=== PATIENT | female | born 1950 | race Caucasian/White ===

== ENCOUNTER 2019-02-18 09:39 | Outpatient (RCR) | payer MEDICARE, SELFPAY ==
--- NOTE | 2019-02-18 15:00 | PTOPEVAL ---
Thank you for referring this patient to [facility]. Please review, sign, date and return this plan of care CHIQUITA. I agree with and certify that the following plan of care is medically necessary. Referring Physician Date Admitting Provider: Attending Provider: Hamlet Cotto MD Referring Provider: *PT Outpatient Evaluation Start: 02/18/19 09:54 Freq: Status: Active Protocol: Document 02/18/19 09:55 MARC (Rec: 02/18/19 10:33 [id number]) Therapy Assessment Status Assessment Status Assessment Status Evaluation Evaluation Information Problem Diagnosis hip pain, trochanteric bursitis left Onset 12/02/18 Subjective Information Pt. reports that she began to Query Text:As Reported By Patient/ develop left hip pain in Family December. She report no particular injury, just woke with pain. She describes pain over the greater trochanter and into the left buttock. She reports that pain did radiate to the knee but had a shot which eased the leg pain. She reports her goal is to decrease her pain. Diagnostic Tests X-Rays For This Problem Yes Prior Level of Function Activity Level (Last 3 Months) Hand Dominance Right Activity of Daily Living Ability Independent Indoor/Home Mobility Independent Community Mobility Independent Stairs Ability Independent Functional Cognition (Planning, Shopping Independent , Taking Medications) Cooking Yes Cleaning Yes Laundry Yes Shopping Yes Driving Yes Pain Assessment Pain Scale Pain Scale Used Numeric (1 - 10) Self Report Pain Assessment Left Buttock(s) Reported Pain Level 3 Pain Aggravating Factors Prolonged Position,Sitting, Stair Climbing Pain Behaviors None Pain Relief Interventions Used By Position Change,Walking Patient Pain Score Pain Score 3: Self Report Cervical and Lumbar ROM Lumbar ROM Lumbar Flexion Active [place] Query Text:Hands to: Lumbar Extension (0-40) 20 Query Text:Active in Degrees Lumbar Lateral Flexion Right (0-40) 40 Query Text:Active in Degrees Lumbar Lateral Flexion Left (0-40) 40 Query Text:Active in Degrees
--- NOTE | 2019-04-16 17:29 | PTOPEVAL ---
Thank you for referring this patient to [facility]. Please review, sign, date and return this plan of care CHIQUITA. I agree with and certify that the following plan of care is medically necessary. Referring Physician Date Admitting Provider: Attending Provider: Hamlet Cotto MD Referring Provider: *PT Outpatient Evaluation Start: 02/18/19 09:54 Freq: Status: Active Protocol: Document 04/16/19 15:00 MARC (Rec: 04/16/19 17:29 [email or web address]) Therapy Assessment Status Assessment Status Assessment Status Re-evaluation Evaluation Information Problem Subjective Information Pt. reports that her left hip Query Text:As Reported By Patient/ is doing great. She denies Family any left hip pain. She reports recent development of right hip pain similar to the left. She reports that right hip pain is making sleep and walking difficult. she reports that she would like to continue treatment to reduce her right hip pain. Pain Assessment Pain Scale Pain Scale Used Numeric (1 - 10) Self Report Pain Assessment Right Hip(s) Reported Pain Level 5 Left Buttock(s) Reported Pain Level 0 Pain Score Pain Score 5,0: Self Report Cervical and Lumbar ROM Lumbar ROM Lumbar Flexion Active Ankle Query Text:Hands to: Lumbar Extension (0-40) 30 Query Text:Active in Degrees Lumbar Lateral Flexion Right (0-40) 40 Query Text:Active in Degrees Lumbar Lateral Flexion Left (0-40) 40 Query Text:Active in Degrees Lateral Rotation Right (0-45) 40 Query Text:Active in Degrees Lateral Rotation Left (0-45) 40 Query Text:Active in Degrees Lower Extremity Muscle Strength Testing General Lower Extremity Strength Gross Lower Extremity Strength bilateral hip flexion 5/5, right hip extension 4/5, left hip extension 4+/5, right hip abduction 4-/5, left hip abduction 4+/5, bilateral knee flexion 5/5, bilateral ankle dorsiflexion 5/5 Palpation Assessment Palpation Palpation Pt. notes tenderness to palpation of the right gluteal mm. to the greater trochanter . Gait Assessment Gait Assessment Additional Ambulation Comments Pt. ambulates with noted antalgia with slight right
--- NOTE | 2019-04-24 16:05 | PCPTNOTE ---
04/24/19-pt cancelled apt this date.-HM
== END 2019-05-01 14:45 | disposition home or self-care (01) ==
LOC: CHSPT 09:39
PROVIDERS: Visit Provider Orthopaedic Surgery
DX: M70.62 Trochanteric bursitis, left hip (principal)
CPT/HCPCS: 97014; 97110; 97112; 97140; 97161; 97530; G0283

== ENCOUNTER 2019-11-11 11:44 | Outpatient (CLI) | payer MEDICARE, SELFPAY ==
--- NOTE | ~2019-11-11 | US_ITS ---
EXAMINATION: US pelvic complete DATE: 11/11/2019 12:12 INDICATION: Right lower quadrant pain Comparison:No prior studies for comparison. TECHNIQUE: Multiple transabdominal and endovaginal sonographic images of the pelvis performed. FINDINGS: The uterus and ovaries are surgically absent. No adnexal masses or fluid collections. No ab normality in the right lower abdomen identified. IMPRESSION: 1. Unremarkable pelvic ultrasound post hysterectomy. Reviewed, dictated and finalized at location A.
[2019-11-11 12:00] LABS: Basophils Absolute Auto 0.04 K/mm3 (0.00-0.10); Basophils Percent Auto 0.8 % (0.0-1.0); Eosinophils Absolute Auto 0.04 K/mm3 (0.02-0.50); Eosinophils Percent Auto 0.8 % (1.0-6.0); Hematocrit 39.9 % (35.0-42.0); Hemoglobin 13.2 g/dL (11.7-13.8); Immature Granulocyte Absolute 0.01 K/mm3 (0.00-0.00); Immature Granulocyte Percent A 0.2 % (0.0-0.0); Lymphocytes Absolute Auto 1.94 K/mm3 (1.10-4.50); Mean Corpuscular HGB Conc 33.1 g/dL (32.0-36.0); Mean Corpuscular Hemoglobin 32.4 pg (27.0-31.0); Mean Corpuscular Volume 97.8 fL (78.0-102.0); Mean Platelet Volume 11.1 fl (9.2-11.8); Monocytes Absolute Auto 0.29 K/mm3 (0.10-0.90); Monocytes Percent Auto 5.5 % (2.0-11.0); Neutrophils Absolute Auto 2.9 K/mm3 (1.7-7.2); Neutrophils Percent Auto 55.7 % (50.0-70.0); Platelet Count Result 190 K/mm3 (150-420); Red Blood Count 4.08 M/mm3 (4.20-5.40); Red Cell Distribution Width 12.2 % (11.6-14.4); White Blood Count 5.2 K/mm3 (4.8-10.8)
[2019-11-11 12:22] LABS: Add Urine Microscopic? NO; Appearance Urine Clear (Clear); Bilirubin Urine Negative (Negative); Blood Urine Negative (Negative); Color Urine Yellow (Yellow); Glucose Urine UA Negative (Negative); Ketones Urine Negative (Negative); Leukocyte Esterase Ur Negative (Negative); Nitrate Urine Negative (Negative); Protein Urine Negative (Negative); Urobilinogen Urine 0.2 mg/dL (0.2-1.0); pH Urine 6.5 (5.0-8.0)
[2019-11-11 12:39] LABS: Alanine Aminotransferase 18 U/L (14-59); Albumin Level 3.8 g/dL (3.4-5.0); Alkaline Phosphatase 52 U/L (46-116); Amylase 75 U/L (25-115); Anion Gap 5 mmol/L (8-16); Aspartate Amino Transferase 13 U/L (15-37); Bilirubin,Total 0.4 mg/dL (0.00-1.00); Blood Urea Nitrogen 17 mg/dL (7-18); Calcium 9.2 mg/dL (8.5-10.1); Carbon Dioxide 30 mmol/L (21-32); Chloride 107 mmol/L (98-108); Estimated Glomerular Filt Rate > 60; Glucose 83 mg/dL (70-99); Lipase 206 U/L (73-393); Osmolality Calculated 294 mOsm/kg (285-295); Potassium 4.5 mmol/L (3.5-5.1); Sodium 142 mmol/L (136-145); Total Protein 6.6 g/dL (6.4-8.2)
== END 2019-11-11 11:45 | disposition home or self-care (01) ==
PROVIDERS: PCP Family Medicine; Visit Provider Family Medicine
DX: R10.31 Right lower quadrant pain (principal)
CPT/HCPCS: 36415; 76856; 80053; 81003; 82150; 83690; 85025

== ENCOUNTER 2019-11-18 09:28 | Outpatient (CLI) | payer MEDICARE, SELFPAY ==
--- NOTE | ~2019-11-18 | CT_ITS ---
EXAMINATION: CT abdomen pelvis w con EXAM DATE: 11/18/2019 09:56 INDICATION: Intermittent right lower quadrant pain. TECHNIQUE: Spiral CT of the abdomen and pelvis was performed following intravenous injection of 100 m L Omnipaque 350. Axial, coronal and sagittal images were reviewed. The dose-length product (DLP) fo r this examination was 407.81 mGy-cm. The exposure was tailored according to patient size (auto mA e xposure control), and iterative reconstruction (ASIR) was used as additional dose reduction technique . Correlation is made to CT pelvis 01/08/2005. FINDINGS: The liver, spleen, adrenal glands and pancreas are unremarkable. Gallbladder is unremarkab le. No biliary obstruction. Portal and splenic veins are patent. Kidneys enhance symmetrically. T here is no hydronephrosis. The uterus is not identified and has likely been surgically resected. T he bladder is unremarkable. There is no retroperitoneal or pelvic lymphadenopathy. Small umbilical fat-containing hernia. The appendix is not positively visualized. There is no pericecal inflammatory change to suggest appe ndicitis. The stomach and small bowel are unremarkable. There is expected amount of colonic stool. No free intraperitoneal gas. The heart is normal in size. There are no pericardial or pleural e ffusions. The lung bases are unremarkable. There is 5 mm sclerotic focus in L2 most likely solitary bone island. IMPRESSION: 1. No acute intra-abdominal findings. 2. Small umbilical fat-containing hernia. Reviewed, dictated and finalized at location A.
== END 2019-11-18 09:29 | disposition home or self-care (01) ==
PROVIDERS: PCP Family Medicine; Visit Provider Family Medicine
DX: R10.9 Unspecified abdominal pain (principal)
CPT/HCPCS: 74177; Q9965

== ENCOUNTER 2019-12-25 12:30 | Outpatient (CLI) | payer MEDICARE, SELFPAY ==
--- NOTE | ~2019-12-25 | MM_ITS ---
EXAMINATION: MM scrn mayo implant BI w earlene HISTORY: Screening mammogram TECHNIQUE: Craniocaudal and mediolateral oblique 3-D tomosynthesis images with implant displacement a nd synthetic 2-D images were generated. Craniocaudal and mediolateral oblique views of the breasts wi thout implant displacement were obtained using full field digital mammography. CAD analysis was submi tted and interpreted. COMPARISON: 12/22/2018, 11/19/2017, 10/31/2016 bilateral digital screening mammogram examinations BREAST PARENCHYMAL COMPOSITION: The breasts are heterogeneously dense, which may obscure small masses . FINDINGS: Status post bilateral augmentation mammoplasty There is no evidence of suspicious mass, jamila cification, or architectural distortion to suggest malignancy in either breast. There has been no fernanda picious interval change. IMPRESSION: 1. No mammographic evidence of malignancy. 2. Recommend routine screening mammography in one year. BI-RADS Category 1: Negative Reviewed, dictated and finalized at location A.
== END 2019-12-25 12:31 | disposition home or self-care (01) ==
LOC: CHSIMG 12:32
PROVIDERS: PCP Family Medicine; Visit Provider Family Medicine
DX: Z12.31 Encounter for screening mammogram for malignant neoplasm of breast (principal)
CPT/HCPCS: 77063; 77067

== ENCOUNTER 2020-03-10 15:21 | Outpatient (CLI) | payer MEDICARE, SELFPAY ==
[2020-03-10 16:26] LABS: Alanine Aminotransferase 16 U/L (4-35); Aspartate Amino Transferase 30 U/L (14-36)
== END 2020-03-10 15:22 | disposition home or self-care (01) ==
LOC: ANHLAB 15:26
PROVIDERS: PCP Family Medicine; Visit Provider Podiatrist Foot & Ankle Surgery
DX: B35.1 Tinea unguium (principal)
CPT/HCPCS: 36415; 84450; 84460

== ENCOUNTER 2020-04-01 11:46 | Outpatient (CLI) | payer MEDICARE, SELFPAY ==
[2020-04-02 13:28] LABS: SARS-CoV-2 RNA PCR Negative
== END 2020-04-01 11:47 | disposition home or self-care (01) ==
PROVIDERS: PCP Family Medicine; Visit Provider Family Medicine
DX: J01.90 Acute sinusitis, unspecified (principal)
CPT/HCPCS: C9803; U0003; U0005

== ENCOUNTER 2020-09-07 11:27 | Outpatient (CLI) | payer MEDICARE, SELFPAY ==
--- NOTE | ~2020-09-07 | XR_ITS ---
XR shoulder RT min 2V DATE: 09/07/2020 11:54 INDICATION: Right shoulder pain for 3 days TECHNIQUE: 4 views COMPARISON: None FINDINGS: No fracture or dislocation, periosteal reaction or bone destruction or abnormal soft tissue calcification. IMPRESSION: No significant abnormality Reviewed, dictated and finalized at location A. IMPRESSION: No significant abnormality
== END 2020-09-07 11:28 | disposition home or self-care (01) ==
LOC: CHSIMG 11:33
PROVIDERS: PCP Family Medicine; Visit Provider Family Medicine
DX: M25.511 Pain in right shoulder (principal)
CPT/HCPCS: 73030

== ENCOUNTER 2020-12-26 11:42 | Outpatient (CLI) | payer MEDICARE, SELFPAY ==
--- NOTE | ~2020-12-26 | MM_ITS ---
EXAMINATION: MM scrn mayo implant BI w earlene HISTORY: Screening mammogram TECHNIQUE: Craniocaudal and mediolateral oblique 3-D tomosynthesis images with implant displacement a nd synthetic 2-D images were generated. Craniocaudal and mediolateral oblique views of the breasts wi thout implant displacement were obtained using full field digital mammography. CAD analysis was submi tted and interpreted. COMPARISON: 12/25/2019, 12/22/2018, 11/19/2017 bilateral digital screening mammogram examinations BREAST PARENCHYMAL COMPOSITION: The breasts are heterogeneously dense, which may obscure small masses . FINDINGS: Status post bilateral augmentation mammoplasty. There is no evidence of suspicious mass, ca lcification, or architectural distortion to suggest malignancy in either breast. There has been no uriarte spicious interval change. IMPRESSION: 1. No mammographic evidence of malignancy. 2. Recommend routine screening mammography in one year. BI-RADS Category 1: Negative Reviewed, dictated and finalized at location A.
== END 2020-12-26 11:43 | disposition home or self-care (01) ==
LOC: CHSIMG 11:43
PROVIDERS: PCP Family Medicine; Visit Provider Family Medicine
DX: Z12.31 Encounter for screening mammogram for malignant neoplasm of breast (principal)
CPT/HCPCS: 77063; 77067

== ENCOUNTER 2020-12-30 13:03 | Outpatient (RCR) | payer MEDICARE, SELFPAY ==
--- NOTE | 2020-12-30 14:04 | PTOPEVAL ---
Thank you for referring Sharon Grady to [facility].? The patient is scheduled to be seen for therapy? ____x/week for ___ weeks. Please review, sign, date and return this plan of care CHIQUITA. I agree with and certify that the following plan of care is medically necessary. Referring Physician Date Admitting Provider: Attending Provider: Cory Cooper MD Referring Provider: *PT Outpatient Evaluation Start: 12/30/20 13:00 Freq: Status: Active Protocol: Document 12/30/20 13:01 ACR (Rec: 12/30/20 13:59 [email or web address]) Therapy Assessment Status Assessment Status Assessment Status Evaluation Evaluation Information Problem Diagnosis R shoulder pain Onset 12/31/19 Subjective Information Patient states that she was Query Text:As Reported By Patient/ pulling back a sun roof in the Family car and she felt a pop and the pain has been off and on ever since. She states that she has difficulty reaching above her head, holding her arms out at a [address], carrying her purse, lifting, and carrying groceries. Patient states that she got an x-ray of her shoulder which was negative. Patient states that her goal for therapy is for it to not hurt. Prior Level of Function Activity Level (Last 3 Months) Occupation retired Hand Dominance Right Activity of Daily Living Ability Independent Indoor/Home Mobility Independent Community Mobility Independent Stairs Ability Independent Functional Cognition (Planning, Shopping Independent , Taking Medications) Cooking Yes Cleaning Yes Laundry Yes Shopping Yes Driving Yes Pain Assessment Timing of Pain Assessment Timing of Pain Assessment Assessment Pain Scale Pain Scale Used Numeric (1 - 10) Self Report Pain Assessment Right Shoulder(s) Reported Pain Level 3 Pain Description Aching,Dull Greatest Pain Intensity 5 Pain Score Pain Score 3: Self Report Additional Pain Score Comments When pain first started it was a stabbing pain but now it is a dull ache. Interventions Used Interventions Used By Clinicians
--- NOTE | 2021-01-24 13:06 | PCPTNOTE ---
01/24/21 - mrs. valentino has not been back to therapy since her initial evaluation. as of this date, she will be dc'd from skilled PT services and all progress towards goals will be taken from her most recent evaluation/note. CARLIE
== END 2020-12-30 13:39 | disposition home or self-care (01) ==
LOC: CHSPT 13:03
PROVIDERS: PCP Family Medicine; Visit Provider Family Medicine
DX: M25.571 Pain in right ankle and joints of right foot (principal)
CPT/HCPCS: 97110; 97161

== ENCOUNTER 2021-05-25 12:54 | Outpatient (CLI) | payer MEDICARE, SELFPAY ==
--- NOTE | ~2021-05-25 | DEXA_ITS ---
Bone Density Report Name: LACY NOLAN Age: 70 Sex: Female Ethnicity: White Date of : 1950 Indication: postmenopausal; screening for osteoporosis; parental hip fracture; height loss; hysterectomy; Referring Provider: Cory Cooper Study: Bone densitometry was performed. Exam Date: May 25, 2021 Accession number: [id number] Bone Density: Region BMD T-score Z-score Classification AP Spine(L1-L4) 1.210 1.5 3.6 Normal Femoral Neck (Left) 0.838 -0.1 1.7 Normal Total Hip (Left) 1.069 1.0 2.6 Normal Femoral Neck (Right) 0.883 0.3 2.1 Normal Total Hip (Right) 1.083 1.2 2.7 Normal Femoral Neck Mean 0.861 0.1 1.9 Normal Total Hip Mean 1.076 1.1 2.6 Normal World Health Organization criteria for BMD impression classify patients as: Normal (T-score at or above -1.0), Osteopenia (T-score between -1.0 and -2.5), or Osteoporosis (T-score at or below -2.5). 10-year Fracture Risk: FRAX not reported because: All T-scores for Spine Total, Hip Total, Femoral Neck at or above -1.0 Clinical Information Provided by Patient: Parent has had a hip fracture Has used the following medications: Vitamin D Has the following medical conditions: Hysterectomy Patient maximum height was 62 Does not regularly consume dairy products Drinks caffeinated beverages Onset of menses at age 12 Number of children 2 Impression: The patient has normal bone mass. The patient has risk factors, including: parental hip fracture. Discussion: BONE DENSITY IS ABOVE THE MINIMUM DESIRABLE LEVEL AT ALL SKELETAL SITES TESTED. This patient?s bone mineral density is above the minimum desirable level (T-score -1.0 or better) at all sites measured. The patient should follow a healthful lifestyle (good nutrition with adequate calcium and vitamin D, and appropriate weight-bearing exercise). Follow-Up: Consider repeating this study in 5 years or sooner if there is some new clinical indication. Reported by: Dr. James Alexander on 05/25/2021 1:18:00 PM. Reviewed, dictated and finalized at location A.
== END 2021-05-25 12:55 | disposition home or self-care (01) ==
LOC: CHSIMG 12:56
PROVIDERS: PCP Family Medicine; Visit Provider Family Medicine
DX: Z78.0 Asymptomatic menopausal state (principal)
CPT/HCPCS: 77080

== ENCOUNTER 2021-06-20 09:26 | Outpatient (CLI) | payer MEDICARE, SELFPAY ==
--- NOTE | ~2021-06-20 | MM_ITS ---
EXAMINATION: MM diag mayo implant RT w earlene HISTORY: Substantial increase in size of right breast during recent physical therapy TECHNIQUE: Implant displaced ML, MLO and CC 3-D tomosynthesis images of the right breast were perform ed and synthetic 2-D images were generated. Implant ML, MLO and CC views. CAD analysis was submitted and interpreted. COMPARISON: 12/26/2020 bilateral implant screening mammogram BREAST PARENCHYMAL COMPOSITION: The breasts are heterogeneously dense, which may obscure small masses . FINDINGS: Interval enlargement of the breast implants silhouette with diminished density along the an terior and inferior aspects of the implant, suggesting implant rupture. No suspicious breast mass, architectural distortion, malignant calcification, skin thickening or retr action is noted. IMPRESSION: 1. Suspected implant rupture 2. MR breast examination should be considered for confirmation BI-RADS Category 0: Incomplete: Needs additional imaging evaluation. Reviewed, dictated and finalized at location A.
== END 2021-06-20 09:27 | disposition home or self-care (01) ==
LOC: CHSIMG 09:27
PROVIDERS: PCP Family Medicine; Visit Provider Nurse Practitioner Family
DX: N64.4 Mastodynia (principal); N63.0 Unspecified lump in unspecified breast
CPT/HCPCS: 77061; 77065; G0279

== ENCOUNTER 2021-06-25 17:24 | Emergency (ER) | payer MEDICARE, SELFPAY ==
[2021-06-25 17:30] VITALS: BP 125/65; PULSE 73; RESP 18; O2SAT 98
[2021-06-25 19:47] VITALS: BP 141/74; PULSE 66; RESP 16; O2SAT 100
--- NOTE | 2021-06-25 20:02 | ED.GENADULT ---
HPI - General Adult General Chief complaint: Unspecified Stated complaint: ruptured breast implant Time Seen by Provider: 06/25/21 19:00 History of Present Illness HPI narrative: Patient is a 70-year-old female who presents ER due to concerns for ruptured breast implant. Patient reports that on June 09 while doing some physical therapy she started having pain in her upper breast and chest wall. She has had a mammogram which showed implant rupture. She is scheduled to see Dr. Gutiérrez July 10 for further evaluation. She reports that swelling has increased in the superior aspect. It has her concerned due to the size which has grown. No fevers or chills or sweats. No discharge from the nipple. No other masses noted. No discoloration of the skin. Related Data Home Medications Medication Instructions Recorded Confirmed Unable to Obtain Home Medications 03/30/19 03/30/19 Allergies Allergy/AdvReac Type Severity Reaction Status Date / Time Penicillins Allergy Unknown Unknown Verified 05/05/19 09:39 Review of Systems Constitutional: Constitutional: Denies chills and Denies fever(s) Cardiovascular: Cardiovascular: Denies chest pain and Reports rapid heart rate Respiratory: Respiratory: Denies cough and Denies dyspnea Integumentary/Breasts: Skin/Breast: Reports breast swelling, Denies breast skin changes, Reports breast pain and Denies breast mass PMFSH Past Medical History Medical History (Updated 06/25/21 @ 20:11 by Ramón Mckeon MD) Chronic GERD COPD (chronic obstructive pulmonary disease) Depressed GERD (gastroesophageal reflux disease) History of anesthesia reaction Left hip pain Seasonal allergies Trochanteric bursitis Vertigo Vision abnormalities Weight gain Surgical History Surgical History Hx of breast implants, bilateral Family History Family History Mother Hypertension Unknown Arthritis Social History Social History Smoking status: Former smoker Smoking end date: 03/04/83 Alcohol intake: current Exam Narrative: GENERAL: Well-appearing, well-nourished, and in no acute distress. HEAD: Normocephalic, atraumatic. CHEST: Clear to auscultation. No respiratory distress. HEART: Regular rate and rhythm. Normal peripheral pulses. Breasts: Right breast with significant large mass superior aspect when compared to the left side. No discoloration of skin. Normal-appearing nipples. EXTREMITIES: Normal range of motion. No edema. SKIN: Warm, dry, no rash. NEURO: Alert and oriented x3. PSYCH: Normal mood and affect. Course Course Emergency Course: Work-up consistent with ruptured implant. Discussed case with Dr. Gutiérrez. He would like the patient to contact his office tomorrow morning. She will need an in office ultrasound for further evaluation. Discussed that gel is likely come out of the implant which is silicone and it will need to settle down before he can perform surgery. Patient has been educated in regards to this. Discussed avoiding any direct compression of the breast. She may take anti-inflammatories. Vital Signs Vital signs: Vital Signs Pulse Rate 73 06/25/21 17:30 Respiratory Rate 18 06/25/21 17:30 Blood Pressure 125/65 06/25/21 17:30 Pulse Oximetry 98 06/25/21 17:30 Pulse Rate 66 06/25/21 19:47 Respiratory Rate 16 06/25/21 19:47 Blood Pressure 141/74 H 06/25/21 19:47 Pulse Oximetry 100 06/25/21 19:47 Medical Decision Making Vital Signs Vital Signs: Vital Signs Pulse Rate 73 06/25/21 17:30 Respiratory Rate 18 06/25/21 17:30 Blood Pressure 125/65 06/25/21 17:30 Pulse Oximetry 98 06/25/21 17:30 Pulse Rate 66 06/25/21 19:47 Respiratory Rate 16 06/25/21 19:47 Blood Pressure 141/74 H 06/25/21 19:47 Pulse Oximetry 100 06/25/21 19:47 Discharge Plan
== END 2021-06-25 20:25 | disposition home or self-care (01) ==
PROVIDERS: Emergency Provider Emergency Medicine; PCP Family Medicine
DX: T85.41XA Breakdown (mechanical) of breast prosthesis and implant, initial encounter (principal); K21.9 Gastro-esophageal reflux disease without esophagitis; J44.9 Chronic obstructive pulmonary disease, unspecified; Z87.891 Personal history of nicotine dependence
CPT/HCPCS: 99281

== ENCOUNTER 2021-07-25 12:58 | Outpatient (CLI) | payer OTHER, SELFPAY ==
--- NOTE | 2021-07-25 13:07 | ECG_ITS ---
Measurements Intervals [place] Rate: 72 P: 56 [place]: 125 QRS: -28 QRSD: 84 T: -31 QT: 355 QTc: 388 Interpretive Statements SINUS RHYTHM RSR' IN V1 OR V2, CONSIDER RIGHT VENTRICULAR HYPERTROPHY OR RIGHT VCD DELAYED PRECORDIAL R/S TRANSITION BORDERLINE T WAVE ABNORMALITY- ANTEROLAT/INF LEADS BASELINE ARTIFACT- I, III, AVR, AVL, AVF BORDERLINE ECG Electronically Signed On 07-25-2021 13:25:46 CDT by Eduin Schwartz D.O.
== END 2021-07-25 12:59 | disposition home or self-care (01) ==
LOC: ANHSURGERY 13:01
PROVIDERS: PCP Family Medicine; Visit Provider Surgery Plastic and Reconstructive Surgery
DX: Z01.818 Encounter for other preprocedural examination (principal); F17.210 Nicotine dependence, cigarettes, uncomplicated
CPT/HCPCS: 93005

== ENCOUNTER 2021-07-27 00:46 | Day surgery (SDC) | payer OTHER, SELFPAY ==
[2021-07-24 12:59] VITALS: BMI 24.8
--- NOTE | 2021-07-24 13:04 | PC.NURSE ---
Report to the Outpatient Waiting Room, entrance under the green pavilion located off [facility], at time _0600_ on date _07/27/21_. OR Time: _0730_. - You and your visitor will be asked a series of questions to screen for COVID 19 for your protection. - Only one visitor is allowed at this time. - The patient visitor is requested to leave or wait in car when not with patient. - A mask is required within the hospital. Patients may have clear liquids (water, carbonated beverages, clear teas, apple juice) until 3 hours prior to surgery (0430 AM) with a maximum of 20 ounces. - No food from midnight until time of surgery Take the following medications with a SIP of water the morning of surgery: _ALPRAZOLAM, BUPROPION_ Medications to discontinue per ANESTHESIA - VITAMIN D3, Date to take last dose OF TODAY 07/24/21_ Please no make-up, nail colombian, hairspray, perfume, deodorant, or body powder the day of surgery. No jewelry (including any body piercings) or valuables the day of surgery, leave them at home. Please take a shower or bath the night before, or the morning of, surgery with an antibacterial soap. Wear comfortable, loose fitting clothing. - Jewelry must be removed prior to entering the operating room. Rings and piercings that are not removed may be cut off. - The hospital will not accept responsibility for valuables. - Please leave all valuables, including medications, at home the day of surgery. If you are going home after surgery, a licensed class c driver must drive you home. - NO public transportation without another adult. - We recommend that an adult stay with you for 24 hours following discharge. - We also recommend that you do not drive, make important decision, drink alcoholic beverages, or take any drugs that were not prescribed by your health care provider for at least 24 hours after your discharge time. Follow any additional instructions given to you from your surgeon. If you or anyone in your household have experienced Covid symptoms in the past week, please notify your surgeon or the nurse liaison at the phone number below for possible testing. Telephone instructions given to ____PT and asked if any additional questions and then verbalized understanding. Patient advised to call surgeon office or pre surgery nurse liaison [phone] if any additional questions.
[2021-07-27] VITALS (8 sets, daily range): BP systolic 96–118; BP diastolic 54–84; PULSE 64–79; RESP 10–16; TEMP 36–36.2; O2SAT 93–100
--- NOTE | 2021-07-27 06:40 | WPDANESEPPF ---
Anes - Initial Pre Proc Eval Procedure: Operation Date: 07/27/21 07:30 Proposed Procedures p Removal Bilateral Breast Implants with Capsulectomy - Casper Valerio MD Date/Time: 07/27/21 06:40 Surgeon: Casper Valerio MD Pre Op Diagnosis: bilat breast implant rupture Patient Data Age: 70 Gender: F Height: 1.52 m Weight: 58.3 kg Last Vital Signs Temp 36.2 C L 07/27/21 06:15 Pulse 79 07/27/21 06:15 Resp 16 07/27/21 06:15 BP 103/58 L 07/27/21 06:15 Pulse Ox 97 07/27/21 06:15 O2 Del Method Room Air 07/27/21 06:15 Allergies Allergy/AdvReac Type Severity Reaction Status Date / Time Penicillins Allergy Unknown Unknown- Verified 07/27/21 06:22 A CHILD Home Medications Medication Instructions Recorded Confirmed Type alprazolam 0.5 mg tablet (Xanax) 0.25 mg PO BID 07/10/21 07/27/21 History bupropion HCl 150 mg tablet,12 hr 150 mg PO QAM 07/10/21 07/27/21 History sustained-release (Wellbutrin SR) cholecalciferol (vitamin D3) 125 mcg PO QAM 07/10/21 07/27/21 History lamotrigine 50 mg tablet,extended 50 mg PO HS 07/10/21 07/27/21 History release 24 hr (Lamictal XR) trazodone 100 mg tablet 100 mg PO QHS PRN Sleep 07/10/21 07/27/21 History docusate sodium 100 mg capsule 100 mg PO DAILY #14 caps 07/19/21 07/27/21 Rx (Colace) hydrocodone 5 mg-acetaminophen 325 1 tablet PO Q6H PRN pain #30 tabs 07/24/21 07/27/21 Rx mg tablet Patient hx anesthesia problems: none Family hx anesthesia problems: none Results Review: All pre-operative results and documents have been reviewed as part of the pre-operative evaluation. [facility] Past Medical History Medical History Chronic GERD COPD (chronic obstructive pulmonary disease) Depressed GERD (gastroesophageal reflux disease) History of anesthesia reaction Left hip pain Seasonal allergies Trochanteric bursitis Vertigo Vision abnormalities Weight gain Surgical History Surgical History (Updated 07/27/21 @ 06:41 by Александр Hernandez MD) H/O colonoscopy History of esophagogastroduodenoscopy (EGD) Hx of breast implants, bilateral Family History Family History Mother Hypertension Unknown Arthritis Social History Social History Smoking packs per day: 1 Smoking cigarettes per day: 20.0 Years smoked: 25 Smoking pack-years: 25.00 Smoking status: Former smoker Tobacco type: cigarettes Second hand tobacco smoke exposure: No Smoking end date: 03/04/83 Alcohol intake: current Alcohol use details: 1 BOTTLE OF WINE/WEEK Substance use: never Substance use type: does not use Living arrangements: with family Spiritual care concerns: No Anes - Eval Final PreProcedure Day of Procedure 07/27/21 06:40 Patient weight: normal Heart: regular rate and rhythm Airway: Mallampati scale class II Neurological: alert and oriented ASA classification: III Emergent: no Anesthesia type and monitoring: general LMA Results Review: All pre-operative results and documents have been reviewed as part of the pre-operative evaluation. Informed Consent: The patient's anesthetic plan and its attendant risks and benefits were discussed with the patient/family/POA. Questions were solicited and answers provided to the satisfaction of the patient/family/POA.
[2021-07-27] MEDS: LACTATED RINGERS 1,000 ML 30 ML IV CONT ×2 (06:42→09:22)
--- NOTE | 2021-07-27 06:44 | W.PM.PROC2 ---
Procedure Note - Detailed Date of Procedure 07/27/21 Pre-op Diagnosis bilat breast implant rupture Post-op Diagnosis Same Procedure Performed Bilateral breast implant removal Surgeon Casper Valerio MD Anesthesia General Findings Right ruptured breast implant. 420cc Hernando textured. Right seroma 200cc, straw colored, sent to pathology. Left implant inatct. 420cc Hernando textured. Left seroma 10cc. No fluid sent. Description of Procedure Previously and again today the risks, benefits, alternatives were discussed in extensive detail. I want her to be very realistic about the risks involved as well as expectations. She understands she will have a degree of ptosis after the procedure. She states she would proceed with a second-stage mastopexy (at her expense) if desired. Further we discussed her options in regards to drain management. She would like proceed without drains understanding the literature on this as well as the risk that she will need additional procedure should she develop a seroma or other fluid collection. I was making sure she was well informed about her options on this prior to proceeding. All questions were answered to her satisfaction today. Consent obtained. Patient was marked in the preoperative holding area with her verification. She was taken to the operating room placed supine on the operating room table. Anesthesia provided by anesthesiology and prepped and draped in a standard sterile fashion. Surgical time-out was taken. 1% lidocaine and 0.25% Marcaine with epinephrine used used to anesthetize as a field block. Fifteen blade used to make an IMF incision and dissection was continued down until the capsules were identified. I completed a total capsulectomy bilatera. Findings as above. I then copiously irrigated with more than 3 L of saline containing solution on TUR tubing. Also soaked the pockets with betadine solution. I verified strick hemostasis. Placed hemaderm powder bilateral. I closed with 2-0 Vicryl followed by 3-0 strata fix and running subcuticular 4-0 Monocryl. Steri-Strips were placed. Patient was awoke and taken to the PACU without difficulty. All instrument sponge counts were correct at the end of the case. Estimated Blood Loss 50 Drains No Packing No Pathology Yes (Bilateral implant capsules. Right perimplant, intracapsular seroma.) Complications No immediate complications Condition Stable Disposition PACU
--- NOTE | 2021-07-27 07:00 | WPDHPUPDATE1 ---
History and Physical Update Update Date/Time: 07/27/21 07:00 History and Physical has been reviewed, including an updated exam of the patient. There are NO changes in the patient's condition. Risks, benefits, and alternatives have been discussed and questions answered. Patient agrees to proceed with procedure.
[2021-07-27] MEDS: ceFAZolin 2 GM/D5W 50 ML 2 GM/50 ML BAG IVPB (07:24)
[2021-07-27] MEDS: LIDO 1%/EPINEPHRINE/PF 1:200,000 30 ML VIAL XX (08:25)
[2021-07-27] MEDS: NACL 0.9% IRRIG POUR BOTTLE 900 ML, GENTAMICIN SULFATE INJ 160 MG, CLINDAMYCIN PHOS INJ... IRRIGATION (08:54)
[2021-07-27] MEDS: fentaNYL CITRATE INJ (*CRX) 100 MCG/2 ML VIAL 25 MCG IV PUSH ×4 (09:38→09:59)
--- NOTE | 2021-07-27 09:47 | SUR.PHASEI ---
0945: Simple mask removed.
[2021-07-27] MEDS: oxyCODONE HCL (*CRX) 5 MG TAB IR PO (10:30)
== END 2021-07-27 11:15 | disposition home or self-care (01) ==
PROVIDERS: PCP Family Medicine; Visit Provider Surgery Plastic and Reconstructive Surgery
PROC: 0HPT0JZ Removal of Synthetic Substitute from Right Breast, Open Approach (ICD-10-PCS; CPT 19371; principal; 2021-07-27 07:30)
DX: T85.41XA Breakdown (mechanical) of breast prosthesis and implant, initial encounter (principal); N64.89 Other specified disorders of breast; Y83.8 Other surgical procedures as the cause of abnormal reaction of the patient, or of later complication, without mention of misadventure at the time of the procedure; J44.9 Chronic obstructive pulmonary disease, unspecified; K21.9 Gastro-esophageal reflux disease without esophagitis; F32.9 Major depressive disorder, single episode, unspecified; Z87.891 Personal history of nicotine dependence
CPT/HCPCS: 19371; 19325; 88104; 88108; 88184; 88185; 88304; 88305; A9270; J0330; J0690; J1100; J1580; J2250; J2405; J2704; J3010; J7120

== ENCOUNTER 2021-09-15 14:31 | Outpatient (CLI) | payer MEDICARE, SELFPAY ==
--- NOTE | ~2021-09-15 | XR_ITS ---
EXAMINATION: XR chest 2V 09/15/2021 14:50 INDICATION: Shortness of breath and chest soreness PROCEDURE: 2 view chest COMPARISON: 12/19/2016 FINDINGS: The lungs are clear. The cardiomediastinal silhouette is within normal limits. There are no pleural effusions. There is no pneumothorax suspected. There are bilateral calcified granulomas of the lung parenchyma. There is atherosclerosis of the aorta. The lungs are hyperinflated which is c onsistent with, but not diagnostic of chronic obstructive pulmonary disease. IMPRESSION: 1: NO ACUTE CARDIOPULMONARY DISEASE. Reviewed, dictated and finalized at location A.
== END 2021-09-15 14:32 | disposition home or self-care (01) ==
PROVIDERS: PCP Family Medicine; Visit Provider Family Medicine
DX: R06.02 Shortness of breath (principal)
CPT/HCPCS: 71046

== ENCOUNTER 2022-03-28 07:59 | Outpatient (CLI) | payer MEDICARE, SELFPAY ==
--- NOTE | ~2022-03-28 | US_ITS ---
Ultrasound of the right lower quadrant CLINICAL HISTORY: Abdominal mass, right lower quadrant pain TECHNIQUE: Transabdominal scanning of the right lower quadrant was performed. FINDINGS: No abnormal mass lesion seen. No fluid collection or free fluid identified. IMPRESSION: No significant abnormality seen in the region scanned. Consider cross-sectional imaging to further ev aluate for mass lesion, if clinically indicated. Reviewed, dictated and finalized at location . EN PRINTER IMPRESSION: No significant abnormality seen in the region scanned. Consider cross-sectional imaging to further evaluate for mass lesion, if clinically indicated.
[2022-03-28 09:36] LABS: Alanine Aminotransferase 16 U/L (14-59); Aspartate Amino Transferase 16 U/L (15-37)
== END 2022-03-28 08:00 | disposition home or self-care (01) ==
PROVIDERS: PCP Family Medicine; Visit Provider Nurse Practitioner Family
DX: B35.1 Tinea unguium (principal); R19.00 Intra-abdominal and pelvic swelling, mass and lump, unspecified site
CPT/HCPCS: 36415; 76705; 84450; 84460

== ENCOUNTER 2022-06-19 10:03 | Outpatient (CLI) | payer MEDICARE, SELFPAY ==
[2022-06-19 11:07] LABS: Alanine Aminotransferase 7 U/L (14-59); Aspartate Amino Transferase 15 U/L (15-37)
== END 2022-06-19 10:04 | disposition home or self-care (01) ==
LOC: CHSLAB 10:07
PROVIDERS: PCP Family Medicine; Visit Provider Podiatrist Foot & Ankle Surgery
DX: B35.1 Tinea unguium (principal)
CPT/HCPCS: 36415; 84450; 84460

== ENCOUNTER 2022-06-22 11:48 | Outpatient (CLI) | payer MEDICARE, SELFPAY ==
--- NOTE | ~2022-06-22 | MM_ITS ---
EXAMINATION: MM screening [facility] BI w earlene HISTORY: Screening mammogram TECHNIQUE: Craniocaudal and mediolateral oblique 3-D tomosynthesis images were obtained and synthetic 2-D images were generated. CAD analysis was submitted and interpreted. COMPARISON: 06/20/2021, 12/26/2020, 12/25/2019 BREAST PARENCHYMAL COMPOSITION: The breasts are heterogeneously dense, which may obscure small masses . FINDINGS: There are been interval explantation bilateral breast implants. No suspicious mass, calcifi cation, or architectural distortion are identified in either breast to suggest malignancy. There has been no suspicious interval change. IMPRESSION: 1. No mammographic evidence of malignancy. 2. Recommend routine screening mammography in one year. BI-RADS Category 1: Negative Reviewed, dictated and finalized at location A.
== END 2022-06-22 11:49 | disposition home or self-care (01) ==
LOC: CHSIMG 11:50
PROVIDERS: PCP Family Medicine; Visit Provider Family Medicine
DX: Z12.31 Encounter for screening mammogram for malignant neoplasm of breast (principal)
CPT/HCPCS: 77063; 77067

== ENCOUNTER 2022-07-13 07:59 | Emergency (ER) | payer MEDICARE, SELFPAY ==
[2022-07-13 08:05] VITALS: BP 107/85; PULSE 99; RESP 20; TEMP 37.1; O2SAT 98
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
--- NOTE | 2022-07-13 08:34 | ED.PSYCH ---
HPI - Psych General Chief Complaint: Psychiatric Symptoms Stated Complaint: SOB Time Seen by Provider: 07/13/22 08:33 Source: patient, family and RN notes reviewed Mode of arrival: ambulatory Limitations: no limitations History of Present Illness HPI Narrative: states that he noticed patient becoming manic 2 days ago. He had urged her to try to call her doctor but she did not. He said that she has been up all night searching for mold and complained about being short of breath. She is not short of breath on arrival. He says he has been dealing with this since 1984. She has not had admission to the hospital in over year. He is not sure if she is taking any of her medications. She denies being suicidal homicidal. She says that she just wished that she could get some rest. She otherwise does not have any other complaints. MD complaint: altered mental status Onset (ago): day(s) (2) Duration: constant and getting worse History of same: Yes Relieving factors: none Exacerbating factors: none Associated symptoms: denies other symptoms Treatments prior to arrival: none Related Data Home Medications Medication Instructions Recorded Confirmed alprazolam 0.5 mg tablet (Xanax) 0.25 mg PO BID 07/10/21 07/13/22 bupropion HCl 150 mg tablet,12 hr 150 mg PO QAM 07/10/21 07/13/22 sustained-release (Wellbutrin SR) lamotrigine 50 mg tablet,extended 50 mg PO HS 07/10/21 07/13/22 release 24 hr (Lamictal XR) trazodone 100 mg tablet 100 mg PO QHS PRN Sleep 07/10/21 07/13/22 ipratropium bromide 21 mcg (0.03 2 spray intranasal BID 07/13/22 07/13/22 %) nasal spray terbinafine HCl 250 mg tablet 250 mg PO DAILY 07/13/22 07/13/22 Allergies Allergy/AdvReac Type Severity Reaction Status Date / Time Penicillins Allergy Unknown Unknown- Verified 07/13/22 08:33 A CHILD Review of Systems Review of Systems: All systems reviewed & are unremarkable except as noted in HPI and below PMFSH Past Medical History Medical History (Updated 07/13/22 @ 10:23 by Huy Lynne MD) Bipolar 1 disorder Chronic GERD COPD (chronic obstructive pulmonary disease) Depressed GERD (gastroesophageal reflux disease) History of anesthesia reaction Left hip pain Seasonal allergies Trochanteric bursitis Vertigo Vision abnormalities Weight gain Surgical History Surgical History (Updated 07/13/22 @ 10:03 by Huy Lynne MD) H/O colonoscopy History of esophagogastroduodenoscopy (EGD) Hx of breast implants, bilateral Family History Family History Mother Hypertension Unknown Arthritis Social History Social History Smoking packs per day: 1 Smoking cigarettes per day: 20.0 Years smoked: 25 Smoking pack-years: 25.00 Smoking status: Former smoker Tobacco type: cigarettes Second hand tobacco smoke exposure: No Smoking end date: 03/04/83 Alcohol intake: current Alcohol use details: 1 BOTTLE OF WINE/WEEK Substance use: never Substance use type: does not use Living arrangements: with family Spiritual care concerns: No Exam Const: General: healthy appearing, no acute distress and alert Nutritional Appearance: well nourished Orientation/consciousness: patient oriented x3 Limitations: no limitations HENMT: Head: normal to inspection Ears: external ears normal Face/Nose/Sinus: Normal external nose present Face and sinus: normal facial exam Mouth: Yes Normal oral and palatal mucosa present Eyes: Conjunctivae: conjunctivae normal Pupils: Equal, round and reactive pupils present EOM: EOMs intact bilaterally Neck: Neck: normal visual inspection Resp: Effort & Inspection: normal respiratory effort Auscultation: clear to auscultation bilaterally Cardio: Rate: regular rate Rhythm: regular rhythm GI: GI Palp: Yes Soft to palpation and No Tenderness to palpation present (GI) Auscultation: svetlana
[2022-07-13 09:02] LABS: Basophils Absolute Auto 0.02 K/mm3 (0.00-0.10); Basophils Percent Auto 0.3 % (0.0-1.0); Eosinophils Absolute Auto 0.02 K/mm3 (0.02-0.50); Eosinophils Percent Auto 0.3 % (1.0-6.0); Hematocrit 36.7 % (35.0-42.0); Hemoglobin 12.5 g/dL (11.7-13.8); Immature Granulocyte Absolute 0.02 K/mm3 (0.00-0.00); Immature Granulocyte Percent A 0.3 % (0.0-0.0); Lymphocytes Absolute Auto 1.09 K/mm3 (1.10-4.50); Lymphocytes Percent Auto 14.1 % (18.0-42.0); Mean Corpuscular HGB Conc 34.1 g/dL (32.0-36.0); Mean Corpuscular Hemoglobin 32.3 pg (27.0-31.0); Mean Corpuscular Volume 94.8 fL (78.0-102.0); Mean Platelet Volume 10.3 fl (9.2-11.8); Monocytes Absolute Auto 0.61 K/mm3 (0.10-0.90); Monocytes Percent Auto 7.9 % (2.0-11.0); Neutrophils Percent Auto 77.1 % (50.0-70.0); Platelet Count Result 222 K/mm3 (150-420); Red Blood Count 3.87 M/mm3 (4.20-5.40); White Blood Count 7.7 K/mm3 (4.8-10.8)
[2022-07-13 09:11] LABS: Appearance Urine Clear (Clear); Bilirubin Urine Negative (Negative); Blood Urine Negative (Negative); Color Urine Light Yellow (Yellow); Glucose Urine UA Negative (Negative); Ketones Urine 1+ (Negative); Leukocyte Esterase Ur Trace LEU/UL (Negative); Nitrate Urine Negative (Negative); Protein Urine Negative (Negative); Urobilinogen Urine 0.2 mg/dL (0.2-1.0)
[2022-07-13 09:16] LABS: Add Urine Microscopic? NO
[2022-07-13 09:17] LABS: Bacteria Urine Rare /hpf; RBC Urine None seen /hpf (0-2); Squamous Epithelial Cell Urine Rare /hpf (Few); WBC Urine None seen /hpf (0-3)
[2022-07-13 09:18] LABS: Amphetamine Screen Urine Negative (Negative); Barbiturate Screen Urine Negative (Negative); Benzodiazepines Screen Urine Negative (Negative); Cannabinoid Screen Urine Positive (Negative); Cocaine Screen Urine Negative (Negative); Methadone Screen Urine Negative (Negative); Opiate Screen Urine Negative (Negative); Phencyclidine Screen Urine Negative (Negative)
--- NOTE | 2022-07-13 09:26 | PC.NURSE ---
Pt was provided with breakfast tray consisting of juice, scrambled eggs, sausage patties, and toast. PT states not hungry for eggs and sausage. PT given banana and decaf coffee. HOB elevated. Call light in reach. PT voices no other needs at this time.
[2022-07-13 09:27] LABS: Alanine Aminotransferase 26 U/L (14-59); Albumin Level 4.1 g/dL (3.4-5.0); Alkaline Phosphatase 58 U/L (46-116); Anion Gap 9 mmol/L (8-16); Aspartate Amino Transferase 20 U/L (15-37); Bilirubin,Total 0.6 mg/dL (0.00-1.00); Blood Urea Nitrogen 11 mg/dL (7-18); Calcium 8.6 mg/dL (8.5-10.1); Carbon Dioxide 29 mmol/L (21-32); Chloride 103 mmol/L (98-108); Estimated Glomerular Filt Rate > 60; Glucose 102 mg/dL (70-99); Osmolality Calculated 291 mOsm/kg (285-295); Potassium 3.6 mmol/L (3.5-5.1); Salicylate 0.5 mg/dL (2.8-20.0); Sodium 141 mmol/L (136-145); Thyroid Stimulating Hormone 1.16 uIU/mL (0.36-3.74)
[2022-07-13 09:28] LABS: Acetaminophen < 2 ug/mL (10-30); Ethanol < 3 mg/dL (0-6)
[2022-07-13] MEDS: OLANZapine 10 MG, WATER, STERILE FOR INJECTION 2.1 ML IM (09:43)
[2022-07-13 10:08] VITALS: BP 113/68; PULSE 67; RESP 16; TEMP 37.1; O2SAT 96
--- NOTE | 2022-07-13 10:25 | PC.NURSE ---
Pt wanting either her sister or niece to drive her home. Per pt sister does not actually drive so requesting RN to call Ann, chong, for ride. Attempted to reach Ann unsuccessfully. PT requesting RN to contact [facility] for someone to drive her home, explained this is not an option. Pt states will go home with and plans on going to bed for rest.
== END 2022-07-13 10:40 | disposition home or self-care (01) ==
PROVIDERS: Emergency Provider Emergency Medicine; PCP Family Medicine
DX: F31.89 Other bipolar disorder (principal); J44.9 Chronic obstructive pulmonary disease, unspecified; Z87.891 Personal history of nicotine dependence; Z79.899 Other long term (current) drug therapy
CPT/HCPCS: 36415; 80053; 80307; 81003; 84443; 85025; 96372; 99283

== ENCOUNTER 2022-07-14 10:04 | Emergency (ER) | payer MEDICARE, SELFPAY ==
--- NOTE | ~2022-07-14 | XR_ITS ---
EXAMINATION: XR chest 1V 07/14/2022 13:02 INDICATION: Altered mental status PROCEDURE: PA view of the chest COMPARISON: 09/15/2021 FINDINGS: The lungs are clear. The cardiomediastinal silhouette is within normal limits. There are no pleural effusions. There is no pneumothorax suspected. There are calcified granulomas in the rig ht lower lung. IMPRESSION: 1: NO ACUTE CARDIOPULMONARY DISEASE. Reviewed, dictated and finalized at location A.
--- NOTE | ~2022-07-14 | CT_ITS ---
EXAMINATION: CT BRAIN W/O DATE: 07/14/2022 13:00 INDICATION: Altered mental status TECHNIQUE: Computed tomography (CT) of the head was performed without intravenous contrast. The dose- length product was 605.33 mGy-cm. Automated exposure control and iterative reconstruction technique w ere employed. COMPARISON: No prior studies for comparison. FINDINGS: Normal brain parenchymal volume for age. Normal hernandez-white differentiation. No acute intrac ranial hemorrhage, infarction, mass or mass effect. No ventriculomegaly or midline shift. Midline sagittal images demonstrate a normal corpus callosum, c raniovertebral junction and sella turcica. Basilar cisterns are patent. Paranasal sinuses and mastoids are pneumatized. No depressed skull fractures. IMPRESSION: 1. No acute intracranial abnormality. Reviewed, dictated and finalized at location A.
[2022-07-14 09:59] VITALS: BP 157/79; PULSE 77; RESP 16; TEMP 37.6; O2SAT 100
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
[2022-07-14] MEDS: THIAMINE HCL 200 MG/2 ML VIAL 100 MG IV PUSH (11:49)
[2022-07-14] MEDS: HALOPERIDOL LACTATE 5 MG/ML VIAL IM ×2 (11:49→18:39)
[2022-07-14] MEDS: LORazepam INJ (*CRX) 2 MG/ML VIAL 1 MG IV PUSH ×2 (11:49→18:36)
[2022-07-14 12:07] LABS: Basophils Percent Auto 0.4 % (0.2-1.2); Eosinophils Percent Auto 0.3 % (0-4.4); Hematocrit 40.7 % (37.0-47.0); Hemoglobin 13.6 g/dL (12.0-15.0); Immature Granulocyte Absolute 0.02 K/mm3 (0.00-0.031); Immature Granulocyte Percent A 0.3 % (0-0.5); Lymphocytes Absolute Auto 1.78 K/mm3 (0.9-3.2); Lymphocytes Percent Auto 24.7 % (18.3-44.2); Mean Corpuscular HGB Conc 33.4 g/dl (32-36); Mean Corpuscular Hemoglobin 32.2 pg (26-34); Mean Corpuscular Volume 96.2 fl (80-100); Mean Platelet Volume 10.3 fl (7.4-10.4); Monocytes Absolute Auto 0.6 K/mm3 (0.1-0.6); Monocytes Percent Auto 8.9 % (2.6-8.5); Neutrophils Absolute Auto 4.7 K/mm3 (1.3-6.7); Neutrophils Percent Auto 65.4 % (45.5-73.1); Platelet Count Result 255 k/mm3 (150-375); Red Blood Count 4.23 M/mm3 (4.2-5.4); Red Cell Distribution Width 12.4 % (11.5-14.5); White Blood Count 7.2 K/mm3 (4.5-10.0)
[2022-07-14 12:16] LABS: Lactic Acid Reflex 1.4 mmol/L (0.7-2.0)
[2022-07-14 12:17] LABS: Alanine Aminotransferase 26 U/L (6-35); Albumin Level 5.2 g/dL (3.5-5.1); Alkaline Phosphatase 73 U/L (38-126); Anion Gap 11 mmol/L (8-16); Aspartate Amino Transferase 38 U/L (14-36); Bilirubin,Total 0.5 mg/dL (0.2-1.3); Blood Urea Nitrogen 14 mg/dL (7-17); Calcium 9.3 mg/dL (8.4-10.2); Carbon Dioxide 28 mmol/L (22-30); Chloride 103 mmol/L (98-107); Estimated CRCL calculation 40 ml/min; Estimated Glomerular Filt Rate > 60; Glucose 103 mg/dL (65-110); Potassium 3.2 mmol/L (3.4-5.0); Sodium 142 mmol/L (137-145)
[2022-07-14 13:02] LABS: Acetaminophen < 10 ug/mL (10-30); Ethanol < 10 mg/dL (<10); Salicylate < 1.0 mg/dL (2-20)
[2022-07-14] MEDS: POTASSIUM CHLORIDE 20 MEQ PACKET (FOR LIQUID) 40 MEQ PO (13:24)
[2022-07-14 13:27] LABS: Magnesium 1.8 mg/dL (1.6-2.3)
[2022-07-14 13:40] LABS: Appearance Urine Clear (Clear); Bacteria Urine None Seen /hpf; Bilirubin Urine Negative (Negative); Blood Urine Negative (Negative); Color Urine Yellow (Yellow); Glucose Urine UA Negative (Negative); Ketones Urine Negative (Negative); Leukocyte Esterase Ur Trace LEU/UL (Negative); Nitrate Urine Negative (Negative); Non Pathogenic Casts 0-2; Protein Urine Negative (Negative); RBC Urine 0-2 /hpf (0-2); Specific Grav Ur 1.007 (1.001-1.035); Squamous Epithelial Cell Urine None seen /hpf (Few); Urobilinogen Urine 0.2 mg/dL (<2.0); WBC Urine 0-5 /hpf; pH Urine 6.5 (5.0-9.0)
--- NOTE | 2022-07-14 13:47 | ECG_ITS ---
Measurements Intervals [place] Rate: 72 P: 39 MT: 143 QRS: -33 QRSD: 104 T: -30 QT: 369 QTc: 405 Interpretive Statements SINUS RHYTHM ATRIAL PREMATURE COMPLEX LEFT AXIS DEVIATION RSR' IN V1 OR V2, CONSIDER RIGHT VENTRICULAR HYPERTROPHY OR RIGHT VCD BORDERLINE ST-T WAVE ABNORMALITY- ANTEROLAT/INF LEADS BASELINE WANDER- V3 BORDERLINE ECG COMPARED TO ECG 07/25/2021 13:21:37 LEFT-AXIS DEVIATION NOW PRESENT Electronically Signed On 07-14-2022 20:48:08 CDT by Eduin Schwartz D.O.
[2022-07-14 13:49] LABS: Amphetamine Screen Urine Negative (Negative); Barbiturate Screen Urine Negative (Negative); Benzodiazepines Screen Urine Negative (Negative); Cannabinoid Screen Urine Positive (Negative); Cocaine Screen Urine Negative (Negative); Methadone Screen Urine Negative (Negative); Opiate Screen Urine Negative (Negative); Phencyclidine Screen Urine Negative (Negative)
[2022-07-14 13:59] LABS: Thyroid Stimulating Hormone Reflex 0.045 uIU/mL (0.465-4.68)
[2022-07-14 14:04] LABS: Add Urine Microscopic? YES
[2022-07-14 14:45] LABS: Free T4 Free Thyroxine Reflex 1.58 ng/dL (0.78-2.19)
[2022-07-14 15:00] LABS: Influenza A QL RT-PCR Negative (Negative); Influenza B QL RT-PCR Negative (Negative); RSV RNA, RT-PCR Negative (Negative); SARS-CoV-2 RNA PCR Negative (Negative)
[2022-07-14 15:38] LABS: Total Triiodothyronine (T3) 1.24 NG/ML (0.97-1.69)
[2022-07-14 15:40] VITALS: BP 133/80; PULSE 66; RESP 16; O2SAT 100
--- NOTE | 2022-07-14 19:28 | PC.NURSE ---
Report received from DIPTI Jarrett. Assumed care of patient at this time.
--- NOTE | 2022-07-14 20:08 | PC.NURSE ---
Patient moved from room 13 to room 14, sitter assigned per KAREN Julian.
[2022-07-14 20:09] VITALS: BP 126/90; PULSE 81; RESP 17; O2SAT 99
--- NOTE | 2022-07-14 21:56 | PC.NURSE ---
Patients Gabriel leaves bedside and gives phone number to call for updates. Phone number is [phone]. Sitter remains at bedside.
--- NOTE | 2022-07-15 06:51 | PC.NURSE ---
Patient ambulated to the bathroom with an even steady unassisted gait.
[2022-07-15 07:28] VITALS: BP 131/91; PULSE 72; RESP 18; O2SAT 95
[2022-07-15] MEDS: buPROPion HCL SR (12 HR) 150 MG TAB PO (08:20)
[2022-07-15] MEDS: ALPRAZolam (*CRX) 0.5 MG TABLET PO ×2 (08:20→21:14)
--- NOTE | 2022-07-15 11:26 | PC.NURSE ---
Report received from DIPTI Sy. Assumed care of patient. Pt in room making her bed, sitter remains at bedside.
--- NOTE | 2022-07-15 15:20 | PC.NURSE ---
crisis asked for the chart to be faxed to [facility] [phone]
[2022-07-15 15:55] VITALS: BP 143/75; PULSE 68; RESP 16; TEMP 36.5; O2SAT 100
--- NOTE | 2022-07-15 19:57 | PC.NURSE ---
Crisis here to speak with patient, still trying to find placement.
[2022-07-15 23:33] VITALS: BP 137/67; PULSE 87; RESP 15; TEMP 36.6; O2SAT 97
--- NOTE | 2022-07-16 01:04 | PC.NURSE ---
Addendum entered by José Miguel Davis RN 07/16/22 01:28: Aparna Martinez Original Note: Jordan calling from [facility] for nurse to nurse report.
--- NOTE | 2022-07-16 01:09 | PC.NURSE ---
Addendum entered by José Miguel Davis RN 07/16/22 01:28: Aparna Martinez Original Note: Jordan from [facility] called to advise they would accept patient at [address] Tate.
--- NOTE | 2022-07-16 01:29 | PC.NURSE ---
Number for report or straight to a nurse at [facility] is [phone]. Spoke with Jerome Martinez
[2022-07-16 01:55] LABS: Anion Gap 4 mmol/L (8-16); Blood Urea Nitrogen 15 mg/dL (7-17); Carbon Dioxide 32 mmol/L (22-30); Chloride 103 mmol/L (98-107); Estimated CRCL calculation 46 ml/min; Estimated Glomerular Filt Rate > 60; Glucose 120 mg/dL (65-110); Potassium 3.8 mmol/L (3.4-5.0); Sodium 139 mmol/L (137-145)
--- NOTE | 2022-07-16 05:55 | PC.NURSE ---
TRANSPORT: 0125: Called [facility] for BLS transport to [facility]; [address], [place], [place] on Saturday (07/16), at approximately 12N. Needs welding production supervisor approval. (Trip #[id number]). 0545: Called [facility] for status on transport. They cannot take patient today (07/16) but can schedule for tomorrow (07/17) around noon. I requested earlier transport since it cannot take until Saturday. They will call if something earlier becomes available. 0551: Called [facility] for transport...needs approval from day product inspection supervisor. Suzie will call back around 8 or 9 a.m.
[2022-07-16 08:31] VITALS: BP 130/71; PULSE 97; RESP 18; O2SAT 100
--- NOTE | 2022-07-16 08:43 | PC.NURSE ---
Transportation is scheduled for 07-17-2022 at noon by [facility].
[2022-07-16] MEDS: ALPRAZolam (*CRX) 0.5 MG TABLET PO (09:57)
[2022-07-16] MEDS: buPROPion HCL SR (12 HR) 150 MG TAB PO (09:57)
--- NOTE | 2022-07-16 10:40 | PC.NURSE ---
Pt is taken to the shower room to take shower, accompanied by 2 hired help and security.
--- NOTE | 2022-07-16 11:30 | PC.NURSE ---
PT safety tray ordered at 11:30 for lunch
[2022-07-16] MEDS: lamoTRIgine 50 MG TABLET PO (15:03)
[2022-07-16 17:35] VITALS: BP 149/83; PULSE 86; RESP 18; TEMP 36.7; O2SAT 99
== END 2022-07-16 20:05 ==
PROVIDERS: Emergency Medicine; Emergency Provider Preventive Medicine Aerospace Medicine; PCP Family Medicine
DX: F30.2 Manic episode, severe with psychotic symptoms (principal); J44.9 Chronic obstructive pulmonary disease, unspecified; Z87.891 Personal history of nicotine dependence; Z20.822 Contact with and (suspected) exposure to COVID-19; Z79.899 Other long term (current) drug therapy
CPT/HCPCS: 36415; 70450; 71045; 80048; 80053; 80307; 81001; 83605; 83735; 84439; 84443; 84480; 85025; 87637; 93005; 96372; 96374; 96375; 96376; 99285; A9270; J1630; J2060; J3411

== ENCOUNTER 2022-09-06 14:45 | Outpatient (CLI) | payer MEDICARE, SELFPAY ==
--- NOTE | ~2022-09-06 | XR_ITS ---
AP and lateral views of the left hip Clinical history: Pain Findings: No acute fracture or dislocation is seen. Osseous alignment is anatomic. The left hip joint is preserved. Soft tissues are unremarkable. Impression: No significant abnormality is seen. Reviewed, dictated and finalized at location . Impression: No significant abnormality is seen.
--- NOTE | ~2022-09-06 | XR_ITS ---
Lumbosacral Spine: AP and lateral views Clinical History: Pain COMPARISON: 11/08/2016 Findings: Stable mild levoscoliosis noted.. There is minimal grade 1 retrolisthesis of L2 over L3. Th ere is mild degenerative disc narrowing throughout the lumbar spine. There is mild facet arthropathy from L3 through S1. The intervertebral disc spaces are preserved. The sacroiliac joints are normally outlined. Multiple calcified splenic granulomas are again noted. Impression: Mild degenerative spondylosis, with stable mild levoscoliosis of the lumbar spine. Reviewed, dictated and finalized at location M. Impression: Mild degenerative spondylosis, with stable mild levoscoliosis of the lumbar spi ne.
[2022-09-06 15:03] LABS: Basophils Absolute Auto 0.03 K/mm3 (0.00-0.10); Basophils Percent Auto 0.3 % (0.0-1.0); Eosinophils Absolute Auto 0.04 K/mm3 (0.02-0.50); Eosinophils Percent Auto 0.4 % (1.0-6.0); Hematocrit 34.4 % (35.0-42.0); Hemoglobin 11.4 g/dL (11.7-13.8); Immature Granulocyte Absolute 0.04 K/mm3 (0.00-0.00); Immature Granulocyte Percent A 0.4 % (0.0-0.0); Lymphocytes Absolute Auto 1.54 K/mm3 (1.10-4.50); Lymphocytes Percent Auto 13.5 % (18.0-42.0); Mean Corpuscular HGB Conc 33.1 g/dL (32.0-36.0); Mean Corpuscular Hemoglobin 32.5 pg (27.0-31.0); Monocytes Absolute Auto 1.29 K/mm3 (0.10-0.90); Monocytes Percent Auto 11.3 % (2.0-11.0); Neutrophils Absolute Auto 8.5 K/mm3 (1.7-7.2); Neutrophils Percent Auto 74.1 % (50.0-70.0); Platelet Count Result 144 K/mm3 (150-420); Red Blood Count 3.51 M/mm3 (4.20-5.40); Red Cell Distribution Width 12.4 % (11.6-14.4); White Blood Count 11.4 K/mm3 (4.8-10.8)
[2022-09-06 15:44] LABS: Anion Gap 9 mmol/L (8-16); Blood Urea Nitrogen 16 mg/dL (7-18); Calcium 8.6 mg/dL (8.5-10.1); Carbon Dioxide 28 mmol/L (21-32); Chloride 102 mmol/L (98-108); Estimated Glomerular Filt Rate 59; Glucose 89 mg/dL (70-99); Osmolality Calculated 288 mOsm/kg (285-295); Potassium 4.2 mmol/L (3.5-5.1); Sodium 139 mmol/L (136-145)
== END 2022-09-06 14:46 | disposition home or self-care (01) ==
LOC: CHSIMG 14:48
PROVIDERS: PCP Family Medicine; Visit Provider Family Medicine
DX: M25.552 Pain in left hip (principal); E78.5 Hyperlipidemia, unspecified; R82.81 Pyuria; M43.06 Spondylolysis, lumbar region; M41.86 Other forms of scoliosis, lumbar region
CPT/HCPCS: 36415; 72100; 73502; 80048; 85025

== ENCOUNTER 2022-09-12 10:41 | Outpatient (RCR) | payer MEDICARE, SELFPAY ==
--- NOTE | 2022-09-12 11:48 | PTOPEVAL1 ---
Assessment and note entered by Joanie Carlos, PT Evaluation Information Assessment Status Evaluation Diagnosis low back pain Onset 09/06/22 Subjective Information Sharon Grady reports she had an onset of the left lower back/hip pain on 09/06/22 for unknown reasons. She notes the pain was severe so she went to the doctor the next day and was ordered a x-ray and PT . She reports the x-ray showed her disc were getting smaller. She states the pain has since subsided except when she crosses her left leg over the right she gets a twinge. She is not having limitations with daily activities but would like to learn exercises to prevent pain from coming back. Reported Pain Level Pain Score 3: Self Report Assessment PT Clinical Summary Sharon Grady presents with left low back pain that started on 09/06/22 for unknown reasons. Pain has lessened over the last week and she now only notes pain when she crosses her legs. She objectively demonstrates decreased lumbar ROM, decreased left SIJ mobility, decreased core and left hip strength , positive special tests for L SIJD, and decreased flexibility. 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 Plan of Care Interventions Electrical Stimulation,Hot Pack/Cold Pack,Manual Therapy,Neuro Re-education,Patient/Caregiver Educati,Therapeutic Activities,Therapeutic Exercise PT Services Indicated Yes Treatment Frequency and 2 times a week for 4 visits then 1 time a week for Duration 2 visits to total 6 visits These treatments will address the objective and functional deficits as defined above. The patient will be advanced safely and appropriately in order for the patient to progress towards his/her prior level of function. Additional exercises will be introduced and as well as a comprehensive home exercise program upon discharge, if needed, ?to ensure carryover of functional gains achieved in the clinic. This treatment plan has been reviewed and agreement upon by the patient.
--- NOTE | 2022-09-12 11:48 | OPREHPOC ---
Outpatient Therapy Plan of Care This is a Multidisciplinary Plan of Care that may contain components documented by all disciplines (PT, OT, and ST.) PT Problem 1 PT Problem #1 Knowledge Deficit PT Goal 1 Goal The patient will demonstrate independence in a home exercise program for core strength and lumbar ROM. Target Visit 6 PT Problem 2 PT Problem #2 Pain PT Goal 1 Goal The patient will report no greater than 1/10 left low back pain with all activity. Target Visit 6 PT Problem 3 PT Problem #3 Impaired Range of Motion PT Goal 1 Goal The patient will demonstrate bilateral lumbar lateral flexion of 15 degrees to improve spinal mobility. Target Visit 6 PT Problem 4 PT Problem #4 Impaired Strength PT Goal 1 Goal The patient will improve left hip abduction and extension to 4/5 or greater without pain elicited. Target Visit 6
--- NOTE | 2022-12-13 13:05 | PCPTNOTE ---
12/13/22: Sharon Grady is being discharged after not coming back to PT after 4 visits. Joanie Carlos, PT
== END 2022-09-19 23:59 | disposition home or self-care (01) ==
LOC: CHSPT 10:41
PROVIDERS: PCP Family Medicine; Visit Provider Family Medicine
DX: M54.50 Low back pain, unspecified (principal)
CPT/HCPCS: 97110; 97140; 97161

== ENCOUNTER 2023-05-15 15:14 | Outpatient (CLI) | payer MEDICARE, SELFPAY ==
[2023-05-15 16:11] LABS: Alanine Aminotransferase 13 U/L (6-35); Aspartate Amino Transferase 26 U/L (14-36)
== END 2023-05-15 15:15 | disposition home or self-care (01) ==
LOC: ANHLAB 15:17
PROVIDERS: PCP Family Medicine; Visit Provider Podiatrist Foot & Ankle Surgery
DX: B35.1 Tinea unguium (principal)
CPT/HCPCS: 36415; 84450; 84460

== ENCOUNTER 2023-06-25 11:43 | Outpatient (CLI) | payer MEDICARE, SELFPAY ==
--- NOTE | ~2023-06-25 | MM_ITS ---
EXAMINATION: MM screening mayo BI w earlene HISTORY: Screening mammogram TECHNIQUE: Craniocaudal and mediolateral oblique 3-D tomosynthesis images were obtained and synthetic 2-D images were generated. CAD analysis was submitted and interpreted. COMPARISON: June 22, 2022 bilateral screening mammogram June 20, 2021 diagnostic right implant mammogram 12/26/2020 bilateral implant screening mammogram BREAST PARENCHYMAL COMPOSITION: The breasts are extremely dense, which lowers the sensitivity of mamm ography. FINDINGS: There is no evidence of suspicious mass, calcification, or architectural distortion to sugg est malignancy in either breast. There has been no suspicious interval change. IMPRESSION: 1. No mammographic evidence of malignancy. 2. Recommend routine screening mammography in one year. BI-RADS Category 1: Negative Reviewed, dictated and finalized at location A.
== END 2023-06-25 11:44 | disposition home or self-care (01) ==
LOC: CHSIMG 11:45
PROVIDERS: PCP Family Medicine; Visit Provider Nurse Practitioner Psychiatric/Mental Health
DX: Z12.31 Encounter for screening mammogram for malignant neoplasm of breast (principal)
CPT/HCPCS: 77063; 77067

== ENCOUNTER 2023-08-15 12:29 | Outpatient (CLI) | payer MEDICARE, SELFPAY ==
--- NOTE | ~2023-08-15 | XR_ITS ---
EXAMINATION: XR chest 2V 08/15/2023 13:02 INDICATION: COPD. PROCEDURE: 2 view chest COMPARISON: Comparison to multiple prior studies sequentially, with oldest reviewed study dated 06/11. FINDINGS: The lungs are clear. The cardiomediastinal silhouette is within normal limits. There are no pleural effusions. There is no pneumothorax suspected. There are calcified granulomas of the rig ht lung. IMPRESSION: 1: NO ACUTE CARDIOPULMONARY DISEASE. Reviewed, dictated and finalized at location B.
[2023-08-15 12:50] LABS: Basophils Absolute Auto 0.03 K/mm3 (0.00-0.10); Basophils Percent Auto 0.5 % (0.0-1.0); Eosinophils Absolute Auto 0.06 K/mm3 (0.02-0.50); Hemoglobin 13.6 g/dL (11.7-13.8); Immature Granulocyte Absolute 0.02 K/mm3 (0.00-0.00); Immature Granulocyte Percent A 0.3 % (0.0-0.0); Lymphocytes Absolute Auto 1.22 K/mm3 (1.10-4.50); Lymphocytes Percent Auto 20.6 % (18.0-42.0); Mean Corpuscular HGB Conc 33.2 g/dL (32-36); Mean Corpuscular Hemoglobin 32.2 pg (27.0-31.0); Mean Corpuscular Volume 96.9 fL (78.0-102.0); Mean Platelet Volume 10.5 fl (9.2-11.8); Monocytes Absolute Auto 0.21 K/mm3 (0.10-0.90); Monocytes Percent Auto 3.6 % (2.0-11.0); Neutrophils Absolute Auto 4.37 K/mm3 (1.70-7.20); Platelet Count Result 216 K/mm3 (150-420); Red Blood Count 4.23 M/mm3 (4.20-5.40); Red Cell Distribution Width 12.1 % (11.6-14.4); White Blood Count 5.9 K/mm3 (4.8-10.8)
--- NOTE | 2023-08-15 12:50 | ECHO_ITS ---
Patient Info Name: Sharon Grady Age: 73 years : 1950 Gender: Female Ht: 60 in Wt: 138 lbs BSA: 1.65 m2 HR: 77 bpm BP: 120 / 76 mmHg Technical Quality: Good Exam Date: 08/15/2023 2:59 PM Exam Location: Echo Lab Patient Status: Outpatient Admit Date: 08/15/2023 Staff Ordering Physician: Cory Cooper MD Repair Weaver: Ja De La Paz RDCS Attending Provider: Cory Cooper MD Referring Physician: Kenneth BANKS; Exam Type: CA echo doppler color flow Study Info Indications R94.31 - Abnormal electrocardiogram ECG EKG Complete two-dimensional, color flow and Doppler transthoracic echocardiogram is performed. Summary 1. Complete two-dimensional, color flow and Doppler transthoracic echocardiogram is performed. 2. Left ventricular chamber dimension is normal. 3. Left ventricular systolic function is normal, estimated at 60-65%. 4. There is mild concentric increased left ventricular wall thickness. 5. The left ventricular diastolic function is grade I diastolic dysfunction. 6. E/e' 9 is minimally elevated. 7. There is mild mitral valve regurgitation. 8. There is mild tricuspid valve regurgitation. 9. No pulmonary hypertension, estimated pulmonary arterial systolic pressure is 29 mmHg. 10. The prox ascending aorta size is borderline dilated at 3.8 cm. Left Ventricle E/e' 9 is minimally elevated. Left ventricular chamber dimension is normal. Left ventricular systolic function is normal, estimated at 60-65%. There is mild concentric increased left ventricular wall thickness. The left ventricular diastolic function is grade I diastolic dysfunction. Right Ventricle Right ventricular systolic function is normal and with normal TAPSE 2.1 cm. Right ventricular chamber dimension is normal. Left Atria Left atrial chamber dimension is normal. Right Atria Right atrial chamber dimension is normal. Aortic Valve The aortic valve is trileaflet. There is no aortic valve stenosis. There is no aortic valve regurgitation. Pulmonic Valve There is no pulmonic regurgitation. Mitral Valve There is no mitral valve stenosis. There is mild mitral valve regurgitation. Tricuspid Valve There is mild tricuspid valve regurgitation. No pulmonary hypertension, estimated pulmonary arterial systolic pressure is 29 mmHg. Pericardium/Pleural There is no pericardial effusion. Inferior Vena Cava Normal inferior vena cava with >50% collapse upon inspiration consistent with normal right atrial pressure, 5 mmHg. Aorta The prox ascending aorta size is borderline dilated at 3.8 cm. The aortic root size at the sinus of Valsalva is normal. Left Ventricular Outflow Tract Name Value Normal LVOT 2D LVOT Diameter 1.9 cm LVOT Doppler LVOT Peak Velocity 115 cm/s LVOT Peak Gradient 5 mmHg LVOT Mean Gradient 3 mmHg LVOT VTI 24 cm LVOT VTI/AV VTI Ratio 1.0 LVOT Stroke Volume 67 ml Pulmonic Valve Name Value Normal
[2023-08-15 12:52] LABS: Appearance Urine Clear (Clear); Bilirubin Urine Negative (Negative); Blood Urine Negative (Negative); Color Urine Light Yellow (Yellow); Glucose Urine UA Negative (Negative); Ketones Urine Negative (Negative); Leukocyte Esterase Ur Negative (Negative); Nitrate Urine Negative (Negative); Protein Urine Negative (Negative); Specific Grav Ur <= 1.005 (1.010-1.020); Urobilinogen Urine 0.2 mg/dL (0.2-1.0)
[2023-08-15 12:53] LABS: Add Urine Microscopic? NO
[2023-08-15 12:57] LABS: Creatinine Urine 37.26 mg/dL (40-278); MALB Creatinine Ratio 34.8 mg/g (0-30); Microalbumin Urine Random < 13.0 mg/L
[2023-08-15 13:32] LABS: Alanine Aminotransferase 30 U/L (14-59); Albumin Level 4.1 g/dL (3.4-5.0); Alkaline Phosphatase 58 U/L (46-116); Anion Gap 8 mmol/L (4-12); Aspartate Amino Transferase 21 U/L (15-37); Bilirubin,Total 0.4 mg/dL (0.00-1.00); Blood Urea Nitrogen 16 mg/dL (7-18); Calcium 9.5 mg/dL (8.5-10.1); Carbon Dioxide 32 mmol/L (21-32); Chloride 104 mmol/L (98-108); Estimated Glomerular Filt Rate 51; Glucose 94 mg/dL (70-99); Osmolality Calculated 299 mOsm/kg (285-295); Potassium 4.3 mmol/L (3.5-5.1); Sodium 144 mmol/L (136-145); Thyroid Stimulating Hormone 1.12 uIU/mL (0.36-3.74); Total Protein 6.9 g/dL (6.4-8.2)
== END 2023-08-15 12:30 | disposition home or self-care (01) ==
PROVIDERS: PCP Family Medicine; Visit Provider Family Medicine
DX: J44.9 Chronic obstructive pulmonary disease, unspecified (principal); I08.1 Rheumatic disorders of both mitral and tricuspid valves; R94.31 Abnormal electrocardiogram [ECG] [EKG]; R53.83 Other fatigue
CPT/HCPCS: 36415; 71046; 80053; 81003; 82043; 84443; 85025; 93306

== ENCOUNTER 2023-08-20 11:50 | Outpatient (CLI) | payer MEDICARE, SELFPAY | END 2023-08-20 11:51 | disposition home or self-care (01) | LOC: CHSCARD 11:53 | PROVIDERS: PCP Family Medicine; Visit Provider Family Medicine | DX: J44.9 Chronic obstructive pulmonary disease, unspecified (principal) | CPT/HCPCS: 94060; 94726; 94729 ==

== ENCOUNTER 2024-03-31 11:26 | Outpatient (CLI) | payer MEDICARE, SELFPAY ==
[2024-03-31 11:49] LABS: Basophils Absolute Auto 0.03 K/mm3 (0.00-0.10); Basophils Percent Auto 0.5 % (0.0-1.0); Eosinophils Absolute Auto 0.03 K/mm3 (0.02-0.50); Eosinophils Percent Auto 0.5 % (1.0-6.0); Hematocrit 41.4 % (35.0-42.0); Hemoglobin 13.5 g/dL (11.7-13.8); Immature Granulocyte Absolute 0.02 K/mm3 (0.00-0.00); Immature Granulocyte Percent A 0.3 % (0.0-0.0); Lymphocytes Absolute Auto 1.35 K/mm3 (1.10-4.50); Lymphocytes Percent Auto 23.6 % (18.0-42.0); Mean Corpuscular HGB Conc 32.6 g/dL (32-36); Mean Corpuscular Hemoglobin 30.5 pg (27.0-31.0); Mean Corpuscular Volume 93.7 fL (78.0-102.0); Mean Platelet Volume 10.5 fl (9.2-11.8); Monocytes Absolute Auto 0.26 K/mm3 (0.10-0.90); Monocytes Percent Auto 4.5 % (2.0-11.0); Neutrophils Absolute Auto 4.04 K/mm3 (1.70-7.20); Neutrophils Percent Auto 70.6 % (50.0-70.0); Platelet Count Result 234 K/mm3 (150-420); Red Blood Count 4.42 M/mm3 (4.20-5.40); Red Cell Distribution Width 12.4 % (11.6-14.4); White Blood Count 5.7 K/mm3 (4.8-10.8)
--- OUTSIDE RECORDS SUMMARY | 2024-03-31 12:38 | XMS_ITS | Encounter Summary ---
Author Organization [facility] Address [address] [place] [address] Care Team Providers Care Pediatric Critical Care Nurse Name Role Phone Cory Cooper MD Primary Care Provider [phone] Encounter Details Date Type Department Care Team (Late st Contact Info) Description 03/15/2022 Lab Requisition [facility] Derm[facility] Lab [address] [facility] [place] [id number] [place] [address] [place] [address] [id number] Social History Tobacco Use Types Packs/Day Years Used Date Smoking Tobacco: Never Assessed Sex and Gender Information Value Date Recorded Sex Assigned at Not on file Gender Identity Not on file Sexual Orientation Not on file documented as of this encounter Plan of Treatment Not on file documented as of this encounter Procedures Procedure Name Priority Date/Time Associated Diagnosis Comments DERMATOPATHOLOGY Routine 03/13/2022 12:0 0 AM DIRECT MAIL MANAGER documented in this encounter Results * DERMATOPATHOLOGY (03/13/2022 12:00 AM DIRECT MAIL MANAGER) Case Report Dermatopathology Report ? Case: [id number] ? Authorizing Provider: ??Kristofer Saenz MD ?Collected: ? 03/13/2022 12:00 AM ? Ordering Location: ? [facility] ?Received: ?03/15/2022 07:16 AM ? Pathologist: ? Karolina Desir MD ? Specimen: ?Skin, post neck ? 3 6:20 PM [facility] DERMATOPATHOLOGY LABORATORY Final Diagnosis Specimen A. SKIN, post neck: SEBORRHEIC KERATOSIS (L82.1) PRESENT AT MARGIN 3 6:20 PM [facility] DERMATOPATHOLOGY LABORATORY Clinical History R/O BCC. Please Check Margins. 3 6:20 PM [facility] DERMATOPATHOLOGY [facility]ORAT[facility] Gross Description Specimen A: Received is one formalin filled container labeled with the patient's name and designated post neck. The specimen consists of a shave biopsy measuring 3w1c6zm and it is inked. Jar 0. 3 6:20 PM [facility] DERMATOPATHOLOGY LABORATORY Microscopic Description Specimen A. SKIN, post neck: Sections show an acanthotic lesion composed of relatively uniform keratinocytes. There is hyperkeratosis and pseudo horn cysts formation. This lesion is present at the margin of the specimen. 3 6:20 PM [facility] DERMATOPATHOLOGY LABORATORY Disclaimer An external and internal positive and negative controls are appropriate for the histochemical, immunohistochemical and immunofluorescence stain(s) in this case (if any), except where stated explicitly. The performance characteristics of the stain(s) cited in this report were developed and its performance characteristic determined by the Dermatopathology Laboratory at [facility], directed by Dr. Elysia Reeys. These tests need not be, and therefore are not, approved by the [place] Food and Drug Administration. The tests are used for clinical purposes. Billing Codes Specimen Charges Stain Charges 98833 1 3 6:20 PM DIRECT MAIL MANAGER DERMATOPATHOLOGY LABORATORY Embedded Images 3 6:20 PM DIRECT MAIL MANAGER DERMATOPATHOLOGY LABORATORY Pathology/Cytolog y TISSUE SPECIMEN FROM SKIN / Unknown 03/13/2022 03/15/2022 7:16 AM DIRECT MAIL MANAGER Kristofer Saenz MD LAB - PATHOLOGY/CYTO LOGY ORDERABLES DERMATOPATHOLOGY LABORATORY [facility] - Department of Dermatology [facility] Medicine [address] [place] [address], [address] [phone] documented in this encounter Visit Diagnoses Not on filedocumented in this encounter Care Teams Pediatric Critical Care Nurse Relationship Specialty Start Date End Date Cory Cooper MD [address] [place] [address] PCP - General 08/01/21 documented as of this encounter
--- OUTSIDE RECORDS SUMMARY | 2024-03-31 12:38 | XMS_ITS ---
Author Organization [facility] Address [facility] [address] [address] Care Team Providers Care Rug Designer Name Role Phone Kenneth VERDUGO, Cory Primary Care Provider Anabelle Cortez Unavailable [phone] REASON FOR VISIT RE:RE:Xanax Social History Sex Assigned At : Social History Observation Description Sex Assigned At Female Encounters Encounter Location Date Provider Diagnosis [facility] [place] [address] [address] [address] 03/31/2024 Anabelle Palm Plan Of Treatment Next Appt Details Provider Name:Maribel Adler, 04/09/2024 01:00:00 PM, [facility] [address], [address], [address], Provider Name:Anabelle Palm, 04/22/2024 11:15:00 AM, [facility] [address], [address], [address], Provider Name:Maribel Adler, 05/07/2024 10:00:00 AM, [facility] [address], [address], [address], Provider Name:Maribel Adler, 06/11/2024 10:00:00 AM, [facility] [address], [address], [address], Progress Notes * LACY NOLAN EDOB: [birth year] (73 yo F)Acc No.[id number]:03/31/2024 Patient:LACY MIKE :1950???Age:73 Y???Sex:Female Address:[address] [place] [id number] * true * Date:? Generated for Pedro Pablo zazueta/Nayla/eTransmitting on:?03/31/2024 12:38 PM DECAL APPLIER
--- OUTSIDE RECORDS SUMMARY | 2024-03-31 12:38 | XMS_ITS ---
Author Organization [facility] [employer] [facility] Address [facility] [address] [facility] [address] [place] [address] Care Team Providers Care Claim Clinician Name Role Phone Kenneth VERDUGO, Cory Primary Care Provider Anabelle Cortez Unavailable [phone] REASON FOR VISIT RE:Xanax Social History Sex Assigned At : Social History Observation Description Sex Assigned At Female Encounters Encounter Location Date Provider Diagnosis [facility] [employer] [place] [address] [address] [facility] [address] [place] [address] 03/31/2024 Anabelle Palm Plan Of Treatment Next Appt Details Provider Name:Maribel Adler, 04/09/2024 01:00:00 PM, [facility] [address], [address], [address], Provider Name:Anabelle Palm, 04/22/2024 11:15:00 AM, [address] [address] [address] [facility], [address], [address], Provider Name:Maribel Adler, 05/07/2024 10:00:00 AM, [facility] [address], [address], [address], Provider Name:Maribel Adler, 06/11/2024 10:00:00 AM, [facility] [address], [facility] [address], [address], Progress Notes * LACY NOLAN EDOB: 1 (73 yo F)Acc No.[id number]:03/31/2024 Patient:LACY MIKE :1950???Age:73 Y???Sex:Female Address:[address] [place] [id number] * true * Date:? Generated for Pedro Pablo zazueta/Nayla/eTransmitting on:?03/31/2024 12:37 PM BUNG DRIVER
[2024-03-31 12:39] LABS: Alanine Aminotransferase 18 U/L (14-59); Albumin Level 4.1 g/dL (3.4-5.0); Alkaline Phosphatase 73 U/L (46-116); Anion Gap 10 mmol/L (4-12); Aspartate Amino Transferase 10 U/L (15-37); Bilirubin,Total 0.4 mg/dL (0.00-1.00); Blood Urea Nitrogen 15 mg/dL (7-18); Calcium 9.5 mg/dL (8.5-10.1); Carbon Dioxide 30 mmol/L (21-32); Chloride 107 mmol/L (98-108); Estimated Glomerular Filt Rate 56; Glucose 94 mg/dL (70-99); Osmolality Calculated 304 mOsm/kg (285-295); Potassium 4.5 mmol/L (3.5-5.1); Sodium 147 mmol/L (136-145); Thyroid Stimulating Hormone 0.69 uIU/mL (0.36-3.74); Total Protein 6.8 g/dL (6.4-8.2)
--- OUTSIDE RECORDS SUMMARY | 2024-03-31 12:40 | XMS_ITS | Encounter Summary ---
Author Organization [facility] Address [address] [place] [address] Care Team Providers Care Manager Sql Name Role Phone Cory Cooper MD Primary Care Provider [phone] Encounter Details Date Type Department Care Team (Late st Contact Info) Description 03/11/2024 Lab Requisition [facility] - DermPath Lab [address] [facility] [place] [phone] Kristofer Saenz MD [address] [place], [place] [phone] Social History Tobacco Use Types Packs/Day Years Used Date Smoking Tobacco: Never Assessed Sex and Gender Information Value Date Recorded Sex Assigned at Not on file Gender Identity Not on file Sexual Orientation Not on file documented as of this encounter Plan of Treatment Not on file documented as of this encounter Procedures Procedure Name Priority Date/Time Associated Diagnosis Comments DERMATOPATHOLOGY Routine 03/10/2024 12:0 0 AM MEDICAL TRANSCRIPTION SUPERVISOR documented in this encounter Results * DERMATOPATHOLOGY (03/10/2024 12:00 AM MEDICAL TRANSCRIPTION SUPERVISOR) Case Report Dermatopathology Report ? Case: [id number] ? Authorizing Provider: ??Kristofer Saenz MD ?Collected: ? 03/10/2024 12:00 AM ? Ordering Location: ? [facility] - ??Received: ?03/11/2024 03:25 PM ? DermPath Lab ? Pathologist: ? Dorene Desir MD ? Specimen: ?Skin, right chin ? 5 1:03 PM MEDICAL TRANSCRIPTION SUPERVISOR DERMATOPATHOLOGY LABORATORY Final Diagnosis Specimen A. SKIN, right chin: BASAL CELL CARCINOMA, NODULAR TYPE (C44.319) 5 1:03 PM [facility] DERMATOPATHOLOGY LABORATORY Clinical History R/O BCC 5 1:03 PM MEDICAL TRANSCRIPTION SUPERVISOR DERMATOPATHOLOGY LABORATORY Gross Description Specimen A: Received is one formalin filled container labeled with the patient's name and designated right chin. The specimen consists of a shave biopsy measuring 3x2x1 mm. Jar 0. 5 1:03 PM MEDICAL TRANSCRIPTION SUPERVISOR DERMATOPATHOLOGY LABORATORY Microscopic Description Specimen A. SKIN, right chin: Within the dermis there are aggregates of basaloid cells with a high nuclear to cytoplasmic ratio and peripheral palisading. 5 1:03 PM MEDICAL TRANSCRIPTION SUPERVISOR DERMATOPATHOLOGY LABORATORY Disclaimer An external and internal positive and negative controls are appropriate for the histochemical, immunohistochemical and immunofluorescence stain(s) in this case (if any), except where stated explicitly. The performance characteristics of the stain(s) cited in this report were developed and its performance characteristic determined by the Dermatopathology Laboratory at [facility], directed by Dr. Elysia Reyes. These tests need not be, and therefore are not, approved by the [place] Food and Drug Administration. The tests are used for clinical purposes. Billing Codes Specimen Charges Stain Charges 86481 1 1:03 PM MEDICAL TRANSCRIPTION SUPERVISOR DERMATOPATHOLOGY LABORATORY Embedded Images 1:03 PM MEDICAL TRANSCRIPTION SUPERVISOR DERMATOPATHOLOGY LABORATORY Pathology/Cytolog y TISSUE SPECIMEN FROM SKIN / Unknown 03/10/2024 03/11/2024 3:25 PM MEDICAL TRANSCRIPTION SUPERVISOR Kristofer Saenz MD LAB - PATHOLOGY/CYTO LOGY ORDERABLES DERMATOPATHOLOGY LABORATORY [facility] Department of Dermatology [facility] [address] [place] [address], [address] [phone] documented in this encounter Visit Diagnoses Not on filedocumented in this encounter Care Teams Manager Sql Relationship Specialty Start Date End Date Cory Cooper MD [address] [place] [phone] PCP - General 08/01/21 documented as of this encounter
--- OUTSIDE RECORDS SUMMARY | 2024-03-31 12:40 | XMS_ITS | Clinical Summary ---
Author Organization [facility] [employer] Address [address] [place] [address] Care Team Providers Care Bench Precision Assembler Name Role Phone Cory Cooper MD Primary Care Provider [phone] Source Comments [facility],non-owned Affiliates and Associated Physician Practices is amultiple site organization consisting of ambulatory clinics and hospital sitesin [place], [place], [place] and [place]. This disclosure is being madepursuant to the Care Everywhere program and may not contain all information available regarding this patient. Last updated 17.[facility] Allergies Active Allergy Reactions Criticality Noted Date Comments Penicillins 12/12/2016 Encounters Date Type Department Care Team Description 03/11/2024 Lab Requisition [facility] - DermPath Lab [address], [place] [address] Kristofer Saenz MD from Last 3 Months Immunizations Name Administration Dates Next Due INFLUENZA VACCINE, HIGH-DOSE , QUADR. (FLUZONE HIGH-DOSE QUADRIVALENT; 65Y+), 0.7 ML (HD-IIV4) 12/12/2016 Social History Tobacco Use Types Packs/Day Years Used Date Smoking Tobacco: Never Assessed Sex and Gender Information Value Date Recorded Sex Assigned at Not on file Gender Identity Not on file Sexual Orientation Not on file Plan of Treatment Health Maintenance Due Date Last Done Comments BONE DENSITY TESTING 1950 COLOGUARD (AGES 45-75) - COL ON CA SCREENING 1950 COLON MONITORING 1950 COLONOSCOPY - COLON CA SCREENING 1950 CT COLONOGRAPHY - COLON CA SCREENING 1950 Colorectal Cancer Screening 1950 FIT - COLON CA SCREENING 1950 FLEX SIG - COLON CA SCREENING 1950 LIPID TESTING 1950 MAMMOGRAM 1950 HEPATITIS C SCREENING 08/03/1968 DTAP/TDAP/TD VACCINES (1 - Tdap) 1969 PNEUMOCOCCAL VACCINE 50+ (1 of 1 - PCV) 2000 ZOSTER VACCINE (1 of 2) 2000 COVID-19 VACCINE (1 - 2023-2 5 season) 2023 INFLUENZA VACCINE (#1) 2023 12/12/2016 DEPRESSION SCREENING 03/04/2024 MEDICARE AWV ? CALENDAR YEAR 2024 Respiratory Syncytial Virus (RSV) Vaccine Pt: or over 60 yrs (1 - 1-dose 75+ series) 2025 HEPATITIS B VACCINE Aged Out No longe r eligible based on patient's age to complete this topic HIB VACCINE Aged Out No longer eligi ble based on patient's age to complete this topic HPV VACCINE Aged Out No longer eligi ble based on patient's age to complete this topic MENINGOCOCCAL (Group B) VACCINE Aged Out No longer eligible based on patient's age to complete this topic MENINGOCOCCAL VACCINE Aged Out No karen lamar eligible based on patient's age to complete this topic Procedures Procedure Name Priority Date/Time Associated Diagnosis Comments DERMATOPATHOLOGY Routine 03/10/2024 12:0 0 AM MATERIAL SPREADER from Last 3 Months Results * DERMATOPATHOLOGY (03/10/2024 12:00 AM MATERIAL SPREADER) Case Report Dermatopathology Report ? Case: [id number] ? Authorizing Provider: ??Kristofer Saenz MD ?Collected: ? 03/10/2024 12:00 AM ? Ordering Location: ? [facility] - ??Received: ?03/11/2024 03:25 PM ? DermPath Lab ? Pathologist: ? Dorene Desir MD ? Specimen: ?Skin, right chin ? 5 1:03 PM [facility] DERMATOPATHOLOGY LABORATORY Final Diagnosis Specimen A. SKIN, right chin: BASAL CELL CARCINOMA, NODULAR TYPE (C44.319) 5 1:03 PM [facility] DERMATOPATHOLOGY LABORATORY Clinical History R/O BCC 5 1:03 PM [facility] DERMATOPATHOLOGY LABORATORY Gross Description Specimen A: Received is one formalin filled container labeled with the patient's name and designated right chin. The specimen consists of a shave biopsy measuring 3x2x1 mm. Jar 0. 1:03 PM [facility] DERMATOPATHOLOGY LABORATORY Microscopic Description Specimen A. SKIN, right chin: Within the dermis there are aggregates of basaloid cells with a high nuclear to cytoplasmic ratio and peripheral palisading. 1:03 PM [facility] DERMATOPATHOLOGY LABORATORY Disclaimer An external and internal positive and negative controls are appropriate for the histochemical, immunohistochemical and immunofluorescence stain(s) in this case (if any), except where stated explicitly. The performance characteristics of the stain(s) cited in this report were developed and its performance characteristic determined by the Dermatopathology Laboratory at [facility], directed by Dr. Elysia Reyes. These tests need not be, and therefore are not, approved by the [place] Food and Drug Administration. The tests are used for clinical purposes. Billing Codes Specimen Charges Stain Charges 34156 1 1:03 PM MATERIAL SPREADER DERMATOPATHOLOGY LABORATORY Embedded Images 1:03 PM MATERIAL SPREADER DERMATOPATHOLOGY LABORATORY Pathology/Cytolog y TISSUE SPECIMEN FROM SKIN / Unknown 03/10/2024 03/11/2024 3:25 PM MATERIAL SPREADER Kristofer Saenz MD LAB - PATHOLOGY/CYTO LOGY ORDERABLES DERMATOPATHOLOGY LABORATORY [facility] - Department of Dermatology [address], [address] [phone] from Last 3 Months Care Teams Bench Precision Assembler Relationship Specialty Start Date End Date Cory Cooper MD [address] [place] [address] [facility] - General 08/01/21
--- OUTSIDE RECORDS SUMMARY | 2024-03-31 12:40 | XMS_ITS | Clinical Summary ---
Author Organization [facility] Address [address] [place] [address] Phone Care Team Providers Care Straddle Truck Operator Name Role Phone Samira Singh Gael BORDEN Primary Care Provider [phone] Huy Jones DO Unavailable [phone] Allergies Active Allergy Reactions Criticality Noted Date Comments Penicillins Unknown 2017 Medications polyethylene glycol (MIRALAX) Powder Mix the entire bottle with 64 oz of a clear liquid. Use as directed by the office for colonoscopy prep. 255 g 7 Active hydrocortisone (ANUSOL-HC) 2.5 % Cream Apply daily. Apply to rectum as directed. 1 Tube 8 Active Additional Information Patient not taking.Reported on 07/03/2018 divalproex (DEPAKOTE) 500 MG Tablet Delayed Response TK 1 T PO ATN 0 8 Active buPROPion (WELLBUTRIN) 150 MG XL tablet TK 1 T PO QD 0 8 Active traZODone (DESYREL) 100 MG Tablet Takes 1 tablet nightly 0 8 Active buPROPion (WELLBUTRIN) 75 MG Tablet 1/2 tab every other day. 0 8 Active raNITIdine (ZANTAC) 150 MG Tablet TK 1 T PO BID 3 8 Active ALPRAZolam (XANAX) 0.5 MG Tablet Take 0.25 mg by mouth daily. 2 8 Active Probiotic Product (PROBIOTIC PO) Take 1 Tab by mouth daily. Active montelukast (SINGULAIR) 10 MG Tablet Take 10 mg by mouth every evening. Active estrogens, conjugated, (PREMARIN) 0.45 MG Tablet Take by mouth daily. 1/2 tab every other day Active guar gum (BENEFIBER) Powder Take 2 Tbsp by mouth 2 times daily. Active miconazole (MICONAZOLE ANTIFUNGAL) 2 % CreamIndications :Internal hemorrhoids Application Site: rectal area. 30 g 9 Active Active Problems No known active problems Immunizations Immunization Administration Dates Next Due Covid-19, Mrna, Lnp-s, Pf, 30 Mcg/0.3 Ml Dose (P fizer) 05/22/2020,04/30/2020 Family History Medical History Relation Name Comments Alcohol Abuse Father Hypertension Father Hypertension Mother Relation Name Status Comments Father Mother Social History Tobacco Use Types Packs/Day Years Used Date Smoking Tobacco: Former Cigarettes 1.5 25 0 1962 - 08/09/1987 Smokeless Tobacco: Never Alcohol Use Standard Drinks/Week Comments Yes 0 (1 standard drink = 0.6 oz pur e alcohol) Social PHQ-2 Answer Date Recorded PHQ-2 Score 0 11/15/2018 Comments No Sex and Gender Information Value Date Recorded Sex Assigned at Not on file Legal Sex Female 9:15 PM CDT Gender Identity Not on file Sexual Orientation Not on file Last Filed Vital Signs Vital Sign Reading Time Taken Comments Blood Pressure 100/59 07/08/2018 12:04 PM CDT Pulse 77 07/08/2018 12:04 PM CDT Temperature 36 ??C (96.8 ??F) 07/08/2018 12:04 PM CDT Respiratory Rate 24 07/08/2018 12:04 PM CDT Oxygen Saturation 100% 07/08/2018 12:04 PM CDT Inhaled Oxygen Concentration - - Weight 61.2 kg (135 lb) 07/03/2018 11:00 AM CDT Height 157.5 cm (5' 2 ) 07/03/2018 11:00 AM CDT Body Mass Index 24.69 07/03/2018 11:00 AM CDT Plan of Treatment Health Maintenance Due Date Last Done Comments DEXA Bone Density 1950 Hepatitis C Virus (HCV) Screening 1950 Cologuard 2000 Immunochemical Fecal Occult Blood 2000 Mammogram 2000 Influenza Immunization (#1) 2023 09/0 11/2019, 12/08/2018, 12/06/2018, Additional history exists SARS-COV-2 Immunization ( - season) 2023 05/22/2020, 04/30/2020 Respiratory Syncytial Virus (RSV) Immunization (Adult) (1 - 1-dose 75+ series) 2025 Colonoscopy 06/27/2027 06/26/2017 Colorectal Cancer Screening 06/27/2027 06/26/2017 DTaP/Tdap/Td Immunization Discontinued 03/04/2012 TdaP Immunization Completed 03/04/2012 Pneumococcal Immunization (50+ years) Completed 12/19/2018, 12/24/2017, 12/02/2017, Additional history exists Pneumococcal Immunization Combined Discontinued 12/19/2018, 12/24/2017, 12/02/2017, Additional history exists Zoster Immunization Completed 02/01/2020, 02/18/2019, 03/04/2015 Hepatitis B Immunization Aged Out No longer eligible based on patient's age to complete this topic Meningococcal Immunization (ACWY) Aged Out No longer eligible based on patient's age to complete this topic Rotavirus Immunization Aged Out No lo nger eligible based on patient's age to complete this topic Procedures Procedure Name Priority Date/Time Associated Diagnosis Comments COLONOSCOPY Routine 06/26/2017 from Last 3 Months or Most Recently Relevant to Health Maintenance Results * COLONOSCOPY (06/26/2017) Huy Jones DO PROCEDURE/MINOR SURGICAL ORDERA BLES Final Result from Last 3 Months or Most Recently Relevant to Health Maintenance Insurance MEDICARE [employer]LE[employer]AL Care Teams Straddle Truck Operator Relationship Specialty Start Date End Date Samira Singh APRN PCP - General Advanced Practice Nurse 01/16/17 Huy Jones DO Consulting Physician Gastroenterology 06/26/17
--- OUTSIDE RECORDS SUMMARY | 2024-03-31 12:40 | XMS_ITS | Referral Summary ---
Author Organization [facility] Address [address] [place] [address] Care Team Providers Care Neurosurgery Research Director Name Role Phone Cory Cooper MD Primary Care Provider [phone] Source Comments [facility],non-owned Affiliates and Associated Physician Practices is amultiple site organization consisting of ambulatory clinics and hospital sitesin [place], [place], [place] and [place]. This disclosure is being madepursuant to the Care Everywhere program and may not contain all information available regarding this patient. Last updated 17.[facility] Encounters Date Type Department Care Team Description 03/11/2024 Lab Requisition [facility] - DermPath Lab [address] [place] [address] Kristofer Saenz MD from Last 3 Months Allergies Active Allergy Reactions Criticality Noted Date Comments Penicillins 12/12/2016 Immunizations Name Administration Dates Next Due INFLUENZA VACCINE, HIGH-DOSE , QUADR. (FLUZONE HIGH-DOSE QUADRIVALENT; 65Y+), 0.7 ML (HD-IIV4) 12/12/2016 Social History Tobacco Use Types Packs/Day Years Used Date Smoking Tobacco: Never Assessed Sex and Gender Information Value Date Recorded Sex Assigned at Not on file Gender Identity Not on file Sexual Orientation Not on file Plan of Treatment Not on file Procedures Procedure Name Priority Date/Time Associated Diagnosis Comments DERMATOPATHOLOGY Routine 03/10/2024 12:0 0 AM MARGARINE MAKER from Last 3 Months Results * DERMATOPATHOLOGY (03/10/2024 12:00 AM MARGARINE MAKER) Case Report Dermatopathology Report ? Case: [id number] ? Authorizing Provider: ??Kristofer Saenz MD ?Collected: ? 03/10/2024 12:00 AM ? Ordering Location: ? [facility] - ??Received: ?03/11/2024 03:25 PM ? DermPath Lab ? Pathologist: ? Dorene Desir MD ? Specimen: ?Skin, right chin ? 5 1:03 PM [facility] DERMATOPATHOLOGY LABORATORY Final Diagnosis Specimen A. SKIN, right chin: BASAL CELL CARCINOMA, NODULAR TYPE (C44.319) 5 1:03 PM [facility] DERMATOPATHOLOGY LABORATORY Clinical History R/O BCC 5 1:03 PM [facility] DERMAT[facility]Y LABORATORY Gross Description Specimen A: Received is one formalin filled container labeled with the patient's name and designated right chin. The specimen consists of a shave biopsy measuring 3x2x1 mm. Jar 0. 1:03 PM [facility] DERMATOPATHOLOGY LABORATORY Microscopic Description Specimen A. SKIN, right chin: Within the dermis there are aggregates of basaloid cells with a high nuclear to cytoplasmic ratio and peripheral palisading. 1:03 PM [facility] DERMATOPATHOLOGY LABORATORY Disclaimer An external and internal positive and negative controls are appropriate for the histochemical, immunohistochemical and immunofluorescence stain(s) in this case (if any), except where stated explicitly. The performance characteristics of the stain(s) cited in this report were developed and its performance characteristic determined by the Dermatopathology Laboratory at [facility], directed by Dr. Elysia Reyes. These tests need not be, and therefore are not, approved by the [place] Food and Drug Administration. The tests are used for clinical purposes. Billing Codes Specimen Charges Stain Charges 25354 1 1:03 PM [facility] DERMATOPATHOLOGY LABORATORY Embedded Images 1:03 PM [facility] DERMATOPATHOLOGY LABORATORY Pathology/Cytolog y TISSUE SPECIMEN FROM SKIN / Unknown 03/10/2024 03/11/2024 3:25 PM [facility] Kristofer Saenz MD LAB - PATHOLOGY/CYTO LOGY ORDERABLES DERMATOPATHOLOGY LABORATORY [facility] - Department of Dermatology [facility] Medicine [address] [place] [address], [address] [phone] from Last 3 Months Care Teams Neurosurgery Research Director Relationship Specialty Start Date End Date Cory Cooper MD [address] [place] [address] PCP - General 08/01/21
--- OUTSIDE RECORDS SUMMARY | 2024-03-31 12:40 | XMS_ITS | Patient Health Summary ---
Author Organization [facility] Address [address] [address] Care Team Providers Care Throat Cutter Name Role Phone Cory Cooper MD Primary Care Provider [phone] Note from [facility],non-owned Affiliates and Associated Physician Practices is amultiple site organization consisting of ambulatory clinics and hospital sitesin [place], [place], [place] and [place]. This disclosure is being madepursuant to the Care Everywhere program and may not contain all information available regarding this patient. Last updated 17.[facility] Allergies * Penicillins Immunizations * INFLUENZA VACCINE, HIGH-DOSE, QUADR. (FLUZONE HIGH-DOSE QUADRIVALENT; 65Y+), 0.7 ML (HD-IIV4)(Given 12/12/2016) Social History Tobacco Use Types Packs/Day Years Used Date Smoking Tobacco: Never Assessed Sex and Gender Information Value Date Recorded Sex Assigned at Not on file Gender Identity Not on file Sexual Orientation Not on file Procedures * DERMATOPATHOLOGY(Performed 03/10/2024) * DERMATOPATHOLOGY(Performed 03/13/2022) Results * DERMATOPATHOLOGY (03/10/2024 12:00 AM WIRE FRAME MAKER) Only the most recent of2 resultswithin the time period is included. Case Report Dermatopathology Report ? Case: [id number] ? Authorizing Provider: ??Kristofer Saenz MD ?Collected: ? 03/10/2024 12:00 AM ? Ordering Location: ? [facility] - ??Received: ?03/11/2024 03:25 PM ? DermPath Lab ? Pathologist: ? Dorene eDsir MD ? Specimen: ?Skin, right chin ? 5 1:03 PM [facility] DERMATOPATHOLOGY LABORATORY Final Diagnosis Specimen A. SKIN, right chin: BASAL CELL CARCINOMA, NODULAR TYPE (C44.319) 5 1:03 PM [facility] DERMATOPATHOLOGY LABORATORY Clinical History R/O BCC 5 1:03 PM [facility] DERMATOPATHOLOGY LABORATORY Gross Description Specimen A: Received is one formalin filled container labeled with the patient's name and designated right chin. The specimen consists of a shave biopsy measuring 3x2x1 mm. Jar 0. 5 1:03 PM [facility] DERMATOPATHOLOGY LABORATORY Microscopic Description Specimen A. SKIN, right chin: Within the dermis there are aggregates of basaloid cells with a high nuclear to cytoplasmic ratio and peripheral palisading. 5 1:03 PM [facility] DERMATOPATHOLOGY LABORATORY Disclaimer An external and internal positive and negative controls are appropriate for the histochemical, immunohistochemical and immunofluorescence stain(s) in this case (if any), except where stated explicitly. The performance characteristics of the stain(s) cited in this report were developed and its performance characteristic determined by the Dermatopathology Laboratory at [facility], directed by Dr. Elysia Reyes. These tests need not be, and therefore are not, approved by the [place] Food and Drug Administration. The tests are used for clinical purposes. Billing Codes Specimen Charges Stain Charges 70852 1 5 1:03 PM [facility] DERMATOPATHOLOGY LABORATORY Embedded Images 1:03 PM [facility] DERMATOPATHOLOGY LABORATORY Pathology/Cytolog y TISSUE SPECIMEN FROM SKIN / Unknown 03/10/2024 03/11/2024 3:25 PM WIRE FRAME MAKER Kristofer Saenz MD LAB - PATHOLOGY/CYTO LOGY ORDERABLES DERMATOPATHOLOGY LABORATORY [facility] - Department of Dermatology [facility] [address] [place] [address], [address] [phone] Care Teams Throat Cutter Relationship Specialty Start Date End Date Cory Cooper MD [address] [place] [address] PCP - General 08/01/21
--- OUTSIDE RECORDS SUMMARY | 2024-03-31 12:40 | XMS_ITS ---
Author Organization [facility] Address [employer] [address] [facility] [address] [place] [address] Care Team Providers Care Hearing Therapy Director Name Role Phone Kenneth VERDUGO, Cory Primary Care Provider Anabelle Cortez Unavailable [phone] REASON FOR VISIT RE:Xanax Social History Sex Assigned At : Social History Observation Description Sex Assigned At Female Encounters Encounter Location Date Provider Diagnosis [facility] [employer] [place] [address] [address] [facility] [address] [place] [address] 03/31/2024 Anabelle Palm Plan Of Treatment Next Appt Details Provider Name:Maribel Adler, 04/09/2024 01:00:00 PM, [employer] [address], [address], [address], Provider Name:Anabelle Palm, 04/22/2024 11:15:00 AM, [address] [place] [address] R[address] [facility], [address], [address], Provider Name:Maribel Adler, 05/07/2024 10:00:00 AM, [employer] [address], [address], [address], Provider Name:Maribel Adler, 06/11/2024 10:00:00 AM, [employer] [address], [facility] [address], [place], [address], Progress Notes * LACY NOLAN EDOB: 1 (73 yo F)Acc No.[id number]:03/31/2024 Patient:LACY MIKE :1950???Age:73 Y???Sex:Female Address:[address] [place] [id number] * true * Date:? Generated for Pedro Pablo zazueta/Nayla/eTransmitting on:?03/31/2024 12:40 PM FORENSIC NURSE
[2024-04-03 04:24] LABS: Immunoglobulin A 148 mg/dL (70-320); TTG IGA AB <1.0 U/mL
[2024-04-03 19:29] LABS: Myeloperoxidase Ab <1.0 AI (<1.0); Proteinase-3 Ab <1.0 AI (<1.0)
[2024-04-04 12:23] LABS: ANCA Screen Negative (Negative)
== END 2024-03-31 11:27 | disposition home or self-care (01) ==
PROVIDERS: PCP Family Medicine; Visit Provider Family Medicine
DX: R19.7 Diarrhea, unspecified (principal)
CPT/HCPCS: 36415; 80053; 82784; 83516; 84443; 85025; 86036; 86671

== ENCOUNTER 2024-04-02 13:36 | Outpatient (CLI) | payer MEDICARE, SELFPAY ==
[2024-04-02 15:21] LABS: Toxigenic C. Diff NEGATIVE (NEGATIVE)
[2024-04-02 15:22] LABS: Toxigenic C. Diff NEGATIVE (NEGATIVE)
== END 2024-04-02 13:37 | disposition home or self-care (01) ==
LOC: CHSLAB 13:40
PROVIDERS: PCP Family Medicine; Visit Provider Family Medicine
DX: R19.7 Diarrhea, unspecified (principal)
CPT/HCPCS: 82705; 84376; 87045; 87269; 87427; 87449; 87493

== ENCOUNTER 2024-06-26 11:48 | Outpatient (CLI) | payer MEDICARE, SELFPAY ==
--- NOTE | ~2024-06-26 | MM_ITS ---
EXAMINATION: MM screening mayo BI w earlene HISTORY: Screening TECHNIQUE: Craniocaudal and mediolateral oblique 3-D tomosynthesis images were obtained and synthetic 2-D images were generated. CAD analysis was submitted and interpreted. COMPARISON: Comparison to multiple prior studies sequentially, with oldest reviewed study dated 12/03. BREAST PARENCHYMAL COMPOSITION: Dense: The breasts are heterogeneously dense, which may obscure small masses FINDINGS: There is no evidence of suspicious mass, calcification, or architectural distortion to sugg est malignancy in either breast. There has been no suspicious interval change. IMPRESSION: 1. No mammographic evidence of malignancy. 2. Recommend routine screening mammography in one year. BI-RADS Category 1: Negative Reviewed, dictated and finalized at location A.
--- OUTSIDE RECORDS SUMMARY | 2024-06-26 12:02 | XMS_ITS | Encounter Summary ---
Author Organization [facility] Address [address] [facility] [place] [address] Care Team Providers Care Jewelry Salesperson Name Role Phone Cory Cooper MD Primary Care Provider [phone] Encounter Details Date Type Department Care Team (Late st Contact Info) Description 03/15/2022 Lab Requisition [facility] [address] [place] [address] [place] [address] [place] [address] Social History Tobacco Use Types Packs/Day Years Used Date Smoking Tobacco: Never Assessed Comments Unknown Sex and Gender Information Value Date Recorded Sex Assigned at Not on file Legal Sex Female 11:44 AM CDT Gender Identity Not on file Sexual Orientation Not on file documented as of this encounter Plan of Treatment Not on file documented as of this encounter Procedures Procedure Name Priority Date/Time Associated Diagnosis Comments DERMATOPATHOLOGY Routine 03/13/2022 12:0 0 AM ORGANIC PREPARATION ANALYST documented in this encounter Results * DERMATOPATHOLOGY (03/13/2022 12:00 AM ORGANIC PREPARATION ANALYST) Case Report Dermatopathology Report Case: [id number] Authorizing Provider: Kristofer Saenz MD Collected: 03/13/2022 12:00 AM Ordering Location: [facility] Received: 03/15/2022 07:16 AM Pathologist: Karolina Desir MD Specimen: Skin, post neck 6:20 PM ORGANIC PREPARATION ANALYST DERMATOPATHOLOGY LABORATORY Final Diagnosis Specimen A. SKIN, post neck: SEBORRHEIC KERATOSIS (L82.1) PRESENT AT MARGIN 3 6:20 PM [facility] DERMATOPATHOLOGY LABORATORY Clinical History R/O BCC. Please Check Margins. 3 6:20 PM [facility] DERMATOPATHOLOGY LABORATORY Gross Description Specimen A: Received is one formalin filled container labeled with the patient's name and designated post neck. The specimen consists of a shave biopsy measuring 6x3j8ir and it is inked. Jar 0. 3 6:20 PM [facility] DERMATOPATHOLOGY LABORATORY Microscopic Description Specimen A. SKIN, post neck: Sections show an acanthotic lesion composed of relatively uniform keratinocytes. There is hyperkeratosis and pseudo horn cysts formation. This lesion is present at the margin of the specimen. 3 6:20 PM [facility] DERMATOPATHOLOGY LABORATORY Disclaimer An external and internal positive and negative controls are appropriate for the histochemical, immunohistochemical and immunofluorescence stain(s) in this case (if any), except where stated explicitly. The performance characteristics of the stain(s) cited in this report were developed and its performance characteristic determined by the Dermatopathology Laboratory at [facility], directed by Dr. Elysia Reyes. These tests need not be, and therefore are not, approved by the [place] Food and Drug Administration. The tests are used for clinical purposes. Billing Codes Specimen Charges Stain Charges 05818 1 3 6:20 PM [facility] DERMATOPATHOLOGY LABORATORY Embedded Images 3 6:20 PM [facility] DERMATOPATHOLOGY LABORATORY Pathology/Cytolog y TISSUE SPECIMEN FROM SKIN / Unknown 03/13/2022 03/15/2022 7:16 AM ORGANIC PREPARATION ANALYST us Kristofer Saenz MD LAB - PATHOLOGY/CYTOLOGY ORDERAB LES Final Result DERMATOPATHOLOGY LABORATORY [facility] - Department of Dermatology [address], [address] [phone] documented in this encounter Visit Diagnoses Not on filedocumented in this encounter Care Teams Jewelry Salesperson Relationship Specialty Start Date End Date Cory Cooper MD [address] [place] [address] PCP - General 08/01/21 documented as of this encounter
--- OUTSIDE RECORDS SUMMARY | 2024-06-26 12:02 | XMS_ITS | Clinical Summary ---
Author Organization [facility] Address [address] [place] [address] Phone Care Team Providers Care Physical Therapy Professor Name Role Phone Samira Singh Gael BORDEN Primary Care Provider [phone] Huy Jones DO Unavailable [phone] Allergies Active Allergy Reactions Criticality Noted [...] 77 07/08/2018 12:04 PM CDT Temperature 36 C (96.8 F) 07/08/2018 12:04 PM CDT Respiratory Rate 24 07/08/2018 12:04 PM CDT Oxygen Saturation 100% 07/08/2018 12:04 PM CDT Inhaled Oxygen Concentration - - Weight 61.2 kg (135 lb) 07/03/2018 11:00 AM CDT Height 157.5 cm (5' 2 ) 07/03/2018 11:00 AM CDT Body Mass Index 24.69 07/03/2018 11:00 AM CDT Plan of Treatment Health Maintenance Due Date Last Done Comments Hepatitis C Virus (HCV) Screening 1950 Cologuard 2000 Immunochemical Fecal Occult Blood 2000 Influenza Immunization (#1) 2023 09/0 11/2019, 12/08/2018, 12/06/2018, Additional history exists SARS-COV-2 Immunization ( season) 2023 05/22/2020, 04/30/2020 Respiratory Syncytial Virus [...] MEDICARE RAILROAD [employer] Care Teams Physical Therapy Professor Relationship Specialty Start Date End Date Samira Singh APRN PCP - General Advanced Practice Nurse 01/16/17 Huy Jones DO Consulting Physician Gastroenterology 06/26/17
--- OUTSIDE RECORDS SUMMARY | 2024-06-26 12:02 | XMS_ITS | Patient Health Record ---
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 Role Phone Cory Cooper MD Primary Care Provider Anabelle Cortez Unavailable [phone] Maribel Bustillo Unavailable [phone] Greg York Unavailable [phone] Annie Suresh Unavailable [phone] Migration, Provider Unavailable Unavailable Valeriano Torres Unavailable [phone] Allergies Allergen (clinical drug ingredient) Drug/Non Drug Allergy documented on EMR Reaction Allergy Type Onset Date Status vilazodone Viibryd diarrhea Drug Allergy Active Substance with penicillin structure and antibacterial mechanism of action (substance) Penicillins Unknown Drug Allergy 07/23/2023 Active sertraline Sertraline diarrhea Drug Allergy Activ e Results Component Value Reference Range Notes UDT Reviewed date:04/22/2024 10:34:58 AM Interpretation: Performing Lab: Notes/Report: THC n 0 - 50 ng/ml Cocaine n 0 - 300 ng/ml Amphetamine n 0 - 1000 ng/ml Buprenorphine (BUP) n 0 - 10 ng/ml Secobarbital (Bar) n 0 - 300 ng/ml Oxazepam (BZO) p 0 - 300 ng/ml 9-mbgedwtywq-9,8-uacgujqj-1, 3-diphenylpyrr olidine (EDDP) n 0 - 300 ng/ml Methamphetamine (MET) n 0 - 1000 ng/ml Methylenedioxymethamphetamine (MDMA) n 0 - 500 ng/ml Morphine (MOP 300/[id number]) n 0 - 300 ng/ml Methadone (MTD) n 0 - 300 ng/ml Phencyclidine (PCP) n 0 - 25 ng/ml Nortriptyline (TCA) n 0 - 1000 ng/ml Oxycodone n 0 - 300 ng/ml x n 0 - 300 ng/ml Benzodiazepines Reviewed date:05/01/2024 02:35:35 PM Interpretation: Performing Lab:[place], [facility], [address] [facility], [facility], Director - [id number] Notes/Report: An exception occurred while processing this report and so it has incomplete data. Please contact [employer] for assistance. Medicated Consistent Medicated Consistent Not Medicated Consistent Not Medicated Consistent Not Medicated Consistent Not Medicated Consistent Not Medicated Consistent Not Medicated Consistent Not Medicated Consistent Not Medicated Consistent 7-Aminoclonazepam NEGATIVE 20.0 ng/mL Temazepam NEGATIVE 40.0 ng/mL Oxazepam NEGATIVE 40.0 ng/mL Midazolam NEGATIVE 40.0 ng/mL Lorazepam NEGATIVE 40.0 ng/mL Nordiazepam NEGATIVE 40.0 ng/mL Diazepam NEGATIVE 40.0 ng/mL Clonazepam NEGATIVE 20.0 ng/mL Hydroxyalprazolam 119.5 20.0 ng/mL Alprazolam 45.2 20.0 ng/mL PDF Report [email or web address] C _ORU UDT Reviewed date:10/25/2023 05:06:54 PM Interpretation: Performing Lab: Notes/Report: THC n 0 - 50 ng/ml Cocaine n 0 - 300 ng/ml Amphetamine n 0 - 1000 ng/ml Buprenorphine (BUP) n 0 - 10 ng/ml Secobarbital (Bar) n 0 - 300 ng/ml Oxazepam (BZO) p 0 - 300 ng/ml 9-detwintwzp-3,7-rrjshsrj-9, 3-diphenylpyrr olidine (EDDP) n 0 - 300 ng/ml Methamphetamine (MET) n 0 - 1000 ng/ml Methylenedioxymethamphetamine (MDMA) n 0 - 500 ng/ml Morphine (MOP 300/[id number]) n 0 - 300 ng/ml Methadone (MTD) n 0 - 300 ng/ml Phencyclidine (PCP) n 0 - 25 ng/ml Nortriptyline (TCA) n 0 - 1000 ng/ml Oxycodone n 0 - 300 ng/ml x n 0 - 300 ng/ml UDT Reviewed date:09/23/2023 10:50:03 AM Interpretation: Performing Lab: Notes/Report: THC N 0 - 50 ng/ml Cocaine N 0 - 300 ng/ml Amphetamine N 0 - 1000 ng/ml Buprenorphine (BUP) N 0 - 10 ng/ml Secobarbital (Bar) N 0 - 300 ng/ml Oxazepam (BZO) P 0 - 300 ng/ml 8-gsjuqvyoub-9,4-ddmbdjfq-3, 3-diphenylpyrr olidine (EDDP) N 0 - 300 ng/ml Methamphetamine (MET) N 0 - 1000 ng/ml Methylenedioxymethamphetamine (MDMA) N 0 - 500 ng/ml Morphine (MOP 300/[id number]) N 0 - 300 ng/ml Methadone (MTD) N 0 - 300 ng/ml Phencyclidine (PCP) N 0 - 25 ng/ml Nortriptyline (TCA) N 0 - 1000 ng/ml Oxycodone N 0 - 300 ng/ml x N 0 - 300 ng/ml Reason For Referral No Information Medications Medication SIG (Take, Route, Frequency, Duration) Notes Start Date End Date Status hydrOXYzine HCl 10 MG 1 tablet as needed Orally three times a day for 30 days Active ALPRAZolam 0.25 MG TAKE 1 TABLET BY [facility] THREE TIMES DAILY FOR 30 DAYS for 30 05/22/2024 Active ProAir HFA 108 (90 Base) MCG/ACT Inhalation 07/23/2023 Not-Taking ARIPiprazole 20 MG 1 tablet Orally Once a day for 90 days Active lamoTRIgine 100 MG 0.5 tablet Oral Once a day for 90 days Active ALPRAZolam 0.25 MG 1 tablet Orally thre e times a day for 30 days Active OLANZapine 10 MG 1 tablet every night Orally Once a day for 90 days Active traZODone HCl 50 MG 1 tablet at bedtime Oral at bedtime for 90 days Active Immunizations Vaccine Route Administration Date Status Comme nts Zoster Unknown 03/04/2015 Administered Zoster Unknown 02/18/2019 Administered Zoster Unknown 02/01/2020 Administered Tdap Unknown 03/04/2012 Administered RSV-MAb (Respiratory syncyti al virus immune globulin) Unknown 12/11/2022 Administered Pneumococcal polysaccharide PPV23 Unknown 02/08/2017 Ad ministered Pneumococcal polysaccharide PPV23 Unknown 12/24/2017 Ad ministered Pneumococcal conjugate PCV 13 Unknown 12/27/2015 Admini stered Pneumococcal conjugate PCV 13 Unknown 12/02/2017 Admini stered Pneumococcal conjugate PCV 13 Unknown 12/19/2018 Admini stered Pfizer Biontech Covid-19 Vac cine 2nd dose Unknown 04/30/2020 Administered Pfizer Biontech Covid-19 Vac cine 2nd dose Unknown 05/22/2020 Administered Pfizer Biontech Covid-19 Vac cine 2nd dose Unknown 06/17/2021 Administered Pfizer Biontech Covid-19 Vac cine 2nd dose Unknown 12/11/2021 Administered Novel Kmsjansto-P3F9-65, preservative free Unknown 03/04/2013 Administered Novel Pflyeztyb-C2I6-29, preservative free Unknown 01/01/2017 Administered Novel Wxfiqptyr-U6O6-91, preservative free Unknown 12/08/2018 Administered Novel Kqepdhujx-B7Y7-36, preservative free Unknown 11/11/2019 Administered Influenza, unspecified formulation Unknown 12/11/2021 A dministered Influenza, unspecified formulation Unknown 12/11/2022 A dministered Influenza, seasonal, injecta ble, preservative free, 3 yrs and above Unknown 12/01/2014 Administered Influenza, high dose seasonal Unknown 12/27/2015 Admini stered Influenza, high dose seasonal Unknown 12/12/2016 Admini stered Influenza, high dose seasonal Unknown 12/18/2017 Admini stered Influenza, high dose seasonal Unknown 12/06/2018 Admini stered Influenza virus vaccine, quadrivalent (IIV4), split virus, 0.25 mL dosage Unknown 12/02/2017 Administered Influenza virus vaccine, quadrivalent (IIV4), split virus, 0.25 mL dosage Unknown 12/02/2018 Administered COVID-19 (SARS-COV-2) vaccin e, unspecified Unknown 12/11/2022 Administered Social History Tobacco Use: Social History Observation Description Date Details (start date - stop date) Former Smoker NA - NA Sex Assigned At : Social History Observation Description Sex Assigned At Female Tobacco Control (Standard) Question Answer Notes Tobacco use: Former smoker Section Notes: Substance UseDo you or have you ever smoked tobacco?: Former smoker (Notes: quit 1986)How many years have you smoked tobacco?: 20How much tobacco do you smoke?: NoneWhen did you quit smoking?: 16+ years since last cigaretteDo you or have you ever used any other forms of tobacco or nicotine?: NoDo you or have you ever used e-cigarettes or vape?: Never used electronic cigarettesDo you or have you ever used smokeless tobacco?: Never used smokeless tobaccoHow much tobacco do you chew?: noneWhat was the date of your most recent tobacco screening?: 07/23/2023Has tobacco cessation counseling been provided?: NoWhat is your level of alcohol consumption?: OccasionalHow many years have you consumed alcohol?: 10Have you ever been counseled for unhealthy alcohol use?: NoDo you use any illicit or recreational drugs?: NoWhich illicit or recreational drugs have you used?: NoHave you used IV drugs?: NoWhat is your level of caffeine consumption?: ModerateEducation and OccupationWhat is the highest grade or level of school you have completed or the highest degree you have received?: GED or equivalentAre you currently in school?: NoAre you currently employed?: NoWho is your employer?: RetiredMarriage and SexualityWhat is your relationship status?: MarriedAre you sexually active?: NoDo you use protection during sex?: NoHow many children do you have?: 2Home and EnvironmentAre you a caregiver?: NoDo you have any pets?: YesDo you have smoke and carbon monoxide detectors in your home?: YesAre you passively exposed to smoke?: NoAre there any smokers in your house?: NoAre there any guns present in your home?: NoDiet and ExerciseWhat type of diet are you following?: RegularLifestyleDo you feel stressed (tense, restless, nervous, or anxious, or unable to sleep at night)?: Not at allDo you use your seat belt or car seat routinely?: YesAdvance DirectiveDo you have an advance directive?: YesWhat is your code status?: Full CodeDo you have a medical power of assistant attorney general?: YesPublic Health and TravelHave you been to an area known to be high risk for COVID-19?: NoIn the 14 days before symptom onset, have you had close contact with a laboratory-confirmed COVID-19 while that case was ill?: NoIn the 14 days before symptom onset, have you had close contact with a person who is under investigation for COVID-19 while that person was ill?: NoDo you reside in or have you traveled to an area where Ebola virus transmission is active?: NoActivities of Daily LivingAre you able to care for yourself?: YesAre you blind or do you have difficulty seeing?: NoAre you deaf or do you have serious difficulty hearing? : NoDo you have difficulty concentrating, remembering or making decisions?: YesDo you have difficulty walking or climbing stairs?: YesDo you have difficulty dressing or bathing?: NoDo you have difficulty doing errands alone?: NoAre you able to walk?: Yes: walks without restrictionsDo you have transportation difficulties?: NoOtherEducation: 10Family history of heart disease?: NoHigh blood pressure: NoHigh Cholesterol: NoHigh number of sexual partners: NoHistory of inconsistent/no condom use: NoMarital status: MarriedPast steroid/HgH use?: NoGender Identity and LGBTQ IdentityGender identity: Identifies as FemaleAssigned sex at : FemaleSexual orientation: Straight or heterosexual Substance UseDo you or have you ever smoked tobacco?: Former smoker (Notes: quit 1985)How many years have you smoked tobacco?: 20How much tobacco do you smoke?: NoneWhen did you quit smoking?: 16+ years since last cigaretteDo you or have you ever used any other forms of tobacco or nicotine?: NoDo you or have you ever used e-cigarettes or vape?: Never used electronic cigarettesDo you or have you ever used smokeless tobacco?: Never used smokeless tobaccoHow much tobacco do you chew?: noneWhat was the date of your most recent tobacco screening?: 07/23/2023Has tobacco cessation counseling been provided?: NoWhat is your level of alcohol consumption?: OccasionalHow many years have you consumed alcohol?: 10Have you ever been counseled for unhealthy alcohol use?: NoDo you use any illicit or recreational drugs?: NoWhich illicit or recreational drugs have you used?: NoHave you used IV drugs?: NoWhat is your level of caffeine consumption?: ModerateEducation and OccupationWhat is the highest grade or level of school you have completed or the highest degree you have received?: GED or equivalentAre you currently in school?: NoAre you currently employed?: NoWho is your employer?: RetiredMarriage and SexualityWhat is your relationship status?: MarriedAre you sexually active?: NoDo you use protection during sex?: NoHow many children do you have?: 2Home and EnvironmentAre you a caregiver?: NoDo you have any pets?: YesDo you have smoke and carbon monoxide detectors in your home?: YesAre you passively exposed to smoke?: NoAre there any smokers in your house?: NoAre there any guns present in your home?: NoDiet and ExerciseWhat type of diet are you following?: RegularLifestyleDo you feel stressed (tense, restless, nervous, or anxious, or unable to sleep at night)?: Not at allDo you use your seat belt or car seat routinely?: YesAdvance DirectiveDo you have an advance directive?: YesWhat is your code status?: Full CodeDo you have a medical power of assistant attorney general?: YesPublic Health and TravelHave you been to an area known to be high risk for COVID-19?: NoIn the 14 days before symptom onset, have you had close contact with a laboratory-confirmed COVID-19 while that case was ill?: NoIn the 14 days before symptom onset, have you had close contact with a person who is under investigation for COVID-19 while that person was ill?: NoDo you reside in or have you traveled to an area where Ebola virus transmission is active?: NoActivities of Daily LivingAre you able to care for yourself?: YesAre you blind or do you have difficulty seeing?: NoAre you deaf or do you have serious difficulty hearing? : NoDo you have difficulty concentrating, remembering or making decisions?: YesDo you have difficulty walking or climbing stairs?: YesDo you have difficulty dressing or bathing?: NoDo you have difficulty doing errands alone?: NoAre you able to walk?: Yes: walks without restrictionsDo you have transportation difficulties?: NoOtherEducation: 10Family history of heart disease?: NoHigh blood pressure: NoHigh Cholesterol: NoHigh number of sexual partners: NoHistory of inconsistent/no condom use: NoMarital status: MarriedPast steroid/HgH use?: NoGender Identity and LGBTQ IdentityGender identity: Identifies as FemaleAssigned sex at : FemaleSexual orientation: Straight or heterosexual Substance UseDo you or have you ever smoked tobacco?: Former smoker (Notes: quit 1985)How many years have you smoked tobacco?: 20How much tobacco do you smoke?: NoneWhen did you quit smoking?: 16+ years since last cigaretteDo you or have you ever used any other forms of tobacco or nicotine?: NoDo you or have you ever used e-cigarettes or vape?: Never used electronic cigarettesDo you or have you ever used smokeless tobacco?: Never used smokeless tobaccoHow much tobacco do you chew?: noneWhat was the date of your most recent tobacco screening?: 07/23/2023Has tobacco cessation counseling been provided?: NoWhat is your level of alcohol consumption?: OccasionalHow many years have you consumed alcohol?: 10Have you ever been counseled for unhealthy alcohol use?: NoDo you use any illicit or recreational drugs?: NoWhich illicit or recreational drugs have you used?: NoHave you used IV drugs?: NoWhat is your level of caffeine consumption?: ModerateEducation and OccupationWhat is the highest grade or level of school you have completed or the highest degree you have received?: GED or equivalentAre you currently in school?: NoAre you currently employed?: NoWho is your employer?: RetiredMarriage and SexualityWhat is your relationship status?: MarriedAre you sexually active?: NoDo you use protection during sex?: NoHow many children do you have?: 2Home and EnvironmentAre you a caregiver?: NoDo you have any pets?: YesDo you have smoke and carbon monoxide detectors in your home?: YesAre you passively exposed to smoke?: NoAre there any smokers in your house?: NoAre there any guns present in your home?: NoDiet and ExerciseWhat type of diet are you following?: RegularLifestyleDo you feel stressed (tense, restless, nervous, or anxious, or unable to sleep at night)?: Not at allDo you use your seat belt or car seat routinely?: YesAdvance DirectiveDo you have an advance directive?: YesWhat is your code status?: Full CodeDo you have a medical power of assistant attorney general?: YesPublic Health and TravelHave you been to an area known to be high risk for COVID-19?: NoIn the 14 days before symptom onset, have you had close contact with a laboratory-confirmed COVID-19 while that case was ill?: NoIn the 14 days before symptom onset, have you had close contact with a person who is under investigation for COVID-19 while that person was ill?: NoDo you reside in or have you traveled to an area where Ebola virus transmission is active?: NoActivities of Daily LivingAre you able to care for yourself?: YesAre you blind or do you have difficulty seeing?: NoAre you deaf or do you have serious difficulty hearing? : NoDo you have difficulty concentrating, remembering or making decisions?: YesDo you have difficulty walking or climbing stairs?: YesDo you have difficulty dressing or bathing?: NoDo you have difficulty doing errands alone?: NoAre you able to walk?: Yes: walks without restrictionsDo you have transportation difficulties?: NoOtherEducation: 10Family history of heart disease?: NoHigh blood pressure: NoHigh Cholesterol: NoHigh number of sexual partners: NoHistory of inconsistent/no condom use: NoMarital status: MarriedPast steroid/HgH use?: NoGender Identity and LGBTQ IdentityGender identity: Identifies as FemaleAssigned sex at : FemaleSexual orientation: Straight or heterosexual Problems Problem Type SNOMED Code ICD Code Onset Dates Problem Status W/U Status Risk Notes Problem Schizoaffective disorder, bipolar type (91096473) Schizoaffective disorder, bipolar type (F25.0) Active confirmed stable on current medications . No paranoia, hallucinati ons, delusional behavior noted or reported Problem Generalized anxiety disorder (39969102) Generalized anxiety disorder (F41.1) Active confirmed Stable on lower dose of alprazolam, continue 0.25mg TID PRN Problem Primary insomnia (0174206) Primary insomnia (F51.01) Active confirmed well controlled, continue current therapy Problem Long-term current use of drug therapy (035256837) Other mcc (current) drug therapy (Z79.899) Active confirmed Problem [id number] Elevated blood pressure reading (R03.0) Active confirmed Problem Memory impairment (748767480) Memory impairment (R41.3) Active confirmed Problem [id number] Memory loss or impairment (R41.3) Active confirmed Vital Signs Heart Rate 77 /min 05/21/2024 Blood pressure diastolic 75 mm Hg 05/21/2024 Height-cm 157.48 cm 05/21/2024 Weight-kg 62.6 kg 05/21/2024 Height 62.00 in 05/21/2024 Blood pressure systolic 106 mm Hg 05/21/2024 Weight 138.0 lbs 05/21/2024 BMI 25.24 kg/m2 05/21/2024 Procedures Procedure Date Ordered Date Performed Result Body Sit e MCI Testing 03/27/2024 N/A Encounters Encounter Location Date Provider Diagnosis [facility] [address] [address] 07/16/2023 Provider Migration Generalized anxiety disorder F41.1 [facility] [address] [facility] [address] [place] [address] 07/23/2023 Annie Thery Schizoaffective disorder, bipolar type F25.0 ; Other [facility] (current) drug therapy Z79.899 ; Primary insomnia F51.01 and Generalized anxiety disorder F41.1 [facility] [address] [address] 08/13/2023 Annie Thery Schizoaffective disorder, bipolar type F25.0 ; Generalized anxiety disorder F41.1 ; Primary insomnia F51.01 and Other [facility] (current) drug therapy Z79.899 [facility] [address] [address] 08/30/2023 Maribel Adler Schizoaffective disorder, bipolar type F25.0 and Generalized anxiety disorder F41.1 [facility] [address] [place] [address] 09/10/2023 Annie Thermadi Schizoaffective disorder, bipolar type F25.0 ; Generalized anxiety disorder F41.1 ; Primary insomnia F51.01 and Other m[facility] (current) drug therapy Z79.899 [facility] [address] [place] [address] 09/23/2023 Greg York Schizoaffective disorder, bipolar type F25.0 ; Generalized anxiety disorder F41.1 and Primary insomnia F51.01 [facility] [address] [place] [address] 09/27/2023 Maribel Yap Vitor Schizoaffective disorder, bipolar type F25.0 and Generalized anxiety disorder F41.1 [facility] [address] [place] [address] 10/03/2023 Annie Thery Schizoaffective disorder, bipolar type F25.0 ; Generalized anxiety disorder F41.1 and Primary insomnia F51.01 [facility], [facility] [address] [place] [address] 10/25/2023 Maribelarabella Yap Vitor Schizoaffective disorder, bipolar type F25.0 and Generalized anxiety disorder F41.1 [facility] [address] [place] [address] 10/25/2023 Annie Thery Schizoaffective disorder, bipolar type F25.0 ; Generalized anxiety disorder F41.1 and Primary insomnia F51.01 [facility] [address] [place] [address] 11/05/2023 Annie Thery Schizoaffective disorder, bipolar type F25.0 ; Generalized anxiety disorder F41.1 and Primary insomnia F51.01 [facility] [address] [place] [address] 11/13/2023 Maribel Yap Vitor Schizoaffective disorder, bipolar type F25.0 and Generalized anxiety disorder F41.1 [facility] [address] [place] [address] 12/05/2023 Annie Thery Schizoaffective disorder, bipolar type F25.0 ; Generalized anxiety disorder F41.1 ; Primary insomnia F51.01 and Memory loss or impairment R41.3 [facility], [facility] [address] [place] [address] 12/11/2023 Maribel Yap Vitor Schizoaffective disorder, bipolar type F25.0 and Generalized anxiety disorder F41.1 [facility], [facility] [address] [place] [address] 01/06/2024 Maribelarabella Yap Vitor Generalized anxiety disorder F41.1 and Schizoaffective disorder, bipolar type F25.0 [facility] [address] [place] [address] 01/06/2024 Annie Suresh Schizoaffective disorder, bipolar type F25.0 ; Generalized anxiety disorder F41.1 ; Primary insomnia F51.01 ; Memory loss or impairment R41.3 and Elevated blood pressure reading R03.0 [facility] [address] [place] [address] 01/08/2024 Anabelle Arpita Schizoaffective disorder, bipolar type F25.0 ; Generalized anxiety disorder F41.1 and Primary insomnia F51.01 [facility] [address] [place] [address] 01/28/2024 Anabelle Arpita Schizoaffective disorder, bipolar type F25.0 ; Generalized anxiety disorder F41.1 and Primary insomnia F51.01 [facility] [address] [place] [address] 02/03/2024 Maribel Adler Schizoaffective disorder, bipolar type F25.0 and Generalized anxiety disorder F41.1 [facility] [address] [place] [address] 02/13/2024 Anabelle Arpita Schizoaffective disorder, bipolar type F25.0 ; Generalized anxiety disorder F41.1 and Primary insomnia F51.01 [facility] [address] [place] [address] 02/27/2024 Valeriano Torres Schizoaffective disorder, bipolar type F25.0 and Generalized anxiety disorder F41.1 [facility] [address] [place] [address] 03/24/2024 Maribel Adler Generalized anxiety disorder F41.1 and Schizoaffective disorder, bipolar type F25.0 [facility] [address] [place] [address] 03/27/2024 Anabelle Arpita Schizoaffective disorder, bipolar type F25.0 ; Generalized anxiety disorder F41.1 ; Primary insomnia F51.01 and Memory impairment R41.3 [facility] [address] [place] [address] 04/09/2024 Maribel Adler Generalized anxiety disorder F41.1 and Schizoaffective disorder, bipolar type F25.0 [facility], [facility] [address] [place] [address] 04/22/2024 Anabelle Arpita Schizoaffective disorder, bipolar type F25.0 ; Generalized anxiety disorder F41.1 and Primary insomnia F51.01 [facility] [facility], [facility] [address] [place] [address] 04/30/2024 Anabelle Arpita Schizoaffective disorder, bipolar type F25.0 ; Generalized anxiety disorder F41.1 and Primary insomnia F51.01 [facility], [facility] [address] [place] [address] 05/07/2024 Maribel Adler Schizoaffective disorder, bipolar type F25.0 and Generalized anxiety disorder F41.1 [facility], [facility] [address] [place] [address] 05/21/2024 Anabelle Arpita Schizoaffective disorder, bipolar type F25.0 ; Generalized anxiety disorder F41.1 ; Primary insomnia F51.01 ; Encounter for screening for depression Z13.31 and Encounter for screening for cardiovascular disorders Z13.6 [facility], [facility] [address] [place] [address] 06/05/2024 Anabelle Palm Encounter for screen ing for depression Z13.31 ; Schizoaffective disorder, bipolar type F25.0 ; Generalized anxiety disorder F41.1 ; Primary insomnia F51.01 and Encounter for screening for cardiovascular disorders Z13.6 [facility], [facility] [address] [place] [address] 06/11/2024 Maribel Adler Schizoaffective disorder, bipolar type F25.0 and Generalized anxiety disorder F41.1 [facility], [facility] [address] [place] [address] 07/11/2023 Provider Migration [facility], [facility] [address] [place] [address] 07/16/2023 Provider Migration [facility], [facility] [address] [place] [address] 07/17/2023 Provider Migration [facility], [facility] [address] [place] [address] 07/20/2023 Provider Migration [facility], [facility] [address] [place] [address] 07/21/2023 Provider [facility], [facility] [address] [place] [address] 08/16/2023 Annie Suresh [facility], [facility] [address]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 increase the risk of CVA, akathisia, and movement disorders including EPS or tardive dyskinesia (more common with first generation antipsychotics) and more. Elderly- discussed risks, cognition, sedation, falls, metabolic, movement and atypical antipsychotics carry a black-box warning for increased risk of and cerebrovascular events in dementia. Psychotic Episodes and Mood Instability - Assessment: The patient has a history of psychotic episodes, satnam, and depression. She is currently stable on aripiprazole and olanzapine. - Plan: Continue aripiprazole and olanzapine as prescribed. Monitor for any signs of relapse or worsening of symptoms. STOP WELLBUTRIN- TINNITUS improved Hair Loss- improved - Assessment: The patient is concerned about hair loss, which she attributes to her medications. - Plan: Recommend taking a daily multivitamin for seniors with additional zinc to help with hair loss. patient reported improved Medication Management - Assessment: The patient questions the need for both aripiprazole and olanzapine and is concerned about potential side effects. - Plan: Continue current medications as prescribed. Encourage the patient to discuss the possibility of adjusting medication dosages or tapering off one of the medications if deemed appropriate. Follow-up- no refills needed today - Assessment: The patient has an upcoming appointments and therapy - Plan: Keep the appointment and therapy educated on all rx, benefits, side effect, risk and disucss complaince and risk falls with benzo 01/06/2024 Generalized anxiety disorder (ICD-10 - F41.1) SLUMS= 20 completed 12/05/23 scanned into chart AIMS= 1 = has 2 missing teeth 12/05/23 Scanned into chart 1. Schizoaffective Bipolar She is currently on aripiprazole 10 mg and olanzapine 10 mg. Lamotrigine 100 mg daily - discuss and educated on all rx D/C Zoloft 50 mg daily- DIARRHEA Depression - Assessment:- stable mood monitor for satnam and hypomania 2. discuss Alzheimer's Dementia with patient and discuss CANS/MCI testing when depression and anxiety is more controlled discuss rx for memory- Namenda and or Exelon will consider 3. Anxiety - Assessment: The patient reports that clonazepam is working for her anxiety. However, it is important to emphasize the role of therapy in managing anxiety. - Plan: Continue Xanax 0.5 mg three times a day take as prescribed. Vistaril 10 mg twice a day as needed - r/o falls- improved - educated to only take as needed for anxiety http_s://www.na mi.org/About-Me ntal-Illness/Me vndt-Uskett-Dzt ditions http_s://psychc entral.com/depr ession/the-cogn itive-symptoms- of-depression#t reatments http__s://www.n [facility].gov/a [facility]/topics/ment ge-pglqxx-qpmrx ations http__s://www.n [facility].org/About-M ental-Illness/T reatments/Menta z-Ayxyvx-Kwmpps tions Encourage the patient to continue therapy sessions for anxiety management. Discussed and educated pt regarding benzodiazepines are generally not intended for prolonged use and that use can cause tolerance, dependence, depression, and associated memory issues including dementias (this list is not exhaustive). Benzodiazepine use is generally not recommended concurrently with pain medications and/or other controlled substances educated on all medications, benefits, side effects and risk, and educated on depression, anxiety, and ADHD, mood d/o and educated on compliance of medications, metabolic and movement d/o education appointment is, continue therapy discussion with patient about course of treatment and patient instructions. education on serotonin syndrome SSRI/SNRI side effects discussed including but not limited to, gastric upset, nausea, vomiting, diarrhea and/or constipation, weight changes, sexual side effects including loss of libido, increased suicidal thoughts/behavi ors in children and young adults, and serotonin syndrome. Second generation antipsychotics (SGAs) have metabolic syndrome issues with weight gain, increase in prolactin, increased waist circumference, increased lipids, and increased glucose. Thus routine monitoring of weight, metabolic labs, etc. is indicated. A general rank ordering of antipsychotics that have the greatest to the least risk of metabolic effects is olanzapine, quetiapine, risperidone, ziprasidone, and aripiprazole. However, weight gain can occur with all of these drugs and considerable variability exists among patients receiving the same drug regarding the risk of metabolic effects. Anti-psychotic agents not only increase the risk of metabolic disorder, they also increase the risk of CVA, akathisia, and movement disorders including EPS or tardive dyskinesia (more common with first generation antipsychotics) and more. Elderly- discussed risks, cognition, sedation, falls, metabolic, movement and atypical antipsychotics carry a black-box warning for increased risk of and cerebrovascular events in dementia. Psychotic Episodes and Mood Instability - Assessment: The patient has a history of psychotic episodes, satnam, and depression. She is currently stable on aripiprazole and olanzapine. - Plan: Continue aripiprazole and olanzapine as prescribed. Monitor for any signs of relapse or worsening of symptoms. STOP WELLBUTRIN- TINNITUS improved Hair Loss- improved - Assessment: The patient is concerned about hair loss, which she attributes to her medications. - Plan: Recommend taking a daily multivitamin for seniors with additional zinc to help with hair loss. patient reported improved Medication Management - Assessment: The patient questions the need for both aripiprazole and olanzapine and is concerned about potential side effects. - Plan: Continue current medications as prescribed. Encourage the patient to discuss the possibility of adjusting medication dosages or tapering off one of the medications if deemed appropriate. Follow-up- no refills needed today - Assessment: The patient has an upcoming appointments and therapy - Plan: Keep the appointment and therapy educated on all rx, benefits, side effect, risk and disucss complaince and risk falls with benzo 08/30/2023 Schizoaffective disorder, bipolar type (ICD-10 - F25.0) Meds ordered by Annie Suresh, magnaflux operator Copied from [place] 05/28/23. History of Present Illness Psychotherapy Intervention HPI For treatment compliance, patient reports problem or focus area for therapy recurrent major depression, verito, and schizoaffective , bipolar type. For psychotherapy intervention, patient reports motivational interviewing. For themes discussed, patient reports interpersonal dynamics, trauma, spirituality, and self concept. For treatment goals, patient reports identify anxiety triggers, reduce depressive symptoms, improve stress self-management , improve intrinsic sense of control, improve healthy means of coping, avoid substance relapse, and improve self-esteem. Psychological Assessment Emotional symptoms: For depression, patient reports depression, frustration, sad mood, crying/urges, and feelings of hopelessness but reports no lethargy, no anhedonia, no loss of libido, no pessimism, no psychomotor retardation, no feelings of worthlessness, and no feelings of helplessness. For anxiety, patient reports anxious and worry but reports no history of panic attacks and no agoraphobia. For psychosis, patient reports auditory hallucinations command but reports suicidal/homici marzena symptoms absent, no somatic preoccupation, no visual hallucinations, no paranoid ideations, no paranoid delusions, and no ideas of reference. For suicidal and/or passive thoughts of , patient reports denied thoughts of life not worth living, denied passive wishes, denied current suicidal ideation, plan or intent to take own life, and denied history of suicidal ideation, plan or intent to take own life. For homicidal ideation, patient reports denied homicidal ideations, plan or intent to harm others, denied history of homicidal ideations, plan or intent to harm others, and no history of assaulting other person. For satnam, patient reports no racing thoughts, no rapid shifts in thoughts, goal-directed behavior, normal sleep, no irritability, no agitation, no mood lability, no history of euphoria, no hypersexuality, no grandiosity, no impulsive spending, and finishes projects. For sleep disturbance, patient reports intact, no insomnia, no hypersomnolence , no rapid shifts in sleep pattern, and no sleep apnea. For obsessive compulsive disorder, patient reports present. For post traumatic stress disorder, patient reports present, no history of sexual assault, not a witness to traumatic event, physical assault/abuse, sexual assult/trauma, no nightmares, no flashbacks, no intrusive thoughts, no startle response, no phobic avoidance, no guilt, no shame, and no withdrawal. For borderline personality disorder, patient reports no self-injury, no cutting, and no foreign object insertion. For eating disorders, patient reports no anorexia, no bulimia/binging , no purging, and no laxative use. Psychosis I do hear a voice all the time, a man. When I was recently manic, I heard 3 voices. Psychosocial Assessment Presenting Problem: Sharon is a 73 year old female who presents for [facility] Initial Assessment. 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 The patient presents with a complex psychiatric history, including anxiety, recurrent major depression, and schizoaffective disorder, with symptom onset at age 33. She recounts enduring manic episodes that span months, with the latest episode transpiring in July of the preceding year. Currently, the patient is navigating a depressive phase and has a record of multiple hospitalization s for mental health concerns. I would like to figure out and manage my triggers. I am in a depressive state now. I do take my medicine as prescribed. HX Substance Abuse In terms of family history, the patient notes a background of substance abuse and mental health issues within the family, yet she herself has no personal history of drug addiction. She acknowledges a past of alcohol use during her 20s and 30s, which has ceased. The patient has experimented with medical marijuana in edible form, which precipitated a severe manic episode with auditory hallucinations. Medically, the patient has undergone several surgeries, including a hysterectomy, sinus surgery, and a procedure for sleep apnea that involved uvula removal. Post-surgery, she sometimes experiences choking episodes while eating due to the uvula's absence. Family Origin (/childr en): Pt and her were when she was 16 years old. They have two sons, 52 and 48. Both successful. One grandchild Childhood Family Dynamic: Family grew up in [place]. Pt had 5 sisters. One sister overdosed on fentanyl 2 years ago. She had 3 brothers, one of cancer (1 yeara go). Order of Children in the family. Mom had 5 kids with 1st , 1 with second , 2 with boyfriend, 1 with another boyfriend. I remember my first first depression at age 5 when my bicycle was taken away. The patient's upbringing was marked by a chaotic family environment. I could not wait to move out. My parents never got along. Mom at 82 years old. Dad in his early 70's. Dad was 20 years older. Education and Occupation: Worked for [employer] in the [employer]. Support System: and children are identified as supportive and helpful Spirituality: Baptikimberlyn Fink 08/30/2023 Generalized anxiety disorder (ICD-10 - F41.1) Copied from [place] 05/28/23. History of Present Illness Psychotherapy Intervention HPI For treatment compliance, patient reports problem or focus area for therapy recurrent major depression, verito, and schizoaffective , bipolar type. For psychotherapy intervention, patient reports motivational interviewing. For themes discussed, patient reports interpersonal dynamics, trauma, spirituality, and self concept. For treatment goals, patient reports identify anxiety triggers, reduce depressive symptoms, improve stress self-management , improve intrinsic sense of control, improve healthy means of coping, avoid substance relapse, and improve self-esteem. Psychological Assessment Emotional symptoms: For depression, patient reports depression, frustration, sad mood, crying/urges, and feelings of hopelessness but reports no lethargy, no anhedonia, no loss of libido, no pessimism, no psychomotor retardation, no feelings of worthlessness, and no feelings of helplessness. For anxiety, patient reports anxious and worry but reports no history of panic attacks and no agoraphobia. For psychosis, patient reports auditory hallucinations command but reports suicidal/homici marzena symptoms absent, no somatic preoccupation, no visual hallucinations, no paranoid ideations, no paranoid delusions, and no ideas of reference. For suicidal and/or passive thoughts of , patient reports denied thoughts of life not worth living, denied passive wishes, denied current suicidal ideation, plan or intent to take own life, and denied history of suicidal ideation, plan or intent to take own life. For homicidal ideation, patient reports denied homicidal ideations, plan or intent to harm others, denied history of homicidal ideations, plan or intent to harm others, and no history of assaulting other person. For satnam, patient reports no racing thoughts, no rapid shifts in thoughts, goal-directed behavior, normal sleep, no irritability, no agitation, no mood lability, no history of euphoria, no hypersexuality, no grandiosity, no impulsive spending, and finishes projects. For sleep disturbance, patient reports intact, no insomnia, no hypersomnolence , no rapid shifts in sleep pattern, and no sleep apnea. For obsessive compulsive disorder, patient reports present. For post traumatic stress disorder, patient reports present, no history of sexual assault, not a witness to traumatic event, physical assault/abuse, sexual assult/trauma, no nightmares, no flashbacks, no intrusive thoughts, no startle response, no phobic avoidance, no guilt, no shame, and no withdrawal. For borderline personality disorder, patient reports no self-injury, no cutting, and no foreign object insertion. For eating disorders, patient reports no anorexia, no bulimia/binging , no purging, and no laxative use. Psychosis I do hear a voice all the time, a man. When I was recently manic, I heard 3 voices. Psychosocial Assessment Presenting Problem: Sharon is a 73 year old female who presents for [facility] Initial Assessment. 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 The patient presents with a complex psychiatric history, including anxiety, recurrent major depression, and schizoaffective disorder, with symptom onset at age 33. She recounts enduring manic episodes that span months, with the latest episode transpiring in July of the preceding year. Currently, the patient is navigating a depressive phase and has a record of multiple hospitalization s for mental health concerns. I would like to figure out and manage my triggers. I am in a depressive state now. I do take my medicine as prescribed. HX Substance Abuse In terms of family history, the patient notes a background of substance abuse and mental health issues within the family, yet she herself has no personal history of drug addiction. She acknowledges a past of alcohol use during her 20s and 30s, which has ceased. The patient has experimented with medical marijuana in edible form, which precipitated a severe manic episode with auditory hallucinations. Medically, the patient has undergone several surgeries, including a hysterectomy, sinus surgery, and a procedure for sleep apnea that involved uvula removal. Post-surgery, she sometimes experiences choking episodes while eating due to the uvula's absence. Family Origin (/childr en): Pt and her were when she was 16 years old. They have two sons, 52 and 48. Both successful. One grandchild Childhood Family Dynamic: Family grew up in [place]. Pt had 5 sisters. One sister overdosed on fentanyl 2 years ago. She had 3 brothers, one of cancer (1 yeara go). Order of Children in the family. Mom had 5 kids with 1st , 1 with second , 2 with boyfriend, 1 with another boyfriend. I remember my first first depression at age 5 when my bicycle was taken away. The patient's upbringing was marked by a chaotic family environment. I could not wait to move out. My parents never got along. Mom at 82 years old. Dad in his early 70's. Dad was 20 years older. Education and Occupation: Worked for [employer] in the [employer]. Support System: and children are identified as supportive and helpful Spirituality: Baptized Christian 09/10/2023 Schizoaffective disorder, bipolar type (ICD-10 - F25.0) Meds ordered by Annie Suresh, magnaflux operator Schizoaffective disorder, bipolar type -Lamotrigine 100 mg at night educated on rx - discuss GDRAbilify 10 mg in am for depression- educated on rx patient requires 2 anti-psychotic at this time related to severe depression - educated on rx Wellbutrin SR 150 MG TWICE a day r/t depression delusion- before leaving visit patient reported one lady I do not like is coming back into picture again from card game I will talk about it in therapy- Abilify is being increased today patient reported been taking Zyprexa 5 mg at dinner -tolerated GDR and no satnam no hypomania no delusions- patient had severe depressive episode - discuss possible decrease in near future r/t adding Abilify and educated on rx and educated on hypomania and satnam s/s and monitor educated on all medications, benefits, side effects and risk, and educated on depression, anxiety, and mood d/o and educated on compliance of medications, metabolic and movement d/o education appointment's, continue therapy discussion with patient about course of treatmentand patient instructions. education on serotonin syndrome Lamotrigine lamotrigine has a serious rashes requiring hospitalization and discontinue treatment including Randall Sunday syndrome rare case of toxic epidermal necrolysis and cache related deaths. Incidence with adjunct of epilepsy treatment 0.8% in 2 to 16 years old and 0.3% in adults, bipolar and other mood disorders incidence 0.8% this initial monotherapy and 0.13% as adjunctive treatment. Other risk factor may include concomitant use of valproate acid derivative or exceeding initial lamotrigine does or does as clinician recommendation; most life-threatening rash of occurring first 2 to 8 week of treatment with isolated cases after prolonged treatment; though benign may occur, discontinue treatment at first sign of rash unless clearly not a drug related; TC treatment may not prevent trash from becoming life-threatening or permanently disabling or disfiguring. Comment reaction include, nausea/vomiting, dizziness/vertigo , visual disturbances, somnolence, ataxia, pruritus/rash, pharyngitis, headache, rhinitis, diarrhea, fever, asthenia, insomnia, tremor, abdominal pain, cough, accidental injury, constipation, dysmenorrhea, incoordination, anxiety, seizures, irritability, anorexia, xerostomia, and photosensitivity. Serious reactions include: Rash, severe; Mcgowan Sunday syndrome; toxic epidermal necrosis; injury edema, hypersensitivity reactions. Including fatal, multiple organ failure to safe fatal, rash with eosinophilia systemic symptoms, DIC, neutropenia, leukopenia, thrombocytopenia, pancytopenia, aplastic anemia, hemolytic anemia, i pancreatitis, hepatic failure, rhabdomyolysis, worsening of suicidal ideation, worsening of depression, cleft lip/palate [first trimester use] DO not Change Cosmetic, perfumes or soap for next 4 weeks. The patient was advice to take lamotrigine as prescribed the patient was instructed not to deviate from the prescription dosages. Stop lamotrigine is the first sign of rash. Patient was insisted to inform office if any of the serious side effect develops. therapy- continue F25.0: Schizoaffective disorder, bipolar typearipiprazole 10 mg tablet - Take 1 tablet(s) every day by oral route at bedtime for 90 days. Qty: (90) tablet Refills: 0 Pharmacy: [facility] [id number] HCl SR 150 mg tablet,12 hr sustained-release - Take 1 tablet(s) twice a day by oral route in the morning for 90 days, for depression. Qty: (180) tablet Refills: 0 Pharmacy: [facility] [address] Note to Pharmacy: d/c daily doselamotrigine 100 mg tablet - Take 1 tablet(s) every day by oral route at dinner for 90 days. Qty: (90) tablet Refills: 0 Pharmacy: [facility] [address] Note to Pharmacy: d/c 150 mg doseolanzapine 5 mg tablet - Take 1 tablet(s) every day by oral route at bedtime for 30 days. Qty: (30) tablet Refills: 2 Pharmacy: [facility] [facility] [address] 2. Generalized anxiety disorder - patient having increase anxiety and panic will switch Xanax to Clonazepam related to longer lasting - educated patient on rx Add Clonazepam 0.5 mg three times a day - educated on rx Add Vistaril 10 mg up to three times a day as needed for panic attacks - educatedon rx stop Xanax 0.5 mg up to three times a day for anxiety Educated patient Clonazepam may be causing excessive tired and to take as needed and if not needed then do not take Clonazepam Discussed and educated pt regarding benzodiazepines are generally not intended for prolonged use and that use can cause tolerance, dependence, depression, and associated memory issues including dementias (this list is not exhaustive). Benzodiazepine use is generally not recommended concurrently with pain medications and/or other controlled substances due to increased risks of profound sedation, respiratory depression, coma, and even . They are not to be used with any alcohol, as this combination can also be lethal. Patient was provided caution educated on rx and educated on Rod Sunday Syndrome and rash and if develop go to ER and notify office educated not to change soaps, foods, laundry detergents, ect, with adding or changing dose Lamotrigine discuss depression and medication options and patient had a good response with Wellbutrin in past - discuss monitoring for satnam, hypomaniaWellbutr in SR 150 mg in am - educated to stay on rx as prescribed F41.1: Generalized anxiety disorderClonazepa m 0.5 mg tablet - Take 1 tablet(s) 3 times a day by oral route as needed for 30 days. Qty: (90) tablet Refills: 2 Pharmacy: [facility] - stop Xanax 3. Primary insomnia -Trazodone 50 mg at night as needed -Melatonin 10 mg at bedtime OTC Educated patient Xanax may be causing excessive tired and to take as needed and if not needed then do not take [id number]: Primary insomniatrazodone 50 mg tablet - Take 1 tablet(s) every day by oral route at bedtime for 90 days. Qty: (90) tablet Refills: 0 Pharmacy: [facility] 4. Long-term drug xsrftepH99.0: Schizoaffective disorder, bipolar type F41.1: Generalized anxiety disorder F51.01: Primary insomnia Z79.899: Other [facility] (current) drug therapy, Learning About Schizoaffective Disorder material was published, Learning About How to Get Help During a Mental Health Crisis material was published Schizoaffective disorder, bipolar type - Lamotrigine 100 mg at night educated on rx - discuss GDR Abilify 10 mg in am for depression- educated on rx patient requires 2 anti-psychotic at this time related to severe depression - educated on rx Wellbutrin SR 150 MG TWICE a day r/t depression delusion- chronic patient had severe depressive episode - discuss possible decrease in near future Zyprexa r/t adding Abilify and educated on rx and educated on hypomania and satnam s/s, psychosis, delusions and monitor educated on all medications, benefits, side effects and risk, and educated on depression, anxiety, and mood d/o and educated on compliance of medications, metabolic and movement d/o education appointment's, continue therapy discussion with patient about course of treatmentand patient instructions. education on serotonin syndrome Lamotrigine lamotrigine has a serious rashes requiring hospitalization and discontinue treatment including Randall Sunday syndrome rare case of toxic epidermal necrolysis and cache related deaths. Incidence with adjunct of epilepsy treatment 0.8% in 2 to 16 years old and 0.3% in adults, bipolar and other mood disorders incidence 0.8% this initial monotherapy and 0.13% as adjunctive treatment. Other risk factor may include concomitant use of valproate acid derivative or exceeding initial lamotrigine does or does as clinician recommendation; most life-threatenin g rash of occurring first 2 to 8 week of treatment with isolated cases after prolonged treatment; though benign may occur, discontinue treatment at first sign of rash unless clearly not a drug related; TC treatment may not prevent trash from becoming life-threatenin g or permanently disabling or disfiguring. Comment reaction include, nausea/vomiting , dizziness/verti go, visual disturbances, somnolence, ataxia, pruritus/rash, pharyngitis, headache, rhinitis, diarrhea, fever, asthenia, insomnia, tremor, abdominal pain, cough, accidental injury, constipation, dysmenorrhea, incoordination, anxiety, seizures, irritability, anorexia, xerostomia, and photosensitivit y. Serious reactions include: Rash, severe; Mcgowan Sunday syndrome; toxic epidermal necrosis; injury edema, hypersensitivit y reactions. Including fatal, multiple organ failure to safe fatal, rash with eosinophilia systemic symptoms, DIC, neutropenia, leukopenia, thrombocytopeni a, pancytopenia, aplastic anemia, hemolytic anemia, i pancreatitis, hepatic failure, rhabdomyolysis, worsening of suicidal ideation, worsening of depression, cleft lip/palate [first trimester use] DO not Change Cosmetic, perfumes or soap for next 4 weeks. The patient was advice to take lamotrigine as prescribed the patient was instructed not to deviate from the prescription dosages. Stop lamotrigine is the first sign of rash. Patient was insisted to inform office if any of the serious side effect develops. therapy- continue F25.0: Schizoaffective disorder, bipolar type aripiprazole 10 mg tablet - Take 1 tablet(s) every day by oral route at bedtime for 90 days. Qty: (90) tablet Refills: 0 Pharmacy: [place] [address] bupropion HCl SR 150 mg tablet,12 hr sustained-relea se - Take 1 tablet(s) twice a day by oral route in the morning for 90 days, for depression. Qty: (180) tablet Refills: 0 Pharmacy: [place] [address] Note to Pharmacy: d/c daily dose lamotrigine 100 mg tablet - Take 1 tablet(s) every day by oral route at dinner for 90 days. Qty: (90) tablet Refills: 0 Pharmacy: [facility] 256 olanzapine 5 mg tablet - Take 1 tablet(s) every day by oral route at bedtime for 30 days. Qty: (30) tablet Refills: 2 Pharmacy: [place] [address] 2. Generalized anxiety disorder - patient having increase anxiety and panic will switch Xanax to Clonazepam related to longer lasting - educated patient on rx Add Clonazepam 0.5 mg three times a day - educated on rx Add Vistaril 10 mg up to three times a day as needed for panic attacks - educatedon rx stop Xanax 0.5 mg up to three times a day for anxiety Educated patient Clonazepam may be causing excessive tired and to take as needed and if not needed then do not take Clonazepam Discussed and educated pt regarding benzodiazepines are generally not intended for prolonged use and that use can cause tolerance, dependence, depression, and associated memory issues including dementias (this list is not exhaustive). Benzodiazepine use is generally not recommended concurrently with pain medications and/or other controlled substances due to increased risks of profound sedation, respiratory depression, coma, and even . They are not to be used with any alcohol, as this combination can also be lethal. Patient was provided caution educated on rx and educated on Rod Sunday Syndrome and rash and if develop go to ER and notify office educated not to change soaps, foods, laundry detergents, ect, with adding or changing dose Lamotrigine discuss depression and medication options and patient had a good response with Wellbutrin in past - discuss monitoring for satnam, hypomaniaWellbu paramjit SR 150 mg in am - educated to stay on rx as prescribed F41.1: Generalized anxiety disorder Clonazepam 0.5 mg tablet - Take 1 tablet(s) 3 times a day by oral route as needed for 30 days. Qty: (90) tablet Refills: 2 Pharmacy: [facility] 256 - stop Xanax 3. Primary insomnia -Trazodone 50 mg at night as needed -Melatonin 10 mg at bedtime OTC Educated patient Xanax may be causing excessive tired and to take as needed and if not needed then do not take Xanax F51.01: Primary insomnia trazodone 50 mg tablet - Take 1 tablet(s) every day by oral route at bedtime for 90 days. Qty: (90) tablet Refills: 0 Pharmacy: [facility] 256 4. Long-term drug therapy 09/13/2023 Generalized anxiety disorder (ICD-10 - F41.1) D/C Clonazepam patient reported s/e- patient may dispose of Clonazepam properly at pharmacy has Xanax at home and may return to use Xanax for anxiety as previous prescribed 09/23/2023 Schizoaffective disorder, bipolar type (ICD-10 - F25.0) Anxiety - Assessment: The patient reports that clonazepam is working for her anxiety. However, it is important to emphasize the role of therapy in managing anxiety. - Plan: Continue clonazepam as prescribed. Encourage the patient to continue therapy sessions for anxiety management. Psychotic Episodes and Mood Instability - Assessment: The patient has a history of psychotic episodes, satnam, and depression. She is currently stable on aripiprazole and olanzapine. - Plan: Continue aripiprazole and olanzapine as prescribed. Monitor for any signs of relapse or worsening of symptoms. Depression - Assessment: The patient reports feeling stagnant in her progress and rarely going out, suggesting ongoing depressive symptoms. - Plan: Consider discussing the possibility of switching Wellbutrin to another medication like vilazodone (Viibryd) for depression and anxiety management. Hair Loss - Assessment: The patient is concerned about hair loss, which she attributes to her medications. - Plan: Recommend taking a daily multivitamin for seniors with additional zinc to help with hair loss. Discuss any potential medication adjustments to address this concern. Medication Management - Assessment: The patient questions the need for both aripiprazole and olanzapine and is concerned about potential side effects. - Plan: Continue current medications as prescribed. Encourage the patient to discuss the possibility of adjusting medication dosages or tapering off one of the medications if deemed appropriate. Follow-up - Assessment: The patient has an upcoming appointment. - Plan: Keep the appointment to evaluate clonazepam dosage, discuss depression, and review medication management. Add a note to review the concerns discussed during this visit. 09/27/2023 Schizoaffective disorder, bipolar type (ICD-10 - F25.0) Psychosocial Assessment Presenting Problem: Sharon is a 73 year old female who presents for [facility] Initial Assessment. 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 The patient presents with a complex psychiatric history, including anxiety, recurrent major depression, and schizoaffective disorder, with symptom onset at age 33. She recounts enduring manic episodes that span months, with the latest episode transpiring in July of the preceding year. Currently, the patient is navigating a depressive phase and has a record of multiple hospitalization s for mental health concerns. No suicide attempts. I would like to figure out and manage my triggers. I am in a depressive state now. I do take my medicine as prescribed. 3 ECT treatments total (not rounds but lieterally 3 tx). HX Substance Abuse In terms of family history, the patient notes a background of substance abuse and mental health issues within the family, yet she herself has no personal history of drug addiction. She acknowledges a past of alcohol use during her 20s and 30s, which has ceased. The patient has experimented with medical marijuana in edible form, which precipitated a severe manic episode with auditory hallucinations. I guess when I did gummies, I becasme manic and went off my meds which caused psychosis . Medically, the patient has undergone several surgeries, including a hysterectomy, sinus surgery, and a procedure for sleep apnea that involved uvula removal. Post-surgery, she sometimes experiences choking episodes while eating due to the uvula's absence. Family Origin (/childr en): Pt and her were when she was 16 years old. They have two sons, 52 and 48. Both successful. One grandchild Childhood Family Dynamic: Family grew up in [place] [facility] [facility]. Pt had 5 sisters. One sister overdosed on fentanyl 2 years ago. She had 3 brothers, one of cancer (1 yeara go). Order of Children in the family. Mom had 5 kids with 1st , 1 with second , 2 with boyfriend, 1 with another boyfriend. I remember my first first depression at age 5 when my bicycle was taken away. The patient's upbringing was marked by a chaotic family environment. I could not wait to move out. My parents never got along. Mom at 82 years old. Dad in his early 70's. Dad was 20 years older. Education and Occupation: Worked for [employer] in the [employer]. Support System: and children are identified as supportive and helpful - Assessment: Patient reported being advised by Dr. York to seek treatment for depression. Patient expressed a general feeling of improvement compared to the previous visit but still exhibits symptoms of depression. Patient mentioned taking Cliopin, which she believes is helping her mind. - Plan: - Continue current treatment as prescribed by Dr. York. - Follow up on patient's adherence to the treatment plan and monitor for any changes in symptoms. Delusional Thoughts Regarding Spouse - Assessment: Patient initially suspected infidelity by her , which she now believes to be a delusion. She has stopped attending car shows, which has reportedly led to an improvement in her mental state. Patient demonstrated insight into her previous delusions. - Plan: - Encourage patient to continue reality checking with trusted individuals like her sister and to differentiate delusional thoughts from reality. - No changes to the current treatment plan were discussed. Psychotic Episodes and Medication Management - Assessment: Patient has a history of psychotic episodes, with recent exacerbation potentially linked to non-adherence to medication regimen and use of cannabis gummies. Patient expressed a lack of consistent medication adherence, admitting to stopping medication during manic episodes. Patient reported improved insight into her condition compared to previous episodes. - Plan: - Reinforce the importance of medication adherence. - Discuss the potential risks of cannabis use with her psychiatric provider. - Continue establishing a relapse prevention plan involving her sister and to monitor signs of relapse. Support Group for Psychotic Episodes - Assessment: Patient expressed interest in joining a support group for individuals with psychotic episodes. Patient was provided information about [facility] support groups. - Plan: - Provide information on local and virtual support groups through [facility] to help patient connect with others experiencing similar mental health challenges. - Follow up on patient's engagement with support groups. 09/27/2023 Generalized anxiety disorder (ICD-10 - F41.1) Psychosocial Assessment Presenting Problem: Sharon is a 73 year old female who presents for [facility] Initial Assessment. 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 The patient presents with a complex psychiatric history, including anxiety, recurrent major depression, and schizoaffective disorder, with symptom onset at age 33. She recounts enduring manic episodes that span months, with the latest episode transpiring in July of the preceding year. Currently, the patient is navigating a depressive phase and has a record of multiple hospitalization s for mental health concerns. No suicide attempts. I would like to figure out and manage my triggers. I am in a depressive state now. I do take my medicine as prescribed. 3 ECT treatments total (not rounds but lieterally 3 tx). HX Substance Abuse In terms of family history, the patient notes a background of substance abuse and mental health issues within the family, yet she herself has no personal history of drug addiction. She acknowledges a past of alcohol use during her 20s and 30s, which has ceased. The patient has experimented with medical marijuana in edible form, which precipitated a severe manic episode with auditory hallucinations. I guess when I did gummies, I becasme manic and went off my meds which caused psychosis . Medically, the patient has undergone several surgeries, including a hysterectomy, sinus surgery, and a procedure for sleep apnea that involved uvula removal. Post-surgery, she sometimes experiences choking episodes while eating due to the uvula's absence. Family Origin (/childr en): Pt and her were when she was 16 years old. They have two sons, 52 and 48. Both successful. One grandchild Childhood Family Dynamic: Family grew up in [place] [facility] [facility] [place]. Pt had 5 sisters. One sister overdosed on fentanyl 2 years ago. She had 3 brothers, one of cancer (1 yeara go). Order of Children in the family. Mom had 5 kids with 1st , 1 with second , 2 with boyfriend, 1 with another boyfriend. I remember my first first depression at age 5 when my bicycle was taken away. The patient's upbringing was marked by a chaotic family environment. I could not wait to move out. My parents never got along. Mom at 82 years old. Dad in his early 70's. Dad was 20 years older. Education and Occupation: Worked for [employer] in the [employer]. Support System: and children are identified as supportive and helpful - Assessment: Patient reported being advised by Dr. York to seek treatment for depression. Patient expressed a general feeling of improvement compared to the previous visit but still exhibits symptoms of depression. Patient mentioned taking Cliopin, which she believes is helping her mind. - Plan: - Continue current treatment as prescribed by Dr. York. - Follow up on patient's adherence to the treatment plan and monitor for any changes in symptoms. Delusional Thoughts Regarding Spouse - Assessment: Patient initially suspected infidelity by her , which she now believes to be a delusion. She has stopped attending car shows, which has reportedly led to an improvement in her mental state. Patient demonstrated insight into her previous delusions. - Plan: - Encourage patient to continue reality checking with trusted individuals like her sister and to differentiate delusional thoughts from reality. - No changes to the current treatment plan were discussed. Psychotic Episodes and Medication Management - Assessment: Patient has a history of psychotic episodes, with recent exacerbation potentially linked to non-adherence to medication regimen and use of cannabis gummies. Patient expressed a lack of consistent medication adherence, admitting to stopping medication during manic episodes. Patient reported improved insight into her condition compared to previous episodes. - Plan: - Reinforce the importance of medication adherence. - Discuss the potential risks of cannabis use with her psychiatric provider. - Continue establishing a relapse prevention plan involving her sister and to monitor signs of relapse. Support Group for Psychotic Episodes - Assessment: Patient expressed interest in joining a support group for individuals with psychotic episodes. Patient was provided information about [facility] support groups. - Plan: - Provide information on local and virtual support groups through [facility] to help patient connect with others experiencing similar mental health challenges. - Follow up on patient's engagement with support groups. 10/03/2023 Schizoaffective disorder, bipolar type (ICD-10 - F25.0) Anxiety - Assessment: The patient reports that clonazepam is working for her anxiety. However, it is important to emphasize the role of therapy in managing anxiety. - Plan: Continue Xanax 0.5 mg three times a day take as prescribed. Patient not taking Clonazepam Encourage the patient to continue therapy sessions for anxiety management. Psychotic Episodes and Mood Instability - Assessment: The patient has a history of psychotic episodes, satnam, and depression. She is currently stable on aripiprazole and olanzapine. - Plan: Continue aripiprazole and olanzapine as prescribed. Monitor for any signs of relapse or worsening of symptoms. Depression - Assessment: The patient reports feeling ongoing depressive symptoms. - Plan: discuss switching Wellbutrin to vilazodone (Viibryd) for depression and anxiety management. will add Viibyrd 20 mg daily and eat 350 calories with rx decrease Wellbutrin SR 150 MG DAILY FOR next month then stop Hair Loss - Assessment: The patient is concerned about hair loss, which she attributes to her medications. - Plan: Recommend taking a daily multivitamin for seniors with additional zinc to help with hair loss. Medication Management - Assessment: The patient questions the need for both aripiprazole and olanzapine and is concerned about potential side effects. - Plan: Continue current medications as prescribed. Encourage the patient to discuss the possibility of adjusting medication dosages or tapering off one of the medications if deemed appropriate. Follow-up - Assessment: The patient has an upcoming appointment. - Plan: Keep the appointment and therapy educated on all rx, benefits, side effect, risk and disucss complaince and risk falls with benzo 10/25/2023 Schizoaffective disorder, bipolar type (ICD-10 - F25.0) 11/05/2023 Schizoaffective disorder, bipolar type (ICD-10 - F25.0) NO REFILLS NEEDED TODAY Schizoaffective Bipolar She is currently stable on aripiprazole 10 mg and olanzapine 10 mg. Lamotrigine 100 mg daily Anxiety - Assessment: The patient reports that clonazepam is working for her anxiety. However, it is important to emphasize the role of therapy in managing anxiety. - Plan: Continue Xanax 0.5 mg three times a day take as prescribed. Patient not taking Clonazepam Vistaril 10 mg to twice a day as needed - r/o falls- improved - educated to only take as needed for anxiety http_s://www.na mi.org/About-Me ntal-Illness/Me btvc-Kwmbrf-Yqp ditions http_s://psychc [employer].com/depr ession/the-cogn itive-symptoms- of-depression#t reatments http__s://www.[facility].nih.gov/hea [facility]/topics/ment uo-rpzszm-pwngn ations http__s://www.n ami.org/About-M ental-Illness/T reatments/Menta n-Inrhbk-Jkjwyd tions Encourage the patient to continue therapy sessions for anxiety management. Discussed and educated pt regarding benzodiazepines are generally not intended for prolonged use and that use can cause tolerance, dependence, depression, and associated memory issues including dementias (this list is not exhaustive). Benzodiazepine use is generally not recommended concurrently with pain medications and/or other controlled substances educated on all medications, benefits, side effects and risk, and educated on depression, anxiety, and ADHD, mood d/o and educated on compliance of medications, metabolic and movement d/o education appointment is, continue therapy discussion with patient about course of treatment and patient instructions. education on serotonin syndrome SSRI/SNRI side effects discussed including but not limited to, gastric upset, nausea, vomiting, diarrhea and/or constipation, weight changes, sexual side effects including loss of libido, increased suicidal thoughts/behavi ors in children and young adults, and serotonin syndrome. Second generation antipsychotics (SGAs) have metabolic syndrome issues with weight gain, increase in prolactin, increased waist circumference, increased lipids, and increased glucose. Thus routine monitoring of weight, metabolic labs, etc. is indicated. A general rank ordering of antipsychotics that have the greatest to the least risk of metabolic effects is olanzapine, quetiapine, risperidone, ziprasidone, and aripiprazole. However, weight gain can occur with all of these drugs and considerable variability exists among patients receiving the same drug regarding the risk of metabolic effects. Anti-psychotic agents not only increase the risk of metabolic disorder, they also increase the risk of CVA, akathisia, and movement disorders including EPS or tardive dyskinesia (more common with first generation antipsychotics) and more. Elderly- discussed risks, cognition, sedation, falls, metabolic, movement and atypical antipsychotics carry a black-box warning for increased risk of and cerebrovascular events in dementia. Psychotic Episodes and Mood Instability - Assessment: The patient has a history of psychotic episodes, satnam, and depression. She is currently stable on aripiprazole and olanzapine. - Plan: Continue aripiprazole and olanzapine as prescribed. Monitor for any signs of relapse or worsening of symptoms. Depression - Assessment: improved vilazodone (Viibryd) for depression and anxiety management. Viibyrd 20 mg daily and eat 350 calories with rx STOP WELLBUTRIN Hair Loss- improved - Assessment: The patient is concerned about hair loss, which she attributes to her medications. - Plan: Recommend taking a daily multivitamin for seniors with additional zinc to help with hair loss. patient reported improved Medication Management - Assessment: The patient questions the need for both aripiprazole and olanzapine and is concerned about potential side effects. - Plan: Continue current medications as prescribed. Encourage the patient to discuss the possibility of adjusting medication dosages or tapering off one of the medications if deemed appropriate. Follow-up - Assessment: The patient has an upcoming appointments and therapy - Plan: Keep the appointment and therapy educated on all rx, benefits, side effect, risk and disucss complaince and risk falls with benzo 02/27/2024 Schizoaffective disorder, bipolar type (ICD-10 - F25.0) Lamotrigine is an anticonvulsant and mood stabilizer used in psychiatry. Lamotrigine use is associated with benign rashes (incidence approximately 10%) and rare serious rashes that may require hospitalization and discontinuation of treatment, including Mcgowan-Sunday syndrome and toxic epidermal necrolysis. Pt educated on importance of titration schedule and to take the medication only as prescribed. Pt educated that if they miss 5 or more consecutive doses then this medication will need to be re-titrated to reduce risk of rash. If any rash is noted, patient is instructed to stop taking this medication and call office. If rash is severe, they are to present immediately to the emergency room. Second generation antipsychotics (SGAs) have metabolic syndrome issues with weight gain, increase in prolactin, increased waist circumference, increased lipids, and increased glucose. Thus routine monitoring of weight, metabolic labs, etc. is indicated. A general rank ordering of antipsychotics that have the greatest to the least risk of metabolic effects is olanzapine, quetiapine, risperidone, ziprasidone, and aripiprazole. However, weight gain can occur with all of these drugs and considerable variability exists among patients receiving the same drug regarding the risk of metabolic effects. Anti-psychotic agents not only increase the risk of metabolic disorder, they also increase the risk of CVA, akathisia, and movement disorders including EPS or tardive dyskinesia (more common with first generation antipsychotics) and more. 1. Bipolar disorder and schizophrenia - Continue current medications: a. Aripiprazole 15 mg b. Lamotrigine 100 mg c. Olanzapine 10 mg d. Trazodone 50 mg at bedtime - Monitor for worsening symptoms (paranoia, hallucinations, delusions) - Patient reports feeling need to go to hospital, associating with episode onset 2. Anxiety and rebound anxiety due to alprazolam taper - Increase alprazolam dose: 1 tablet (0.5 mg) twice daily, 0.5 tablet (0.25 mg) for third dose - Reevaluate tapering process, consider slower taper - Consider switching to diazepam for longer half-life and easier tapering - Patient reports anxiety onset 1.5 weeks ago, coinciding with alprazolam dose reduction 3. Follow-up appointments - Move up appointment with primary provider to discuss alprazolam taper and potential diazepam switch - Encourage attendance at upcoming therapy appointment - f/u w/ primary psychiatric care provider in March. 4. Patient education - Educate on importance of slow alprazolam tapering and potential diazepam benefits - Reassure current symptoms likely due to rebound anxiety, not worsening of bipolar disorder or schizophrenia - Explain tapering process may take months to years. 5. Additional medications - Continue hydroxyzine twice daily as prescribed 02/27/2024 Generalized anxiety disorder (ICD-10 - F41.1) 1. Bipolar disorder and schizophrenia - Continue current medications: a. Aripiprazole 15 mg b. Lamotrigine 100 mg c. Olanzapine 10 mg d. Trazodone 50 mg at bedtime - Monitor for worsening symptoms (paranoia, hallucinations, delusions) - Patient reports feeling need to go to hospital, associating with episode onset 2. Anxiety and rebound anxiety due to alprazolam taper - Increase alprazolam dose: 1 tablet (0.5 mg) twice daily, 0.5 tablet (0.25 mg) for third dose - Reevaluate tapering process, consider slower taper - Consider switching to diazepam for longer half-life and easier tapering - Patient reports anxiety onset 1.5 weeks ago, coinciding with alprazolam dose reduction 3. Follow-up appointments - Move up appointment with primary provider to discuss alprazolam taper and potential diazepam switch - Encourage attendance at upcoming therapy appointment - f/u w/ primary psychiatric care provider in March. 4. Patient education - Educate on importance of slow alprazolam tapering and potential diazepam benefits - Reassure current symptoms likely due to rebound anxiety, not worsening of bipolar disorder or schizophrenia - Explain tapering process may take months to years. 5. Additional medications - Continue hydroxyzine twice daily as prescribed 03/24/2024 Schizoaffective disorder, bipolar type (ICD-10 - F25.0) Anxiety and Medication Management - Assessment: Patient reports increased anxiety attacks after reducing Xanax (alprazolam) to 0.5 mg three times a day. Dose was increased to 2.5 mg by Valeriano, but patient ran out of medication. Currently taking 1.5 mg of Xanax daily (three 0.5 mg doses). - Plan: - Discuss with Anabelle about adjusting the patient's Xanax prescription and refilling the medication. Social Support and Mental Health - Assessment: Patient reports staying in bed for days, experiencing paranoia, and needing to be more active and engaged in activities that promote laughter and well-being. - Plan: - Encourage the patient to participate in activities that promote social interaction and mental health, such as going out to eat or attending events. Provider Change - Assessment: Patient reports switching providers from Annie to Anabelle during an anxiety attack but feels that Annie knows her better. - Plan: - Discuss the possibility of returning to Annie as the patient's primary provider and coordinate care accordingly. 03/24/2024 Generalized anxiety disorder (ICD-10 - F41.1) Anxiety and Medication Management - Assessment: Patient reports increased anxiety attacks after reducing Xanax (alprazolam) to 0.5 mg three times a day. Dose was increased to 2.5 mg by Valeriano, but patient ran out of medication. Currently taking 1.5 mg of Xanax daily (three 0.5 mg doses). - Plan: - Discuss with Anabelle about adjusting the patient's Xanax prescription and refilling the medication. Social Support and Mental Health - Assessment: Patient reports staying in bed for days, experiencing paranoia, and needing to be more active and engaged in activities that promote laughter and well-being. - Plan: - Encourage the patient to participate in activities that promote social interaction and mental health, such as going out to eat or attending events. Provider Change - Assessment: Patient reports switching providers from Annie to Anabelle during an anxiety attack but feels that Annie knows her better. - Plan: - Discuss the possibility of returning to Annie as the patient's primary provider and coordinate care accordingly. 04/09/2024 Schizoaffective disorder, bipolar type (ICD-10 - F25.0) 04/09/2024 Generalized anxiety disorder (ICD-10 - F41.1) 04/22/2024 Schizoaffective disorder, bipolar type (ICD-10 - F25.0) stable on current medications . No paranoia, hallucinati ons, delusional behavior noted or reported Lamotrigine is an anticonvulsant and mood stabilizer used in psychiatry. Lamotrigine use is associated with benign rashes (incidence approximately 10%) and rare serious rashes that may require hospitalization and discontinuation of treatment, including Mcgowan-Sunday syndrome and toxic epidermal necrolysis. Pt educated on importance of titration schedule and to take the medication only as prescribed. Pt educated that if they miss 5 or more consecutive doses then this medication will need to be re-titrated to reduce risk of rash. If any rash is noted, patient is instructed to stop taking this medication and call office. If rash is severe, they are to present immediately to the emergency room. Second generation antipsychotics (SGAs) have metabolic syndrome issues with weight gain, increase in prolactin, increased waist circumference, increased lipids, and increased glucose. Thus routine monitoring of weight, metabolic labs, etc. is indicated. A general rank ordering of antipsychotics that have the greatest to the least risk of metabolic effects is olanzapine, quetiapine, risperidone, ziprasidone, and aripiprazole. However, weight gain can occur with all of these drugs and considerable variability exists among patients receiving the same drug regarding the risk of metabolic effects. Anti-psychotic agents not only increase the risk of metabolic disorder, they also increase the risk of CVA, akathisia, and movement disorders including EPS or tardive dyskinesia (more common with first generation antipsychotics) and more. 04/22/2024 Generalized anxiety disorder (ICD-10 - F41.1) Stable on lower dose of alprazolam, continue 0.25mg TID PRN 02/13/2024 Schizoaffective disorder, bipolar type (ICD-10 - F25.0) Lamotrigine is an anticonvulsant and mood stabilizer used in psychiatry. Lamotrigine use is associated with benign rashes (incidence approximately 10%) and rare serious rashes that may require hospitalization and discontinuation of treatment, including Mcgowan-Sunday syndrome and toxic epidermal necrolysis. Pt educated on importance of titration schedule and to take the medication only as prescribed. Pt educated that if they miss 5 or more consecutive doses then this medication will need to be re-titrated to reduce risk of rash. If any rash is noted, patient is instructed to stop taking this medication and call office. If rash is severe, they are to present immediately to the emergency room. Second generation antipsychotics (SGAs) have metabolic syndrome issues with weight gain, increase in prolactin, increased waist circumference, increased lipids, and increased glucose. Thus routine monitoring of weight, metabolic labs, etc. is indicated. A general rank ordering of antipsychotics that have the greatest to the least risk of metabolic effects is olanzapine, quetiapine, risperidone, ziprasidone, and aripiprazole. However, weight gain can occur with all of these drugs and considerable variability exists among patients receiving the same drug regarding the risk of metabolic effects. Anti-psychotic agents not only increase the risk of metabolic disorder, they also increase the risk of CVA, akathisia, and movement disorders including EPS or tardive dyskinesia (more common with first generation antipsychotics) and more. 1. schizoaffective disorder overall stable; no paranoia noted today -cont olanzapine 10mg qHS -cont abilify 15mg daily -cont lamictal 100mg daily ---pt requesting Wellbutrin-prev iously triggered paranoia, delusions, discussed we will not restart this 2. VERITO stable -decrease alprazolam to 0.25mg twice daily with intent to wean off -cont hydroxyzine PRN -encourage non-pharmaceuti jamila treatments including deep breathing, grounding exercises, physical activity, healthy diet. 3. insomnia -cont trazodone 50mg qHS - KEEP YOUR BEDROOM DARK - GET LOTS OF NATURAL LIGHT IN THE MORNING. - DON'T WORK ON YOUR COMPUTER OR PHONE LATE AT NIGHT. - AVOID NAPS DURING THE DAY. - NO CAFFEINE 3 HOURS OR MORE AFTER WAKE UP TIME. - ONLY USE YOUR BED FOR SLEEPING - GET A RELAXATION ROUTINE BEFORE BED. - IF YOU CAN'T GET TO SLEEP AFTER 15 TO 30 MINUTES GET OUT OF BED AND DO SOMETHING RELAXING. - DON'T DRINK ALCOHOL IN THE EVENING or limit alcohol to 1 drink.. Patient had reduction in suicidal ideation and/or behavior upon follow-up assessment within 120 days of index assessment ([id number]) 04/30/2024 Schizoaffective disorder, bipolar type (ICD-10 - F25.0) stable on current medications . No paranoia, hallucinati ons, delusional behavior noted or reported Lamotrigine is an anticonvulsant and mood stabilizer used in psychiatry. Lamotrigine use is associated with benign rashes (incidence approximately 10%) and rare serious rashes that may require hospitalization and discontinuation of treatment, including Mcgowan-Sunday syndrome and toxic epidermal necrolysis. Pt educated on importance of titration schedule and to take the medication only as prescribed. Pt educated that if they miss 5 or more consecutive doses then this medication will need to be re-titrated to reduce risk of rash. If any rash is noted, patient is instructed to stop taking this medication and call office. If rash is severe, they are to present immediately to the emergency room. Second generation antipsychotics (SGAs) have metabolic syndrome issues with weight gain, increase in prolactin, increased waist circumference, increased lipids, and increased glucose. Thus routine monitoring of weight, metabolic labs, etc. is indicated. A general rank ordering of antipsychotics that have the greatest to the least risk of metabolic effects is olanzapine, quetiapine, risperidone, ziprasidone, and aripiprazole. However, weight gain can occur with all of these drugs and considerable variability exists among patients receiving the same drug regarding the risk of metabolic effects. Anti-psychotic agents not only increase the risk of metabolic disorder, they also increase the risk of CVA, akathisia, and movement disorders including EPS or tardive dyskinesia (more common with first generation antipsychotics) and more. 05/21/2024 Schizoaffective disorder, bipolar type (ICD-10 - F25.0) Lamotrigine is an anticonvulsant and mood stabilizer used in psychiatry. Lamotrigine use is associated with benign rashes (incidence approximately 10%) and rare serious rashes that may require hospitalization and discontinuation of treatment, including Mcgowan-Sunday syndrome and toxic epidermal necrolysis. Pt educated on importance of titration schedule and to take the medication only as prescribed. Pt educated that if they miss 5 or more consecutive doses then this medication will need to be re-titrated to reduce risk of rash. If any rash is noted, patient is instructed to stop taking this medication and call office. If rash is severe, they are to present immediately to the emergency room. Second generation antipsychotics (SGAs) have metabolic syndrome issues with weight gain, increase in prolactin, increased waist circumference, increased lipids, and increased glucose. Thus routine monitoring of weight, metabolic labs, etc. is indicated. A general rank ordering of antipsychotics that have the greatest to the least risk of metabolic effects is olanzapine, quetiapine, risperidone, ziprasidone, and aripiprazole. However, weight gain can occur with all of these drugs and considerable variability exists among patients receiving the same drug regarding the risk of metabolic effects. Anti-psychotic agents not only increase the risk of metabolic disorder, they also increase the risk of CVA, akathisia, and movement disorders including EPS or tardive dyskinesia (more common with first generation antipsychotics) and more. 05/21/2024 Generalized anxiety disorder (ICD-10 - F41.1) 05/07/2024 Schizoaffective disorder, bipolar type (ICD-10 - F25.0) stable on current medications . No paranoia, hallucinati ons, delusional behavior noted or reported 05/29/2024 Schizoaffective disorder, bipolar type (ICD-10 - F25.0) 01/06/2024 Schizoaffective disorder, bipolar type (ICD-10 - F25.0) Ongoing Obsessive Thoughts - Assessment: She continues to have obsessive thoughts about her 's potential infidelity, which are causing distress. - Plan: - Discuss cognitive-behav ioral strategies to manage obsessive thoughts. - Encourage continued engagement in therapy to address these concerns. 01/06/2024 Generalized anxiety disorder (ICD-10 - F41.1) Ongoing Obsessive Thoughts - Assessment: She continues to have obsessive thoughts about her 's potential infidelity, which are causing distress. - Plan: - Discuss cognitive-behav ioral strategies to manage obsessive thoughts. - Encourage continued engagement in therapy to address these concerns. 07/16/2023 Generalized anxiety disorder (ICD-10 - F41.1) 03/27/2024 Schizoaffective disorder, bipolar type (ICD-10 - F25.0) Lamotrigine is an anticonvulsant and mood stabilizer used in psychiatry. Lamotrigine use is associated with benign rashes (incidence approximately 10%) and rare serious rashes that may require hospitalization and discontinuation of treatment, including Mcgowan-Sunday syndrome and toxic epidermal necrolysis. Pt educated on importance of titration schedule and to take the medication only as prescribed. Pt educated that if they miss 5 or more consecutive doses then this medication will need to be re-titrated to reduce risk of rash. If any rash is noted, patient is instructed to stop taking this medication and call office. If rash is severe, they are to present immediately to the emergency room. Second generation antipsychotics (SGAs) have metabolic syndrome issues with weight gain, increase in prolactin, increased waist circumference, increased lipids, and increased glucose. Thus routine monitoring of weight, metabolic labs, etc. is indicated. A general rank ordering of antipsychotics that have the greatest to the least risk of metabolic effects is olanzapine, quetiapine, risperidone, ziprasidone, and aripiprazole. However, weight gain can occur with all of these drugs and considerable variability exists among patients receiving the same drug regarding the risk of metabolic effects. Anti-psychotic agents not only increase the risk of metabolic disorder, they also increase the risk of CVA, akathisia, and movement disorders including EPS or tardive dyskinesia (more common with first generation antipsychotics) and more. 02/03/2024 Schizoaffective disorder, bipolar type (ICD-10 - F25.0) Anxiety - Assessment: Patient reports improvement in anxiety since reducing Xanax dosage from 3 times daily to morning and night only. - Plan: - Continue to monitor anxiety levels and adjust medications as needed in collaboration with Anabelle - Encourage patient to utilize coping strategies and relaxation techniques as needed Social Support and Relationships - Assessment: Patient has supportive friends and family members, such as Liyah, but may experience stress or conflict with some family members. - Plan: - Encourage patient to maintain contact with supportive friends and family members - Discuss strategies for managing relationships with family members who may cause stress or conflict - Encourage patient to engage in social activities and seek out new friendships as appropriate Grief and Loss - Assessment: Patient is experiencing grief related to the loss of her brother and other significant individuals in her life. - Plan: - Acknowledge the patient's grief - Encourage patient to discuss her feelings and experiences related to grief during therapy sessions with Anabelle Each plan component addresses specific issues identified during the assessment, focusing on medication management, therapy, lifestyle adjustments, and support systems to improve the patient's overall mental health and well-being. 07/23/2023 Schizoaffective disorder, bipolar type (ICD-10 - F25.0) 07/23/2023 Generalized anxiety disorder (ICD-10 - F41.1) 07/23/2023 Primary insomnia (ICD-10 - F51.01) 07/23/2023 Other [facility] (current) drug therapy (ICD-10 - Z79.899) 08/13/2023 Schizoaffective disorder, bipolar type (ICD-10 - F25.0) Schizoaffective disorder, bipolar type -Lamotrigine 100 mg at night educated on rx - discuss GDRAbilify 10 mg in am for depression- educated on rx patient requires 2 anti-psychotic at this time related to severe depression - educated on rx Wellbutrin SR 150 MG TWICE a day r/t depression delusion- before leaving visit patient reported one lady I do not like is coming back into picture again from card game I will talk about it in therapy- Abilify is being increased today Zyprexa 10 mg at dinner -tolerated GDR and no satnam no hypomania no delusions- patient had severe depressive episode 05/27/23 and does not like weight gain on Zyprexa - discuss possible decrease in near future r/t adding Abilify and increase dose 06/10/23- mood stable and even 07/23/23educated on rx and educated on hypomania and satnam s/s and monitor educated on all medications, benefits, side effects and risk, and educated on depression, anxiety, and mood d/o and educated on compliance of medications, metabolic and movement d/o education appointment's, continue therapy discussion with patient about course of treatmentand patient instructions. education on serotonin syndrome Lamotrigine lamotrigine has a serious rashes requiring hospitalization and discontinue treatment including Randall Sunday syndrome rare case of toxic epidermal necrolysis and cache related deaths. Incidence with adjunct of epilepsy treatment 0.8% in 2 to 16 years old and 0.3% in adults, bipolar and other mood disorders incidence 0.8% this initial monotherapy and 0.13% as adjunctive treatment. Other risk factor may include concomitant use of valproate acid derivative or exceeding initial lamotrigine does or does as clinician recommendation; most life-threatening rash of occurring first 2 to 8 week of treatment with isolated cases after prolonged treatment; though benign may occur, discontinue treatment at first sign of rash unless clearly not a drug related; TC treatment may not prevent trash from becoming life-threatening or permanently disabling or disfiguring. Comment reaction include, nausea/vomiting, dizziness/vertigo , visual disturbances, somnolence, ataxia, pruritus/rash, pharyngitis, headache, rhinitis, diarrhea, fever, asthenia, insomnia, tremor, abdominal pain, cough, accidental injury, constipation, dysmenorrhea, incoordination, anxiety, seizures, irritability, anorexia, xerostomia, and photosensitivity. Serious reactions include: Rash, severe; Mcgowan Sunday syndrome; toxic epidermal necrosis; injury edema, hypersensitivity reactions. Including fatal, multiple organ failure to safe fatal, rash with eosinophilia systemic symptoms, DIC, neutropenia, leukopenia, thrombocytopenia, pancytopenia, aplastic anemia, hemolytic anemia, i pancreatitis, hepatic failure, rhabdomyolysis, worsening of suicidal ideation, worsening of depression, cleft lip/palate [first trimester use] DO not Change Cosmetic, perfumes or soap for next 4 weeks. The patient was advice to take lamotrigine as prescribed the patient was instructed not to deviate from the prescription dosages. Stop lamotrigine is the first sign of rash. Patient was insisted to inform office if any of the serious side effect develops. therapy- continue F25.0: Schizoaffective disorder, bipolar typearipiprazole 10 mg tablet - Take 1 tablet(s) every day by oral route at bedtime for 90 days. Qty: (90) tablet Refills: 0 Pharmacy: [place] [id number] HCl SR 150 mg tablet,12 hr sustained-release - Take 1 tablet(s) twice a day by oral route in the morning for 90 days, for depression. Qty: (180) tablet Refills: 0 Pharmacy: [facility] [id number] Note to Pharmacy: d/c daily doselamotrigine 100 mg tablet - Take 1 tablet(s) every day by oral route at dinner for 90 days. Qty: (90) tablet Refills: 0 Pharmacy: [place] [address] Note to Pharmacy: d/c 150 mg doseolanzapine 10 mg tablet - Take 1 tablet(s) every day by oral route at bedtime for 30 days. Qty: (30) tablet Refills: 2 Pharmacy: [facility] 2. Generalized anxiety disorder - Xanax 0.5 mg up to three times a day short term for anxiety Educated patient Xanax may be causing excessive tired and to take as needed and if not needed then do not take Xanax Discussed and educated pt regarding benzodiazepines are generally not intended for prolonged use and that use can cause tolerance, dependence, depression, and associated memory issues including dementias (this list is not exhaustive). Benzodiazepine use is generally not recommended concurrently with pain medications and/or other controlled substances due to increased risks of profound sedation, respiratory depression, coma, and even . They are not to be used with any alcohol, as this combination can also be lethal. Patient was provided caution educated on rx and educated on Rod Sunday Syndrome and rash and if develop go to ER and notify office educated not to change soaps, foods, laundry detergents, ect, with adding or changing dose Lamotrigine discuss depression and medication options and patient had a good response with Wellbutrin in past - discuss monitoring for satnam, hypomaniaWellbutr in SR 150 mg in am - educated to stay on rx as prescribed F41.1: Generalized anxiety disorderANXIETY DISORDER: CARE INSTRUCTIONSalpra zolam 0.5 mg tablet - Take 1 tablet(s) 3 times a day by oral route as needed for 30 days. Qty: (90) tablet Refills: 2 Pharmacy: [facility] 3. Primary insomnia -Trazodone 50 mg at night as needed -Melatonin 10 mg at bedtime OTC Educated patient Xanax may be causing excessive tired and to take as needed and if not needed then do not take QhmqtW06.01: Primary insomniatrazodone 50 mg tablet - Take 1 tablet(s) every day by oral route at bedtime for 90 days. Qty: (90) tablet Refills: 0 Pharmacy: [facility] 4. Long-term drug yihniarO81.0: Schizoaffective disorder, bipolar type F41.1: Generalized anxiety disorder F51.01: Primary insomnia Z79.899: Other [facility] (current) drug therapy Schizoaffective disorder, bipolar type - Lamotrigine 100 mg at night educated on rx - discuss GDR Abilify 10 mg in am for depression- educated on rx patient requires 2 anti-psychotic at this time related to severe depression - educated on rx Wellbutrin SR 150 MG TWICE a day r/t depression delusion- before leaving visit patient reported one lady I do not like is coming back into picture again from card game I will talk about it in therapy- Abilify is being increased today Zyprexa 10 mg at dinner -tolerated GDR and no satnam no hypomania no delusions- patient had severe depressive episode 05/27/23 and does not like weight gain on Zyprexa - discuss possible decrease in near future r/t adding Abilify and increase dose 06/10/23- mood stable and even 07/23/23educated on rx and educated on hypomania and satnam s/s and monitor educated on all medications, benefits, side effects and risk, and educated on depression, anxiety, and mood d/o and educated on compliance of medications, metabolic and movement d/o education appointment's, continue therapy discussion with patient about course of treatmentand patient instructions. education on serotonin syndrome Lamotrigine lamotrigine has a serious rashes requiring hospitalization and discontinue treatment including Randall Sunday syndrome rare case of toxic epidermal necrolysis and cache related deaths. Incidence with adjunct of epilepsy treatment 0.8% in 2 to 16 years old and 0.3% in adults, bipolar and other mood disorders incidence 0.8% this initial monotherapy and 0.13% as adjunctive treatment. Other risk factor may include concomitant use of valproate acid derivative or exceeding initial lamotrigine does or does as clinician recommendation; most life-threatenin g rash of occurring first 2 to 8 week of treatment with isolated cases after prolonged treatment; though benign may occur, discontinue treatment at first sign of rash unless clearly not a drug related; TC treatment may not prevent trash from becoming life-threatenin g or permanently disabling or disfiguring. Comment reaction include, nausea/vomiting , dizziness/verti go, visual disturbances, somnolence, ataxia, pruritus/rash, pharyngitis, headache, rhinitis, diarrhea, fever, asthenia, insomnia, tremor, abdominal pain, cough, accidental injury, constipation, dysmenorrhea, incoordination, anxiety, seizures, irritability, anorexia, xerostomia, and photosensitivit y. Serious reactions include: Rash, severe; Mcgowan Sunday syndrome; toxic epidermal necrosis; injury edema, hypersensitivit y reactions. Including fatal, multiple organ failure to safe fatal, rash with eosinophilia systemic symptoms, DIC, neutropenia, leukopenia, thrombocytopeni a, pancytopenia, aplastic anemia, hemolytic anemia, i pancreatitis, hepatic failure, rhabdomyolysis, worsening of suicidal ideation, worsening of depression, cleft lip/palate [first trimester use] DO not Change Cosmetic, perfumes or soap for next 4 weeks. The patient was advice to take lamotrigine as prescribed the patient was instructed not to deviate from the prescription dosages. Stop lamotrigine is the first sign of rash. Patient was insisted to inform office if any of the serious side effect develops. therapy- continue F25.0: Schizoaffective disorder, bipolar type aripiprazole 10 mg tablet - Take 1 tablet(s) every day by oral route at bedtime for 90 days. Qty: (90) tablet Refills: 0 Pharmacy: [place] [address] bupropion HCl SR 150 mg tablet,12 hr sustained-relea se - Take 1 tablet(s) twice a day by oral route in the morning for 90 days, for depression. Qty: (180) tablet Refills: 0 Pharmacy: [place] [address] Note to Pharmacy: d/c daily dose lamotrigine 100 mg tablet - Take 1 tablet(s) every day by oral route at dinner for 90 days. Qty: (90) tablet Refills: 0 Pharmacy: [place] [address] Note to Pharmacy: d/c 150 mg dos eolanzapine 10 mg tablet - Take 1 tablet(s) every day by oral route at bedtime for 30 days. Qty: (30) tablet Refills: 2 Pharmacy: [place] [address] 2. Generalized anxiety disorder - Xanax 0.5 mg up to three times a day short term for anxiety Educated patient Xanax may be causing excessive tired and to take as needed and if not needed then do not take Xanax Discussed and educated pt regarding benzodiazepines are generally not intended for prolonged use and that use can cause tolerance, dependence, depression, and associated memory issues including dementias (this list is not exhaustive). Benzodiazepine use is generally not recommended concurrently with pain medications and/or other controlled substances due to increased risks of profound sedation, respiratory depression, coma, and even . They are not to be used with any alcohol, as this combination can also be lethal. Patient was provided caution educated on rx and educated on Rod Sunday Syndrome and rash and if develop go to ER and notify office educated not to change soaps, foods, laundry detergents, ect, with adding or changing dose Lamotrigine discuss depression and medication options and patient had a good response with Wellbutrin in past - discuss monitoring for satnam, hypomania Wellbutrin SR 150 mg in am - educated to stay on rx as prescribed F41.1: Generalized anxiety disorder alprazolam 0.5 mg tablet - Take 1 tablet(s) 3 times a day by oral route as needed for 30 days. Qty: (90) tablet Refills: 2 Pharmacy: [facility] 256 3. Primary insomnia -Trazodone 50 mg at night as needed -Melatonin 10 mg at bedtime OTC Educated patient Xanax may be causing excessive tired and to take as needed and if not needed then do not take Xanax F51.01: Primary insomniat razodone 50 mg tablet - Take 1 tablet(s) every day by oral route at bedtime for 90 days. Qty: (90) tablet Refills: 0 Pharmacy: [facility] 256 4. Long-term drug therapy 08/13/2023 Generalized anxiety disorder (ICD-10 - F41.1) Schizoaffective disorder, bipolar type - Lamotrigine 100 mg at night educated on rx - discuss GDR Abilify 10 mg in am for depression- educated on rx patient requires 2 anti-psychotic at this time related to severe depression - educated on rx Wellbutrin SR 150 MG TWICE a day r/t depression delusion- before leaving visit patient reported one lady I do not like is coming back into picture again from card game I will talk about it in therapy- Abilify is being increased today Zyprexa 10 mg at dinner -tolerated GDR and no satnam no hypomania no delusions- patient had severe depressive episode 05/27/23 and does not like weight gain on Zyprexa - discuss possible decrease in near future r/t adding Abilify and increase dose 06/10/23- mood stable and even 07/23/23educated on rx and educated on hypomania and satnam s/s and monitor educated on all medications, benefits, side effects and risk, and educated on depression, anxiety, and mood d/o and educated on compliance of medications, metabolic and movement d/o education appointment's, continue therapy discussion with patient about course of treatmentand patient instructions. education on serotonin syndrome Lamotrigine lamotrigine has a serious rashes requiring hospitalization and discontinue treatment including Randall Sunday syndrome rare case of toxic epidermal necrolysis and cache related deaths. Incidence with adjunct of epilepsy treatment 0.8% in 2 to 16 years old and 0.3% in adults, bipolar and other mood disorders incidence 0.8% this initial monotherapy and 0.13% as adjunctive treatment. Other risk factor may include concomitant use of valproate acid derivative or exceeding initial lamotrigine does or does as clinician recommendation; most life-threatenin g rash of occurring first 2 to 8 week of treatment with isolated cases after prolonged treatment; though benign may occur, discontinue treatment at first sign of rash unless clearly not a drug related; TC treatment may not prevent trash from becoming life-threatenin g or permanently disabling or disfiguring. Comment reaction include, nausea/vomiting , dizziness/verti go, visual disturbances, somnolence, ataxia, pruritus/rash, pharyngitis, headache, rhinitis, diarrhea, fever, asthenia, insomnia, tremor, abdominal pain, cough, accidental injury, constipation, dysmenorrhea, incoordination, anxiety, seizures, irritability, anorexia, xerostomia, and photosensitivit y. Serious reactions include: Rash, severe; Mcgowan Sunday syndrome; toxic epidermal necrosis; injury edema, hypersensitivit y reactions. Including fatal, multiple organ failure to safe fatal, rash with eosinophilia systemic symptoms, DIC, neutropenia, leukopenia, thrombocytopeni a, pancytopenia, aplastic anemia, hemolytic anemia, i pancreatitis, hepatic failure, rhabdomyolysis, worsening of suicidal ideation, worsening of depression, cleft lip/palate [first trimester use] DO not Change Cosmetic, perfumes or soap for next 4 weeks. The patient was advice to take lamotrigine as prescribed the patient was instructed not to deviate from the prescription dosages. Stop lamotrigine is the first sign of rash. Patient was insisted to inform office if any of the serious side effect develops. therapy- continue F25.0: Schizoaffective disorder, bipolar type aripiprazole 10 mg tablet - Take 1 tablet(s) every day by oral route at bedtime for 90 days. Qty: (90) tablet Refills: 0 Pharmacy: [place] [address] bupropion HCl SR 150 mg tablet,12 hr sustained-relea se - Take 1 tablet(s) twice a day by oral route in the morning for 90 days, for depression. Qty: (180) tablet Refills: 0 Pharmacy: [place] [address] Note to Pharmacy: d/c daily dose lamotrigine 100 mg tablet - Take 1 tablet(s) every day by oral route at dinner for 90 days. Qty: (90) tablet Refills: 0 Pharmacy: [place] [address] Note to Pharmacy: d/c 150 mg dos eolanzapine 10 mg tablet - Take 1 tablet(s) every day by oral route at bedtime for 30 days. Qty: (30) tablet Refills: 2 Pharmacy: [place] [address] 2. Generalized anxiety disorder - Xanax 0.5 mg up to three times a day short term for anxiety Educated patient Xanax may be causing excessive tired and to take as needed and if not needed then do not take Xanax Discussed and educated pt regarding benzodiazepines are generally not intended for prolonged use and that use can cause tolerance, dependence, depression, and associated memory issues including dementias (this list is not exhaustive). Benzodiazepine use is generally not recommended concurrently with pain medications and/or other controlled substances due to increased risks of profound sedation, respiratory depression, coma, and even . They are not to be used with any alcohol, as this combination can also be lethal. Patient was provided caution educated on rx and educated on Rod Sunday Syndrome and rash and if develop go to ER and notify office educated not to change soaps, foods, laundry detergents, ect, with adding or changing dose Lamotrigine discuss depression and medication options and patient had a good response with Wellbutrin in past - discuss monitoring for satnam, hypomania Wellbutrin SR 150 mg in am - educated to stay on rx as prescribed F41.1: Generalized anxiety disorder alprazolam 0.5 mg tablet - Take 1 tablet(s) 3 times a day by oral route as needed for 30 days. Qty: (90) tablet Refills: 2 Pharmacy: [place] [address] 3. Primary insomnia -Trazodone 50 mg at night as needed -Melatonin 10 mg at bedtime OTC Educated patient Xanax may be causing excessive tired and to take as needed and if not needed then do not take Xanax F51.01: Primary insomniat razodone 50 mg tablet - Take 1 tablet(s) every day by oral route at bedtime for 90 days. Qty: (90) tablet Refills: 0 Pharmacy: [facility] 256 4. Long-term drug therapy 06/05/2024 Encounter for screening for depression (ICD-10 - Z13.31) 06/11/2024 Schizoaffective disorder, bipolar type (ICD-10 - F25.0) 06/11/2024 Generalized anxiety disorder (ICD-10 - F41.1) 10/25/2023 Schizoaffective disorder, bipolar type (ICD-10 - F25.0) Schizoaffective Bipolar She is currently stable on aripiprazole 10 mg and olanzapine 10 mg. Lamotrigine 100 mg daily Anxiety - Assessment: The patient reports that clonazepam is working for her anxiety. However, it is important to emphasize the role of therapy in managing anxiety. - Plan: Continue Xanax 0.5 mg three times a day take as prescribed. Patient not taking Clonazepam decrease Vistaril 10 mg to twice a day as needed - r/o falls - educated to only take as needed for anxiety Encourage the patient to continue therapy sessions for anxiety management. Psychotic Episodes and Mood Instability - Assessment: The patient has a history of psychotic episodes, satnam, and depression. She is currently stable on aripiprazole and olanzapine. - Plan: Continue aripiprazole and olanzapine as prescribed. Monitor for any signs of relapse or worsening of symptoms. Depression - Assessment: improved vilazodone (Viibryd) for depression and anxiety management. Viibyrd 20 mg daily and eat 350 calories with rx STOP WELLBUTRIN Hair Loss - Assessment: The patient is concerned about hair loss, which she attributes to her medications. - Plan: Recommend taking a daily multivitamin for seniors with additional zinc to help with hair loss. patient reported improved Medication Management - Assessment: The patient questions the need for both aripiprazole and olanzapine and is concerned about potential side effects. - Plan: Continue current medications as prescribed. Encourage the patient to discuss the possibility of adjusting medication dosages or tapering off one of the medications if deemed appropriate. Follow-up - Assessment: The patient has an upcoming appointment. - Plan: Keep the appointment and therapy educated on all rx, benefits, side effect, risk and disucss complaince and risk falls with benzo 03/24/2024 Schizoaffective disorder, bipolar type (ICD-10 - F25.0) 03/24/2024 Generalized anxiety disorder (ICD-10 - F41.1) 10/25/2023 Generalized anxiety disorder (ICD-10 - F41.1) Schizoaffective Bipolar She is currently stable on aripiprazole 10 mg and olanzapine 10 mg. Lamotrigine 100 mg daily Anxiety - Assessment: The patient reports that clonazepam is working for her anxiety. However, it is important to emphasize the role of therapy in managing anxiety. - Plan: Continue Xanax 0.5 mg three times a day take as prescribed. Patient not taking Clonazepam decrease Vistaril 10 mg to twice a day as needed - r/o falls - educated to only take as needed for anxiety Encourage the patient to continue therapy sessions for anxiety management. Psychotic Episodes and Mood Instability - Assessment: The patient has a history of psychotic episodes, satnam, and depression. She is currently stable on aripiprazole and olanzapine. - Plan: Continue aripiprazole and olanzapine as prescribed. Monitor for any signs of relapse or worsening of symptoms. Depression - Assessment: improved vilazodone (Viibryd) for depression and anxiety management. Viibyrd 20 mg daily and eat 350 calories with rx STOP WELLBUTRIN Hair Loss - Assessment: The patient is concerned about hair loss, which she attributes to her medications. - Plan: Recommend taking a daily multivitamin for seniors with additional zinc to help with hair loss. patient reported improved Medication Management - Assessment: The patient questions the need for both aripiprazole and olanzapine and is concerned about potential side effects. - Plan: Continue current medications as prescribed. Encourage the patient to discuss the possibility of adjusting medication dosages or tapering off one of the medications if deemed appropriate. Follow-up - Assessment: The patient has an upcoming appointment. - Plan: Keep the appointment and therapy educated on all rx, benefits, side effect, risk and disucss complaince and risk falls with benzo 08/13/2023 Primary insomnia (ICD-10 - F51.01) Schizoaffective disorder, bipolar type - Lamotrigine 100 mg at night educated on rx - discuss GDR Abilify 10 mg in am for depression- educated on rx patient requires 2 anti-psychotic at this time related to severe depression - educated on rx Wellbutrin SR 150 MG TWICE a day r/t depression delusion- before leaving visit patient reported one lady I do not like is coming back into picture again from card game I will talk about it in therapy- Abilify is being increased today Zyprexa 10 mg at dinner -tolerated GDR and no satnam no hypomania no delusions- patient had severe depressive episode 05/27/23 and does not like weight gain on Zyprexa - discuss possible decrease in near future r/t adding Abilify and increase dose 06/10/23- mood stable and even 07/23/23educated on rx and educated on hypomania and satnam s/s and monitor educated on all medications, benefits, side effects and risk, and educated on depression, anxiety, and mood d/o and educated on compliance of medications, metabolic and movement d/o education appointment's, continue therapy discussion with patient about course of treatmentand patient instructions. education on serotonin syndrome Lamotrigine lamotrigine has a serious rashes requiring hospitalization and discontinue treatment including Randall Sunday syndrome rare case of toxic epidermal necrolysis and cache related deaths. Incidence with adjunct of epilepsy treatment 0.8% in 2 to 16 years old and 0.3% in adults, bipolar and other mood disorders incidence 0.8% this initial monotherapy and 0.13% as adjunctive treatment. Other risk factor may include concomitant use of valproate acid derivative or exceeding initial lamotrigine does or does as clinician recommendation; most life-threatenin g rash of occurring first 2 to 8 week of treatment with isolated cases after prolonged treatment; though benign may occur, discontinue treatment at first sign of rash unless clearly not a drug related; TC treatment may not prevent trash from becoming life-threatenin g or permanently disabling or disfiguring. Comment reaction include, nausea/vomiting , dizziness/verti go, visual disturbances, somnolence, ataxia, pruritus/rash, pharyngitis, headache, rhinitis, diarrhea, fever, asthenia, insomnia, tremor, abdominal pain, cough, accidental injury, constipation, dysmenorrhea, incoordination, anxiety, seizures, irritability, anorexia, xerostomia, and photosensitivit y. Serious reactions include: Rash, severe; Mcgowan Sunday syndrome; toxic epidermal necrosis; injury edema, hypersensitivit y reactions. Including fatal, multiple organ failure to safe fatal, rash with eosinophilia systemic symptoms, DIC, neutropenia, leukopenia, thrombocytopeni a, pancytopenia, aplastic anemia, hemolytic anemia, i pancreatitis, hepatic failure, rhabdomyolysis, worsening of suicidal ideation, worsening of depression, cleft lip/palate [first trimester use] DO not Change Cosmetic, perfumes or soap for next 4 weeks. The patient was advice to take lamotrigine as prescribed the patient was instructed not to deviate from the prescription dosages. Stop lamotrigine is the first sign of rash. Patient was insisted to inform office if any of the serious side effect develops. therapy- continue F25.0: Schizoaffective disorder, bipolar type aripiprazole 10 mg tablet - Take 1 tablet(s) every day by oral route at bedtime for 90 days. Qty: (90) tablet Refills: 0 Pharmacy: [facility] [address] bupropion HCl SR 150 mg tablet,12 hr sustained-relea se - Take 1 tablet(s) twice a day by oral route in the morning for 90 days, for depression. Qty: (180) tablet Refills: 0 Pharmacy: [facility] [address] Note to Pharmacy: d/c daily dose lamotrigine 100 mg tablet - Take 1 tablet(s) every day by oral route at dinner for 90 days. Qty: (90) tablet Refills: 0 Pharmacy: [facility] [id number] Note to Pharmacy: d/c 150 mg dos eolanzapine 10 mg tablet - Take 1 tablet(s) every day by oral route at bedtime for 30 days. Qty: (30) tablet Refills: 2 Pharmacy: [facility] [address] 2. Generalized anxiety disorder - Xanax 0.5 mg up to three times a day short term for anxiety Educated patient Xanax may be causing excessive tired and to take as needed and if not needed then do not take Xanax Discussed and educated pt regarding benzodiazepines are generally not intended for prolonged use and that use can cause tolerance, dependence, depression, and associated memory issues including dementias (this list is not exhaustive). Benzodiazepine use is generally not recommended concurrently with pain medications and/or other controlled substances due to increased risks of profound sedation, respiratory depression, coma, and even . They are not to be used with any alcohol, as this combination can also be lethal. Patient was provided caution educated on rx and educated on Rod Sunday Syndrome and rash and if develop go to ER and notify office educated not to change soaps, foods, laundry detergents, ect, with adding or changing dose Lamotrigine discuss depression and medication options and patient had a good response with Wellbutrin in past - discuss monitoring for satnam, hypomania Wellbutrin SR 150 mg in am - educated to stay on rx as prescribed F41.1: Generalized anxiety disorder alprazolam 0.5 mg tablet - Take 1 tablet(s) 3 times a day by oral route as needed for 30 days. Qty: (90) tablet Refills: 2 Pharmacy: [facility] 3. Primary insomnia -Trazodone 50 mg at night as needed -Melatonin 10 mg at bedtime OTC Educated patient Xanax may be causing excessive tired and to take as needed and if not needed then do not take Xanax F51.01: Primary insomniat razodone 50 mg tablet - Take 1 tablet(s) every day by oral route at bedtime for 90 days. Qty: (90) tablet Refills: 0 Pharmacy: [facility] 4. Long-term drug therapy 02/03/2024 Generalized anxiety disorder (ICD-10 - F41.1) Anxiety - Assessment: Patient reports improvement in anxiety since reducing Xanax dosage from 3 times daily to morning and night only. - Plan: - Continue to monitor anxiety levels and adjust medications as needed in collaboration with Anabelle - Encourage patient to utilize coping strategies and relaxation techniques as needed Social Support and Relationships - Assessment: Patient has supportive friends and family members, such as Liyah, but may experience stress or conflict with some family members. - Plan: - Encourage patient to maintain contact with supportive friends and family members - Discuss strategies for managing relationships with family members who may cause stress or conflict - Encourage patient to engage in social activities and seek out new friendships as appropriate Grief and Loss - Assessment: Patient is experiencing grief related to the loss of her brother and other significant individuals in her life. - Plan: - Acknowledge the patient's grief - Encourage patient to discuss her feelings and experiences related to grief during therapy sessions with Anabelle Each plan component addresses specific issues identified during the assessment, focusing on medication management, therapy, lifestyle adjustments, and support systems to improve the patient's overall mental health and well-being. 03/27/2024 Generalized anxiety disorder (ICD-10 - F41.1) 06/05/2024 Schizoaffective disorder, bipolar type (ICD-10 - F25.0) Lamotrigine is an anticonvulsant and mood stabilizer used in psychiatry. Lamotrigine use is associated with benign rashes (incidence approximately 10%) and rare serious rashes that may require hospitalization and discontinuation of treatment, including Mcgowan-Sunday syndrome and toxic epidermal necrolysis. Pt educated on importance of titration schedule and to take the medication only as prescribed. Pt educated that if they miss 5 or more consecutive doses then this medication will need to be re-titrated to reduce risk of rash. If any rash is noted, patient is instructed to stop taking this medication and call office. If rash is severe, they are to present immediately to the emergency room. Second generation antipsychotics (SGAs) have metabolic syndrome issues with weight gain, increase in prolactin, increased waist circumference, increased lipids, and increased glucose. Thus routine monitoring of weight, metabolic labs, etc. is indicated. A general rank ordering of antipsychotics that have the greatest to the least risk of metabolic effects is olanzapine, quetiapine, risperidone, ziprasidone, and aripiprazole. However, weight gain can occur with all of these drugs and considerable variability exists among patients receiving the same drug regarding the risk of metabolic effects. Anti-psychotic agents not only increase the risk of metabolic disorder, they also increase the risk of CVA, akathisia, and movement disorders including EPS or tardive dyskinesia (more common with first generation antipsychotics) and more. 05/07/2024 Generalized anxiety disorder (ICD-10 - F41.1) Stable on lower dose of alprazolam, continue 0.25mg TID PRN 05/21/2024 Primary insomnia (ICD-10 - F51.01) 04/30/2024 Generalized anxiety disorder (ICD-10 - F41.1) Stable on lower dose of alprazolam, continue 0.25mg TID PRN 02/13/2024 Generalized anxiety disorder (ICD-10 - F41.1) 1. schizoaffective disorder overall stable; no paranoia noted today -cont olanzapine 10mg qHS -cont abilify 15mg daily -cont lamictal 100mg daily ---pt requesting Wellbutrin-prev iously triggered paranoia, delusions, discussed we will not restart this 2. VERITO stable -decrease alprazolam to 0.25mg twice daily with intent to wean off -cont hydroxyzine PRN -encourage non-pharmaceuti jamila treatments including deep breathing, grounding exercises, physical activity, healthy diet. 3. insomnia -cont trazodone 50mg qHS - KEEP YOUR BEDROOM DARK - GET LOTS OF NATURAL LIGHT IN THE MORNING. - DON'T WORK ON YOUR COMPUTER OR PHONE LATE AT NIGHT. - AVOID NAPS DURING THE DAY. - NO CAFFEINE 3 HOURS OR MORE AFTER WAKE UP TIME. - ONLY USE YOUR BED FOR SLEEPING - GET A RELAXATION ROUTINE BEFORE BED. - IF YOU CAN'T GET TO SLEEP AFTER 15 TO 30 MINUTES GET OUT OF BED AND DO SOMETHING RELAXING. - DON'T DRINK ALCOHOL IN THE EVENING or limit alcohol to 1 drink.. Patient had reduction in suicidal ideation and/or behavior upon follow-up assessment within 120 days of index assessment ([id number]) 04/22/2024 Primary insomnia (ICD-10 - F51.01) well controlled, continue current therapy 11/05/2023 Generalized anxiety disorder (ICD-10 - F41.1) NO REFILLS NEEDED TODAY Schizoaffective Bipolar She is currently stable on aripiprazole 10 mg and olanzapine 10 mg. Lamotrigine 100 mg daily Anxiety - Assessment: The patient reports that clonazepam is working for her anxiety. However, it is important to emphasize the role of therapy in managing anxiety. - Plan: Continue Xanax 0.5 mg three times a day take as prescribed. Patient not taking Clonazepam Vistaril 10 mg to twice a day as needed - r/o falls- improved - educated to only take as needed for anxiety http_s://www.na mi.org/About-Me ntal-Illness/Me kddk-Jxugal-Oyf ditions http_s://psychc entral.com/depr ession/the-cogn itive-symptoms- of-depression#t reatments http__s://www.n [facility].nih.gov/healeksandr lt/topics/ment sr-syceyr-lyjzt ations http__s://www.n [facility].org/About-M ental-Illness/T reatments/Menta i-Zpuhzx-Zqeawj tions Encourage the patient to continue therapy sessions for anxiety management. Discussed and educated pt regarding benzodiazepines are generally not intended for prolonged use and that use can cause tolerance, dependence, depression, and associated memory issues including dementias (this list is not exhaustive). Benzodiazepine use is generally not recommended concurrently with pain medications and/or other controlled substances educated on all medications, benefits, side effects and risk, and educated on depression, anxiety, and ADHD, mood d/o and educated on compliance of medications, metabolic and movement d/o education appointment is, continue therapy discussion with patient about course of treatment and patient instructions. education on serotonin syndrome SSRI/SNRI side effects discussed including but not limited to, gastric upset, nausea, vomiting, diarrhea and/or constipation, weight changes, sexual side effects including loss of libido, increased suicidal thoughts/behavi ors in children and young adults, and serotonin syndrome. Second generation antipsychotics (SGAs) have metabolic syndrome issues with weight gain, increase in prolactin, increased waist circumference, increased lipids, and increased glucose. Thus routine monitoring of weight, metabolic labs, etc. is indicated. A general rank ordering of antipsychotics that have the greatest to the least risk of metabolic effects is olanzapine, quetiapine, risperidone, ziprasidone, and aripiprazole. However, weight gain can occur with all of these drugs and considerable variability exists among patients receiving the same drug regarding the risk of metabolic effects. Anti-psychotic agents not only increase the risk of metabolic disorder, they also increase the risk of CVA, akathisia, and movement disorders including EPS or tardive dyskinesia (more common with first generation antipsychotics) and more. Elderly- discussed risks, cognition, sedation, falls, metabolic, movement and atypical antipsychotics carry a black-box warning for increased risk of and cerebrovascular events in dementia. Psychotic Episodes and Mood Instability - Assessment: The patient has a history of psychotic episodes, satnam, and depression. She is currently stable on aripiprazole and olanzapine. - Plan: Continue aripiprazole and olanzapine as prescribed. Monitor for any signs of relapse or worsening of symptoms. Depression - Assessment: improved vilazodone (Viibryd) for depression and anxiety management. Viibyrd 20 mg daily and eat 350 calories with rx STOP WELLBUTRIN Hair Loss- improved - Assessment: The patient is concerned about hair loss, which she attributes to her medications. - Plan: Recommend taking a daily multivitamin for seniors with additional zinc to help with hair loss. patient reported improved Medication Management - Assessment: The patient questions the need for both aripiprazole and olanzapine and is concerned about potential side effects. - Plan: Continue current medications as prescribed. Encourage the patient to discuss the possibility of adjusting medication dosages or tapering off one of the medications if deemed appropriate. Follow-up - Assessment: The patient has an upcoming appointments and therapy - Plan: Keep the appointment and therapy educated on all rx, benefits, side effect, risk and disucss complaince and risk falls with benzo 10/25/2023 Generalized anxiety disorder (ICD-10 - F41.1) 10/03/2023 Generalized anxiety disorder (ICD-10 - F41.1) Anxiety - Assessment: The patient reports that clonazepam is working for her anxiety. However, it is important to emphasize the role of therapy in managing anxiety. - Plan: Continue Xanax 0.5 mg three times a day take as prescribed. Patient not taking Clonazepam Encourage the patient to continue therapy sessions for anxiety management. Psychotic Episodes and Mood Instability - Assessment: The patient has a history of psychotic episodes, satnam, and depression. She is currently stable on aripiprazole and olanzapine. - Plan: Continue aripiprazole and olanzapine as prescribed. Monitor for any signs of relapse or worsening of symptoms. Depression - Assessment: The patient reports feeling ongoing depressive symptoms. - Plan: discuss switching Wellbutrin to vilazodone (Viibryd) for depression and anxiety management. will add Viibyrd 20 mg daily and eat 350 calories with rx decrease Wellbutrin SR 150 MG DAILY FOR next month then stop Hair Loss - Assessment: The patient is concerned about hair loss, which she attributes to her medications. - Plan: Recommend taking a daily multivitamin for seniors with additional zinc to help with hair loss. Medication Management - Assessment: The patient questions the need for both aripiprazole and olanzapine and is concerned about potential side effects. - Plan: Continue current medications as prescribed. Encourage the patient to discuss the possibility of adjusting medication dosages or tapering off one of the medications if deemed appropriate. Follow-up - Assessment: The patient has an upcoming appointment. - Plan: Keep the appointment and therapy educated on all rx, benefits, side effect, risk and disucss complaince and risk falls with benzo 09/23/2023 Generalized anxiety disorder (ICD-10 - F41.1) Anxiety - Assessment: The patient reports that clonazepam is working for her anxiety. However, it is important to emphasize the role of therapy in managing anxiety. - Plan: Continue clonazepam as prescribed. Encourage the patient to continue therapy sessions for anxiety management. Psychotic Episodes and Mood Instability - Assessment: The patient has a history of psychotic episodes, satnam, and depression. She is currently stable on aripiprazole and olanzapine. - Plan: Continue aripiprazole and olanzapine as prescribed. Monitor for any signs of relapse or worsening of symptoms. Depression - Assessment: The patient reports feeling stagnant in her progress and rarely going out, suggesting ongoing depressive symptoms. - Plan: Consider discussing the possibility of switching Wellbutrin to another medication like vilazodone (Viibryd) for depression and anxiety management. Hair Loss - Assessment: The patient is concerned about hair loss, which she attributes to her medications. - Plan: Recommend taking a daily multivitamin for seniors with additional zinc to help with hair loss. Discuss any potential medication adjustments to address this concern. Medication Management - Assessment: The patient questions the need for both aripiprazole and olanzapine and is concerned about potential side effects. - Plan: Continue current medications as prescribed. Encourage the patient to discuss the possibility of adjusting medication dosages or tapering off one of the medications if deemed appropriate. Follow-up - Assessment: The patient has an upcoming appointment. - Plan: Keep the appointment to evaluate clonazepam dosage, discuss depression, and review medication management. Add a note to review the concerns discussed during this visit. 09/10/2023 Generalized anxiety disorder (ICD-10 - F41.1) Electronic Prior Authorization was requested for hydrOXYzine HCl 10 MG Tablet. Provider can order medication once approval received., Generalized Anxiety Disorder: Care Instructions material was published, Learning About Generalized Anxiety Disorder material was published, Learning About Anxiety Disorders material was published Schizoaffective disorder, bipolar type - Lamotrigine 100 mg at night educated on rx - discuss GDR Abilify 10 mg in am for depression- educated on rx patient requires 2 anti-psychotic at this time related to severe depression - educated on rx Wellbutrin SR 150 MG TWICE a day r/t depression delusion- chronic patient had severe depressive episode - discuss possible decrease in near future Zyprexa r/t adding Abilify and educated on rx and educated on hypomania and satnam s/s, psychosis, delusions and monitor educated on all medications, benefits, side effects and risk, and educated on depression, anxiety, and mood d/o and educated on compliance of medications, metabolic and movement d/o education appointment's, continue therapy discussion with patient about course of treatmentand patient instructions. education on serotonin syndrome Lamotrigine lamotrigine has a serious rashes requiring hospitalization and discontinue treatment including Randall Sunday syndrome rare case of toxic epidermal necrolysis and cache related deaths. Incidence with adjunct of epilepsy treatment 0.8% in 2 to 16 years old and 0.3% in adults, bipolar and other mood disorders incidence 0.8% this initial monotherapy and 0.13% as adjunctive treatment. Other risk factor may include concomitant use of valproate acid derivative or exceeding initial lamotrigine does or does as clinician recommendation; most life-threatenin g rash of occurring first 2 to 8 week of treatment with isolated cases after prolonged treatment; though benign may occur, discontinue treatment at first sign of rash unless clearly not a drug related; TC treatment may not prevent trash from becoming life-threatenin g or permanently disabling or disfiguring. Comment reaction include, nausea/vomiting , dizziness/verti go, visual disturbances, somnolence, ataxia, pruritus/rash, pharyngitis, headache, rhinitis, diarrhea, fever, asthenia, insomnia, tremor, abdominal pain, cough, accidental injury, constipation, dysmenorrhea, incoordination, anxiety, seizures, irritability, anorexia, xerostomia, and photosensitivit y. Serious reactions include: Rash, severe; Mcgowan Sunday syndrome; toxic epidermal necrosis; injury edema, hypersensitivit y reactions. Including fatal, multiple organ failure to safe fatal, rash with eosinophilia systemic symptoms, DIC, neutropenia, leukopenia, thrombocytopeni a, pancytopenia, aplastic anemia, hemolytic anemia, i pancreatitis, hepatic failure, rhabdomyolysis, worsening of suicidal ideation, worsening of depression, cleft lip/palate [first trimester use] DO not Change Cosmetic, perfumes or soap for next 4 weeks. The patient was advice to take lamotrigine as prescribed the patient was instructed not to deviate from the prescription dosages. Stop lamotrigine is the first sign of rash. Patient was insisted to inform office if any of the serious side effect develops. therapy- continue F25.0: Schizoaffective disorder, bipolar type aripiprazole 10 mg tablet - Take 1 tablet(s) every day by oral route at bedtime for 90 days. Qty: (90) tablet Refills: 0 Pharmacy: [facility] [address] bupropion HCl SR 150 mg tablet,12 hr sustained-relea se - Take 1 tablet(s) twice a day by oral route in the morning for 90 days, for depression. Qty: (180) tablet Refills: 0 Pharmacy: [facility] [address] Note to Pharmacy: d/c daily dose lamotrigine 100 mg tablet - Take 1 tablet(s) every day by oral route at dinner for 90 days. Qty: (90) tablet Refills: 0 Pharmacy: [facility] [address] olanzapine 5 mg tablet - Take 1 tablet(s) every day by oral route at bedtime for 30 days. Qty: (30) tablet Refills: 2 Pharmacy: [facility] [address] 2. Generalized anxiety disorder - patient having increase anxiety and panic will switch Xanax to Clonazepam related to longer lasting - educated patient on rx Add Clonazepam 0.5 mg three times a day - educated on rx Add Vistaril 10 mg up to three times a day as needed for panic attacks - educatedon rx stop Xanax 0.5 mg up to three times a day for anxiety Educated patient Clonazepam may be causing excessive tired and to take as needed and if not needed then do not take Clonazepam Discussed and educated pt regarding benzodiazepines are generally not intended for prolonged use and that use can cause tolerance, dependence, depression, and associated memory issues including dementias (this list is not exhaustive). Benzodiazepine use is generally not recommended concurrently with pain medications and/or other controlled substances due to increased risks of profound sedation, respiratory depression, coma, and even . They are not to be used with any alcohol, as this combination can also be lethal. Patient was provided caution educated on rx and educated on Rod Sunday Syndrome and rash and if develop go to ER and notify office educated not to change soaps, foods, laundry detergents, ect, with adding or changing dose Lamotrigine discuss depression and medication options and patient had a good response with Wellbutrin in past - discuss monitoring for satnam, hypomaniaWellbu paramjit SR 150 mg in am - educated to stay on rx as prescribed F41.1: Generalized anxiety disorder Clonazepam 0.5 mg tablet - Take 1 tablet(s) 3 times a day by oral route as needed for 30 days. Qty: (90) tablet Refills: 2 Pharmacy: [facility] - stop Xanax 3. Primary insomnia -Trazodone 50 mg at night as needed -Melatonin 10 mg at bedtime OTC Educated patient Xanax may be causing excessive tired and to take as needed and if not needed then do not take Xanax F51.01: Primary insomnia trazodone 50 mg tablet - Take 1 tablet(s) every day by oral route at bedtime for 90 days. Qty: (90) tablet Refills: 0 Pharmacy: [facility] 4. Long-term drug therapy 01/06/2024 Primary insomnia (ICD-10 - F51.01) SLUMS= 20 completed 12/05/23 scanned into chart AIMS= 1 = has 2 missing teeth 12/05/23 Scanned into chart 1. Schizoaffective Bipolar She is currently on aripiprazole 10 mg and olanzapine 10 mg. Lamotrigine 100 mg daily - discuss and educated on all rx D/C Zoloft 50 mg daily- DIARRHEA Depression - Assessment:- stable mood monitor for satnam and hypomania 2. discuss Alzheimer's Dementia with patient and discuss CANS/MCI testing when depression and anxiety is more controlled discuss rx for memory- Namenda and or Exelon will consider 3. Anxiety - Assessment: The patient reports that clonazepam is working for her anxiety. However, it is important to emphasize the role of therapy in managing anxiety. - Plan: Continue Xanax 0.5 mg three times a day take as prescribed. Vistaril 10 mg twice a day as needed - r/o falls- improved - educated to only take as needed for anxiety http_s://www.na mi.org/About-Me ntal-Illness/Me egoe-Uipohl-Mpk ditions http_s://psychc entral.com/depr ession/the-cogn itive-symptoms- of-depression#t reatments http__s://www.n [facility].nih.gov/ziggy lth/topics/ment io-enyaxv-pfpta ations http__s://www.n [facility].org/About-M ental-Illness/T reatments/Menta d-Arnwit-Tgzgzj [facility] Encourage the patient to continue therapy sessions for anxiety management. Discussed and educated pt regarding benzodiazepines are generally not intended for prolonged use and that use can cause tolerance, dependence, depression, and associated memory issues including dementias (this list is not exhaustive). Benzodiazepine use is generally not recommended concurrently with pain medications and/or other controlled substances educated on all medications, benefits, side effects and risk, and educated on depression, anxiety, and ADHD, mood d/o and educated on compliance of medications, metabolic and movement d/o education appointment is, continue therapy discussion with patient about course of treatment and patient instructions. education on serotonin syndrome SSRI/SNRI side effects discussed including but not limited to, gastric upset, nausea, vomiting, diarrhea and/or constipation, weight changes, sexual side effects including loss of libido, increased suicidal thoughts/behavi ors in children and young adults, and serotonin syndrome. Second generation antipsychotics (SGAs) have metabolic syndrome issues with weight gain, increase in prolactin, increased waist circumference, increased lipids, and increased glucose. Thus routine monitoring of weight, metabolic labs, etc. is indicated. A general rank ordering of antipsychotics that have the greatest to the least risk of metabolic effects is olanzapine, quetiapine, risperidone, ziprasidone, and aripiprazole. However, weight gain can occur with all of these drugs and considerable variability exists among patients receiving the same drug regarding the risk of metabolic effects. Anti-psychotic agents not only increase the risk of metabolic disorder, they also increase the risk of CVA, akathisia, and movement disorders including EPS or tardive dyskinesia (more common with first generation antipsychotics) and more. Elderly- discussed risks, cognition, sedation, falls, metabolic, movement and atypical antipsychotics carry a black-box warning for increased risk of and cerebrovascular events in dementia. Psychotic Episodes and Mood Instability - Assessment: The patient has a history of psychotic episodes, satnam, and depression. She is currently stable on aripiprazole and olanzapine. - Plan: Continue aripiprazole and olanzapine as prescribed. Monitor for any signs of relapse or worsening of symptoms. STOP WELLBUTRIN- TINNITUS improved Hair Loss- improved - Assessment: The patient is concerned about hair loss, which she attributes to her medications. - Plan: Recommend taking a daily multivitamin for seniors with additional zinc to help with hair loss. patient reported improved Medication Management - Assessment: The patient questions the need for both aripiprazole and olanzapine and is concerned about potential side effects. - Plan: Continue current medications as prescribed. Encourage the patient to discuss the possibility of adjusting medication dosages or tapering off one of the medications if deemed appropriate. Follow-up- no refills needed today - Assessment: The patient has an upcoming appointments and therapy - Plan: Keep the appointment and therapy educated on all rx, benefits, side effect, risk and disucss complaince and risk falls with benzo 12/05/2023 Primary insomnia (ICD-10 - F51.01) SLUMS= 20 completed 12/05/23 scanned into chart AIMS= 1 = has 2 missing teeth 12/05/23 Scanned into chart 1. Schizoaffective Bipolar She is currently on aripiprazole 10 mg and olanzapine 10 mg. Lamotrigine 100 mg daily patient having increase depression - discuss and educated on Zoloft 50 mg daily Depression - Assessment:- patient stopped Viibyrd r/t diarrhea monitor for satnam and hypomania 2. discuss Alzheimer's Dementia with patient and discuss CANS/MCI testing when depression and anxiety is more controlled discuss rx for memory- Namenda and or Exelon will consider 3. Anxiety - Assessment: The patient reports that clonazepam is working for her anxiety. However, it is important to emphasize the role of therapy in managing anxiety. - Plan: Continue Xanax 0.5 mg three times a day take as prescribed. Vistaril 10 mg twice a day as needed - r/o falls- improved - educated to only take as needed for anxiety http_s://www.na mi.org/About-Me ntal-Illness/Me gytu-Rijjxc-Qvc ditions http_s://psychc entral.com/depr ession/the-cogn itive-symptoms- of-depression#t reatments http__s://www.n [facility].nih.gov/hea lt/topics/ment ea-xkeozt-emfaf ations http__s://www.n [facility].org/About-M ental-Illness/T reatments/Menta t-Kfwthj-Axasdb tions Encourage the patient to continue therapy sessions for anxiety management. Discussed and educated pt regarding benzodiazepines are generally not intended for prolonged use and that use can cause tolerance, dependence, depression, and associated memory issues including dementias (this list is not exhaustive). Benzodiazepine use is generally not recommended concurrently with pain medications and/or other controlled substances educated on all medications, benefits, side effects and risk, and educated on depression, anxiety, and ADHD, mood d/o and educated on compliance of medications, metabolic and movement d/o education appointment is, continue therapy discussion with patient about course of treatment and patient instructions. education on serotonin syndrome SSRI/SNRI side effects discussed including but not limited to, gastric upset, nausea, vomiting, diarrhea and/or constipation, weight changes, sexual side effects including loss of libido, increased suicidal thoughts/behavi ors in children and young adults, and serotonin syndrome. Second generation antipsychotics (SGAs) have metabolic syndrome issues with weight gain, increase in prolactin, increased waist circumference, increased lipids, and increased glucose. Thus routine monitoring of weight, metabolic labs, etc. is indicated. A general rank ordering of antipsychotics that have the greatest to the least risk of metabolic effects is olanzapine, quetiapine, risperidone, ziprasidone, and aripiprazole. However, weight gain can occur with all of these drugs and considerable variability exists among patients receiving the same drug regarding the risk of metabolic effects. Anti-psychotic agents not only increase the risk of metabolic disorder, they also increase the risk of CVA, akathisia, and movement disorders including EPS or tardive dyskinesia (more common with first generation antipsychotics) and more. Elderly- discussed risks, cognition, sedation, falls, metabolic, movement and atypical antipsychotics carry a black-box warning for increased risk of and cerebrovascular events in dementia. Psychotic Episodes and Mood Instability - Assessment: The patient has a history of psychotic episodes, satnam, and depression. She is currently stable on aripiprazole and olanzapine. - Plan: Continue aripiprazole and olanzapine as prescribed. Monitor for any signs of relapse or worsening of symptoms. STOP WELLBUTRIN- TINNITUS improved Hair Loss- improved - Assessment: The patient is concerned about hair loss, which she attributes to her medications. - Plan: Recommend taking a daily multivitamin for seniors with additional zinc to help with hair loss. patient reported improved Medication Management - Assessment: The patient questions the need for both aripiprazole and olanzapine and is concerned about potential side effects. - Plan: Continue current medications as prescribed. Encourage the patient to discuss the possibility of adjusting medication dosages or tapering off one of the medications if deemed appropriate. Follow-up - Assessment: The patient has an upcoming appointments and therapy - Plan: Keep the appointment and therapy educated on all rx, benefits, side effect, risk and disucss complaince and risk falls with benzo 01/28/2024 Generalized anxiety disorder (ICD-10 - F41.1) 1. schizoaffective disorder overall stable; no paranoia noted today -cont olanzapine 10mg qHS -cont abilify 15mg daily -cont lamictal 100mg daily ---pt requesting Wellbutrin-prev iously triggered paranoia, delusions, discussed we will not restart this 2. VERITO stable -decrease alprazolam to 0.5mg twice daily with intent to wean off -cont hydroxyzine PRN -encourage non-pharmaceuti jamila treatments including deep breathing, grounding exercises, physical activity, healthy diet. 3. insomnia -cont trazodone 50mg qHS - KEEP YOUR BEDROOM DARK - GET LOTS OF NATURAL LIGHT IN THE MORNING. - DON'T WORK ON YOUR COMPUTER OR PHONE LATE AT NIGHT. - AVOID NAPS DURING THE DAY. - NO CAFFEINE 3 HOURS OR MORE AFTER WAKE UP TIME. -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 effects is olanzapine, quetiapine, risperidone, ziprasidone, and aripiprazole. However, weight gain can occur with all of these drugs and considerable variability exists among patients receiving the same drug regarding the risk of metabolic effects. Anti-psychotic agents not only increase the risk of metabolic disorder, they also increase the risk of CVA, akathisia, and movement disorders including EPS or tardive dyskinesia (more common with first generation antipsychotics) and more. Elderly- discussed risks, cognition, sedation, falls, metabolic, movement and atypical antipsychotics carry a black-box warning for increased risk of and cerebrovascular events in dementia. Psychotic Episodes and Mood Instability - Assessment: The patient has a history of psychotic episodes, satnam, and depression. She is currently stable on aripiprazole and olanzapine. - Plan: Continue aripiprazole and olanzapine as prescribed. Monitor for any signs of relapse or worsening of symptoms. STOP WELLBUTRIN- TINNITUS improved Hair Loss- improved - Assessment: The patient is concerned about hair loss, which she attributes to her medications. - Plan: Recommend taking a daily multivitamin for seniors with additional zinc to help with hair loss. patient reported improved Medication Management - Assessment: The patient questions the need for both aripiprazole and olanzapine and is concerned about potential side effects. - Plan: Continue current medications as prescribed. Encourage the patient to discuss the possibility of adjusting medication dosages or tapering off one of the medications if deemed appropriate. Follow-up- no refills needed today - Assessment: The patient has an upcoming appointments and therapy - Plan: Keep the appointment and therapy educated on all rx, benefits, side effect, risk and disucss complaince and risk falls with benzo 05/21/2024 Encounter for screening for depression (ICD-10 - Z13.31) 06/05/2024 Generalized anxiety disorder (ICD-10 - F41.1) 03/27/2024 Primary insomnia (ICD-10 - F51.01) 03/27/2024 Memory impairment (ICD-10 - R41.3) 08/13/2023 Other [facility] (current) drug therapy (ICD-10 - Z79.899) Schizoaffective disorder, bipolar type - Lamotrigine 100 mg at night educated on rx - discuss GDR Abilify 10 mg in am for depression- educated on rx patient requires 2 anti-psychotic at this time related to severe depression - educated on rx Wellbutrin SR 150 MG TWICE a day r/t depression delusion- before leaving visit patient reported one lady I do not like is coming back into picture again from card game I will talk about it in therapy- Abilify is being increased today Zyprexa 10 mg at dinner -tolerated GDR and no satnam no hypomania no delusions- patient had severe depressive episode 05/27/23 and does not like weight gain on Zyprexa - discuss possible decrease in near future r/t adding Abilify and increase dose 06/10/23- mood stable and even 07/23/23educated on rx and educated on hypomania and satnam s/s and monitor educated on all medications, benefits, side effects and risk, and educated on depression, anxiety, and mood d/o and educated on compliance of medications, metabolic and movement d/o education appointment's, continue therapy discussion with patient about course of treatmentand patient instructions. education on serotonin syndrome Lamotrigine lamotrigine has a serious rashes requiring hospitalization and discontinue treatment including Randall Sunday syndrome rare case of toxic epidermal necrolysis and cache related deaths. Incidence with adjunct of epilepsy treatment 0.8% in 2 to 16 years old and 0.3% in adults, bipolar and other mood disorders incidence 0.8% this initial monotherapy and 0.13% as adjunctive treatment. Other risk factor may include concomitant use of valproate acid derivative or exceeding initial lamotrigine does or does as clinician recommendation; most life-threatenin g rash of occurring first 2 to 8 week of treatment with isolated cases after prolonged treatment; though benign may occur, discontinue treatment at first sign of rash unless clearly not a drug related; TC treatment may not prevent trash from becoming life-threatenin g or permanently disabling or disfiguring. Comment reaction include, nausea/vomiting , dizziness/verti go, visual disturbances, somnolence, ataxia, pruritus/rash, pharyngitis, headache, rhinitis, diarrhea, fever, asthenia, insomnia, tremor, abdominal pain, cough, accidental injury, constipation, dysmenorrhea, incoordination, anxiety, seizures, irritability, anorexia, xerostomia, and photosensitivit y. Serious reactions include: Rash, severe; Mcgowan Sunday syndrome; toxic epidermal necrosis; injury edema, hypersensitivit y reactions. Including fatal, multiple organ failure to safe fatal, rash with eosinophilia systemic symptoms, DIC, neutropenia, leukopenia, thrombocytopeni a, pancytopenia, aplastic anemia, hemolytic anemia, i pancreatitis, hepatic failure, rhabdomyolysis, worsening of suicidal ideation, worsening of depression, cleft lip/palate [first trimester use] DO not Change Cosmetic, perfumes or soap for next 4 weeks. The patient was advice to take lamotrigine as prescribed the patient was instructed not to deviate from the prescription dosages. Stop lamotrigine is the first sign of rash. Patient was insisted to inform office if any of the serious side effect develops. therapy- continue F25.0: Schizoaffective disorder, bipolar type aripiprazole 10 mg tablet - Take 1 tablet(s) every day by oral route at bedtime for 90 days. Qty: (90) tablet Refills: 0 Pharmacy: [facility] 256 bupropion HCl SR 150 mg tablet,12 hr sustained-relea se - Take 1 tablet(s) twice a day by oral route in the morning for 90 days, for depression. Qty: (180) tablet Refills: 0 Pharmacy: [facility] 256 Note to Pharmacy: d/c daily dose lamotrigine 100 mg tablet - Take 1 tablet(s) every day by oral route at dinner for 90 days. Qty: (90) tablet Refills: 0 Pharmacy: [place] [id number] Note to Pharmacy: d/c 150 mg dos eolanzapine 10 mg tablet - Take 1 tablet(s) every day by oral route at bedtime for 30 days. Qty: (30) tablet Refills: 2 Pharmacy: [place] [address] 2. Generalized anxiety disorder - Xanax 0.5 mg up to three times a day short term for anxiety Educated patient Xanax may be causing excessive tired and to take as needed and if not needed then do not take Xanax Discussed and educated pt regarding benzodiazepines are generally not intended for prolonged use and that use can cause tolerance, dependence, depression, and associated memory issues including dementias (this list is not exhaustive). Benzodiazepine use is generally not recommended concurrently with pain medications and/or other controlled substances due to increased risks of profound sedation, respiratory depression, coma, and even . They are not to be used with any alcohol, as this combination can also be lethal. Patient was provided caution educated on rx and educated on Rod Sunday Syndrome and rash and if develop go to ER and notify office educated not to change soaps, foods, laundry detergents, ect, with adding or changing dose Lamotrigine discuss depression and medication options and patient had a good response with Wellbutrin in past - discuss monitoring for satnam, hypomania Wellbutrin SR 150 mg in am - educated to stay on rx as prescribed F41.1: Generalized anxiety disorder alprazolam 0.5 mg tablet - Take 1 tablet(s) 3 times a day by oral route as needed for 30 days. Qty: (90) tablet Refills: 2 Pharmacy: [facility] 256 3. Primary insomnia -Trazodone 50 mg at night as needed -Melatonin 10 mg at bedtime OTC Educated patient Xanax may be causing excessive tired and to take as needed and if not needed then do not take Xanax F51.01: Primary insomniat razodone 50 mg tablet - Take 1 tablet(s) every day by oral route at bedtime for 90 days. Qty: (90) tablet Refills: 0 Pharmacy: [facility] 256 4. Long-term drug therapy 10/25/2023 Primary insomnia (ICD-10 - F51.01) Schizoaffective Bipolar She is currently stable on aripiprazole 10 mg and olanzapine 10 mg. Lamotrigine 100 mg daily Anxiety - Assessment: The patient reports that clonazepam is working for her anxiety. However, it is important to emphasize the role of therapy in managing anxiety. - Plan: Continue Xanax 0.5 mg three times a day take as prescribed. Patient not taking Clonazepam decrease Vistaril 10 mg to twice a day as needed - r/o falls - educated to only take as needed for anxiety Encourage the patient to continue therapy sessions for anxiety management. Psychotic Episodes and Mood Instability - Assessment: The patient has a history of psychotic episodes, satnam, and depression. She is currently stable on aripiprazole and olanzapine. - Plan: Continue aripiprazole and olanzapine as prescribed. Monitor for any signs of relapse or worsening of symptoms. Depression - Assessment: improved vilazodone (Viibryd) for depression and anxiety management. Viibyrd 20 mg daily and eat 350 calories with rx STOP WELLBUTRIN Hair Loss - Assessment: The patient is concerned about hair loss, which she attributes to her medications. - Plan: Recommend taking a daily multivitamin for seniors with additional zinc to help with hair loss. patient reported improved Medication Management - Assessment: The patient questions the need for both aripiprazole and olanzapine and is concerned about potential side effects. - Plan: Continue current medications as prescribed. Encourage the patient to discuss the possibility of adjusting medication dosages or tapering off one of the medications if deemed appropriate. Follow-up - Assessment: The patient has an upcoming appointment. - Plan: Keep the appointment and therapy educated on all rx, benefits, side effect, risk and disucss complaince and risk falls with benzo 06/05/2024 Primary insomnia (ICD-10 - F51.01) 05/21/2024 Encounter for screening for cardiovascular disorders (ICD-10 - Z13.6) 09/10/2023 Other [facility] (current) drug therapy (ICD-10 - Z79.899) Medication Refill: Care Instructions material was published Schizoaffective disorder, bipolar type - Lamotrigine 100 mg at night educated on rx - discuss GDR Abilify 10 mg in am for depression- educated on rx patient requires 2 anti-psychotic at this time related to severe depression - educated on rx Wellbutrin SR 150 MG TWICE a day r/t depression delusion- chronic patient had severe depressive episode - discuss possible decrease in near future Zyprexa r/t adding Abilify and educated on rx and educated on hypomania and satnam s/s, psychosis, delusions and monitor educated on all medications, benefits, side effects and risk, and educated on depression, anxiety, and mood d/o and educated on compliance of medications, metabolic and movement d/o education appointment's, continue therapy discussion with patient about course of treatmentand patient instructions. education on serotonin syndrome Lamotrigine lamotrigine has a serious rashes requiring hospitalization and discontinue treatment including Randall Sunday syndrome rare case of toxic epidermal necrolysis and cache related deaths. Incidence with adjunct of epilepsy treatment 0.8% in 2 to 16 years old and 0.3% in adults, bipolar and other mood disorders incidence 0.8% this initial monotherapy and 0.13% as adjunctive treatment. Other risk factor may include concomitant use of valproate acid derivative or exceeding initial lamotrigine does or does as clinician recommendation; most life-threatenin g rash of occurring first 2 to 8 week of treatment with isolated cases after prolonged treatment; though benign may occur, discontinue treatment at first sign of rash unless clearly not a drug related; TC treatment may not prevent trash from becoming life-threatenin g or permanently disabling or disfiguring. Comment reaction include, nausea/vomiting , dizziness/verti go, visual disturbances, somnolence, ataxia, pruritus/rash, pharyngitis, headache, rhinitis, diarrhea, fever, asthenia, insomnia, tremor, abdominal pain, cough, accidental injury, constipation, dysmenorrhea, incoordination, anxiety, seizures, irritability, anorexia, xerostomia, and photosensitivit y. Serious reactions include: Rash, severe; Mcgowan Sunday syndrome; toxic epidermal necrosis; injury edema, hypersensitivit y reactions. Including fatal, multiple organ failure to safe fatal, rash with eosinophilia systemic symptoms, DIC, neutropenia, leukopenia, thrombocytopeni a, pancytopenia, aplastic anemia, hemolytic anemia, i pancreatitis, hepatic failure, rhabdomyolysis, worsening of suicidal ideation, worsening of depression, cleft lip/palate [first trimester use] DO not Change Cosmetic, perfumes or soap for next 4 weeks. The patient was advice to take lamotrigine as prescribed the patient was instructed not to deviate from the prescription dosages. Stop lamotrigine is the first sign of rash. Patient was insisted to inform office if any of the serious side effect develops. therapy- continue F25.0: Schizoaffective disorder, bipolar type aripiprazole 10 mg tablet - Take 1 tablet(s) every day by oral route at bedtime for 90 days. Qty: (90) tablet Refills: 0 Pharmacy: [place] [address] bupropion HCl SR 150 mg tablet,12 hr sustained-relea se - Take 1 tablet(s) twice a day by oral route in the morning for 90 days, for depression. Qty: (180) tablet Refills: 0 Pharmacy: [place] [address] Note to Pharmacy: d/c daily dose lamotrigine 100 mg tablet - Take 1 tablet(s) every day by oral route at dinner for 90 days. Qty: (90) tablet Refills: 0 Pharmacy: [place] [address] olanzapine 5 mg tablet - Take 1 tablet(s) every day by oral route at bedtime for 30 days. Qty: (30) tablet Refills: 2 Pharmacy: [place] [address] 2. Generalized anxiety disorder - patient having increase anxiety and panic will switch Xanax to Clonazepam related to longer lasting - educated patient on rx Add Clonazepam 0.5 mg three times a day - educated on rx Add Vistaril 10 mg up to three times a day as needed for panic attacks - educatedon rx stop Xanax 0.5 mg up to three times a day for anxiety Educated patient Clonazepam may be causing excessive tired and to take as needed and if not needed then do not take Clonazepam Discussed and educated pt regarding benzodiazepines are generally not intended for prolonged use and that use can cause tolerance, dependence, depression, and associated memory issues including dementias (this list is not exhaustive). Benzodiazepine use is generally not recommended concurrently with pain medications and/or other controlled substances due to increased risks of profound sedation, respiratory depression, coma, and even . They are not to be used with any alcohol, as this combination can also be lethal. Patient was provided caution educated on rx and educated on Rod Sunday Syndrome and rash and if develop go to ER and notify office educated not to change soaps, foods, laundry detergents, ect, with adding or changing dose Lamotrigine discuss depression and medication options and patient had a good response with Wellbutrin in past - discuss monitoring for satnam, hypomaniaWellbu paramjit SR 150 mg in am - educated to stay on rx as prescribed F41.1: Generalized anxiety disorder Clonazepam 0.5 mg tablet - Take 1 tablet(s) 3 times a day by oral route as needed for 30 days. Qty: (90) tablet Refills: 2 Pharmacy: [email or web address] 256 - stop Xanax 3. Primary insomnia -Trazodone 50 mg at night as needed -Melatonin 10 mg at bedtime OTC Educated patient Xanax may be causing excessive tired and to take as needed and if not needed then do not take Xanax F51.01: Primary insomnia trazodone 50 mg tablet - Take 1 tablet(s) every day by oral route at bedtime for 90 days. Qty: (90) tablet Refills: 0 Pharmacy: [facility] 256 4. Long-term drug therapy 01/06/2024 Elevated blood pressure reading (ICD-10 - R03.0) SLUMS= 20 completed 12/05/23 scanned into chart AIMS= 1 = has 2 missing teeth 12/05/23 Scanned into chart 1. Schizoaffective Bipolar She is currently on aripiprazole 10 mg and olanzapine 10 mg. Lamotrigine 100 mg daily - discuss and educated on all rx D/C Zoloft 50 mg daily- DIARRHEA Depression - Assessment:- stable mood monitor for satnam and hypomania 2. discuss Alzheimer's Dementia with patient and discuss CANS/MCI testing when depression and anxiety is more controlled discuss rx for memory- Namenda and or Exelon will consider 3. Anxiety - Assessment: The patient reports that clonazepam is working for her anxiety. However, it is important to emphasize the role of therapy in managing anxiety. - Plan: Continue Xanax 0.5 mg three times a day take as prescribed. Vistaril 10 mg twice a day as needed - r/o falls- improved - educated to only take as needed for anxiety http_s://www.na mi.org/About-Me ntal-Illness/Me zdsk-Lgydyh-Hio ditions http_s://psychc entrRF[employer]/depr ession/the-cogn itive-symptoms- of-depression#t reatments http__s://www.[facility].gov/[facility]/topics/ment jy-hvgzig-bnyfn ations http__s://www.[facility].org/About-M ental-Illness/T reatments/Menta n-Ahbgfz-Uamkbx tions Encourage the patient to continue therapy sessions for anxiety management. Discussed and educated pt regarding benzodiazepines are generally not intended for prolonged use and that use can cause tolerance, dependence, depression, and associated memory issues including dementias (this list is not exhaustive). Benzodiazepine use is generally not recommended concurrently with pain medications and/or other controlled substances educated on all medications, benefits, side effects and risk, and educated on depression, anxiety, and ADHD, mood d/o and educated on compliance of medications, metabolic and movement d/o education appointment is, continue therapy discussion with patient about course of treatment and patient instructions. education on serotonin syndrome SSRI/SNRI side effects discussed including but not limited to, gastric upset, nausea, vomiting, diarrhea and/or constipation, weight changes, sexual side effects including loss of libido, increased suicidal thoughts/behavi ors in children and young adults, and serotonin syndrome. Second generation antipsychotics (SGAs) have metabolic syndrome issues with weight gain, increase in prolactin, increased waist circumference, increased lipids, and increased glucose. Thus routine monitoring of weight, metabolic labs, etc. is indicated. A general rank ordering of antipsychotics that have the greatest to the least risk of metabolic effects is olanzapine, quetiapine, risperidone, ziprasidone, and aripiprazole. However, weight gain can occur with all of these drugs and considerable variability exists among patients receiving the same drug regarding the risk of metabolic effects. Anti-psychotic agents not only increase the risk of metabolic disorder, they also increase the risk of CVA, akathisia, and movement disorders including EPS or tardive dyskinesia (more common with first generation antipsychotics) and more. Elderly- discussed risks, cognition, sedation, falls, metabolic, movement and atypical antipsychotics carry a black-box warning for increased risk of and cerebrovascular events in dementia. Psychotic Episodes and Mood Instability - Assessment: The patient has a history of psychotic episodes, satnam, and depression. She is currently stable on aripiprazole and olanzapine. - Plan: Continue aripiprazole and olanzapine as prescribed. Monitor for any signs of relapse or worsening of symptoms. STOP WELLBUTRIN- TINNITUS improved Hair Loss- improved - Assessment: The patient is concerned about hair loss, which she attributes to her medications. - Plan: Recommend taking a daily multivitamin for seniors with additional zinc to help with hair loss. patient reported improved Medication Management - Assessment: The patient questions the need for both aripiprazole and olanzapine and is concerned about potential side effects. - Plan: Continue current medications as prescribed. Encourage the patient to discuss the possibility of adjusting medication dosages or tapering off one of the medications if deemed appropriate. Follow-up- no refills needed today - Assessment: The patient has an upcoming appointments and therapy - Plan: Keep the appointment and therapy educated on all rx, benefits, side effect, risk and disucss complaince and risk falls with benzo 06/05/2024 Encounter for screening for cardiovascular disorders (ICD-10 - Z13.6) 09/10/2023 Other Lamotrigine Ora l Tablet (LAMOTRIGINE - ORAL) material was published, Olanzapine Oral Tablet (OLANZAPINE - ORAL) material was published, Aripiprazole Oral Tablet 10 mg (ARIPIPRAZOLE - ORAL) material was published, Bupropion Extended Release Oral Tablet (BUPROPION SUSTAINED-RELEASE (ANTIDEPRESSANT) - ORAL) material was published, Clonazepam Oral Tablet (CLONAZEPAM - ORAL) material was published, Trazodone Oral Tablet (TRAZODONE - ORAL) material was published Schizoaffective disorder, bipolar type - Lamotrigine 100 mg at night educated on rx - discuss GDR Abilify 10 mg in am for depression- educated on rx patient requires 2 anti-psychotic at this time related to severe depression - educated on rx Wellbutrin SR 150 MG TWICE a day r/t depression delusion- chronic patient had severe depressive episode - discuss possible decrease in near future Zyprexa r/t adding Abilify and educated on rx and educated on hypomania and satnam s/s, psychosis, delusions and monitor educated on all medications, benefits, side effects and risk, and educated on depression, anxiety, and mood d/o and educated on compliance of medications, metabolic and movement d/o education appointment's, continue therapy discussion with patient about course of treatmentand patient instructions. education on serotonin syndrome Lamotrigine lamotrigine has a serious rashes requiring hospitalization and discontinue treatment including Randall Sunday syndrome rare case of toxic epidermal necrolysis and cache related deaths. Incidence with adjunct of epilepsy treatment 0.8% in 2 to 16 years old and 0.3% in adults, bipolar and other mood disorders incidence 0.8% this initial monotherapy and 0.13% as adjunctive treatment. Other risk factor may include concomitant use of valproate acid derivative or exceeding initial lamotrigine does or does as clinician recommendation; most life-threatenin g rash of occurring first 2 to 8 week of treatment with isolated cases after prolonged treatment; though benign may occur, discontinue treatment at first sign of rash unless clearly not a drug related; TC treatment may not prevent trash from becoming life-threatenin g or permanently disabling or disfiguring. Comment reaction include, nausea/vomiting , dizziness/verti go, visual disturbances, somnolence, ataxia, pruritus/rash, pharyngitis, headache, rhinitis, diarrhea, fever, asthenia, insomnia, tremor, abdominal pain, cough, accidental injury, constipation, dysmenorrhea, incoordination, anxiety, seizures, irritability, anorexia, xerostomia, and photosensitivit y. Serious reactions include: Rash, severe; Mcgowan Sunday syndrome; toxic epidermal necrosis; injury edema, hypersensitivit y reactions. Including fatal, multiple organ failure to safe fatal, rash with eosinophilia systemic symptoms, DIC, neutropenia, leukopenia, thrombocytopeni a, pancytopenia, aplastic anemia, hemolytic anemia, i pancreatitis, hepatic failure, rhabdomyolysis, worsening of suicidal ideation, worsening of depression, cleft lip/palate [first trimester use] DO not Change Cosmetic, perfumes or soap for next 4 weeks. The patient was advice to take lamotrigine as prescribed the patient was instructed not to deviate from the prescription dosages. Stop lamotrigine is the first sign of rash. Patient was insisted to inform office if any of the serious side effect develops. therapy- continue F25.0: Schizoaffective disorder, bipolar type aripiprazole 10 mg tablet - Take 1 tablet(s) every day by oral route at bedtime for 90 days. Qty: (90) tablet Refills: 0 Pharmacy: [facility] 256 bupropion HCl SR 150 mg tablet,12 hr sustained-relea se - Take 1 tablet(s) twice a day by oral route in the morning for 90 days, for depression. Qty: (180) tablet Refills: 0 Pharmacy: [facility] 256 Note to Pharmacy: d/c daily dose lamotrigine 100 mg tablet - Take 1 tablet(s) every day by oral route at dinner for 90 days. Qty: (90) tablet Refills: 0 Pharmacy: [facility] 256 olanzapine 5 mg tablet - Take 1 tablet(s) every day by oral route at bedtime for 30 days. Qty: (30) tablet Refills: 2 Pharmacy: [place] [id number] 2. Generalized anxiety disorder - patient having increase anxiety and panic will switch Xanax to Clonazepam related to longer lasting - educated patient on rx Add Clonazepam 0.5 mg three times a day - educated on rx Add Vistaril 10 mg up to three times a day as needed for panic attacks - educatedon rx stop Xanax 0.5 mg up to three times a day for anxiety Educated patient Clonazepam may be causing excessive tired and to take as needed and if not needed then do not take Clonazepam Discussed and educated pt regarding benzodiazepines are generally not intended for prolonged use and that use can cause tolerance, dependence, depression, and associated memory issues including dementias (this list is not exhaustive). Benzodiazepine use is generally not recommended concurrently with pain medications and/or other controlled substances due to increased risks of profound sedation, respiratory depression, coma, and even . They are not to be used with any alcohol, as this combination can also be lethal. Patient was provided caution educated on rx and educated on Rod Sunday Syndrome and rash and if develop go to ER and notify office educated not to change soaps, foods, laundry detergents, ect, with adding or changing dose Lamotrigine discuss depression and medication options and patient had a good response with Wellbutrin in past - discuss monitoring for satnam, hypomaniaWellbu paramjit SR 150 mg in am - educated to stay on rx as prescribed F41.1: Generalized anxiety disorder Clonazepam 0.5 mg tablet - Take 1 tablet(s) 3 times a day by oral route as needed for 30 days. Qty: (90) tablet Refills: 2 Pharmacy: [facility] 256 - stop Xanax 3. Primary insomnia -Trazodone 50 mg at night as needed -Melatonin 10 mg at bedtime OTC Educated patient Xanax may be causing excessive tired and to take as needed and if not needed then do not take Xanax F51.01: Primary insomnia trazodone 50 mg tablet - Take 1 tablet(s) every day by oral route at bedtime for 90 days. Qty: (90) tablet Refills: 0 Pharmacy: [facility] 256 4. Long-term drug therapy 09/23/2023 Other referral to the local chapter or national office of the Alzheimer's Association ( ; http://www.alz.or g), the Alzheimer's Disease Education and Referral Center (ADEAR) ( ; http://www.roz.ni h.gov/Alzheimers/ ), Anxiety - Assessment: The patient reports that clonazepam is working for her anxiety. However, it is important to emphasize the role of therapy in managing anxiety. - Plan: Continue clonazepam as prescribed. Encourage the patient to continue therapy sessions for anxiety management. Psychotic Episodes and Mood Instability - Assessment: The patient has a history of psychotic episodes, satnam, and depression. She is currently stable on aripiprazole and olanzapine. - Plan: Continue aripiprazole and olanzapine as prescribed. Monitor for any signs of relapse or worsening of symptoms. Depression - Assessment: The patient reports feeling stagnant in her progress and rarely going out, suggesting ongoing depressive symptoms. - Plan: Consider discussing the possibility of switching Wellbutrin to another medication like vilazodone (Viibryd) for depression and anxiety management. Hair Loss - Assessment: The patient is concerned about hair loss, which she attributes to her medications. - Plan: Recommend taking a daily multivitamin for seniors with additional zinc to help with hair loss. Discuss any potential medication adjustments to address this concern. Medication Management - Assessment: The patient questions the need for both aripiprazole and olanzapine and is concerned about potential side effects. - Plan: Continue current medications as prescribed. Encourage the patient to discuss the possibility of adjusting medication dosages or tapering off one of the medications if deemed appropriate. Follow-up - Assessment: The patient has an upcoming appointment. - Plan: Keep the appointment to evaluate clonazepam dosage, discuss depression, and review medication management. Add a note to review the concerns discussed during this visit. 10/25/2023 Other How to Get Up Safely After a Fall: Care Instructions material was published, How to Get Up Safely After a Fall: Care Instructions material was published, Preventing Falls: Care Instructions material was published Schizoaffective Bipolar She is currently stable on aripiprazole 10 mg and olanzapine 10 mg. Lamotrigine 100 mg daily Anxiety - Assessment: The patient reports that clonazepam is working for her anxiety. However, it is important to emphasize the role of therapy in managing anxiety. - Plan: Continue Xanax 0.5 mg three times a day take as prescribed. Patient not taking Clonazepam decrease Vistaril 10 mg to twice a day as needed - r/o falls - educated to only take as needed for anxiety Encourage the patient to continue therapy sessions for anxiety management. Psychotic Episodes and Mood Instability - Assessment: The patient has a history of psychotic episodes, satnam, and depression. She is currently stable on aripiprazole and olanzapine. - Plan: Continue aripiprazole and olanzapine as prescribed. Monitor for any signs of relapse or worsening of symptoms. Depression - Assessment: improved vilazodone (Viibryd) for depression and anxiety management. Viibyrd 20 mg daily and eat 350 calories with rx STOP WELLBUTRIN Hair Loss - Assessment: The patient is concerned about hair loss, which she attributes to her medications. - Plan: Recommend taking a daily multivitamin for seniors with additional zinc to help with hair loss. patient reported improved Medication Management - Assessment: The patient questions the need for both aripiprazole and olanzapine and is concerned about potential side effects. - Plan: Continue current medications as prescribed. Encourage the patient to discuss the possibility of adjusting medication dosages or tapering off one of the medications if deemed appropriate. Follow-up - Assessment: The patient has an upcoming appointment. - Plan: Keep the appointment and therapy educated on all rx, benefits, side effect, risk and disucss complaince and risk falls with benzo 12/05/2023 Other referral to the local chapter or national office of the Alzheimer's Association ( ; http://www.alz.or g), the Alzheimer's Disease Education and Referral Center (ADEAR) ( ; http://www.roz.ni h.gov/Alzheimers/ ), SLUMS= 20 completed 12/05/23 scanned into chart AIMS= 1 = has 2 missing teeth 12/05/23 Scanned into chart 1. Schizoaffective Bipolar She is currently on aripiprazole 10 mg and olanzapine 10 mg. Lamotrigine 100 mg daily patient having increase depression - discuss and educated on Zoloft 50 mg daily Depression - Assessment:- patient stopped Viibyrd r/t diarrhea monitor for satnam and hypomania 2. discuss Alzheimer's Dementia with patient and discuss CANS/MCI testing when depression and anxiety is more controlled discuss rx for memory- Namenda and or Exelon will consider 3. Anxiety - Assessment: The patient reports that clonazepam is working for her anxiety. However, it is important to emphasize the role of therapy in managing anxiety. - Plan: Continue Xanax 0.5 mg three times a day take as prescribed. Vistaril 10 mg twice a day as needed - r/o falls- improved - educated to only take as needed for anxiety http_s://www.na mi.org/About-Me ntal-Illness/Me dlwy-Dikthi-Kbs ditions http_s://psychc entral.com/depr ession/the-cogn itive-symptoms- of-depression#t reatments http__s://www.n [facility].nih.gov/hea lt/topics/ment um-qiyhlj-jertc ations http__s://www.n [facility].org/About-M ental-Illness/T reatments/Menta r-Pnwyki-Ahyuoq tions Encourage the patient to continue therapy sessions for anxiety management. Discussed and educated pt regarding benzodiazepines are generally not intended for prolonged use and that use can cause tolerance, dependence, depression, and associated memory issues including dementias (this list is not exhaustive). Benzodiazepine use is generally not recommended concurrently with pain medications and/or other controlled substances educated on all medications, benefits, side effects and risk, and educated on depression, anxiety, and ADHD, mood d/o and educated on compliance of medications, metabolic and movement d/o education appointment is, continue therapy discussion with patient about course of treatment and patient instructions. education on serotonin syndrome SSRI/SNRI side effects discussed including but not limited to, gastric upset, nausea, vomiting, diarrhea and/or constipation, weight changes, sexual side effects including loss of libido, increased suicidal thoughts/behavi ors in children and young adults, and serotonin syndrome. Second generation antipsychotics (SGAs) have metabolic syndrome issues with weight gain, increase in prolactin, increased waist circumference, increased lipids, and increased glucose. Thus routine monitoring of weight, metabolic labs, etc. is indicated. A general rank ordering of antipsychotics that have the greatest to the least risk of metabolic effects is olanzapine, quetiapine, risperidone, ziprasidone, and aripiprazole. However, weight gain can occur with all of these drugs and considerable variability exists among patients receiving the same drug regarding the risk of metabolic effects. Anti-psychotic agents not only increase the risk of metabolic disorder, they also increase the risk of CVA, akathisia, and movement disorders including EPS or tardive dyskinesia (more common with first generation antipsychotics) and more. Elderly- discussed risks, cognition, sedation, falls, metabolic, movement and atypical antipsychotics carry a black-box warning for increased risk of and cerebrovascular events in dementia. Psychotic Episodes and Mood Instability - Assessment: The patient has a history of psychotic episodes, satnam, and depression. She is currently stable on aripiprazole and olanzapine. - Plan: Continue aripiprazole and olanzapine as prescribed. Monitor for any signs of relapse or worsening of symptoms. STOP WELLBUTRIN- TINNITUS improved Hair Loss- improved - Assessment: The patient is concerned about hair loss, which she attributes to her medications. - Plan: Recommend taking a daily multivitamin for seniors with additional zinc to help with hair loss. patient reported improved Medication Management - Assessment: The patient questions the need for both aripiprazole and olanzapine and is concerned about potential side effects. - Plan: Continue current medications as prescribed. Encourage the patient to discuss the possibility of adjusting medication dosages or tapering off one of the medications if deemed appropriate. Follow-up - Assessment: The patient has an upcoming appointments and therapy - Plan: Keep the appointment and therapy educated on all rx, benefits, side effect, risk and disucss complaince and risk falls with benzo 01/08/2024 Other Discussed treatment options with patient. Not deemed a safety concern or risk of harm to self or others for hospitalization. Previous medication list reviewed, seems to have side effects to SSRI, pt hesitates to start a new medication due to previous side effects. Increase abilify to 15mg daily for mood stabilization. F/U with Cordelia in 2 weeks or walk in clinic if needed sooner. 02/13/2024 Other Decrease alprazolam to 0.25mg BID Patient educated on all medications including potential benefits, side effects, risks. Educated on proper dosing schedule and importance of compliance. [place] PDMP report checked and consistent with prescription history, no controlled substance prescriptions from other providers. -Assessment and treatment plan reviewed with patient. -Compliance with treatment plan importance discussed. -Discussed the risks/benefits of this medication -Discussed medication side effects. -Contact office if symptoms worsen. -Discussed that it can take up to 6-8 weeks to see full therapeutic effects of psychotropic medications. -Crisis prevention hotline 988. 1. schizoaffective disorder overall stable; no paranoia noted today -cont olanzapine 10mg qHS -cont abilify 15mg daily -cont lamictal 100mg daily ---pt requesting Wellbutrin-prev iously triggered paranoia, delusions, discussed we will not restart this 2. VERITO stable -decrease alprazolam to 0.25mg twice daily with intent to wean off -cont hydroxyzine PRN -encourage non-pharmaceuti jamila treatments including deep breathing, grounding exercises, physical activity, healthy diet. 3. insomnia -cont trazodone 50mg qHS - KEEP YOUR BEDROOM DARK - GET LOTS OF NATURAL LIGHT IN THE MORNING. - DON'T WORK ON YOUR COMPUTER OR PHONE LATE AT NIGHT. - AVOID NAPS DURING THE DAY. - NO CAFFEINE 3 HOURS OR MORE AFTER WAKE UP TIME. - ONLY USE YOUR BED FOR SLEEPING - GET A RELAXATION ROUTINE BEFORE BED. - IF YOU CAN'T GET TO SLEEP AFTER 15 TO 30 MINUTES GET OUT OF BED AND DO SOMETHING RELAXING. - DON'T DRINK ALCOHOL IN THE EVENING or limit alcohol to 1 drink.. Patient had reduction in suicidal ideation and/or behavior upon follow-up assessment within 120 days of index assessment ([id number]) 02/27/2024 Other Assessment and plan reviewed with patient Call for problems with medication, side effects or need for dosage change Compliance issues reviewed Discussed the risks/benefits of this medication Discussed medication side effects Return if symptoms worsen Treatment options reviewed. discussed that it can take weeks to see full therapeutic effects of psychotropic medications. discussed when to seek emergency services. discussed crisis prevention hotline [phone]. discussed rebound anxiety andd slow titration of alprazolam. discussed the possibility of switching to diazepam for longer drug half life and easier taper. 1. Bipolar disorder and schizophrenia - Continue current medications: a. Aripiprazole 15 mg b. Lamotrigine 100 mg c. Olanzapine 10 mg d. Trazodone 50 mg at bedtime - Monitor for worsening symptoms (paranoia, hallucinations, delusions) - Patient reports feeling need to go to hospital, associating with episode onset 2. Anxiety and rebound anxiety due to alprazolam taper - Increase alprazolam dose: 1 tablet (0.5 mg) twice daily, 0.5 tablet (0.25 mg) for third dose - Reevaluate tapering process, consider slower taper - Consider switching to diazepam for longer half-life and easier tapering - Patient reports anxiety onset 1.5 weeks ago, coinciding with alprazolam dose reduction 3. Follow-up appointments - Move up appointment with primary provider to discuss alprazolam taper and potential diazepam switch - Encourage attendance at upcoming therapy appointment - f/u w/ primary psychiatric care provider in March. 4. Patient education - Educate on importance of slow alprazolam tapering and potential diazepam benefits - Reassure current symptoms likely due to rebound anxiety, not worsening of bipolar disorder or schizophrenia - Explain tapering process may take months to years. 5. Additional medications - Continue hydroxyzine twice daily as prescribed 03/24/2024 Other Anxiety and Medication Management - Assessment: Patient reports increased anxiety attacks after reducing Xanax (alprazolam) to 0.5 mg three times a day. Dose was increased to 2.5 mg by Valeriano, but patient ran out of medication. Currently taking 1.5 mg of Xanax daily (three 0.5 mg doses). - Plan: - Discuss with Anabelle about adjusting the patient's Xanax prescription and refilling the medication. Social Support and Mental Health - Assessment: Patient reports staying in bed for days, experiencing paranoia, and needing to be more active and engaged in activities that promote laughter and well-being. - Plan: - Encourage the patient to participate in activities that promote social interaction and mental health, such as going out to eat or attending events. Provider Change - Assessment: Patient reports switching providers from Annie to Anabelle during an anxiety attack but feels that Annie knows her better. - Plan: - Discuss the possibility of returning to Annie as the patient's primary provider and coordinate care accordingly. 03/27/2024 Other Increase lamictal to 125mg daily for mood. Increase alprazolam back to previous dose of 0.5mg TID PRN for anxiety [place] PDMP report checked and consistent with prescription history, no controlled substance prescriptions from other providers. Schedule for MCI testing, [facility] 20 in 04/09/2024 Other Family and Marital Issues - Assessment: Patient has a history of marital issues, including infidelity concerns. - Plan: - Encourage patient to continue individual therapy to address relationship concerns and communication strategies. - Continue reality checking with professional or trusted family member. 04/22/2024 Other Continue off of lamictal 25mg additional dose due to tremors. No other medication adjustments today Patient educated on all medications including potential benefits, side effects, risks. Educated on proper dosing schedule and importance of compliance. [place] checked and consistent with prescription history, no controlled substance prescriptions from other providers. -Assessment and treatment plan reviewed with patient. -Compliance with treatment plan importance discussed. -Discussed the risks/benefits of this medication -Discussed medication side effects. -Contact office if symptoms worsen. -Discussed that it can take up to 6-8 weeks to see full therapeutic effects of psychotropic medications. -Crisis prevention hotline 988. 04/30/2024 Other Increase Abilify to 20mg daily for mood, paranoia Patient educated on all medications including potential benefits, side effects, risks. Educated on proper dosing schedule and importance of compliance. -Assessment and treatment plan reviewed with patient. -Compliance with treatment plan importance discussed. -Discussed the risks/benefits of this medication -Discussed medication side effects. -Contact office if symptoms worsen. -Discussed that it can take up to 6-8 weeks to see full therapeutic effects of psychotropic medications. -Crisis prevention hotline 988. 05/07/2024 Other Bipolar Disorder, Current Episode Not Manic - Assessment: Patient reports no current manic symptoms, except for concerns about medication tampering by her . She is aware of her manic triggers, which include running around, talking fast, and not sleeping . Patient is currently taking her prescribed medications and using Peptiva Probiotics Sleep Support to aid in sleep. She has a support system including a psychologist and psychiatrist. - Plan: - Continue current medications as prescribed. - Encourage patient to maintain a regular sleep schedule. - Encourage patient to maintain a healthy lifestyle, including regular exercise and a balanced diet. - Monitor for any signs of satnam or worsening symptoms, and adjust treatment plan accordingly. Relationship Issues with - Assessment: Patient reports that her has been causing her stress by allegedly tampering with her medications. She also mentioned past suspicions of infidelity. - Plan: - Encourage open communication between patient and her to address concerns and establish trust. - Recommend couples therapy to help improve their relationship and communication skills. - Encourage patient to establish a support system outside of her , such as friends or other family members. Medication Management - Assessment: Patient reports concerns about her tampering with her medications, leading her to take extra precautions in storing and managing her medications. - Plan: - Encourage patient to maintain open communication with her about her medication needs and concerns. - Recommend patient to keep a medication log to track her medication usage and any changes in symptoms. - Monitor patient's medication adherence and adjust treatment plan as needed. 05/21/2024 Other Decrease Abilify back to 15mg daily Discussed not to take more alprazolam than prescribed. Hydroxyzine increased to 3 times daily Patient educated on all medications including potential benefits, side effects, risks. Educated on proper dosing schedule and importance of compliance. [place] checked and consistent with prescription history, no controlled substance prescriptions from other providers. -Assessment and treatment plan reviewed with patient. -Compliance with treatment plan importance discussed. -Discussed the risks/benefits of this medication -Discussed medication side effects. -Contact office if symptoms worsen. -Discussed that it can take up to 6-8 weeks to see full therapeutic effects of psychotropic medications. -Crisis prevention hotline 988. 06/05/2024 Other Decrease lamictal to 50mg daily due to tremors, ineffectiveness Increase Abilify to 20mg daily Patient educated on all medications including potential benefits, side effects, risks. Educated on proper dosing schedule and importance of compliance. [place] checked and consistent with prescription history, no controlled substance prescriptions from other providers. -Assessment and treatment plan reviewed with patient. -Compliance with treatment plan importance discussed. -Discussed the risks/benefits of this medication -Discussed medication side effects. -Contact office if symptoms worsen. -Discussed that it can take up to 6-8 weeks to see full therapeutic effects of psychotropic medications. -Crisis prevention hotline 988. 06/11/2024 Other Major Depressive Episode with Suicidal Ideation - Assessment: Patient reports a 3-week history of severe depression, including staying in bed all day except to use the bathroom. She expresses passive suicidal ideation, stating she wishes she had breast cancer so she could . Denies current plan for suicide but acknowledges feeling that would be preferable to her current state. This represents a significant decline from her baseline functioning and suggests an acute exacerbation of her bipolar disorder, currently in a depressive phase. - Plan: - Recommend inpatient psychiatric hospitalization for safety and medication management - Patient to be taken to [facility] Emergency Department for psychiatric evaluation and admission to geriatric unit Paranoid Thoughts - Assessment: Patient reports paranoid beliefs that her has been tampering with her medication, specifically opening capsules and removing some of the contents. This paranoia appears to be impacting her relationship with her and contributing to tension in the home. While the patient acknowledges the possibility that these thoughts might be paranoia rather than reality, she continues to struggle with distinguishing between the two. - Plan: - Address paranoid thoughts during inpatient hospitalization - Evaluate need for adjustment of current psychiatric medications 04/20/2024 Other Electronic Prio r Authorization was requested for hydrOXYzine HCl 10 MG Tablet. Provider can order medication once approval received. Plan Of Treatment Pending Test Test Name Order Date UDT 10/25/2023 MCI Testing 03/27/2024 Next Appt Details Provider Name:Maribel Adler, 07/02/2024 10:00:00 AM, [address], [address], [place], [address], Provider Name:Anabelle Palm, 07/02/2024 11:30:00 AM, [address], [address], [place], [address], Provider Name:Anabelle Josh Palm, 07/02/2024 01:45:00 PM, [address], [address], [place], [address], Provider Name:Maribel [facility]ardenas [facility], 08/06/2024 10:00:00 AM, [address], [facility] [address], [place], [address], Provider Name:Maribel Adler, 10/02/2024 01:00:00 PM, [address], [facility] [address], [place], [address], Insurance Providers Payer Name Payer Address Payer Phone Subscriber Number Group Number Insured Name Patient Relationship to Insured Coverage Start Date Coverage End Date [employer] Medicare Replacemen t/Advantag e - Hmo [address] [place] [address] [id number] SHARON NOLAN Self - patient is the insured Medical (General) History Medical History History ICD Code Problems: Family disruption Generalized anxiety disorder Long-term drug therapy Primary insomnia Recurrent major depressive episodes, mil d Schizoaffective disorder, bipolar type , Surgical History Surgery Date(Month/Year) Cataract surgery (85861) Tonsilectomy/adenoids Sinus surgery Hysterectomy (86102) Appendectomy (73292) Cosmetic surgery Other Breast surgery (62097) 07/27/2021
--- OUTSIDE RECORDS SUMMARY | 2024-06-26 12:02 | XMS_ITS | Encounter Summary ---
Author Organization [facility] Address [address] [place] [address] Care Team Providers Care Channel Specialist Name Role Phone Cory Cooper MD Primary Care Provider [phone] Encounter Details Date Type Department Care Team (Late st Contact Info) Description 03/11/2024 Lab Requisition [facility] Physician [facility] - DermPath Lab [address] [place] [phone] Kristofer Saenz MD [address] [place] [address] Social History Tobacco Use Types Packs/Day Years [...] Comments DERMATOPATHOLOGY Routine 03/10/2024 12:0 0 AM SENIOR COBOL DEVELOPER documented in this encounter Results * DERMATOPATHOLOGY (03/10/2024 12:00 AM SENIOR COBOL DEVELOPER) Case Report Dermatopathology Report Case: [id number] Authorizing Provider: Kristofer Saenz MD Collected: 03/10/2024 12:00 AM Ordering Location: [facility] - Received: 03/11/2024 03:25 PM DermPath Lab Pathologist: Dorene Desir MD Specimen: Skin, right chin 1:03 PM SENIOR COBOL DEVELOPER DERMATOPATHOLOGY LABORATORY Final Diagnosis Specimen A. SKIN, right chin: BASAL CELL CARCINOMA, NODULAR TYPE (C44.319) 1:03 PM [facility] DERMATOPATHOLOGY LABORATORY Clinical History R/O BCC 1:03 PM [facility] DERMATOPATHOLOGY LABORATORY Gross Description Specimen A: Received is one formalin filled container labeled with the patient's name and designated right chin. The specimen consists of a shave biopsy measuring 3x2x1 mm. Jar 0. 1:03 PM [facility] DERMATOPATHOLOGY LABORATORY Microscopic Description Specimen A. SKIN, right chin: Within the dermis there are aggregates of basaloid cells with a high nuclear to cytoplasmic ratio and peripheral palisading. 1:03 PM [facility] DERMATOPATHOLOGY LABORATORY Disclaimer An external and internal positive and negative controls are appropriate for the histochemical, immunohistochemical and immunofluorescence stain(s) in this case (if any), except where stated explicitly. The performance characteristics of the stain(s) cited in this report were developed and its performance characteristic determined by the Dermatopathology Laboratory at [facility], directed by Dr. Elysia Reyes. These tests need not be, and therefore are not, approved by the [place] Food and Drug Administration. The tests are used for clinical purposes. Billing Codes Specimen Charges Stain Charges 61420 1 1:03 PM [facility] DERMATOPATHOLOGY LABORATORY Embedded Images 1:03 PM [facility] DERMATOPATHOLOGY LABORATORY Pathology/Cytolog y TISSUE SPECIMEN FROM SKIN / Unknown 03/10/2024 03/11/2024 3:25 PM SENIOR COBOL DEVELOPER us Kristofer Saenz MD LAB - PATHOLOGY/CYTOLOGY ORDERAB LES Final Result DERMATOPATHOLOGY LABORATORY [facility] - Department of Dermatology [address], [address] [phone] documented in this encounter Visit Diagnoses Not on filedocumented in this encounter Care Teams Channel Specialist Relationship Specialty Start Date End Date Cory Cooper MD [address] [place] [phone] PCP - General 08/01/21 documented as of this encounter
--- OUTSIDE RECORDS SUMMARY | 2024-06-26 12:02 | XMS_ITS | Clinical Summary ---
Author Organization [facility] Address [address] [place] [address] Care Team Providers Care Senior Compliance Officer Name Role Phone Cory Cooper MD Primary Care Provider [phone] Source Comments [facility],non-owned Affiliates and Associated Physician Practices is amultiple site organization consisting of ambulatory clinics and hospital sitesin [place], [place], [place] and [place]. This disclosure is being madepursuant to the Care Everywhere program and may not contain all information available regarding this patient. Last updated 17.[facility] Allergies Active Allergy Reactions Criticality Noted Date Comments Penicillins 12/12/2016 Encounters Date Type Department Care Team Description 04/06/2024 Lab Requisition [facility] - DermPath Lab [address] [place] [phone] Kristofer Saenz MD from Last 3 Months Immunizations Immunization Administration Dates Next Due INFLUENZA VACCINE, HIGH-DOSE [...] VACCINE (1 - 2023-2 5 season) 2023 DEPRESSION SCREENING 03/04/2024 MEDICARE AWV CALENDAR YEAR 2024 INFLUENZA VACCINE (Season Ended) 2024 12/13/19 17 Respiratory Syncytial Virus (RSV) Vaccine Pt: or [...] to complete this topic MENINGOCOCCAL (Group B) VACC INE SHARED DECISION-MAKING Aged Out No longer eligibl e based on patient's age to complete this topic MENINGOCOCCAL GROUPS A/C/Y/W VACCINE Aged Out No longer eligible b ased on patient's age to complete this topic Procedures Procedure Name Priority Date/Time Associated Diagnosis Comments DERMATOPATHOLOGY Routine 04/06/2024 12:0 0 AM TRAY SERVICE WORKER from Last 3 Months Results * DERMATOPATHOLOGY (04/06/2024 12:00 AM TRAY SERVICE WORKER) Case Report Dermatopathology Report Case: [id number] Authorizing Provider: Kristofer Saenz MD Collected: 04/06/2024 12:00 AM Ordering Location: [facility] - Received: 04/06/2024 04:08 PM DermPath Lab Pathologist: Trudi Lam MD Specimen: Skin, right chin 4:52 PM TRAY SERVICE WORKER DERMATOPATHOLOGY LABORATORY Final Diagnosis Specimen A. SKIN, right chin: DERMAL SCAR RESIDUAL BASAL CELL CARCINOMA NOT IDENTIFIED (L90.5) 4:52 PM [facility] DERMATOPATHOLOGY LABORATORY Clinical History BCC Bx proven [id number] 4:52 PM [facility] DERMATOPATHOLOGY LABORATORY Gross Description Specimen A: Received is one formalin filled container labeled with the patient's name and designated right chin. The specimen consists of a curettage and desiccation biopsy measuring 5x4x1 mm. Jar 0. 4:52 PM [facility] DERMATOPATHOLOGY LABORATORY Microscopic Description Specimen A. SKIN, right chin: There are fibroblasts and collagen bundles oriented parallel to the skin surface. There are elongated blood vessels, some of which are oriented perpendicular to the skin surface. No basal cell carcinoma is identified. 4:52 PM [facility] DERMATOPATHOLOGY LABORATORY Disclaimer An external and internal positive and negative controls are appropriate for the histochemical, immunohistochemical and immunofluorescence stain(s) in this case (if any), except where stated explicitly. The performance characteristics of the stain(s) cited in this report were developed and its performance characteristic determined by the Dermatopathology Laboratory at [facility], directed by Dr. Elysia Reyes. These tests need not be, and therefore are not, approved by the [place] Food and Drug Administration. The tests are used for clinical purposes. Billing Codes Specimen Charges Stain Charges 80449 1 4:52 PM [facility] DERMATOPATHOLOGY LABORATORY Embedded Images 4:52 PM [facility] DERMATOPATHOLOGY LABORATORY Pathology/Cytolog y TISSUE SPECIMEN FROM SKIN / Unknown 04/06/2024 04/06/2024 4:08 PM TRAY SERVICE WORKER us Kristofer Saenz MD LAB - PATHOLOGY/CYTOLOGY ORDERAB LES Final Result DERMATOPATHOLOGY LABORATORY [facility] - Department of Dermatology [address] [place] [address], [facility] [phone] from Last 3 Months Insurance MEDICARE AETNA MEDICARE ADV AETNA Care Teams Senior Compliance Officer Relationship Specialty Start Date End Date Cory Cooper MD [address] [place] [address] PCP - General 08/01/21
--- OUTSIDE RECORDS SUMMARY | 2024-06-26 12:02 | XMS_ITS | Encounter Summary ---
Author Organization [facility] Address [address] [place] [address] Care Team Providers Care Drop Hammer Mechanic Name Role Phone Cory Cooper MD Primary Care Provider [phone] Encounter Details Date Type Department Care Team (Late st Contact Info) Description 04/06/2024 Lab Requisition [facility] Physician [facility] - DermPath Lab [address] [facility] [place] [phone] Kristofer Saenz MD [address] [place] [address] Social History Tobacco Use Types Packs/Day Years [...] Comments DERMATOPATHOLOGY Routine 04/06/2024 12:0 0 AM AGRICULTURAL PURCHASING AGENT documented in this encounter Results * DERMATOPATHOLOGY (04/06/2024 12:00 AM AGRICULTURAL PURCHASING AGENT) Case Report Dermatopathology Report Case: [id number] Authorizing Provider: Kristofer Saenz MD Collected: 04/06/2024 12:00 AM Ordering Location: [facility] Physician [facility] - Received: 04/06/2024 04:08 PM DermPath Lab Pathologist: Trudi Lam MD Specimen: Skin, right chin 4:52 PM [facility] DERMATOPATHOLOGY LABORATORY Final Diagnosis Specimen A. SKIN, right chin: DERMAL SCAR RESIDUAL BASAL CELL CARCINOMA NOT IDENTIFIED (L90.5) 4:52 PM [facility] DERMATOPATHOLOGY LABORATORY Clinical History BCC Bx proven [id number] 4:52 PM [facility] DERMATOPATHOLOGY LABORATORY Gross Description Specimen A: Received is one formalin filled container labeled with the patient's name and designated right chin. The specimen consists of a curettage and desiccation biopsy measuring 5x4x1 mm. Jar 0. 4:52 PM [facility] DERMATOPATHOLOGY LABORATORY Microscopic Description Specimen A. SKIN, right chin: There are fibroblasts and collagen bundles oriented parallel to the skin surface. There are elongated blood vessels, some of which are oriented perpendicular to the skin surface. No basal cell carcinoma is identified. 4:52 PM [facility] DERMATOPATHOLOGY LABORATORY Disclaimer An external and internal positive and negative controls are appropriate for the histochemical, immunohistochemical and immunofluorescence stain(s) in this case (if any), except where stated explicitly. The performance characteristics of the stain(s) cited in this report were developed and its performance characteristic determined by the Dermatopathology Laboratory at [facility], directed by Dr. Elysia Reyes. These tests need not be, and therefore are not, approved by the [place] Food and Drug Administration. The tests are used for clinical purposes. Billing Codes Specimen Charges Stain Charges 10790 1 4:52 PM AGRICULTURAL PURCHASING AGENT DERMATOPATHOLOGY LABORATORY Embedded Images 4:52 PM [facility] DERMATOPATHOLOGY LABORATORY Pathology/Cytolog y TISSUE SPECIMEN FROM SKIN / Unknown 04/06/2024 04/06/2024 4:08 PM [facility] Kristofer Saenz MD LAB - PATHOLOGY/CYTOLOGY ORDERAB LES Final Result DERMATOPATHOLOGY LABORATORY [facility] - Department of Dermatology [address] [phone] documented in this encounter Visit Diagnoses Not on filedocumented in this encounter Care Teams Drop Hammer Mechanic Relationship Specialty Start Date End Date Cory Cooper MD [address] [place] [address] PCP - General 08/01/21 documented as of this encounter
== END 2024-06-26 11:49 | disposition home or self-care (01) ==
LOC: CHSIMG 11:49
PROVIDERS: PCP Family Medicine; Visit Provider Family Medicine
DX: Z12.31 Encounter for screening mammogram for malignant neoplasm of breast (principal)
CPT/HCPCS: 77063; 77067

== ENCOUNTER 2024-07-15 14:38 | Outpatient (CLI) | payer MEDICARE, SELFPAY ==
--- OUTSIDE RECORDS SUMMARY | 2024-07-15 14:44 | XMS_ITS | Patient Health Record ---
Author Organization [facility] Address [address] [place] [address] Care Team Providers Care Canine Deputy Name Role Phone Uyen Bhatti Primary Care Provider [phone] Ericka Mayorga Unavailable [phone] Kate Hopper Unavailable [phone] Allergies Allergen (clinical drug ingredient) Drug/Non Drug Allergy documented on EMR Reaction Allergy Type Onset Date Status Penicillin Unknown Drug Allergy Active Results Component Value Reference Range Notes 12 Panel Urine Drug Screen Reviewed date:07/09/2024 10:52:24 AM Interpretation: Performing Lab: Notes/Report: THC neg CHRISTOPHE neg MOP (OPI) neg AMP neg MET neg BAR neg BZO neg MDMA neg MTD neg OXY neg PCP neg BUP neg Breathalyzer Reviewed date:07/09/2024 10:52:53 AM Interpretation: Performing Lab: Notes/Report: GEORGES 0.000 QuantiFERON-TB Gold Plus (32 0760) Reviewed date:07/14/2024 11:17:04 AM Interpretation:Normal Performing Lab:[facility], [address] [facility], Phone - [phone], Director - [facility] Notes/Report: QuantiFERON Incubation Incubation performed. QuantiFERON-TB Gold Plus Negative Negative No response to M tuberculosis antigens detected. Infection with M tuberculosis is unlikely, but high risk individuals should be considered for additional testing (ATS/IDSA/CDC Clinical Practice Guidelines, 2017). The reference range is an Antigen minus Nil result of <0.35 IU/mL. Chemiluminescence immunoassay methodology QuantiFERON Criteria QuantiFERON-TB Gold Plus is a qualitative indirect test for M tuberculosis infection (including disease) and is intended for use in conjunction with risk assessment, radiography, and other medical and diagnostic evaluations. The QuantiFERON-TB Gold Plus result is determined by subtracting the Nil value from either TB antigen (Ag) value. The Mitogen tube serves as a control for the test. QuantiFERON TB1 Ag Value 0.05 QuantiFERON TB2 Ag Value 0.02 QuantiFERON Nil Value 0.04 QuantiFERON Mitogen Value 1.00 CMP 14 Comprehensive Metabol ic Panel* Reviewed date:07/14/2024 11:17:03 AM Interpretation:Normal Performing Lab:[facility], [address], Phone - [phone], Director - [facility] Notes/Report: Glucose 89 70-99 mg/dL BUN 14 8-27 mg/dL Creatinine 0.88 0.57-1.00 mg/dL eGFR 69 >59 mL/min/1.73 BUN/Creatinine Ratio 16 12-28 Sodium 145 134-144 mmol/L Potassium 4.7 3.5-5.2 mmol/L Chloride 103 96-106 mmol/L Carbon Dioxide, Total 22 20-29 mmol/L Calcium 9.9 8.7-10.3 mg/dL Protein, Total 7.1 6.0-8.5 g/dL Albumin 4.9 3.8-4.8 g/dL Globulin, Total 2.2 1.5-4.5 g/dL Bilirubin, Total 0.4 0.0-1.2 mg/dL Alkaline Phosphatase 50 44-121 IU/L AST (SGOT) 16 0-40 IU/L ALT (SGPT) 11 0-32 IU/L CBC With Differential/Platel et* Reviewed date:07/14/2024 11:17:03 AM Interpretation:Normal Performing Lab:[facility], [address], Phone - [phone], Director - [facility] Notes/Report: WBC 6.1 3.4-10.8 x10E3/uL RBC 4.81 3.77-5.28 x10E6/uL Hemoglobin 15.5 11.1-15.9 g/dL Hematocrit 46.1 34.0-46.6 % MCV 96 79-97 fL MCH 32.2 26.6-33.0 pg MCHC 33.6 31.5-35.7 g/dL RDW 12.5 11.7-15.4 % Platelets TNP Unable to perform an accurate platelet count due to aggregation of the platelets. Neutrophils 70 Not Estab. % Lymphs 22 Not Estab. % Monocytes 6 Not Estab. % Eos 1 Not Estab. % Basos 1 Not Estab. % Neutrophils (Absolute) 4.3 1.4-7.0 x10E3/uL Lymphs (Absolute) 1.4 0.7-3.1 x10E3/uL Monocytes(Absolute) 0.4 0.1-0.9 x10E3/uL Eos (Absolute) 0.0 0.0-0.4 x10E3/uL Baso (Absolute) 0.0 0.0-0.2 x10E3/uL Immature Granulocytes 0 Not Estab. % Immature Grans (Abs) 0.0 0.0-0.1 x10E3/uL Hematology Comments: Note: Verifie d by microscopic examination. Reason For Referral No Information Medications Medication SIG (Take, Route, Frequency, Duration) Notes Start Date End Date Status Multi Vitamin - 1 tablet Orally Once a day for 30 days 07/09/2024 Active Melatonin 5 MG 1 tablet at bedtime as needed Orally Once a day for 30 days 07/09/2024 Active Divalproex Sodium 250 MG 3 tablets at be dtime Orally At bedtime Active hydrOXYzine HCl 10 MG 1 tablet as needed Orally 3 times daily, as needed Active Probiotic 1-250 BILLION-MG One capsule Orally daily Active traZODone HCl 100 MG 2 tablets at bedtim e Orally Once a day Active lamoTRIgine 100 MG 1 tablet Orally Once a day Active Vitamin D3 50 MCG (2000 UT) 1 capsule Orally Once a day Active Caplyta 21 MG One capsule Orally O nce at night Not-Taking Social History Sex Assigned At : Social History Observation Description Sex Assigned At Female PRAPARE Question Answer Notes Date Completed/Updated: 07/09/2024 What is your current housing situation? I have h ousing What is the highest level of school that you have finished? High school diploma or GED What is your current work situation? Oth erwise unemployed but not seeking work (ex. 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 Check all that apply I do not have problems meeting my needs Has lack of transportation k ept you from medical appointments, meetings, work or from getting things needed for daily living? No How often do you see or talk to people that you care about and feel close to? (For example: talking to friends on the phone, visiting friends or family, going to amish or club meetings) More than 5 times a week How stressed are you? Stress is when someone feels tense, nervous, anxious, or can\t sleep at night because their mind is troubled Very much In the past year have you sp ent more than 2 nights in a row in a shelter, longterm, senior care center, or juvenile correctional facility? No Are you a refugee? I choose not to answer this q uestion What country are you from? I choose not to answe r this question Do you feel physically and e motionally safe where you currently live? Yes In the past year, have you b een afraid of your partner or ex-partner? Yes PRAPARE Score: 5 Enabling Services Provided? Yes Please specify Case Management Asse ssment First Visit Problems Problem Type SNOMED Code ICD Code Onset Dates Problem Status W/U Status Risk Notes Problem Bipolar 1 disorder (533330439) Bipolar 1 disorder (F31.9) Active confirmed Problem Over weight (E66.3) Active confirmed Vital Signs Heart Rate 92 /min 07/09/2024 Temperature 98.9 degrees Fahrenheit 07/09/2024 Respiratory Rate 16 /min 07/09/2024 Blood pressure diastolic 68 mm Hg 07/09/2024 Oximetry 98 % 07/09/2024 Height 60 in 07/09/2024 Blood pressure systolic 104 mm Hg 07/09/2024 Weight 128.8 lbs 07/09/2024 BMI 25.15 kg/m2 07/09/2024 Encounters Encounter Location Date Provider Diagnosis [facility] [address] [place] [address] 07/09/2024 Uyen Bhatti Routine general medical examination at a [facility] Z00.00 and Over weight E66.3 [facility] [address] [place] [address] 07/09/2024 Kate Hopper Bipolar 1 disorder F31.9 Assessments Encounter Date Diagnosis (ICD Code) Assessment Notes Treatment Notes Treatment Clinical Notes Section Notes 07/09/2024 Routine general medical examination at a health care facility (ICD-10 - Z00.00) Admit to the Mental Health/Crisis Residential Unit and initiate standing/protocol orders: The following PRN medications may be self-administered by patients under the supervision of approved staff or administered by nursing staff: Ibuprofen 200mg, 2-4 tablets by mouth (with food) every 6 hours as needed for pain (unless on lithium). (NOTE: Ibuprofen and acetaminophen may be given together, but alternating is recommended for continuous pain relief. Guaifenesin 400 mg, 1 tablet by mouth every four hours as needed for cough and chest congestion (take with large glass of water). Loratadine 10 mg, 1 tablet by mouth daily as needed for allergies, watery itchy eyes, or sinus drainage. Throat Lozenges, up to 4 tablets by mouth every three to four hours as needed for sore throat. Antacid tablets, 1-2 tablets by mouth every one to two hours as needed for indigestion or heart burn. If the client prefers liquid, could use: Liquid Antacid : 1 ounce by mouth up to four times daily as needed for indigestion or heartburn Omeprazole 20mg, 1 capsule by mouth once daily for 14 days for frequent heartburn (frequent heartburn is more than 2 episodes per week). Do not exceed 14 days. Do not give to client already taking a proton-pump inhibitor: esomeprazole (Nexium), lansoprazole (Prevacid), pantoprazole (Protonix), rabeprazole (Aciphex), dexlansoprazole (Dexilant) Zofran ODT disintegrating (under the tongue) 4 mg, 1-2 tablets every 8 hours as needed for nausea/vomiting. Milk of Magnesia (MOM): 1 ounce (30 milliliters) by mouth every day as needed for constipation. OR Miralax: Stir and fully dissolve 17 grams (1 packet or 1 capful to measured line) in any 4 to 8 ounces of beverage then drink once daily for constipation. Do not use for more than 7 days. OR Docusate 100 mg, 1 capsule twice daily as needed for constipation Hydrocortisone 1% Cream, apply topically (to the skin) to the affected area up to three times daily as needed for itching or inflammation (avoid eyes and genitals). 2% Antifungal Cream, apply topically (to the skin) as directed as needed to affected areas for athlete's foot or jock itch. Triple Antibiotic Ointment, apply topically (to the skin) up to three times daily as needed for minor cuts and scrapes. Carmex or Chapstick, apply topically (to the skin) as needed for chapped lips and skin. Orajel, apply to affected areas as needed for mouth or tooth pain. Lubricating Eye Drops, instill 1-2 drops to the affected eye(s) as needed for dry/irritated eye(s). Hemorrhoid medications, apply to affected area according to directions as needed for hemorrhoid discomfort and itch. Nix (Permethrin 1%) cream 2 ounces, apply topically (to the skin) as directed as needed for head lice. Sunscreen 30 SPF, Apply to exposed skin prior to exposure to sun. The following PRN medications must be approved by nursing staff before self-administration by patients: Diphenhydramine 25 mg, 2 tablets by mouth every 4 hours as needed for allergic reaction or itchy rash. Caution: Do not use hydroxyzine within 4 hours of diphenhydramine and vice versa. Loperamide 2 mg capsules, may give two capsules by mouth for the initial dose, followed by one capsule up to 3 times a day as needed for diarrhea. Acetaminophen 500 mg, 1 - 2 tablets by mouth every six hours as needed for pain. (NOTE: Ibuprofen and acetaminophen may be given together, but alternating is recommended for continuous pain relief). Oxygen-May administer oxygen 2L/min via nasal cannula if O2 saturation is less than 92%, AND client complains of shortness of breath. Target O2 saturation is 94-98%. Caution: Remember too much oxygen can be detrimental to a client with COPD. Oxygen is a drug and should be delivered by trained staff only. Nurses may remove superficial splinters and sutures from skin lacerations. May apply gauze or bandages to any weeping wounds. Contact nursing if there is pus, a foul odor, increased pain/redness/swelli ng, or if soaking through bandages. 07/09/2024 Bipolar 1 disorder (ICD-10 - F31.9) 07/09/2024 Over weight (ICD-10 - E66.3) 07/09/2024 Other Clinician met w ith client to assess needs for residential services. Clinician gathered information regarding historical presentation of mental health and substance use symptoms including withdrawal, HIV Risk assessment, psychiatric hospitalization history and presenting concern. Clinician conducted PHQ9 and CSSRS assessments as well as social drivers of health screening for the purposes of identifying additional service needs. 07/09/2024 Other Clin[facility] to assess needs for residential services. Clinician gathered information regarding historical presentation of mental health and substance use symptoms including withdrawal, HIV Risk assessment, psychiatric hospitalization history and presenting concern. Clinician conducted PHQ9 and CSSRS assessments as well as social drivers of health screening for the purposes of identifying additional service needs. Plan Of Treatment No Information Insurance Providers Payer Name Payer Address Payer Phone Subscriber Number Group Number Insured Name Patient Relationship to Insured Coverage Start Date Coverage End Date [employer] Medicare [address] [place] [address] [id number] Sharon Grady Self - patient is the insured 5 [employer] LCSW [address] [place] [address] [id number] Sharon Grady Self - patient is the insured 5 Medical (General) History Medical History History ICD Code Bipolar Schizophrenia Surgical History Surgery Date(Month/Year) Hysterectomy section Hospitalization History Reason Date(Month/Year) [facility] [place], [place]
--- OUTSIDE RECORDS SUMMARY | 2024-07-15 14:44 | XMS_ITS | Encounter Summary ---
Author Organization [facility] Address [address] [place] [address] Care Team Providers Care Fire Officer Name Role Phone Cory Coopre MD Primary Care Provider [phone] Encounter Details Date Type Department Care Team (Late st Contact Info) Description 03/15/2022 Lab Requisition [facility] DermPath Lab [address] [place] [address] [place] [address] [place] [id number] Social History Tobacco Use Types Packs/Day Years [...] Comments DERMATOPATHOLOGY Routine 03/13/2022 12:0 0 AM ASH CONVEYOR OPERATOR documented in this encounter Results * DERMATOPATHOLOGY (03/13/2022 12:00 AM ASH CONVEYOR OPERATOR) Case Report Dermatopathology Report Case: [id number] Authorizing Provider: Kristofer Saenz MD Collected: 03/13/2022 12:00 AM Ordering Location: [facility] DermPath Lab Received: 03/15/2022 07:16 AM Pathologist: Karolina Desir MD Specimen: Skin, post neck 6:20 PM ASH CONVEYOR OPERATOR DERMATOPATHOLOGY LABORATORY Final Diagnosis Specimen A. SKIN, post neck: SEBORRHEIC KERATOSIS (L82.1) PRESENT AT MARGIN 3 6:20 PM [facility] DERMATOPATHOLOGY LABORATORY Clinical History R/O BCC. Please Check Margins. 3 6:20 PM [facility] DERMATOPATHOLOGY LABORATORY Gross Description Specimen A: Received is one formalin filled container labeled with the patient's name and designated post neck. The specimen consists of a shave biopsy measuring [id number] and it is inked. Jar 0. 3 6:20 PM [facility] DERMATOPATHOLOGY LABORATORY Microscopic Description Specimen A. SKIN, post neck: Sections show an acanthotic lesion composed of relatively uniform keratinocytes. There is hyperkeratosis and pseudo horn cysts formation. This lesion is present at the margin of the specimen. 3 6:20 PM [facility] DERMATOPATHOLOGY LABORATORY Disclaimer An external and internal positive and negative controls are appropriate for the histochemical, immunohistochemical and immunofluorescence stain(s) in this case (if any), except where stated explicitly. The performance characteristics of the stain(s) cited in this report were developed and its performance characteristic determined by the Dermatopathology Laboratory at [facility], directed by Dr. Elysia Reyes. These tests need not be, and therefore are not, approved by the [place] Food and Drug Administration. The tests are used for clinical purposes. Billing Codes Specimen Charges Stain Charges 15102 1 3 6:20 PM [facility] DERMATOPATHOLOGY LABORATORY Embedded Images 3 6:20 PM [facility] DERMATOPATHOLOGY LABORATORY Pathology/Cytolog y TISSUE SPECIMEN FROM SKIN / Unknown 03/13/2022 03/15/2022 7:16 AM ASH CONVEYOR OPERATOR us Kristofer Saenz MD LAB - PATHOLOGY/CYTOLOGY ORDERAB LES Final Result DERMATOPATHOLOGY LABORATORY [facility] - Department of Dermatology [address], [address] [phone] documented in this encounter Visit Diagnoses Not on filedocumented in this encounter Care Teams Fire Officer Relationship Specialty Start Date End Date Cory Cooper MD [address] [place] [address] PCP - General 08/01/21 documented as of this encounter
--- OUTSIDE RECORDS SUMMARY | 2024-07-15 14:45 | XMS_ITS ---
Author Organization [facility] [employer] [facility] Address [address] [place] [address] [address] Care Team Providers Care Licensed Nurse Practitioner Name Role Phone Cory Cooper MD Primary Care Provider Anabelle Malagon Unavailable [phone] REASON FOR VISIT 1 week f/u Social History Sex Assigned At : Social History Observation Description Sex Assigned At Female Encounters Encounter Location Date Provider Diagnosis [facility] [employer] [address] [address] 07/08/2024 Anabelle Warren Plan Of Treatment Next Appt Details Provider Name:Maribel Adler, 08/06/2024 10:00:00 AM, [address] [place] [address], [phone], Provider Name:Anabelle frederick, 08/19/2024 01:15:00 PM, [address] [place] [address], [phone], Provider Name:Maribel Adler, 10/02/2024 01:00:00 PM, [address] [place] [address], [phone], Progress Notes * LACY NOLAN EDOB: (73 yo F)Acc No.[id number]:07/08/2024 Patient: Lucinda LACY CASANOVA Provider: YO MERCHANT :1950 A ge:73 Y S ex:Female Date:07/08/2024 Address:[address] [place] [address], [id number] Pcp:Cory Cooper MD Subjective: * Chief Complaints: * 1 . 1 week f/u. * Medical History: Objective: * Vitals: Assessment: Plan: * Treatment: * Billing Information: * Visit Code: * Procedure Codes: * Electronic signature of YO Sifuentes on 07/15/2024 at 02:44 PM CDT Sign off status: Pending * Provider: YO MERCHANT Date: 07/08/2024 Generated for Pedro Pablo zazueta/Nayla/Nia on: 07/15/2024 02:44 PM CDT
--- OUTSIDE RECORDS SUMMARY | 2024-07-15 14:45 | XMS_ITS | Encounter Summary ---
Author Organization [facility] Address [address] [place] [address] Care Team Providers Care Tool/Die Maker Name Role Phone Cory Cooper MD Primary Care Provider [phone] Encounter Details Date Type Department Care Team (Late st Contact Info) Description 04/06/2024 Lab Requisition [facility] Physician [facility] - DermPath Lab [address] [id number] Kristofer Saenz MD [address] [place] [address] Social History Tobacco Use Types Packs/Day Years [...] Comments DERMATOPATHOLOGY Routine 04/06/2024 12:0 0 AM GEOTECHNICAL LABORATORY TECHNICIAN documented in this encounter Results * DERMATOPATHOLOGY (04/06/2024 12:00 AM GEOTECHNICAL LABORATORY TECHNICIAN) Case Report Dermatopathology Report Case: [id number] Authorizing Provider: Kristofer Saenz MD Collected: 04/06/2024 12:00 AM Ordering Location: [facility] Physician [facility] - Received: 04/06/2024 04:08 PM DermPath Lab Pathologist: Trudi Lam MD Specimen: Skin, right chin 4:52 PM [facility] DERMATOPATHOLOGY LABORATORY Final Diagnosis Specimen A. SKIN, right chin: DERMAL SCAR RESIDUAL BASAL CELL CARCINOMA NOT IDENTIFIED (L90.5) 4:52 PM [facility] DERMATOPATHOLOGY LABORATORY Clinical History BCC Bx proven [id number] 4:52 PM [facility] DERMATOPATHOLOGY LABORATORY [...] characteristic determined by the Dermatopathology Laboratory at [facility], directed by Dr. Elysia Reyes. These tests need not be, and therefore are not, approved by the [place] Food and Drug Administration. The tests are used for clinical purposes. Billing Codes Specimen Charges Stain Charges 22214 1 4:52 PM GEOTECHNICAL LABORATORY TECHNICIAN DERMATOPATHOLOGY LABORATORY Embedded Images 4:52 PM [facility] DERMATOPATHOLOGY LABORATORY Pathology/Cytolog y TISSUE SPECIMEN FROM SKIN / Unknown 04/06/2024 04/06/2024 4:08 PM [facility] Kristofer Saenz MD LAB - PATHOLOGY/CYTOLOGY ORDERAB LES Final Result DERMATOPATHOLOGY LABORATORY [facility] - Department of Dermatology [address] [phone] documented in this encounter Visit Diagnoses Not on filedocumented in this encounter Care Teams Tool/Die Maker Relationship Specialty Start Date End Date Cory Cooper MD [address] [place] [address] PCP - General 08/01/21 documented as of this encounter
--- OUTSIDE RECORDS SUMMARY | 2024-07-15 14:45 | XMS_ITS | Clinical Summary ---
Author Organization [facility] Address [address] [place] [address] Phone Care Team Providers Care Furniture Dipper Name Role Phone Samira Singh Gael BORDEN Primary Care Provider [phone] Huy Jones DO Unavailable [phone] Allergies Active Allergy Reactions Criticality Noted Date [...] MEDICARE RAILRO[employer] SENIOR SUPPLEMENTAL Care Teams Furniture Dipper Relationship Specialty Start Date End Date Samira Singh APRN PCP - General Advanced Practice Nurse 01/16/17 Huy Jones DO Consulting Physician Gastroenterology 06/26/17
--- OUTSIDE RECORDS SUMMARY | 2024-07-15 14:45 | XMS_ITS | Patient Health Record ---
Author Organization [facility] Address [address] [facility] [address] [place] [address] Care Team Providers Care Web Manager Name Role Phone Cory Cooper MD Primary Care Provider Anabelle Malagon Unavailable [phone] Maribel Bustillo Unavailable [phone] Greg York Unavailable [phone] Annie Suresh Unavailable [phone] Migration, Provider Unavailable Unavailable Valeriano Torres Unavailable [phone] Allergies Allergen (clinical drug ingredient) Drug/Non Drug Allergy documented on EMR Reaction Allergy Type Onset Date Status vilazodone Viibryd diarrhea Drug Allergy Active Substance with penicillin structure and antibacterial mechanism of action (substance) Penicillins Unknown Drug Allergy 07/23/2023 Active sertraline Sertraline diarrhea Drug Allergy Activ e Results Component Value Reference Range Notes UDT Reviewed date:09/23/2023 10:50:03 AM Interpretation: Performing Lab: Notes/Report: THC N 0 - 50 ng/ml Cocaine N 0 - 300 ng/ml Amphetamine N 0 - 1000 ng/ml Buprenorphine (BUP) N 0 - 10 ng/ml Secobarbital (Bar) N 0 - 300 ng/ml Oxazepam (BZO) P 0 - 300 ng/ml 7-dlycmcsxru-5,8-dqiucoiw-2, 3-diphenylpyrr olidine (EDDP) N 0 - 300 ng/ml Methamphetamine (MET) N 0 - 1000 ng/ml Methylenedioxymethamphetamine (MDMA) N 0 - 500 ng/ml Morphine (MOP 300/[id number]) N 0 - 300 ng/ml Methadone (MTD) N 0 - 300 ng/ml Phencyclidine (PCP) N 0 - 25 ng/ml Nortriptyline (TCA) N 0 - 1000 ng/ml Oxycodone N 0 - 300 ng/ml x N 0 - 300 ng/ml UDT Reviewed date:10/25/2023 05:06:54 PM Interpretation: Performing Lab: Notes/Report: THC n 0 - 50 ng/ml Cocaine n 0 - 300 ng/ml Amphetamine n 0 - 1000 ng/ml Buprenorphine (BUP) n 0 - 10 ng/ml Secobarbital (Bar) n 0 - 300 ng/ml Oxazepam (BZO) p 0 - 300 ng/ml 0-hlfqtkhlbi-2,9-okwvcfab-8, 3-diphenylpyrr olidine (EDDP) n 0 - 300 ng/ml Methamphetamine (MET) n 0 - 1000 ng/ml Methylenedioxymethamphetamine (MDMA) n 0 - 500 ng/ml Morphine (MOP 300/[id number]) n 0 - 300 ng/ml Methadone (MTD) n 0 - 300 ng/ml Phencyclidine (PCP) n 0 - 25 ng/ml Nortriptyline (TCA) n 0 - 1000 ng/ml Oxycodone n 0 - 300 ng/ml x n 0 - 300 ng/ml UDT Reviewed date:04/22/2024 10:34:58 AM Interpretation: Performing Lab: Notes/Report: THC n 0 - 50 ng/ml Cocaine n 0 - 300 ng/ml Amphetamine n 0 - 1000 ng/ml Buprenorphine (BUP) n 0 - 10 ng/ml Secobarbital (Bar) n 0 - 300 ng/ml Oxazepam (BZO) p 0 - 300 ng/ml 4-dywuvshzui-5,7-ndygrzqo-0, 3-diphenylpyrr olidine (EDDP) n 0 - 300 ng/ml Methamphetamine (MET) n 0 - 1000 ng/ml Methylenedioxymethamphetamine (MDMA) n 0 - 500 ng/ml Morphine (MOP 300/[id number]) n 0 - 300 ng/ml Methadone (MTD) n 0 - 300 ng/ml Phencyclidine (PCP) n 0 - 25 ng/ml Nortriptyline (TCA) n 0 - 1000 ng/ml Oxycodone n 0 - 300 ng/ml x n 0 - 300 ng/ml Benzodiazepines Reviewed date:05/01/2024 02:35:35 PM Interpretation: Performing Lab:1, [facility], [address] [facility], Director - [id number] Notes/Report: An exception occurred while processing this report and so it has incomplete data. Please contact [employer] for assistance. Medicated Consistent Medicated Consistent Not [...] PDF Report [email or web address] C _ORU UDT Reviewed date:07/02/2024 01:35:01 PM Interpretation: Performing Lab: Notes/Report: THC n 0 - 50 ng/ml Cocaine n 0 - 300 ng/ml Amphetamine n 0 - 1000 ng/ml Buprenorphine (BUP) n 0 - 10 ng/ml Secobarbital (Bar) n 0 - 300 ng/ml Oxazepam (BZO) p 0 - 300 ng/ml 8-jogrpcydrh-9,0-rjptssco-9, 3-diphenylpyrr olidine (EDDP) n 0 - 300 ng/ml Methamphetamine (MET) n 0 - 1000 ng/ml Methylenedioxymethamphetamine (MDMA) n 0 - 500 ng/ml Morphine (MOP 300/[id number]) n 0 - 300 ng/ml Methadone (MTD) n 0 - 300 ng/ml Phencyclidine (PCP) n 0 - 25 ng/ml Nortriptyline (TCA) n 0 - 1000 ng/ml Oxycodone n 0 - 300 ng/ml x n 0 - 300 ng/ml Reason For Referral No Information Medications Medication SIG (Take, Route, Frequency, Duration) Notes Start Date End Date Status lamoTRIgine 100 MG 0.5 tablet Oral Once a day Active Divalproex Sodium 250 MG 1 tablet Oral daily for 90 days total daily dose 750mg Active ALPRAZolam 0.25 MG 1 tablet Orally thre e times a day for 30 days Active hydrOXYzine HCl 10 MG 1 tablet as needed Orally three times a day for 30 days Active traZODone HCl 100 MG 2 tablet at bedtime Oral at bedtime for 90 days Active ProAir HFA 108 (90 Base) MCG/ACT Inhalation 07/23/2023 Not-Taking Melatonin 5 MG 1 tablet in the even ing Orally Once a day Active Divalproex Sodium 500 MG 1 tablet Orally daily for 90 days total daily dose 750mg 07/14/2024 Active Immunizations Vaccine Route Administration Date Status Comme nts COVID-19 (SARS-COV-2) vaccin e, unspecified Unknown 12/11/2022 Administered Influenza virus vaccine, quadrivalent (IIV4), split virus, 0.25 mL dosage Unknown 12/02/2017 Administered Influenza virus vaccine, quadrivalent (IIV4), split virus, 0.25 mL dosage Unknown 12/02/2018 Administered Influenza, high dose seasonal Unknown 12/27/2015 Admini stered Influenza, high dose seasonal Unknown 12/12/2016 Admini stered Influenza, high dose seasonal Unknown 12/18/2017 Admini stered Influenza, high dose seasonal Unknown 12/06/2018 Admini stered Influenza, seasonal, injecta ble, preservative free, 3 yrs and above Unknown 12/01/2014 Administered Influenza, unspecified formulation Unknown 12/11/2021 A dministered Influenza, unspecified formulation Unknown 12/11/2022 A dministered Novel Kvkqpimls-Z6Y7-06, preservative free Unknown 03/04/2013 Administered Novel Bcqflviig-O6T0-94, preservative free Unknown 01/01/2017 Administered Novel Jiaqkarxu-Y1O5-74, preservative free Unknown 12/08/2018 Administered Novel Knskjlnni-U9Z0-07, preservative free Unknown 11/11/2019 Administered Pfizer Biontech Covid-19 Vac cine 2nd dose Unknown 04/30/2020 Administered Pfizer Biontech Covid-19 Vac cine 2nd dose Unknown 05/22/2020 Administered Pfizer Biontech Covid-19 Vac cine 2nd dose Unknown 06/17/2021 Administered Pfizer Biontech Covid-19 Vac cine 2nd dose Unknown 12/11/2021 Administered Pneumococcal conjugate PCV 13 Unknown 12/27/2015 Admini stered Pneumococcal conjugate PCV 13 Unknown 12/02/2017 Admini stered Pneumococcal conjugate PCV 13 Unknown 12/19/2018 Admini stered Pneumococcal polysaccharide PPV23 Unknown 02/08/2017 Ad ministered Pneumococcal polysaccharide PPV23 Unknown 12/24/2017 Ad ministered RSV-MAb (Respiratory syncyti al virus immune globulin) Unknown 12/11/2022 Administered Tdap Unknown 03/04/2012 Administered Zoster Unknown 03/04/2015 Administered Zoster Unknown 02/18/2019 Administered Zoster Unknown 02/01/2020 Administered Social History Tobacco Use: Social History [...] CodeDo you have a medical power of store clerk cashier?: YesPublic Health and TravelHave you been to [...] CodeDo you have a medical power of store clerk cashier?: YesPublic Health and TravelHave you been to [...] CodeDo you have a medical power of store clerk cashier?: YesPublic Health and TravelHave you been to [...] Risk Notes Problem Schizoaffective disorder, bipolar type (98271292) Schizoaffective disorder, bipolar type (F25.0) Active confirmed stable on current medications . 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 Problem 23158544 Elevated blood pressure reading (R03.0) Active confirmed Problem Memory impairmen t (R41.3) Active confirmed Problem 260181735 Memory loss or impairment (R41.3) Active confirmed Vital Signs Heart Rate 81 /min 07/14/2024 Blood pressure diastolic 70 mm Hg 07/14/2024 Height-cm 157.48 cm 07/14/2024 Weight-kg 62.6 kg 07/14/2024 Height 62.00 in 07/14/2024 Blood pressure systolic 111 mm Hg 07/14/2024 Weight 138 lbs 07/14/2024 BMI 25.24 kg/m2 07/14/2024 Procedures Procedure Date Ordered Date Performed Result Body Sit e MCI Testing 03/27/2024 N/A Encounters Encounter Location Date Provider Diagnosis [facility] [address] [facility] [address] [place] [address] 07/16/2023 Provider Migration Generalized anxiety disorder F41.1 [facility] [address] [place] [address] 07/23/2023 Annie Suresh Schizoaffective disorder, bipolar type F25.0 ; 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, [facility] [address] [place] [address] 08/30/2023 Maribelarabella Yap Vitor Schizoaffective disorder, bipolar type F25.0 and Generalized anxiety disorder F41.[address] [facility], [facility] [address] [place] [address] 09/10/2023 Annie Thery Schizoaffective disorder, bipolar type F25.0 ; Generalized anxiety disorder F41.1 ; Primary insomnia F51.01 and Other snf (current) drug therapy Z79.[address] [facility], [facility] [address] [place] [address] 09/23/2023 Gregnathaly York Schizoaffective disorder, bipolar type F25.0 ; Generalized anxiety disorder F41.1 and Primary insomnia F51.[address] [facility], [facility] [address] [place] [address] 09/27/2023 Maribelarabella Yap Vitor Schizoaffective disorder, bipolar type F25.0 and Generalized anxiety disorder F41.1 [facility] [address] [place] [address] 10/03/2023 Annie Thery Schizoaffective disorder, bipolar type F25.0 ; Generalized anxiety disorder F41.1 and Primary insomnia F51.[address] [facility], [facility] [address] [place] [address] 10/25/2023 Maribelarabella Yap Vitor Schizoaffective disorder, bipolar type F25.0 and Generalized anxiety disorder F41.[address] [facility], [facility] [address] [place] [address] 10/25/2023 Annie Thery Schizoaffective disorder, bipolar type F25.0 ; Generalized anxiety disorder F41.1 and Primary insomnia F51.[address] [facility], [facility] [address] [place] [address] 11/05/2023 Annie Thery Schizoaffective disorder, bipolar type F25.0 ; Generalized anxiety disorder F41.1 and Primary insomnia F51.[address] [facility], [facility] [address] [place] [address] 11/13/2023 Maribelarabella Yap Vitor Schizoaffective disorder, bipolar type F25.0 and Generalized anxiety disorder F41.1 [facility] [address] [place] [address] 12/05/2023 Annie Thery Schizoaffective disorder, bipolar type F25.0 ; Generalized anxiety disorder F41.1 ; Primary insomnia F51.01 and Memory loss or impairment R41.3 [facility] [address] [place] [address] 12/11/2023 Maribelarabella Yap Vitor Schizoaffective disorder, bipolar type F25.0 and Generalized anxiety disorder F41.1 [facility] [address] [place] [address] 01/06/2024 Maribelarabella Yap Vitor Generalized anxiety disorder F41.1 and Schizoaffective disorder, bipolar type F25.0 [facility] [address] [place] [address] 01/06/2024 Annie Thery Schizoaffective disorder, bipolar type F25.0 ; Generalized anxiety disorder F41.1 ; Primary insomnia F51.01 ; Memory loss or impairment R41.3 and Elevated blood pressure reading R03.0 [facility] [address] [place] [address] 01/08/2024 Anabelle Kurilla Schizoaffective disorder, bipolar type F25.0 ; Generalized anxiety disorder F41.1 and Primary insomnia F51.01 [facility] [address] [place] [address] 01/28/2024 Anabelle Kurilla Schizoaffective disorder, bipolar type F25.0 ; Generalized anxiety disorder F41.1 and Primary insomnia F51.01 [facility] [address] [place] [address] 02/03/2024 Maribel Yap Vitor Schizoaffective disorder, bipolar type F25.0 and Generalized anxiety disorder F41.1 [facility] [address] [place] [address] 02/13/2024 Anabelle Kurilla Schizoaffective disorder, bipolar type F25.0 ; Generalized anxiety disorder F41.1 and Primary insomnia F51.01 [facility] [address] [place] [address] 02/27/2024 Valeriano Muroelvia Schizoaffective disorder, bipolar type F25.0 and Generalized anxiety disorder F41.1 [facility] [address] [place] [address] 03/24/2024 Maribel Adler Generalized anxiety disorder F41.1 and Schizoaffective disorder, bipolar type F25.0 [facility] [address] [place] [address] 03/27/2024 Anabelle Kurilla Schizoaffective disorder, bipolar type F25.0 ; Generalized anxiety disorder F41.1 ; Primary insomnia F51.01 and Memory impairment R41.3 [facility] [address] [place] [address] 04/09/2024 Maribel Adler Generalized anxiety disorder F41.1 and Schizoaffective disorder, bipolar type F25.0 [facility] [address] [place] [address] 04/22/2024 Anabelle Kurilla Schizoaffective disorder, bipolar type F25.0 ; Generalized anxiety disorder F41.1 and Primary insomnia F51.01 [facility] [address] [place] [address] 04/30/2024 Anabelle Kurilla Schizoaffective disorder, bipolar type F25.0 ; Generalized anxiety disorder F41.1 and Primary insomnia F51.01 [facility] [address] [place] [address] 05/07/2024 Maribel Adler Schizoaffective disorder, bipolar type F25.0 and Generalized anxiety disorder F41.1 [facility] [address] [place] [address] 05/21/2024 Anabelle Kurilla Schizoaffective disorder, bipolar type F25.0 ; Generalized anxiety disorder F41.1 ; Primary insomnia F51.01 ; Encounter for screening for depression Z13.31 and Encounter for screening for cardiovascular disorders Z13.6 [facility] [address] [place] [address] 06/05/2024 Anabelle Warren Encounter for screen ing for depression Z13.31 ; Schizoaffective disorder, bipolar type F25.0 ; Generalized anxiety disorder F41.1 ; Primary insomnia F51.01 and Encounter for screening for cardiovascular disorders Z13.6 [place] [address] [place] [address] 06/11/2024 Maribel Adler Schizoaffective disorder, bipolar type F25.0 and Generalized anxiety disorder F41.1 [place] [address] [place] [address] 07/02/2024 Maribelarabella Adler Schizoaffective disorder, bipolar type F25.0 ; Generalized anxiety disorder F41.1 and Encounter for screening for depression Z13.31 [place] [address] [place] [address] 07/02/2024 Anabelle Warren Generalized anxiety disorder F41.1 ; Primary insomnia F51.01 ; Encounter for screening for depression Z13.31 ; Schizoaffective disorder, bipolar type F25.0 and Encounter for screening for cardiovascular disorders Z13.6 [place] [address] [place] [address] 07/14/2024 Anabellemichael Warren Generalized anxiety disorder F41.1 ; Other snf (current) drug therapy Z79.899 ; Primary insomnia F51.01 ; Encounter for screening for cardiovascular disorders Z13.6 ; Schizoaffective disorder, bipolar type F25.0 and Encounter for screening for depression Z13.31 [place] [address] [facility] [address] [place] [address] 07/16/2023 Provider Migration [facility], [place] [address] [place] [address] 07/17/2023 Provider Migration [facility], [facility] [address] [place] [address] 07/20/2023 Provider Migration [facility], [place] [address] [place] [address] 07/21/2023 Provider Migration [facility], [place] [address] [place] [address] 08/16/[address] [facility] [address] [place] [address] 08/16/[address] Annie [address]ures[address] [facility], [facility] [address] [place] [address] 09/13/2023 Annie Thery Generalized anxiety disorder F41.[address] [facility], [facility] [address] [place] [address] 09/19/[address] [facility], [facility] [address] [place] [address] 10/31/[address] [facility], [facility] [address] [place] [address] 10/31/[address] [facility], [facility] [address] [place] [address] 10/31/[address] [facility], [facility] [address] [place] [address] 11/13/[address] [facility], [facility] [address] [place] [address] 12/06/2023 Annie Thermadi Generalized anxiety disorder F41.[address] [facility], [facility] [address] [place] [address] 01/24/2024 Annie Suresh Generalized anxiety disorder F41.[address] [facility], [facility] [address] [place] [address] 03/25/2024 Anabelle Warren [facility], [facility] [address] [place] [address] 04/20/2024 Anabelle Warren [facility], [facility] [address] [place] [address] 01/23/[address] [facility], [facility] [address] [place] [address] 03/24/2024 Anabelle Warren Schizoaffective disorder, bipolar type F25.0 and Generalized anxiety disorder F41.[address] [facility], [facility] [address] [place] [address] 03/27/[address]24 [address]abelle Warren [facility], [facility] [address] [place] [address] 03/28/2024 Anabelle Warren [facility], [facility] [address] [place] [address] 03/31/2024 Anabelle Warren [facility], [facility] [address] [place] [address] 03/31/2024 Anabelle Warren [facility], [facility] [address] [place] [address] 03/31/2024 Anabelle Warren [facility], [facility] [address] [place] [address] 04/10/2024 Anabelle Warren [facility], [facility] [address] [place] [address] 04/10/2024 Anabelle Warren [facility], [facility] [address] [place] [address] 04/10/2024 Anabelle Warren [facility], [facility] [address] [place] [address] 04/16/2024 Anabelle Warren [facility], [facility] [address] [place] [address] 04/16/2024 Anabelle Warren [facility], [facility] [address] [place] [address] 04/23/2024 Anabelle Warren [facility], [facility] [address] [place] [address] 04/26/2024 Anabelle Warren [facility], [facility] [address] [place] [address] 04/27/2024 Anabelle Warren [facility], [facility] [address] [place] [address] 04/27/2024 Anabelle Warren [facility], [facility] [address] [place] [address] 05/05/2024 Anabelle Warren [facility], [facility] [address] [place] [address] 05/05/2024 Anabelle Warren [facility], [facility] [address] [place] [address] 05/13/2024 Anabelle Warren [facility], [facility] [address] [place] [address] 05/13/[address]le [address] [facility], [facility] [address] [place] [address] 05/13/2024 Anabelle Warren [facility], [facility] [address] [place] [address] 05/13/[address]24 [address]abelle Warren [facility], [facility] [address] [place] [address] 05/13/[address]24 [address]abelle Warren [facility], [facility] [address] [place] [address] 05/13/[address]24 Anabelle Warren [facility], [facility] [address] [place] [address] 05/13/[address]24 [address]abelle Warren [facility], [facility] [address] [place] [address] 05/13/[address]24 [address]abelle Warren [facility], [facility] [address] [place] [address] 05/13/[address]24 Anabelle Warren [facility], [facility] [address] [place] [address] 05/15/2024 Anabelle Warren [facility], [facility] [address] [place] [address] 05/21/[address]24 [address]abelle Warren [facility], [facility] [address] [place] [address] 05/29/[address]24 [address]abelle Warren [facility], [facility] [address] [place] [address] 05/29/[address]24 [address]abelle Warren [facility], [facility] [address] [place] [address] 05/29/[address]24 [address]abelle Warren [facility], [facility] [address] [place] [address] 05/29/2024 Anabelle Warren [facility], [facility] [address] [place] [address] 05/29/2024 Anabelle Warren Schizoaffective disorder, bipolar type F25.[address] [facility], [facility] [address] [place] [address] 05/29/[address] [facility], [facility] [address] [place] [address] 05/29/2024 Anabelle Kelvin [facility], [facility] [address] [place] [address] 06/03/2024 Anabellemichael Acepriscila [facility], [facility] [address] [place] [address] 06/03/2024 Anabelle Kelvin [facility], [facility] [address] [place] [address] 06/03/2024 Anabelle Kelvin [facility], [facility] [address] [place] [address] 06/03/2024 Anabelle Kelvin [facility], [facility] [address] [place] [address] 06/03/2024 Anabellemichael Acepriscila [facility], [facility] [address] [place] [address] 06/04/2024 Anabellemichael Acepriscila [facility], [facility] [address] [place] [address] 06/04/2024 Anabellemichael Acepriscila [facility], [facility] [address] [place] [address] 06/04/2024 Anabellemichael Warren [facility], [facility] [address] [place] [address] 07/01/2024 Anabelle Warren Assessments Encounter Date Diagnosis (ICD Code) Assessment [...] 01/08/2024 Generalized anxiety disorder (ICD-10 - F41.1) 11/05/2023 Schizoaffective disorder, bipolar type (ICD-10 - [...] to only take as needed for anxiety http_s://www.[facility].org/About-Me ntal-Illness/Me tiqj-Nsotga-Tyh ditions http_s://psychc entral.com/depr ession/the-cogn itive-symptoms- of-depression#t reatments http__s://www.[facility].nih.gov/[facility]/topics/ment ny-uksmhh-eqmcx ations http__s://www.[facility].org/About-M ental-Illness/T reatments/Menta h-Pngsvv-Mxhyto tions Encourage the patient to continue therapy [...] antipsychotics) and more. Elderly- discussed risks, cognition, sedatio [id number]|2024-07-15 14:45:00|2024-07-15 14:45:00|XMS_ITS|MARIJAG DALUISON|External Medical Summaries|[id number]|" Clinical Summary Created on: July 15, 2024 Sharon Nolan : 1950 Sex: Female Author Organization [facility] [employer] Address [address] [place] [address] Care Team Providers Care Web Manager Name Role Phone Cory Cooper MD Primary Care Provider [phone]- [phone] Source Comments [facility],non-owned Affiliates and Associated Physician Practices is amultiple site organization consisting of ambulatory clinics and hospital sitesin [place], [place], [place] and [place]. This disclosure is being madepursuant to the Care Everywhere program and may not contain all information available regarding this patient. Last updated 17.[facility] Allergies Active Allergy Reactions Criticality Noted Date Comments Penicillins 12/12/2016 Immunizations Immunization Administration Dates Next Due INFLUENZA [...] VACCINE (1 of 2) 2000 COVID-19 VACCINE ( - 2023-2 5 season) 2023 DEPRESSION SCREENING [...] on patient's age to complete this topic Insurance MEDICARE [employer] MEDICARE ADV AET Care Teams Web Manager Relationship Specialty Start Date End Date Cory Cooper MD [address] [place] [address] PCP - General 08/01/21 "
--- OUTSIDE RECORDS SUMMARY | 2024-07-15 14:45 | XMS_ITS | Encounter Summary ---
Author Organization [facility] Address [address] [place] [address] Care Team Providers Care Bus Inspector Name Role Phone Cory Copoer MD Primary Care Provider [phone] Encounter Details Date Type Department Care Team (Late st Contact Info) Description 03/11/2024 Lab Requisition [facility] Physician [facility] - DermPath Lab [address] [place] [address] Kristofer Saenz MD [address] [place] [address] Social History Tobacco Use Types Packs/Day Years [...] Comments DERMATOPATHOLOGY Routine 03/10/2024 12:0 0 AM 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 SKIN, right chin: BASAL CELL CARCINOMA, NODULAR TYPE (C44.319) 1:03 PM [facility] DERMATOPATHOLOGY LABORATORY Clinical History R/O BCC 1:03 PM [facility] DERMATOPATHOLOGY LABORATORY Gross Description Specimen A: Received is one formalin filled container labeled with the patient's name and designated right chin. The specimen consists of a shave biopsy measuring 3x2x1 mm. Jar 0. 1:03 PM [facility] DERMATOPATHOLOGY LABORATORY Microscopic Description Specimen A. SKIN, right chin: Within the dermis there are aggregates of basaloid cells with a high nuclear to cytoplasmic ratio and peripheral palisading. 1:03 PM [facility] DERMATOPATHOLOGY LABORATORY Disclaimer An external and internal positive and negative controls are appropriate for the histochemical, immunohistochemical and immunofluorescence stain(s) in this case (if any), except where stated explicitly. The performance characteristics of the stain(s) cited in this report were developed and its performance characteristic determined by the Dermatopathology Laboratory at [facility], directed by Dr. Elysia Reyes. These tests need not be, and therefore are not, approved by the [place] Food and Drug Administration. The tests are used for clinical purposes. Billing Codes Specimen Charges Stain Charges 48665 1 1:03 PM [facility] DERMATOPATHOLOGY LABORATORY Embedded Images 1:03 PM [facility] DERMATOPATHOLOGY LABORATORY Pathology/Cytolog y TISSUE SPECIMEN FROM SKIN / Unknown 03/10/2024 03/11/2024 3:25 PM BARBER TOOL SHARPENER us Kristofer Saenz MD LAB - PATHOLOGY/CYTOLOGY ORDERAB LES Final Result DERMATOPATHOLOGY LABORATORY [facility] - Department of Dermatology [address] [phone] documented in this encounter Visit Diagnoses Not on filedocumented in this encounter Care Teams Bus Inspector Relationship Specialty Start Date End Date Cory Cooper MD [address] [place] [phone] PCP - General 08/01/21 documented as of this encounter
--- OUTSIDE RECORDS SUMMARY | 2024-07-15 14:45 | XMS_ITS ---
Author Organization [facility] Address [address] [place] [address] Care Team Providers Care Resource Manager Name Role Phone Uyen Bhatti Primary Care Provider Ericka Mayorga [phone] REASON FOR VISIT CRU Assessment Social History Sex Assigned At : Social History Observation Description Sex Assigned At Female Encounters Encounter Location Date Provider Diagnosis [facility] [address] [place] [address] 07/09/2024 Ericka Mayorga Assessments Encounter Date Diagnosis [...] identifying additional service needs. Progress Notes * OVIDIO, SharonDOB:1950 (73 yo F)Acc No.[id number]:07/09/2024 UNLOCKED PROGRESS NOTE Patient: Sharon MIMS Provider: Ronald Mayorga :1950 A ge:73 Y S ex:Female Date:07/09/2024 [address] [facility] Pcp:Uyen Bhatti Subjective: * Chief Complaints: * 1 . CRU BH Assessment. * HPI: P sychiatric Assessment - Current Symptoms: Primary concern today x . O [facility] of Mental Health Symptoms x . H istory of Psychiatric Hospitalizations x . H istory of Psychiatric and Behavioral Health Treatment x . S ubstance Use: Current Use Patterns x . S ubstance of Choice x . History of substance use x . H x of Withdrawal x . H IV Risk Assessment Screening: Required for Residential Admits. a TBC For Mental Health Services: Who Is Your Primary Care Provider? D o You Have A PCP? Y es. D o You Have A Psychiatric Provider? D o You Have A Psychiatric Provider? Y es. Do You Have Any Other Professional Supports? D [...] as It Completed Today Using SmartForm? N o. * Medical History: Objective: * Vitals: * [...] CHS11 Insurance Application Assistance, CHS12 Housing Assistance, [facility] Referring to Anesthesiology Tech * * Electronic signature of Kirk Mayorga on 07/15/2024 at 02:45 PM CDT Sign off status: Pending * Provider: Ronald Mayorga Date: 0 07/09/2024 Generated for Pedro Pablo zazueta/Nayla/Nia on: 0 07/15/2024 02:45 PM CDT History and Physical Notes * HPI (History of Present Illness) Category Sub-Category Detail Notes Category Not es Psychiatric Assessment - Cur rent Symptoms Primary concern today x Overview of Mental Health Symptoms x History of Psychiatric Hospitalizations x History of Psychiatric and Behavioral He alth Treatment x Substance Use History of substance use x Hx of Withdrawal x Substance of Choice x Current Use Patterns x HIV Risk [...]
--- OUTSIDE RECORDS SUMMARY | 2024-07-15 14:45 | XMS_ITS ---
Author Organization [facility] Address [address] [facility] [address] [place] [address] Care Team Providers Care Entry Clerk Name Role Phone Kenneth VERDUGO, Cory Primary Care Provider Anabelle Malagon Unavailable [phone] Allergies Allergen (clinical drug ingredient) Drug/Non Drug Allergy documented on EMR Reaction Allergy Type Onset Date Status vilazodone Viibryd diarrhea Drug Allergy Active Substance with penicillin structure and antibacterial mechanism of action (substance) Penicillins Unknown Drug Allergy 07/23/2023 Active sertraline Sertraline diarrhea Drug Allergy Activ e REASON FOR VISIT follow-up, Follow up psychological reason Medications Medication SIG (Take, Route, Frequency, Duration) Notes Start Date End Date Status ALPRAZolam 0.25 MG 1 tablet Orally thre e times a day for 30 days Active lamoTRIgine 100 MG 0.5 tablet Oral Once a day Active Melatonin 5 MG 1 tablet in the even ing Orally Once a day Active Divalproex Sodium 500 MG 1 tablet Orally daily for 90 days total daily dose 750mg 07/14/2024 Active Divalproex Sodium 250 MG 1 tablet Oral daily for 90 days total daily dose 750mg Active hydrOXYzine HCl 10 MG 1 tablet as needed Orally three times a day for 30 days Active traZODone HCl 100 MG 2 tablet at bedtime Oral at bedtime for 90 days Active ProAir HFA 108 (90 Base) MCG/ACT Inhalation 07/23/2023 Not-Taking Social History Tobacco Use: Social History Observation Description Date Details (start date - stop date) Former Smoker NA - NA Sex Assigned At : Social History Observation Description Sex Assigned At Female Tobacco Control (Standard) Question Answer Notes Tobacco use: Former smoker Vital Signs Blood pressure systolic 111 mm Hg 07/15/19 25 Blood pressure diastolic 70 mm Hg 025 Heart Rate 81 /min 07/14/2024 Height 62.00 in 07/14/2024 Weight 138 lbs 07/14/2024 BMI 25.24 kg/m2 07/14/2024 Height-cm 157.48 cm 07/14/2024 Weight-kg 62.6 kg 07/14/2024 Encounters Encounter Location Date Provider Diagnosis [facility] [address] [place] [address] [place] [address] 07/14/2024 Anabelle Warren Generalized anxiety disorder F41.1 ; Other ct scan technician (current) drug therapy Z79.899 ; Primary insomnia F51.01 ; Encounter for screening for cardiovascular disorders Z13.6 ; Schizoaffective disorder, bipolar type F25.0 and Encounter for screening for depression Z13.31 Assessments Encounter Date Diagnosis (ICD Code) Assessment Notes Treatment Notes Treatment Clinical Notes Section Notes 07/14/2024 Generalized anxiety disorder (ICD-10 - F41.1) 07/14/[address] scan technician (current) drug therapy (ICD-10 - Z79.899) 07/14/2024 Primary insomnia (ICD-10 - F51.01) 07/14/2024 Encounter for screening for cardiovascular disorders (ICD-10 - Z13.6) 07/14/2024 Schizoaffective disorder, bipolar type (ICD-10 - F25.0) [...] common with first generation antipsychotics) and more. 07/14/2024 Encounter for screening for depression (ICD-10 - Z13.31) 07/14/2024 Other Continue off of Caplyta, currently stable Patient educated on all medications including potential benefits, side effects, risks. Educated on proper dosing schedule and importance of compliance. Labs ordered today Cont counseling with Maribel -Assessment and treatment plan reviewed with patient. -Compliance with treatment plan importance discussed. -Discussed the risks/benefits of this medication -Discussed medication side effects. -Contact office if symptoms worsen. -Discussed that it can take up to 6-8 weeks to see full therapeutic effects of psychotropic medications. -Crisis prevention hotline 988. Plan Of Treatment Medication Medication Name Sig Start Date Stop Date Notes lamoTRIgine 100 MG 0.5 tablet Oral Once a day Caplyta 21 MG 1 capsules Orally On ce a day for 30 days Divalproex Sodium 500 MG 1 tablet Orally daily for 90 days 07/14/2024 Divalproex Sodium 250 MG 1 tablet Oral daily for 90 days hydrOXYzine HCl 10 MG 1 tablet as needed Orally three times a day for 30 days traZODone HCl 100 MG 2 tablet at bedtime Oral at bedtime for 90 days Treatment Notes Assessment Notes Schizoaffective disorder, bipolar type Lamotrigine is an anticonvulsant and mood stabilizer [...] common with first generation antipsychotics) and more. Other Continue off of Caplyta, currently stable Patient educated on all medications including potential benefits, side effects, risks. Educated on proper dosing schedule and importance of compliance. Labs ordered today Cont counseling with Maribel Pending Test Test Name Order Date Valproic Acid (Depakote),S 07/14/2024 Vitamin D, 1,25 Dihydroxy 07/14/2024 Comp. Metabolic Panel (14) 07/14/2024 CBC 07/14/2024 Next Appt Details Follow Up: 4 Weeks, Reason: medication follow up Provider Name:Maribel Adler, 08/06/2024 10:00:00 AM, [address], [address], [address], Provider Name:Anabelle frederick, 08/19/2024 01:15:00 PM, [address], [place] [address], [place], [address], Provider Name:Maribel Adler, 10/02/2024 01:00:00 PM, [address], [place] [address], [place], [address], Progress Notes * LACY NOLAN EDOB: 1 (73 yo F)Acc No.[id number]:07/14/2024 Patient: LACY MIMS Provider: YO MERCHANT :1950 A ge:73 Y S ex:Female Date:07/14/2024 Address:[address], [facility] Pcp:Cory Cooper MD Subjective: * Chief Complaints: * F ollow-upFollow up psychological reason * HPI: H istory of Presenting Problem: Depression screening positive. Anxiety w ith excessive worry, with restlessness, which has been long-standing. Depression w ith sad mood, with isolative behavior, with decreased energy. Mood lability d enies satnam . Suicidal ideation d enies suicidal ideation . Psychotherapy J cait. Memory S LUMS 12/2023. Here for follow up. Caplyta was started last apt 2 weeks ago for psychosis. Reports she is doing better . However, she discontinued the Caplyta after two days due to excessive sleeping. concurs that she is doing better and is stable. Reports she is not laying on the couch crying all day, as reportedly she was previously. Denies paranoia, psychosis, no overt psychotic symptoms noted during exam today. Sleep is good, getting about 7-9 hours nightly. Energy is fair. Has been supplementing with Melatonin. Appetite is poor, eating about one meal daily.Depression screening doneadvance care planning discuss. D epression screening: PHQ-9 L ittle interest or pleasure in doing things Several days F eeling down, depressed, or hopeless S everal days T rouble falling or staying asleep, or sleeping too much S everal days F eeling tired or having little energy M ore than half the days P oor appetite or overeating M ore than half the days F eeling bad about yourself or that you are a failure, or have let yourself or your family down N ot at all T rouble concentrating on things, such as reading the newspaper or watching television N ot at all M oving or speaking so slowly that other people could have noticed; or the opposite, being so fidgety or restless that you have been moving around a lot more than usual N ot at all T houghts that you would be better off or of hurting yourself in some way N ot at all T otal Score 7 I nterpretation M ild Depression Intervention D epression Screening Findings P ositve F ollow-Up for Depression M ental health care management, Psychiatric follow-up S uicide Risk Assessment Performed _ _ date E lderly Maltreatment: Screening Questions P hysical Abuse - Infliction of physical injury by punching, beating, kicking, biting, burning, shaking, or other actions that result in harm. No E motional/Psychological Abuse - Willful infliction of mental or emotional anguish by threat, humiliation, isolation, or other verbal or nonverbal conduct. N o N eglect - Involves attitudes of others or actions caused by others - such as family members, friends, or institutional caregivers - that have an extremely detrimental effect upon well-being N o S exual Abuse - Forcing of undesired sexual behavior by one person upon another against their will who are either competent or unable to fully comprehend and/or give consent. This may also be called molestation. N o E lder Abandonment - Desertion of an elderly person by an individual who has assumed responsibility for providing care for an elder, or by a person with physical custody of an elder N o F inancial or Material Exploitation - Taking advantage of a person for monetary gain or profit N o U nwarranted Control - Controlling a person's ability to make choices about living situations, household finances, and medical care. N o Screening Results R esults E lder maltreatment screen documented as negative, follow-up is not required (G8734) Elder maltreatment screen documented as negative, follow-up is not required. * ROS: P sychiatric: Patient denies a uditory / visual hallucinations, delusions, satnam, difficulty concentrating, panic attacks, suicidal thoughts, anxiety, depressed mood. C robert Contreras [facility] for details. * Medical History: * Surgical History: C ataract surgery (37827) Tonsilectomy/adenoids Sinus surgery Hysterectomy (30334) Appendectomy (83711) Cosmetic surgery Other Breast surgery (67710) 07/27/2021 * Hospitalization/Major Diagno stic Procedure: C [facility] June 2024 * Family History: U nspecified Relation: Depressive disorder . F ather: No current problems or disability . Mother: No current problems or disability . B rother: Alcohol abuse . S ister: Anxiety disorder . S on: alive. 2 son(s) . . 2 sons. One lives locally and lives in [place]. No meds during . Mental illness started when she was 33 years old. One brother 2 years ago. Pt has 3 brother and 5 sisters. * Social History: T obacco Use: T obacco Control (Standard) T obacco use: F ormer smoker M igrated Social History: M igrated Social History: Alcohol Intake: Occasional 07/19/2020,Tobacco Years: Former smoker 02/06/2018,Smoking Status: 20 03/15/2023. D rug/Alcohol: D o you smoke marijuana?: Denies. Do you drink alcohol?: No. M iscellaneous: A dvance Care Planning A re you your own decision-maker Y es D o you have Power of Slip Seat Coverer for Health or Medical? Y es D o you have power of corporate associate attorney for Medical ? Yes A dvance Directive R efused to discuss advance care planning,Living Will * Medications: T akingMelatonin 5 MG Tablet 1 tablet in the evening Orally Once a day ALPRAZolam 0.25 MG Tablet 1 tablet Orally three times a day traZODone HCl 100 MG Tablet 2 tablet at bedtime Oral at bedtime hydrOXYzine HCl 10 MG Tablet 1 tablet as needed Orally three times a day Divalproex Sodium 250 MG Tablet Delayed Release 3 tablet Oral daily lamoTRIgine 100 MG Tablet 0.5 tablet Oral Once a day Taking Melatonin 5 MG Tablet 1 tablet in the evening Orally Once a day Taking ALPRAZolam 0.25 MG Tablet 1 tablet Orally three times a day Taking traZODone HCl 100 MG Tablet 2 tablet at bedtime Oral at bedtime Taking hydrOXYzine HCl 10 MG Tablet 1 tablet as needed Orally three times a day Taking Divalproex Sodium 250 MG Tablet Delayed Release 3 tablet Oral daily Taking lamoTRIgine 100 MG Tablet 0.5 tablet Oral Once a day Not-TakingProAir HFA 108 (90 Base) MCG/ACT Aerosol Solution Inhalation Not-Taking ProAir HFA 108 (90 Base) MCG/ACT Aerosol Solution Inhalation DiscontinuedtraZODone HCl 100 MG Tablet 2 tablet at bedtime Orally Once a day hydrOXYzine HCl 25 MG/ML Solution as directed Intramuscular ALPRAZolam 0.25 MG Tablet TAKE 1 TABLET BY MOUTH THREE TIMES DAILY FOR 30 DAYS ARIPiprazole 20 MG Tablet 1 tablet Orally Once a day OLANZapine 10 MG Tablet 1 tablet every night Orally Once a day Caplyta 21 MG Capsule 1 capsules Orally Once a day Medication List reviewed and reconciled with the patientDiscontinued traZODone HCl 100 MG Tablet 2 tablet at bedtime Orally Once a day Discontinued hydrOXYzine HCl 25 MG/ML Solution as directed Intramuscular Discontinued ALPRAZolam 0.25 MG Tablet TAKE 1 TABLET BY MOUTH THREE TIMES DAILY FOR 30 DAYS Discontinued ARIPiprazole 20 MG Tablet 1 tablet Orally Once a day Discontinued OLANZapine 10 MG Tablet 1 tablet every night Orally Once a day Discontinued Caplyta 21 MG Capsule 1 capsules Orally Once a day Medication List reviewed and reconciled with the patient * Allergies: P enicillins: Allergy - Onset Date 07/23/2023Sertraline: diarrheaViibryd: diarrheano[Allergies Verified] Objective: * Vitals: B P:111/70mm Hg, HR:81/min, Wt:138lbs, Wt-k.6 kg, Ht: 62.00 in, Ht-cm: 157.48 cm, BMI:25.24Index, Body Surface Area: 1.65. * Examination: P sychiatry: Appearance: w ell-groomed. Abnormal body movements: n one. Affect / mood: a ppropriate. Attention: g ood. Attitude: c ooperative. Homicidal ideation: n one. Suicidal ideation: n one. Degree of awareness of surroundings: w ithin normal limits. Delusions: y es. Hallucinations: n o. Insight: l imited. Judgement: , fair. Orientation: a wake, alert and oriented x 3. Perceptual disorders: n o perceptual disorder noted. Psychomotor activity: w ithin normal range. Speech / language: n ormal rate, volume, and articulation (RVR), clear and coherent. Thought content: a ppropriate. Thought process: p aranoia. Assessment: * Assessment: 1. S chizoaffective disorder, bipolar type - F25.0 (Primary) 2 . G eneralized anxiety disorder - F41.1 3 . O ther fci (current) drug therapy - Z79.899 4 . P rimary insomnia - F51.01 5 . E ncounter for screening for cardiovascular disorders - Z13.6 6 . E ncounter for screening for depression - Z13.31 Plan: * Treatment: 2. G eneralized anxiety disorder Continue hydrOXYzine HCl Tablet, 10 MG, 1 tablet as needed, Orally, three times a day, 30 days, 90 Tablet, Refills 1. 3. O ther fci (current) drug therapy L AB: Valproic Acid (Depakote),S L AB: Vitamin D, 1,25 Dihydroxy L AB: Comp. Metabolic Panel (14) L AB: CBC 4. P rimary insomnia Refill traZODone HCl Tablet, 100 MG, 2 tablet at bedtime, Oral, at bedtime, 90 days, 180, Refills 0. 5. O thers Notes: Continue off of Caplyta, currently stable Patient educated on all medications including potential benefits, side effects, risks. Educated on proper dosing schedule and importance of compliance. Labs ordered today Cont counseling with Maribel Clinical Notes: -Assessment and treatment plan reviewed with patient. -Compliance with treatment plan importance discussed. -Discussed the risks/benefits of this medication -Discussed medication side effects. -Contact office if symptoms worsen. -Discussed that it can take up to 6-8 weeks to see full therapeutic effects of psychotropic medications. -Crisis prevention hotline 988. * Procedure Codes: G 8783 NORMAL BP READING DOC F/U NOT [id number] ACP DISCUSS/DSCN MKR [id number] ELDER MALTX SCR DOC NEG NO F/U [id number] TOBACCO [id number] BEHAV ASSMT W/SCORE & DOCD/STAND [id number] VISIT COMPLEXITY INHERENT TO ONGOING CARE RELATED TO A PATIENT'S SINGLE, SERIOUS CONDITION OR A COMPLEX [id number] CLIN DEPRESSION SCREEN [id number] MOST RECENT SYSTOLIC BP < 140MM [id number] MOST RECENT DIASTOLIC BP < 90MM HG * Preventive Medicine: Counseling: A dvance Care Planning Date of last Advance Care Plannin07/14/2024 ____ MIPS Type of advance care directives: L iving Will * Follow Up: 4 Weeks (Reason: medication follow up) * Billing Information: * Visit Code: 55061 OFFICE OUTPATIENT VISIT 25 MINUTES DETAILED HISTORY AND EXAM/MODERATE MEDICAL DECISION MAKING. * Procedure Codes: G8783 NORMAL BP READING DOC F/U NOT RQR. 1123F ACP DISCUSS/DSCN MKR DOCD. G8734 ELDER MALTX SCR DOC NEG NO F/U RQR. 1036F TOBACCO NON-USER. 42753 BEHAV ASSMT W/SCORE & DOCD/STAND INSTRUMENT. G2211 VISIT COMPLEXITY INHERENT TO ONGOING CARE RELATED TO A PATIENT'S SINGLE, SERIOUS CONDITION OR A COMPLEX CONDITION. G8431 CLIN DEPRESSION SCREEN DOC. G8752 MOST RECENT SYSTOLIC BP < 140MM HG. G8754 MOST RECENT DIASTOLIC BP < 90MM HG. * Sign off status: Completed true * Provider: YO MERCHANT Date: 0 07/14/2024 Generated for Pedro Pablo zazueta/Nayla/Nia on: 0 07/15/2024 02:45 PM CDT History and Physical Notes * HPI (History of Present Illness) Category Sub-Category Detail Notes Category Not es History of Presenting Problem Anxiety with excessive worry, with restlessness, which has been long-standing Here for follow up. Caplyta was started last apt 2 weeks ago for psychosis. Reports she is doing better . However, she discontinued the Caplyta after two days due to excessive sleeping. concurs that she is doing better and is stable. Reports she is not laying on the couch crying all day, as reportedly she was previously. Denies paranoia, psychosis, no overt psychotic symptoms noted during exam today. Sleep is good, getting about 7-9 hours nightly. Energy is fair. Has been supplementing with Melatonin. Appetite is poor, eating about one meal daily. Depression screening done advance care planning discuss Depression with sad mood, with isolative behavior, with decreased energy Suicidal ideation denies suicidal idea tion Mood lability denies satnam Psychotherapy Maribel Memory SLUMS 20 12/2023 Depression screening PHQ-9 Little inte rest or pleasure in doing things: Several days Feeling down, depressed, or hopeless: Se veral days Trouble falling or staying asleep, or sl eeping too much: Several days Feeling tired or having little energy: M ore than half the days Poor appetite or overeating: More than h jerald the days Feeling bad about yourself o r that you are a failure, or have let yourself or your family down: Not at all Trouble concentrating on thi ngs, such as reading the newspaper or watching television: Not at all Moving or speaking so slowly that other people could have noticed; or the opposite, being so fidgety or restless that you have been moving around a lot more than usual: Not at all Thoughts that you would be b [place] off or of hurting yourself in some way: Not at all Total Score: 7 Interpretation: Mild Depression Intervention Depression Screening Findings: P ositve Follow-Up for Depression: [facility] health care management, Psychiatric follow-up Suicide Risk Assessment Performed: __ da te Elderly Maltreatment Screening Questions Physica l Abuse - Infliction of physical injury by punching, beating, kicking, biting, burning, shaking, or other actions that result in harm.: No Elder maltreatment screen documented as negative, follow-up is not required Emotional/Psychological Abus e - Willful infliction of mental or emotional anguish by threat, humiliation, isolation, or other verbal or nonverbal conduct.: No Neglect - Involves attitudes of others or actions caused by others - such as family members, friends, or institutional caregivers - that have an extremely detrimental effect upon well-being: No Sexual Abuse - Forcing of un desired sexual behavior by one person upon another against their will who are either competent or unable to fully comprehend and/or give consent. This may also be called molestation.: No Elder Abandonment - Desertio n of an elderly person by an individual who has assumed responsibility for providing care for an elder, or by a person with physical custody of an elder: No Financial or Material Exploi tation - Taking advantage of a person for monetary gain or profit: No Unwarranted Control - Contro lling a person's ability to make choices about living situations, household finances, and medical care.: No Screening Results Results: Elder maltr eatment screen documented as negative, follow-up is not required (G8734) Examination Category Sub-Category Detail Notes Category Not es Psychiatry Appearance: well-groomed Attitude: cooperative Psychomotor activity: within normal rang e Abnormal body movements: none Attention: good Degree of awareness of surroundings: wit hin normal limits Orientation: awake, alert and randall ented x 3 Affect / mood: appropriate Speech / language: normal rate, volume, and articulation (RVR), clear and coherent Insight: limited Judgement: , fair Thought process: paranoia Thought content: appropriate Perceptual disorders: no perceptual diso rder noted Suicidal ideation: none Homicidal ideation: none Delusions: yes Hallucinations: no
[2024-07-15 15:11] LABS: Hematocrit 39.3 % (35.0-42.0); Hemoglobin 12.9 g/dL (11.7-13.8); Mean Corpuscular HGB Conc 32.8 g/dL (32-36); Mean Corpuscular Hemoglobin 31.3 pg (27.0-31.0); Mean Corpuscular Volume 95.4 fL (78.0-102.0); Mean Platelet Volume 10.7 fl (9.2-11.8); Platelet Count Result 152 K/mm3 (150-420); Red Blood Count 4.12 M/mm3 (4.20-5.40); Red Cell Distribution Width 12.8 % (11.6-14.4); White Blood Count 6.9 K/mm3 (4.8-10.8)
[2024-07-15 15:42] LABS: Alanine Aminotransferase 12 U/L (6-35); Alkaline Phosphatase 48 U/L (38-126); Anion Gap 4 mmol/L (4-12); Aspartate Amino Transferase 21 U/L (14-36); Bilirubin,Total 0.5 mg/dL (0.2-1.3); Blood Urea Nitrogen 19 mg/dL (7-17); Calcium 9.7 mg/dL (8.4-10.2); Carbon Dioxide 29 mmol/L (22-30); Chloride 105 mmol/L (98-107); Estimated Glomerular Filt Rate 52; Glucose 94 mg/dL (65-110); Osmolality Calculated 288 mOsm/kg (285-295); Potassium 4.6 mmol/L (3.4-5.0); Sodium 138 mmol/L (137-145)
[2024-07-17 09:04] LABS: Vitamin D 25 Hydroxy 74 ng/mL (30-100)
[2024-07-17 12:05] LABS: Valproic Acid 93.4 mg/L (50.0-100.0)
== END 2024-07-15 14:39 | disposition home or self-care (01) ==
LOC: CHSLAB 14:42
PROVIDERS: PCP Family Medicine
DX: Z79.899 Other long term (current) drug therapy (principal)
CPT/HCPCS: 36415; 80053; 80164; 82306; 85027

== ENCOUNTER 2024-10-13 11:55 | Outpatient (CLI) | payer MEDICARE, SELFPAY ==
[2024-10-13 12:11] LABS: Hematocrit 39.8 % (35.0-42.0); Hemoglobin 13.2 g/dL (11.7-13.8); Immature Granulocyte Percent A 0.2 % (0.0-0.0); Lymphocytes Absolute Auto 1.49 K/mm3 (1.10-4.50); Mean Corpuscular HGB Conc 33.2 g/dL (32-36); Mean Corpuscular Hemoglobin 33.0 pg (27.0-31.0); Mean Corpuscular Volume 99.5 fL (78.0-102.0); Nucleated Red Blood Cells Absolute Auto 0.00 K/mm3 (0.00-0.00); Nucleated Red Blood Cells Perc 0.0 % (0-0.0); Platelet Count Result 223 K/mm3 (150-420); Red Blood Count 4.00 M/mm3 (4.20-5.40); White Blood Count 5.3 K/mm3 (4.8-10.8)
--- OUTSIDE RECORDS SUMMARY | 2024-10-13 12:31 | XMS_ITS | Encounter Summary ---
Author Organization [facility] Address [address] [place] [address] Care Team Providers Care Rn Case Manager Hospice Name Role Phone Cory Cooper MD Primary Care Provider [phone] Encounter Details Date Type Department Care Team (Late st Contact Info) Description 03/15/2022 Lab Requisition [facility] DermPath Lab [address] [place] [address] [place] [address] [place] [id number] Social History Tobacco Use Types Packs/Day Years [...] Comments DERMATOPATHOLOGY Routine 03/13/2022 12:0 0 AM [facility] [employer] documented in this encounter Results * DERMATOPATHOLOGY (03/13/2022 12:00 AM [facility] [employer]) Case Report Dermatopathology Report Case: [id number] Authorizing Provider: Kristofer Saenz MD Collected: 03/13/2022 12:00 AM Ordering Location: [facility] Derm[facility] Lab Received: 03/15/2022 07:16 AM Pathologist: Karolina Desir MD Specimen: Skin, post neck 6:20 PM [facility] DERMATOPATHOLOGY LABORATORY Final Diagnosis Specimen A. SKIN, post neck: SEBORRHEIC KERATOSIS (L82.1) PRESENT AT MARGIN 3 6:[address] [facility] DERMATOPATHOLOGY LABORATORY at 1820 [facility] [employer] Clinical History R/O BCC. Please Check Margins. 3 6:[address] [facility] DERMATOPATHOLOGY LABORATORY Gross Description Specimen A: Received is one formalin filled container labeled with the patient's name and designated post neck. The specimen consists of a shave biopsy measuring [id number] and it is inked. Jar 0. 3 6:[address] [facility] DERMATOPATHOLOGY LABORATORY Microscopic Description Specimen A. SKIN, post neck: Sections show an acanthotic lesion composed of relatively uniform keratinocytes. There is hyperkeratosis and pseudo horn cysts formation. This lesion is present at the margin of the specimen. 3 6:[address] [facility] DERMATOPATHOLOGY LABORATORY Disclaimer An external and internal positive and negative controls are appropriate for the histochemical, immunohistochemical and immunofluorescence stain(s) in this case (if any), except where stated explicitly. The performance characteristics of the stain(s) cited in this report were developed and its performance characteristic determined by the Dermatopathology Laboratory at [facility], directed by Dr. Elysia Reyes. These tests need not be, and therefore are not, approved by the [place] Food and Drug Administration. The tests are used for clinical purposes. Billing Codes Specimen Charges Stain Charges 96468 1 3 6:[address] [facility] DERMATOPATHOLOGY LABORATORY Embedded Images 3 6:[address] [facility] DERMATOPATHOLOGY LABORATORY Pathology/Cytolog y TISSUE SPECIMEN FROM SKIN / Unknown 03/13/2022 03/15/2022 7:[address] [facility] us Kristofer Saenz MD LAB - PATHOLOGY/CYTOLOGY ORDERAB LES Final Result DERMATOPATHOLOGY LABORATORY [facility] - Department of Dermatology [address], [address] [phone] documented in this encounter Visit Diagnoses Not on filedocumented in this encounter Care Teams Rn Case Manager Hospice Relationship Specialty Start Date End Date Cory Cooper MD [address] [place] [address] PCP - General 08/01/21 documented as of this encounter
--- OUTSIDE RECORDS SUMMARY | 2024-10-13 12:32 | XMS_ITS | Encounter Summary ---
Author Organization [facility] Address [address] [place] [address] Care Team Providers Care Caisson Worker Name Role Phone Cory Cooper MD Primary Care Provider [phone] Encounter Details Date Type Department Care Team (Late st Contact Info) Description 03/11/2024 Lab Requisition [facility] Physician [facility] - DermPath Lab [address] [place] [id number] Kristofer Saenz MD [address] [place] [address] Social History Tobacco Use Types Packs/Day Years [...] Comments DERMATOPATHOLOGY Routine 03/10/2024 12:0 0 AM [employer] documented in this encounter Results * DERMATOPATHOLOGY (03/10/2024 12:00 AM [employer] REPAIRER) Case Report Dermatopathology Report Case: [id number] Authorizing Provider: Kristofer Saenz MD Collected: 03/10/2024 12:00 AM Ordering Location: [facility] - Received: 03/11/2024 03:25 PM DermPath Lab Pathologist: Dorene Desir MD Specimen: Skin, right chin 1:03 PM [employer] REPAIRER DERMATOPATHOLOGY LABORATORY Final Diagnosis Specimen A. SKIN, right chin: BASAL CELL CARCINOMA, NODULAR TYPE (C44.319) 1:03 PM [facility] DERMATOPATHOLOGY LABORATORY at [address] [facility] Clinical History R/O BCC 1:03 PM [facility] DERMATOPATHOLOGY LABORATORY Gross Description Specimen A: Received is one formalin filled container labeled with the patient's name and designated right chin. The specimen consists of a shave biopsy measuring 3x2x1 mm. Jar 0. 1:03 PM [facility] DERMATOPATHOLOGY LABORATORY Microscopic Description Specimen A. SKIN, right chin: Within the dermis there are aggregates of basaloid cells with a high nuclear to cytoplasmic ratio and peripheral palisading. 1:03 PM [facility] DERMATOPATHOLOGY LABORATORY Disclaimer An external and internal positive and negative controls are appropriate for the histochemical, immunohistochemical and immunofluorescence stain(s) in this case (if any), except where stated explicitly. The performance characteristics of the stain(s) cited in this report were developed and its performance characteristic determined by the Dermatopathology Laboratory at [facility], directed by Dr. Elysia Reyes. These tests need not be, and therefore are not, approved by the [place] Food and Drug Administration. The tests are used for clinical purposes. Billing Codes Specimen Charges Stain Charges 90038 1 1:03 PM [facility] DERMATOPATHOLOGY LABORATORY Embedded Images 1:03 PM [facility] DERMATOPATHOLOGY LABORATORY Pathology/Cytolog y TISSUE SPECIMEN FROM SKIN / Unknown 03/10/2024 03/11/2024 3:25 PM [facility] us Kristofer Saenz MD LAB - PATHOLOGY/CYTOLOGY ORDERAB LES Final Result DERMATOPATHOLOGY LABORATORY [facility] - Department of Dermatology [address], [address] [phone] documented in this encounter Visit Diagnoses Not on filedocumented in this encounter Care Teams Caisson Worker Relationship Specialty Start Date End Date Cory Cooper MD [address] [phone] PCP - General 08/01/21 documented as of this encounter
--- OUTSIDE RECORDS SUMMARY | 2024-10-13 12:32 | XMS_ITS | Patient Health Record ---
Author Organization [facility] Address [address] [place] [address] Care Team Providers Care Construction Estimator Name Role Phone Uyen Bhatti Primary Care Provider [phone] Ericka Mayorga Unavailable [phone] Kate Hopper Unavailable [phone] Allergies Allergen (clinical drug ingredient) Drug/Non Drug Allergy documented on EMR Reaction Allergy Type Onset Date Status Penicillin Unknown Drug Allergy Active Results Component Value Reference Range Notes CBC With Differential/Platel et* Reviewed date:07/14/2024 11:17:03 AM Interpretation:Normal Performing Lab:[facility], [address], Phone - [phone], Director - Ricphyllisi Notes/Report: WBC 6.1 3.4-10.8 x10E3/uL RBC 4.81 [...] Comments: Note: Verifie d by microscopic examination. CMP 14 Comprehensive Metabol ic Panel* Reviewed date:07/14/2024 11:17:03 AM Interpretation:Normal Performing Lab:[facility], [address], Phone - [phone], Director - [facility] Notes/Report: Glucose 89 70-99 mg/dL BUN [...] 0-40 IU/L ALT (SGPT) 11 0-32 IU/L QuantiFERON-TB Gold Plus ([id number]) Reviewed date:07/14/2024 11:17:04 AM Interpretation:Normal Performing Lab:[facility], [address], Phone - [phone], Director - [facility] Notes/Report: QuantiFERON Incubation Incubation performed. QuantiFERON-TB Gold [...] Nil Value 0.04 QuantiFERON Mitogen Value 1.00 Breathalyzer Reviewed date:07/09/2024 10:52:53 AM Interpretation: Performing Lab: Notes/Report: GEORGES 0.000 12 Panel Urine Drug Screen Reviewed date:07/09/2024 10:52:24 AM Interpretation: Performing Lab: Notes/Report: THC neg CHRISTOPHE neg MOP (OPI) neg AMP neg MET neg BAR neg BZO neg MDMA neg MTD neg OXY neg PCP neg BUP neg Reason For Referral No Information Medications Medication SIG (Take, Route, Frequency, Duration) Notes Start Date End Date Status Multi Vitamin - 1 tablet Orally Once a day; Duration: 30 days 07/09/2024 Active Melatonin 5 MG 1 tablet at bedtime as needed Orally Once a day; Duration: 30 days 07/09/2024 Active Divalproex Sodium 250 [...] 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 Stress is when someone feels tense, nervous, anxious, or can\t sleep at night because their mind is troubled Very much In the past year have you sp ent more than 2 nights in a row in a [facility], [place] [facility] [place], prison center, or juvenile correctional facility? No Are [...] Status Risk Notes Problem Bipolar 1 disorder ([id number]) Bipolar 1 disorder (F31.9) Active confirmed Problem [...] 07/09/2024 Encounters Encounter Location Date Provider Diagnosis [facility] [address] [place] [address] 07/09/2024 Uyen Bhatti Routine general medical examination at a health care facility Z00.00 and Over weight E66.3 [facility] [address] [place] [address] 07/09/2024 Kate Hopper Bipolar 1 disorder F31.9 Assessments Encounter Date Diagnosis (ICD Code) Assessment Notes Treatment Notes Treatment Clinical Notes Section Notes 07/09/2024 Routine general medical examination at a [facility] care facility (ICD-10 - Z00.00) Admit to [...] service needs. 07/09/2024 Other Clinician met w [facility] client to assess needs for residential services. [...] Coverage End Date [employer] [address] [place] [address] [id number] Sharon Grady Self - patient is the insured 5 [employer] LCSW [address] [place] [address] [id number] Sharon Grady Self - patient is the insured 5 Medical (General) History Medical History History ICD Code Bipolar Schizophrenia Surgical History Surgery Date(Month/Year) Hysterectomy section Hospitalization History Reason Date(Month/Year) [place], [place]
--- OUTSIDE RECORDS SUMMARY | 2024-10-13 12:32 | XMS_ITS | Patient Health Record ---
Author Organization [facility] Address [address] [facility] [address] [place] [address] Care Team Providers Care Appraisal Analyst Name Role Phone Kenneth VERDUGO, Cory Primary Care Provider Anabelle Malagon Unavailable [phone] Maribel Bustillo Unavailable [phone] Annie Suresh Unavailable [phone] Valeriano Torres Unavailable [phone] Allergies Allergen (clinical drug ingredient) Drug/Non Drug [...] Oxazepam (BZO) p 0 - 300 ng/ml 5-wfkpcfmuuu-0,2-ckkcxmbe-7, 3-diphenylpyrr olidine (EDDP) n 0 - 300 ng/ml Methamphetamine (MET) n 0 - 1000 ng/ml Methylenedioxymethamphetamine (MDMA) n 0 - 500 ng/ml Morphine (MOP 300/PAP8858) n 0 - 300 ng/ml Methadone (MTD) n 0 - 300 ng/ml Phencyclidine (PCP) n 0 - 25 ng/ml Nortriptyline (TCA) n 0 - 1000 ng/ml Oxycodone n 0 - 300 ng/ml x n 0 - 300 ng/ml Benzodiazepines Reviewed date:05/01/2024 02:35:35 PM Interpretation: Performing Lab:EMILY Merlos, [facility], Director - [id number] Notes/Report: An exception occurred while processing this report and so it has incomplete data. Please contact [employer] for assistance. Medicated Consistent Medicated Consistent [...] Oxazepam (BZO) p 0 - 300 ng/ml 4-aiaawngbng-6,2-rqgodnwm-5, 3-diphenylpyrr olidine (EDDP) n 0 - 300 ng/ml Methamphetamine (MET) n 0 - 1000 ng/ml Methylenedioxymethamphetamine (MDMA) n 0 - 500 ng/ml Morphine (MOP 300/XAZ9174) n 0 - 300 ng/ml Methadone (MTD) n 0 - 300 ng/ml Phencyclidine (PCP) n 0 - 25 ng/ml Nortriptyline (TCA) n 0 - 1000 ng/ml Oxycodone n 0 - 300 ng/ml x n 0 - 300 ng/ml UDT Reviewed date:10/25/2023 05:06:54 PM Interpretation: Performing Lab: Notes/Report: THC n 0 - 50 ng/ml Cocaine n 0 - 300 ng/ml Amphetamine n 0 - 1000 ng/ml Buprenorphine (BUP) n 0 - 10 ng/ml Secobarbital (Bar) n 0 - 300 ng/ml Oxazepam (BZO) p 0 - 300 ng/ml 7-fmnkdpfome-4,2-ndpcvmec-0, 3-diphenylpyrr olidine (EDDP) n 0 - 300 ng/ml Methamphetamine (MET) n 0 - 1000 ng/ml Methylenedioxymethamphetamine (MDMA) n 0 - 500 ng/ml Morphine (MOP 300/JJD1338) n 0 - 300 ng/ml Methadone (MTD) n 0 - 300 ng/ml Phencyclidine (PCP) n 0 - 25 ng/ml Nortriptyline (TCA) n 0 - 1000 ng/ml Oxycodone n 0 - 300 ng/ml x n 0 - 300 ng/ml Reason For Referral No Information Medications Medication SIG (Take, Route, Fr equency, Duration) Notes Start Date End Date Status hydrOXYzine HCl 10 MG 1 tablet as needed Orally three times a day; Duration: 30 days Active OLANZapine 10 MG 1 tablet Orally Once a day; Duration: 90 days at bedtime Active FLUoxetine HCl 40 MG 1 capsule Orally On ce a day; Duration: 90 days Active Immunizations Vaccine Route Administration [...] unspecified formulation Unknown 12/11/2022 A dministered Novel Nstbsaynt-I5V0-94, preservative free Unknown 03/04/2013 Administered Novel Mewfdftfd-P9A1-46, preservative free Unknown 01/01/2017 Administered Novel Bdhneoiru-W6S3-89, preservative free Unknown 12/08/2018 Administered Novel Dmbpqwlqt-Z3C7-18, preservative free Unknown 11/11/2019 Administered Pfizer Biontech [...] CodeDo you have a medical power of city attorney?: YesPublic Health and TravelHave you been to [...] CodeDo you have a medical power of city attorney?: YesPublic Health and TravelHave you been to [...] CodeDo you have a medical power of city attorney?: YesPublic Health and TravelHave you been to [...] Risk Notes Problem Schizoaffective disorder, bipolar type (85734885) Schizoaffective disorder, bipolar type (F25.0) Active confirmed stable on current medications . No paranoia, hallucinati ons, delusional behavior noted or reported Problem Generalized anxiety disorder (25183366) Generalized anxiety disorder (F41.1) Active confirmed Stable on lower dose of alprazolam, continue 0.25mg TID PRN Problem Primary insomnia (2453292) Primary insomnia (F51.01) Active confirmed well controlled, continue current therapy Problem Long-term current use of drug therapy (556387562) Other exterminator (current) drug therapy (Z79.899) Active confirmed Problem Elevated blood-pressure reading without diagnosis of hypertension (329605540) Elevated blood pressure reading (R03.0) Active confirmed Problem Memory impairment (762368991) Memory impairment (R41.3) Active confirmed Problem Amnesia (51573807) Memory loss or impairment (R41.3) Active confirmed Vital Signs Heart Rate 80 /min 09/17/2024 Height-cm 157.48 cm 09/17/2024 Blood pressure diastolic 74 mm Hg 09/17/2024 Weight-kg 56.7 kg 09/17/2024 Height 62.00 in 09/17/2024 Blood pressure systolic 112 mm Hg 09/17/2024 Weight 125 lbs 09/17/2024 BMI 22.86 kg/m2 09/17/2024 Procedures Procedure Date Ordered Date Performed Result Body Sit e MCI Testing 03/27/2024 N/A Encounters Encounter Location Date Provider Diagnosis [facility] [address] [place] [address] 10/25/2023 Maribel Yap Vitor Schizoaffective disorder, bipolar type F25.0 and Generalized anxiety disorder F41.1 [facility] [address] [place] [address] 10/25/2023 Annie Thery Schizoaffective disorder, bipolar type F25.0 ; Generalized anxiety disorder F41.1 and Primary insomnia F51.01 [email or web address] [address] [place] [address] 11/05/2023 Annie Thery Schizoaffective disorder, bipolar type F25.0 ; Generalized anxiety disorder F41.1 and Primary insomnia F51.01 [email or web address] [address] [place] [address] 11/13/2023 Maribelarabella Yap Vitor Schizoaffective disorder, bipolar type F25.0 and Generalized anxiety disorder F41.1 [email or web address] [address] [place] [address] 12/05/2023 Annie Thery Schizoaffective disorder, bipolar type F25.0 ; Generalized anxiety disorder F41.1 ; Primary insomnia F51.01 and Memory loss or impairment R41.3 [email or web address] [address] [place] [address] 12/11/2023 Maribel Yap Vitor Schizoaffective disorder, bipolar type F25.0 and Generalized anxiety disorder F41.1 [facility] [address] [place] [address] 01/06/2024 Maribel Adler Generalized anxiety disorder F41.1 and Schizoaffective disorder, bipolar type F25.0 [facility] [address] [place] [address] 01/06/2024 Annie Thery Schizoaffective disorder, bipolar type F25.0 ; Generalized anxiety disorder F41.1 ; Primary insomnia F51.01 ; Memory loss or impairment R41.3 and Elevated blood pressure reading R03.0 [facility] [address] [place] [address] 01/08/2024 Anabelle Kurilla Schizoaffective disorder, bipolar type F25.0 ; Generalized anxiety disorder F41.1 and Primary insomnia F51.01 [facility] [address] [place] [address] 01/28/2024 Anabelle Kurilla Schizoaffective disorder, bipolar type F25.0 ; Generalized anxiety disorder F41.1 and Primary insomnia F51.01 [facility] [address] [place] [address] 02/03/2024 Maribelarabella Adler Schizoaffective disorder, bipolar type F25.0 and Generalized anxiety disorder F41.1 [facility] [address] [place] [address] 02/13/2024 Anabelle Kurilla Schizoaffective disorder, bipolar type F25.0 ; Generalized anxiety disorder F41.1 and Primary insomnia F51.01 [facility] [address] [place] [address] 02/27/2024 Valeriano Torres Schizoaffective disorder, bipolar type F25.0 and Generalized anxiety disorder F41.1 [facility] [address] [place] [address] 03/24/2024 Maribel Adler Generalized anxiety disorder F41.1 and Schizoaffective disorder, bipolar type F25.0 [facility] [address] [place] [address] 03/27/2024 Anabelle Kurilla Schizoaffective disorder, bipolar type F25.0 ; Generalized anxiety disorder F41.1 ; Primary insomnia F51.01 and Memory impairment R41.3 [facility] [address] [place] [address] 04/09/2024 Maribel Adler Generalized anxiety disorder F41.1 and Schizoaffective disorder, bipolar type F25.0 [facility] [address] [place] [address] 04/22/2024 Anabelle Kurilla Schizoaffective disorder, bipolar type F25.0 ; Generalized anxiety disorder F41.1 and Primary insomnia F51.01 [facility], [place] [address] [place] [address] 04/30/2024 Anabelle Kurpriscila Schizoaffective disorder, bipolar type F25.0 ; Generalized anxiety disorder F41.1 and Primary insomnia F51.01 [place] [address] [place] [address] 05/07/2024 Maribelarabella Yap Vitor Schizoaffective disorder, bipolar type F25.0 and Generalized anxiety disorder F41.1 [place] [address] [place] [address] 05/21/2024 Anabelle Kurpriscila Schizoaffective disorder, bipolar type F25.0 ; Generalized anxiety disorder F41.1 ; Primary insomnia F51.01 ; Encounter for screening for depression Z13.31 and Encounter for screening for cardiovascular disorders Z13.6 [place] [address] [place] [address] 06/05/2024 Anabelle Kurpriscila Encounter for screen ing for depression Z13.31 ; Schizoaffective disorder, bipolar type F25.0 ; Generalized anxiety disorder F41.1 ; Primary insomnia F51.01 and Encounter for screening for cardiovascular disorders Z13.6 [place] [address] [place] [address] 06/11/2024 Maribelarabella Yap Vitor Schizoaffective disorder, bipolar type F25.0 and Generalized anxiety disorder F41.1 [place] [address] [place] [address] 07/02/2024 Maribelarabella Yap Vitor Schizoaffective disorder, bipolar type F25.0 ; Generalized anxiety disorder F41.1 and Encounter for screening for depression Z13.31 [facility], [facility] [address] [place] [address] 07/02/2024 Anabelle Kurilla Generalized anxiety disorder F41.1 ; Primary insomnia F51.01 ; Encounter for screening for depression Z13.31 ; Schizoaffective disorder, bipolar type F25.0 and Encounter for screening for cardiovascular disorders Z13.6 [facility], [facility] [address] [place] [address] 07/14/2024 Anabelle Kurilla Generalized anxiety disorder F41.1 ; Other exterminator (current) drug therapy Z79.899 ; Primary insomnia F51.01 ; Encounter for screening for cardiovascular disorders Z13.6 ; Schizoaffective disorder, bipolar type F25.0 and Encounter for screening for depression Z13.31 [facility], [facility] [address] [place] [address] 09/17/2024 Anabelle Warren Generalized anxiety disorder F41.1 ; Primary insomnia F51.01 and Schizoaffective disorder, bipolar type F25.0 [facility], [facility] [address] [place] [address] 10/02/2024 Maribel Adler Schizoaffective disorder, bipolar type F25.0 and Generalized anxiety disorder F41.1 [facility], [facility] [address] [place] [address] 10/31/2023 Annie Suresh [facility], [facility] [address] [place] [address] 10/31/2023 Annie Suresh [facility], [facility] [address] [place] [address] 10/31/2023 Annie Suresh [facility], [facility] [address] [place] [address] 11/13/2023 Annie Suresh [facility], [facility] [address] [place] [address] 12/06/2023 Annie Suresh Generalized anxiety disorder F41.1 [facility], [facility] [address] [place] [address] 01/24/2024 Annie Thermadi Generalized anxiety disorder F41.1 [facility], [facility] [address] [place] [address] 03/25/2024 Anabelle Warren [facility], [facility] [address] [place] [address] 04/20/2024 Anabelle Warren [facility], [facility] [address] [place] [address] 09/07/2024 Anabelle Warren [facility], [facility] [address] [place] [address] 01/23/2024 Annie Suresh [facility], [facility] [address] [place] [address] 03/24/2024 Anabelle Warren Schizoaffective disorder, bipolar type F25.0 and Generalized anxiety disorder F41.1 [facility], [facility] [address] [place] [address] 03/27/2024 Anabelle Warren [facility], [facility] [address] [place] [address] 03/28/2024 Anabelle Warren [facility], [facility] [address] [place] [address] 03/31/2024 Anabelle Warren [facility], [facility] [address] [place] [address] 03/31/2024 Anabelle Warren [facility], [facility] [address] [place] [address] 03/31/2024 Anabelle Warren [facility], [facility] [address] [place] [address] 04/10/2024 Anabelle Warren [facility], [facility] [address] [place] [address] 04/10/2024 Anabelle Warren [facility], [facility] [address] [place] [address] 04/10/2024 Anabelle Warren [facility], [facility] [address] [place] [address] 04/16/2024 Anabelle Warren [facility], [facility] [address] [place] [address] 04/16/2024 Anabelle Warren [facility], [facility] [address] [place] [address] 04/23/2024 Anabelle Warren [facility], [facility] [address] [place] [address] 04/26/2024 Anabelle Warren [facility], [facility] [address] [place] [address] 04/27/2024 Anabelle Warren [facility], [facility] [address] [place] [address] 04/27/2024 Anabelle Warren [facility], [facility] [address] [place] [address] 05/05/2024 Anabelle Warren [facility], [facility] [address] [place] [address] 05/05/2024 Anabelle Warren [facility], [facility] [address] [place] [address] 05/13/2024 Anabelle Warren [facility], [facility] [address] [place] [address] 05/13/2024 Anabelle Warren [facility], [facility] [address] [place] [address] 05/13/2024 Anabelle Warren [facility], [facility] [address] [place] [address] 05/13/2024 Anabelle Warren [facility], [facility] [address] [place] [address] 05/13/2024 Anabelle Warren [facility], [facility] [address] [place] [address] 05/13/2024 Anabelle Warren [facility], [facility] [address] [place] [address] 05/13/2024 Anabelle Warren [facility], [facility] [address] [place] [address] 05/13/2024 Anabelle Warren [facility], [facility] [address] [place] [address] 05/13/2024 Anabelle Warren [facility], [facility] [address] [place] [address] 05/15/2024 Anabelle Warren [facility], [facility] [address] [place] [address] 05/21/2024 Anabelle Warren [facility], [facility] [address] [place] [address] 05/29/2024 Anabelle Warren [facility], [facility] [address] [place] [address] 05/29/2024 Anabelle Warren [facility], [facility] [address] [place] [address] 05/29/2024 Anabelle Warren [facility], [facility] [address] [place] [address] 05/29/2024 Anabelle Warren [facility], [facility] [address] [place] [address] 05/29/2024 Anabelle Warren Schizoaffective disorder, bipolar type F25.0 [facility], [facility] [address] [place] [address] 05/29/2024 Anabelle Warren [facility], [facility] [address] [place] [address] 05/29/2024 Anabelle Warren [facility], [facility] [address] [place] [address] 06/03/2024 Anabelle Warren [facility], [facility] [address] [place] [address] 06/03/2024 Anabelle Warren [facility], [facility] [address] [place] [address] 06/03/2024 Anabelle Warren [facility], [facility] [address] [place] [address] 06/03/2024 Anabelle Warren [facility], [facility] [address] [place] [address] 06/03/2024 Anabelle Warren [facility], [facility] [address] [place] [address] 06/04/2024 Anabelle Warren [facility], [facility] [address] [place] [address] 06/04/2024 Anabelle Warren [facility], [facility] [address] [place] [address] 06/04/2024 Anabelle Warren [facility], [facility] [address] [place] [address] 07/01/2024 Anabelle Warren [facility], [facility] [address] [place] [address] 07/16/2024 Anabelle Warren [facility], [facility] [address] [place] [address] 07/16/2024 Anabelle Warren [facility], [facility] [address] [place] [address] 07/21/2024 Anabelle Warren [facility], [facility] [address] [place] [address] 07/21/2024 Anabelle Warren [facility], [facility] [address] [place] [address] 07/24/2024 Anabelle Warren [facility], [place] [address] [place] [address] 07/25/2024 Anabelle Warren [facility], [place] [address] [place] [address] 07/28/2024 Anabelle Warren [facility], [place] [address] [place] [address] 07/28/2024 Anabelle Warren [facility], [place] [address] [place] [address] 07/28/2024 Anabelle Warren [facility], [place] [address] [place] [address] 07/28/2024 Anabelle Warren [facility], [place] [address] [place] [address] 07/28/2024 Anabelle Warren [facility], [place] [address] [place] [address] 07/28/2024 [facility] General[facility] disorder F41.1 [facility], [place] [address] [place] [address] 07/28/2024 Anabelle Warren Generalized anxiety disorder F41.1 [facility], [place] [address] [place] [address] 07/29/2024 Anabelle Warren [facility], [place] [address] [place] [address] 07/29/2024 Anabelle Warren [facility], [place] [address] [place] [address] 10/02/2024 Anabelle Warren Assessments Encounter Date Diagnosis (ICD Code) Assessment Notes Treatment Notes Treatment Clinical Notes Section Notes 01/08/2024 Schizoaffective disorder, bipolar type (ICD-10 - F25.0) Lamotrigine is an anticonvulsant and mood stabilizer used in psychiatry. Lamotrigine use is associated with benign rashes (incidence approximately 10%) and rare serious rashes that may require hospitalization and discontinuation of treatment, including Mcgwoan-Sunday syndrome and toxic epidermal necrolysis. Pt educated [...] 01/08/2024 Generalized anxiety disorder (ICD-10 - F41.1) 02/03/2024 Schizoaffective disorder, bipolar type (ICD-10 - [...] the patient's overall mental health and well-being. 02/27/2024 Schizoaffective disorder, bipolar type (ICD-10 - F25.0) Lamotrigine is an anticonvulsant and mood stabilizer used in psychiatry. Lamotrigine use is associated with benign rashes (incidence approximately 10%) and rare serious rashes that may require hospitalization and discontinuation of treatment, including Mcogwan-Sunday syndrome and toxic epidermal necrolysis. Pt educated [...] primary provider and coordinate care accordingly. 03/24/2024 Schizoaffective disorder, bipolar type (ICD-10 - F25.0) 03/27/2024 Schizoaffective disorder, bipolar type (ICD-10 - [...] common with first generation antipsychotics) and more. 04/09/2024 Schizoaffective disorder, bipolar type (ICD-10 - [...] daily -cont lamictal 100mg daily ---pt requesting Wellbutrin-previ ously triggered paranoia, delusions, discussed we will not restart this 2. SELENE stable -decrease alprazolam to 0.25mg twice daily with intent to wean off -cont hydroxyzine PRN -encourage non-pharmaceutic al treatments including deep breathing, grounding exercises, physical [...] Schizoaffective disorder, bipolar type (ICD-10 - F25.0) 10/25/2023 Schizoaffective disorder, bipolar type (ICD-10 - [...] Schizoaffective disorder, bipolar type (ICD-10 - F25.0) 11/13/2023 Schizoaffective disorder, bipolar type (ICD-10 - [...] to only take as needed for anxiety http_s://www.nam i.org/About-Ment al-Illness/Menta y-Vbadrc-Hqhndzc ons http_s://psychce Cybits.Surfkitchen/depres christie/the-cogniti xk-jtqecocl-vh-d epression#treatm ents http__s://www.ni .nih.gov/healt h/topics/mental- health-medicatio ns http__s://www.na mi.org/About-Men kevin-Illness/Haily tments/Mental-He alth-Medications Encourage the patient to continue therapy sessions [...] effects including loss of libido, increased suicidal thoughts/behavio rs in children and young adults, and serotonin [...] to only take as needed for anxiety http_s://www.nam i.org/About-Ment al-Illness/Menta w-Mnshuj-Mxcomsi ons http_s://psychce Zigswitch/irwin soriano/the-cogniti nh-dghmzatz-er-d epression#treatm ents http__s://www.ni .nih.gov/healt h/topics/mental- health-medicatio ns http__s://www.na mi.org/About-Men kevin-Illness/Haily tments/Mental-He alth-Medications Encourage the patient to continue therapy sessions [...] effects including loss of libido, increased suicidal thoughts/behavio rs in children and young adults, and serotonin [...] complaince and risk falls with benzo 11/05/2023 Schizoaffective disorder, bipolar type (ICD-10 - [...] to only take as needed for anxiety http_s://www.nam i.org/About-Ment al-Illness/Menta h-Umdtks-Xhulehl ons http_s://psychce ntral.com/irwin soriano/the-cogniti jh-fepwwpht-td-d epression#treatm ents http__s://www.ni mh.nih.gov/healt h/topics/mental- health-medicatio ns http__s://www.na mi.org/About-Men kevin-Illness/Haily tments/Mental-He alth-Medications Encourage the patient to continue therapy sessions [...] effects including loss of libido, increased suicidal thoughts/behavio rs in children and young adults, and serotonin [...] disucss complaince and risk falls with benzo 12/06/2023 Generalized anxiety disorder (ICD-10 - F41.1) [...] Outlet - Assessment: Patient mentions interest in 5D painting as a creative outlet. 01/06/2024 Schizoaffective disorder, bipolar type (ICD-10 - F25.0) Ongoing Obsessive Thoughts - Assessment: She continues to have obsessive thoughts about her 's potential infidelity, which are causing distress. - Plan: - Discuss cognitive-behavi oral strategies to manage obsessive thoughts. - Encourage continued engagement in therapy to address these concerns. 01/06/2024 Generalized anxiety disorder (ICD-10 - F41.1) Ongoing Obsessive Thoughts - Assessment: She continues to have obsessive thoughts about her 's potential infidelity, which are causing distress. - Plan: - Discuss cognitive-behavi oral strategies to manage obsessive thoughts. - Encourage continued engagement in therapy to address these concerns. 01/06/2024 Schizoaffective disorder, bipolar type (ICD-10 - [...] to only take as needed for anxiety http_s://www.nam i.org/About-Ment al-Illness/Menta o-Cujrmy-Oyxxiju ons http_s://FMS [place]/depres christie/the-cogniti mz-ivtlntlx-nq-d epression#treatm ents http__s://www.ni .nih.gov/healt h/topics/mental- health-medicatio ns http__s://www.na mi.org/About-Men kevin-Illness/Haily tments/Mental-He alth-Medications Encourage the patient to continue therapy sessions [...] effects including loss of libido, increased suicidal thoughts/behavio rs in children and young adults, and serotonin [...] to only take as needed for anxiety http_s://www.nam i.org/About-Ment al-Illness/Menta z-Qjaioj-Wzlovhp ons http_s://psychce Cybits.Surfkitchen/depres christie/the-cogniti ok-jhfldydi-kb-d epression#treatm ents http__s://www.ni .nih.gov/healt h/topics/mental- health-medicatio ns http__s://www.na mi.org/About-Men kevin-Illness/Haily tments/Mental-He alth-Medications Encourage the patient to continue therapy sessions [...] effects including loss of libido, increased suicidal thoughts/behavio rs in children and young adults, and serotonin [...] disucss complaince and risk falls with benzo 01/24/2024 Generalized anxiety disorder (ICD-10 - F41.1) [...] daily -cont lamictal 100mg daily ---pt requesting Wellbutrin-previ ously triggered paranoia, delusions, discussed we will not restart this 2. SELENE stable -decrease alprazolam to 0.5mg twice daily with intent to wean off -cont hydroxyzine PRN -encourage non-pharmaceutic al treatments including deep breathing, grounding exercises, physical [...] EVENING or limit alcohol to 1 drink. 06/05/2024 Encounter for screening for depression (ICD-10 - Z13.31) 06/11/2024 Schizoaffective disorder, bipolar type (ICD-10 - F25.0) 06/11/2024 Generalized anxiety disorder (ICD-10 - F41.1) 07/02/2024 Schizoaffective disorder, bipolar type (ICD-10 - F25.0) 07/02/2024 Generalized anxiety disorder (ICD-10 - F41.1) 07/02/2024 Generalized anxiety disorder (ICD-10 - F41.1) 07/14/2024 Generalized anxiety disorder (ICD-10 - F41.1) 07/28/2024 Generalized anxiety disorder (ICD-10 - F41.1) 07/28/2024 Generalized anxiety disorder (ICD-10 - F41.1) 09/17/2024 Generalized anxiety disorder (ICD-10 - F41.1) 10/02/2024 Schizoaffective disorder, bipolar type (ICD-10 - F25.0) 10/02/2024 Generalized anxiety disorder (ICD-10 - F41.1) 09/17/2024 Primary insomnia (ICD-10 - F51.01) 07/14/2024 Other prison (current) drug therapy (ICD-10 - Z79.899) 07/02/2024 Primary insomnia (ICD-10 - F51.01) 01/28/2024 Generalized anxiety disorder (ICD-10 - F41.1) 1. schizoaffective disorder overall stable; no paranoia noted today -cont olanzapine 10mg qHS -cont abilify 15mg daily -cont lamictal 100mg daily ---pt requesting Wellbutrin-previ ously triggered paranoia, delusions, discussed we will not restart this 2. SELENE stable -decrease alprazolam to 0.5mg twice daily with intent to wean off -cont hydroxyzine PRN -encourage non-pharmaceutic al treatments including deep breathing, grounding exercises, physical [...] EVENING or limit alcohol to 1 drink. 01/06/2024 Primary insomnia (ICD-10 - F51.01) SLUMS= [...] to only take as needed for anxiety http_s://www.nam i.org/About-Ment al-Illness/Menta e-Kqmrwx-Qljbnvd ons http_s://psychce Cybits.Surfkitchen/depralbert christie/the-cogniti kp-dxigncjf-za-d epression#treatm ents http__s://www.ni mh.nih.gov/healt h/topics/mental- health-medicatio ns http__s://www.na mi.org/About-Men kevin-Illness/Haily tments/Mental-He alth-Medications Encourage the patient to continue therapy sessions [...] effects including loss of libido, increased suicidal thoughts/behavio rs in children and young adults, and serotonin [...] disucss complaince and risk falls with benzo 12/11/2023 Generalized anxiety disorder (ICD-10 - F41.1) [...] Outlet - Assessment: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
--- OUTSIDE RECORDS SUMMARY | 2024-10-13 12:33 | XMS_ITS ---
Author Organization [facility] Address [address] [place] [address] Care Team Providers Care Wire Annealer Name Role Phone Kenneth VERDUGO, Coyr Primary Care Provider Anabelle Malagon Unavailable [phone] Maribel Bustillo [phone] REASON FOR VISIT PT was hospitalized Social History Sex Assigned At : Social History Observation Description Sex Assigned At Female Encounters Encounter Location Date Provider Diagnosis [facility] [address] [place] [address] 08/06/2024 Maribel Sosa Plan Of Treatment Next Appt Details Provider Name:Anabelle frederick, 10/22/2024 02:45:00 PM, [address], [address], [place], [address], Progress Notes * LACY NOLAN EDOB: (74 yo F)Acc No.[id number]:08/06/2024 Patient: Lucinda LACY CASANOVA Provider: Virginia SOSA LCSW :1950 A ge:73 Y S ex:Female Date:08/06/2024 [address] [facility] [facility] [id number] Pcp:Cory Cooper MD Data: * Chief Complaints: * 1 . PT was hospitalized. Assessment: Plan: * Treatment: * Billing Information: * Visit Code: * Procedure Codes: * Electronic signature of Laila Sosa LCSW on 10/13/2024 at 12:32 PM CDT Sign off status: Pending Signatures: No Ad Hoc Signature Added * Provider: Virginia SOSA LCSW Date: 0 08/06/2024 Generated for Pedro Pablo Calix on: 0 10/13/2024 12:32 PM CDT
--- OUTSIDE RECORDS SUMMARY | 2024-10-13 12:33 | XMS_ITS | Clinical Summary ---
Author Organization [facility] Address [address] [place] [address] Phone Care Team Providers Care Tripe Finisher Name Role Phone Samira Singh Gael BORDEN Primary Care Provider [phone] Huy Jones DO Unavailable [phone] Allergies Active Allergy Reactions Criticality Noted [...] 11:00 AM CDT Height 157.5 cm (5' 2) 07/03/2018 11:00 AM CDT Body Mass Index 24.69 07/03/2018 11:00 AM CDT Plan of Treatment Health Maintenance Due Date Last Done Comments Hepatitis C Virus (HCV) Screening 1950 Cologuard 08/09/1995 Immunochemical Fecal Occult Blood 08/09/1995 SARS-COV-2 Immunization ( season) 2023 05/22/2020, 04/30/2020 Influenza Immunization (#1) 2024 0911/2019, 12/08/2018, 12/06/2018, Additional history exists Respiratory Syncytial Virus (RSV) Immunization (Adult) (1 - 1-dose 75+ series) 2025 Colonoscopy 06/27/2027 06/26/2017 Colorectal Cancer Screening 06/27/2027 DTaP/Tdap/Td Immunization Discontinued 03/04/2012 TdaP Immunization Completed 03/04/2012 Pneumococcal Immunization (50+ years) Completed 12/19/2018, 12/24/2017, 12/02/2017, Additional history exists Pneumococcal Immunization Combined Discontinued 12/19/2018, 12/24/2017, 12/02/2017, Additional history exists Zoster Immunization Completed 02/01/2020, 02/18/2019, 03/04/2015 Hepatitis B Immunization Aged Out No longer eligible based on patient's age to complete this topic Human Papillomavirus (HPV) Immunization Aged Out No longer eligible based [...] MEDICARE RAILROAD [employer] SENIOR SUPPLEMENTAL Care Teams Tripe Finisher Relationship Specialty Start Date End Date Samira Singh APRN PCP - General Advanced Practice Nurse 01/16/17 Huy Jones DO Consulting Physician Gastroenterology 06/26/17
--- OUTSIDE RECORDS SUMMARY | 2024-10-13 12:33 | XMS_ITS ---
Author Organization [facility] Address [address] [place] [address] Care Team Providers Care Car Rider Name Role Phone Uyen Bhatti Primary Care Provider Ericka Mayorga [phone] REASON FOR VISIT CRU Assessment Social History Sex Assigned At : Social History Observation Description Sex Assigned At Female Encounters Encounter Location Date Provider Diagnosis [facility] [address] [place] [address] 07/09/2024 Ericka Mayorga Assessments Encounter Date Diagnosis [...] * MIGUEL A, SharonDOB:1950 (74 yo F)Acc No.[id number]:07/09/2024 UNLOCKED PROGRESS NOTE Patient: Sharon MIMS Provider: Ronald Mayorga :1950 A ge:73 Y S ex:Female Date:07/09/2024 [address] [facility] Pcp:Uyen Bhatti Subjective: * Chief Complaints: * [...] CHS11 Insurance Application Assistance, CHS12 Housing Assistance, [facility] Referring to Outbound Sales Executive * * Electronic signature of Kirk Mayorga on 10/13/2024 at 12:32 PM CDT Sign off status: Pending * Provider: Ronald Mayorga Date: 0 07/09/2024 Generated for Pedro Pablo zazueta/Nayla/Nia on: 0 10/13/2024 12:32 PM CDT History and Physical Notes * [...]
--- OUTSIDE RECORDS SUMMARY | 2024-10-13 12:33 | XMS_ITS | Clinical Summary ---
Author Organization [facility] Address [address] [place] [id number] Care Team Providers Care Media Analytics Manager Name Role Phone Eloise Bridges MD Primary Care Provider [phone] Allergies Active Allergy Reactions Criticality Noted Date Comments Penicillins Unknown Patient was told this by mother, reports that ampicillin is okay. Medications FLUoxetine (PROzac) 40 mg capsuleIndicati ons:depression Take 1 capsule (40 mg total) by mouth daily 30 capsule 08/22/2024 Active hydrOXYzine (ATARAX) 10 mg tabletIndicatio ns:anxiety Take 1 tablet (10 mg total) by mouth 2 (two) times a day as needed for anxiety 30 tablet 08/21/2024 Active OLANZapine (ZyPREXA) 10 mg tabletIndicatio ns:Depression Treatment Adjunct Take 1 tablet (10 mg total) by mouth nightly 30 tablet 08/21/2024 Active Active Problems Problem Noted Date Diagnosed Date Suicidal ideation 08/10/2024 Severe malnutrition 08/07/2024 Bipolar I disorder, current or most recent episode depressed, with psychotic features 08/01/2022 Assessment & Plan (08/20/2024 10:03 AM CDT): Patient currently endorsing symptoms of decreased mood, anhedonia, difficulty performing daily tasks, feelings of guilt and worthlessness, and SI. This has been going on for several years, and has been accompanied intermittently by persecutory delusions. This is consistent with a depressive episode. Given patient's previous history of satnam characterized by increased energy, irritability, mood, and goal-directed activity as well as decreased need for sleep, and reckless behavior without alternative explanation, patient's diagnosis is consistent with bipolar disorder. Historically, patient has also had delusions and observed auditory hallucinations, but only in the setting of mood disorder exacerbation. Because of the above, highest on the differential diagnosis is bipolar disorder with psychotic features, current episode depressed given several years history of depressive symptoms. Interval Progress: Observed objective improvement in mood and participation with others, feels better today but yesterday. Comfortable with discharge to home with her after ECT tomorrow.. Continuing on medications and ECT with plan for outpatient weekly ECT next week. PLAN: - Fluoxetine 40 mg daily - Olanzapine 10 mg QHS - Ramelteon 8 mg QHS for circadian rhythms - Voluntary ECT MWF - Started 08/07, s/p 6th session, now at bilateral 100% - MOCA when able - In case of agitation: - Haldol 2 mg PO Q6H PRN - Haldol 2 mg IM and Ativan 0.5 mg IM Q4H PRN in case of refusal of PO Assessment & Plan (08/16/2024 9:42 AM CDT): Patient currently endorsing symptoms of decreased mood, anhedonia, difficulty performing daily tasks, feelings of guilt and worthlessness, and SI. This has been going on for several years, and has been accompanied intermittently by persecutory delusions. This is consistent with a depressive episode. Given patient's previous history of satnam characterized by increased energy, irritability, mood, and goal-directed activity as well as decreased need for sleep, and reckless behavior without alternative explanation, patient's diagnosis is consistent with bipolar disorder. Historically, patient has also had delusions and observed auditory hallucinations, but only in the setting of mood disorder exacerbation. Because of the above, highest on the differential diagnosis is bipolar disorder with psychotic features, current episode depressed given several years history of depressive symptoms. Interval Progress: Initially expressed desire to go home due to concerns that there has been little improvement in her symptoms thus far, though redirectable and agreeable to stay on a voluntary basis with further medication titration and more ECT. Looking forward to continuing ECT treatments and seeing how higher dosage will help. PLAN: - Increase fluoxetine to 40 mg daily - Olanzapine 10 mg QHS - Ramelteon 8 mg QHS for circadian rhythms - Voluntary ECT MWF - Started 08/07, s/p 4th session with inadequate seizure (despite hyperventilation and hydration) after bilateral titration, will re-attempt further next week - MOCA when able - In case of agitation: - Haldol 2 mg PO Q6H PRN - Haldol 2 mg IM and Ativan 0.5 mg IM Q4H PRN in case of refusal of PO 08/15 -- no change in plans Resolved Problems Problem Noted Date Diagnosed Date Resolved Date Refeeding syndrome 08/05/2024 Assessment & Plan (08/06/2024 11:38 AM CDT): Patient has not been eating more than 1 meal a day for the last week, some concern for potential refeeding syndrome. We will monitor BID labs, provide Ensure shakes. PLAN: - BID BMP, Mg, Ph for 3 days with electrolyte repletion PRN - Ensure shakes UTI (urinary tract infection) 08/05/2024 08/10/2024 Assessment & Plan (08/06/2024 11:39 AM CDT): UA concerning for UTI, we will treat empirically as it may be a cause for patient's psychotic symptoms. PLAN: - Nitrofurantoin 100 mg BID x 5 days (08/05 - 08/09) Encounters Date Type Department Care Team Description 09/03/2024 7:49 AM CDT Anesthesia Event [facility] [address] [place] [address] Toni Pagan MD 09/03/2024 5:38 AM CDT - 09/03/2024 11:59 PM CDT Hospital Encounter [facility] [address] [place] [address] Bipolar I disorder, current or most recent episode depressed, with psychotic features (HCC) (Primary Dx) Discharge Disposition: Discharge to home or self care 08/27/2024 9:41 AM CDT Anesthesia Event [facility] [address] [place] [address] Brian Vallejo MD 08/27/2024 8:40 AM CDT - 08/27/2024 11:59 PM CDT Hospital Encounter [address] [address] Brian Vallejo MD Bipolar I disorder, current or most recent episode depressed, with psychotic features (HCC) (Primary Dx) Discharge Disposition: Discharge to home or self care 08/21/2024 8:00 AM CDT Anesthesia Event [address] [address] Nav Ervin III, MD PhD 08/19/2024 9:23 AM CDT Anesthesia Event [address] [address] Hai Estrella MD Williams, Michela Marie 08/17/2024 8:31 AM CDT Anesthesia Event [address] [address] Abebe Kumar MD 08/14/2024 8:04 AM CDT Anesthesia Event [address] [address] Toni Pagan MD Shelton, Christian Paul 08/12/2024 9:07 AM CDT Anesthesia Event [address] [address] Ruth Ann Cantu MD 08/10/2024 9:00 AM CDT Anesthesia Event [address] [address] Ghanshyam Forrester MD Kraemer, Elizabeth Mishoe, NP 08/07/2024 9:56 AM CDT Anesthesia Event [address] [address] José Miguel Fisher MD 08/04/2024 5:50 PM CDT - 08/21/2024 1:30 PM CDT Hospital Encounter [facility] [address] [place] [address] Nadeem Burrows MD Brown, Elbert Hutchison MD PhD Nadeem Catalan MD Bohnenkamp, MD Mj Fitzgerald, MD Gilmer Damico, Sonya Corona MD Suicidal ideation (Primary Dx); Bipolar affective disorder, current episode mixed, current episode severity unspecified (HCC); Bipolar I disorder, current or most recent episode depressed, with psychotic features (HCC); Severe malnutrition [E43] Discharge Disposition: Discharge to home or self care from Last 3 Months Surgical History Surgery Date Site/Laterality Comments HYSTERECTOMY SECTION SINUS SURGERY AUGMENTATION MAMMAPLASTY APPENDECTOMY Medical History Medical History Date Comments Bipolar 1 disorder (HCC) PONV (postoperative nausea and vomiting) following ECT 08/07/24 Sleep apnea Social History Tobacco Use Types Packs/Day Years Used Date Smoking Tobacco: Never Smokeless Tobacco: Never Tobacco Cessation:Counseling Given: Not Answered [facility] [employer] Vacc[employer] Answer Date Recorded In the past 12 months has [employer]), oil, or water [employer] threatened to shut off services in your home? No 08/06/2024 Humiliation, Afraid, Rape, and Kick questionnair e Answer Date Recorded Within the last year, have y ou been afraid of your partner or ex-partner? No 08/06/2024 Within the last year, have y ou been humiliated or emotionally abused in other ways by your partner or ex-partner? Yes Within the last year, have y ou been kicked, hit, slapped, or otherwise physically hurt by your partner or ex-partner? No 08/06/2024 Within the last year, have y ou been raped or forced to have any kind of sexual activity by your partner or ex-partner? No 08/06/2024 Social Connection and Isolation Panel Answer Date Recorded In a typical week, how many times do you talk on the phone with family, friends, or neighbors? Once a week 08/06/2024 How often do you get together with friends or re latives? Never 08/06/2024 How often do you attend confucianist or oriental orthodox serv ices? Never 08/06/2024 Do you belong to any clubs o r organizations such as confucianist groups, unions, fraternal or athletic groups, or school groups? No 08/06/2024 How often do you attend meet ings of the clubs or organizations you belong to? Never 08/06/2024 Are you , , di vorced, , never , or living with a partner? 08/06/2024 AUDIT-C Answer Date Recorded Q1: How often do you have a drink containing alc ohol? Monthly or less 08/06/2024 Q2: How many drinks containi ng alcohol do you have on a typical day when you are drinking? 1 or 2 08/06/2024 Q3: How often do you have si x or more drinks on one occasion? Never 08/06/2024 Overall Financial Resource Strain (CARDIA) Answe r Date Recorded How hard is it for you to pa y for the very basics like food, housing, medical care, and heating? Not hard at all 08/06/2024 [facility] - Occupational Stress Questionnaire Answer Date Recorded Do you feel stress - tense, restless, nervous, or anxious, or unable to sleep at night because your mind is troubled all the time - these days? Not at all 08/06/2024 Exercise Vital Sign Answer Date Recorde d On average, how many days pe r week do you engage in moderate to strenuous exercise (like a brisk walk)? 0 days 08/06/2024 On average, how many minutes do you engage in exercise at this level? 0 min 08/06/2024 Hunger Vital Sign Answer Date Recorded Within the past 12 months, y ou worried that your food would run out before you got the money to buy more. Never true 08/07/19 25 Within the past 12 months, t he food you bought just didn't last and you didn't have money to get more. Never true 08/06/2024 PRAPARE - Transportation Answer Date Re corded Lack of Transportation (Medical) Not on file 08/06/2024 In the past 12 months, has l ack of transportation kept you from meetings, work, or from getting things needed for daily living? No 08/06/2024 Housing Stability Vital Sign Answer Jonah e Recorded In the last 12 months, was t here a time when you were not able to pay the mortgage or rent on time? No 08/01/2022 In the last 12 months, how many places have you lived? 1 08/01/2022 In the last 12 months, was t here a time when you did not have a steady place to sleep or slept in a senior care (including now)? No 08/01/2022 Housing Stability Vital Sign Answer Jonah e Recorded In the last 12 months, was t here a time when you were not able to pay the mortgage or rent on time? No 08/06/2024 In the past 12 months, how m any times have you moved where you were living? 0 08/06/2024 At any time in the past 12 m [facility], were you homeless or living in a senior care (including now)? No 08/06/2024 Personal Safety Answer Date Recorded Have you ever been in or are you currently in a harmful physical or emotional relationship or is someone making you feel afraid or unsafe? Denies 08/05/2024 Education Answer Date Recorded What is the highest level of school you have completed or the highest degree you have received? 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 Gender Identity Not on file Sexual Orientation Not on file Obstetrics History Last Filed Vital Signs Vital Sign Reading Time Taken Comments Blood Pressure 151/76 09/03/2024 8:50 AM CDT Pulse 69 09/03/2024 8:50 AM CDT Temperature 36.6 C (97.9 F) 09/03/2024 8:15 AM CDT Respiratory Rate 19 09/03/2024 8:50 AM CDT Oxygen Saturation 97% 09/03/2024 8:50 AM CDT Inhaled Oxygen Concentration - - Weight 56.6 kg (124 lb 11.2 oz) 08/14/2024 4:35 PM CDT Height 152.4 cm (5') 08/05/2024 4:09 PM CDT Body Mass Index 24.35 08/05/2024 4:09 PM CDT Plan of Treatment Health Maintenance Due Date Last Done Comments Breast Cancer Screening-Mammogram 1950 Colon Cancer Screening-Colonoscopy 1950 Depression Screening 1950 Osteoporosis Screening-Bone Density Scan 1950 Hepatitis B Screening 1968 Well Visit 65+ 08/09/2015 Covid-19 Vaccine (2023-2 5 season) 2023 12/11/2021, 11/30/2021, 06/17/2021, Additional history exists Influenza Vaccine (#1) 2024 , 12/11/2021, 11/30/2021, Additional history exists Fall Risk Assessment 09/03/2025 09/03/2024 DTaP/Tdap/Td Vaccine (3 - Td or Tdap) 01/03/2031 01/03/2021, 03/04/2012 Zoster Vaccine Completed 02/01/2020, 02/01, 03/04/2015 Pneumococcal vaccine 65+ Completed 023, 12/19/2018, 12/24/2017, Additional history exists Hepatitis C Screening Completed 08/06/2024 Procedures Procedure Name Priority Date/Time Associated Diagnosis Comments EGFR Timed 2024 8:03 AM CDT PHOSPHORUS Timed 2024 8:03 AM CDT MAGNESIUM Timed 2024 8:03 AM CDT BASIC METABOLIC PANEL Timed 2024 8:03 AM CDT EGFR Timed 08/07/2024 8:49 PM CDT PHOSPHORUS Timed 08/07/2024 8:49 PM CDT MAGNESIUM Timed 08/07/2024 8:49 PM CDT BASIC METABOLIC PANEL Timed 08/07/2024 8:49 PM CDT EGFR Timed 08/07/2024 3:56 PM CDT PHOSPHORUS Timed 08/07/2024 3:56 PM CDT MAGNESIUM Timed 08/07/2024 3:56 PM CDT BASIC METABOLIC PANEL Timed 08/07/2024 3:56 PM CDT EGFR Timed 08/06/2024 9:09 PM CDT PHOSPHORUS Timed 08/06/2024 9:09 PM CDT MAGNESIUM Timed 08/06/2024 9:09 PM CDT BASIC METABOLIC PANEL Timed 08/06/2024 9:09 PM CDT EGFR Timed 08/06/2024 7:33 AM CDT VITAMIN B12 Timed 08/06/2024 7:33 AM CDT VITAMIN B1 Timed 08/06/2024 7:33 AM CDT HEMOGLOBIN A1C Timed 08/06/2024 7:33 AM CDT LIPID PANEL Routine 08/06/2024 7:33 AM CDT FOLATE Timed 08/06/2024 7:33 AM CDT PHOSPHORUS Timed 08/06/2024 7:33 AM CDT MAGNESIUM Timed 08/06/2024 7:33 AM CDT BASIC METABOLIC PANEL Timed 08/06/2024 7:33 AM CDT HEPATITIS B SURFACE ANTIGEN Routine 08/06/2024 7:33 AM CDT HEPATITIS C ANTIBODY Routine 08/06/2024 7:33 AM CDT RPR Timed 08/06/2024 7:33 AM CDT HIV 1/2 ANTIBODY PLUS P24 ANTIGEN Routine 08/06/2024 7:33 AM CDT ECG 12-LEAD Routine 08/05/2024 9:21 PM CDT EGFR Timed 08/05/2024 8:29 PM CDT VALPROIC ACID LEVEL, TOTAL Timed 08/05/2024 8:29 PM CDT PHOSPHORUS Timed 08/05/2024 8:29 PM CDT MAGNESIUM Timed 08/05/2024 8:29 PM CDT BASIC METABOLIC PANEL Timed 08/05/2024 8:29 PM CDT URINALYSIS, MICROSCOPIC ONLY STAT 08/04/2024 7:40 PM CDT URINALYSIS AND REFLEX TO MICROSCOPIC STAT 08/04/2024 7:40 PM CDT DRUGS OF ABUSE SCREEN, URINE WITHOUT CONFIRMATION STAT 08/04/2024 7:40 PM CDT TN CRITICAL CARE ILL/INJURED PATIENT INIT 30-74 MIN Routine 08/04/2024 5:58 PM CDT VALPROIC ACID LEVEL, TOTAL STAT 08/04/2024 5:55 PM CDT EGFR STAT 08/04/2024 5:55 PM CDT DIFFERENTIAL AUTO STAT 08/04/2024 5:5 5 PM CDT ETHANOL STAT 08/04/2024 5:55 PM CDT THYROID FUNCTION CASCADE STAT 08/04/2024 5:55 PM CDT COMPREHENSIVE METABOLIC PANEL STAT 08/04/2024 5:55 PM CDT CBC WITH AUTO DIFFERENTIAL STAT 08/04/2024 5:55 PM CDT from Last 3 Months Results * eGFR (2024 8:03 AM CDT) eGFR 77 >=60 mL/min/1. 73 m2 Comment: Interpretive Data Reference Interval Normal >/= 90 mL/min/1.73m2 Mildly decreased* 60 - 89 mL/min/1.73m2 Mildly to moderately decreased 45 - 59 mL/min/1.73m2 Moderately to severely decreased 30 - 44 mL/min/1.73m2 Severely decreased 15 - 29 mL/min/1.73m2 Kidney Failure < 15 mL/min/1.73m2 *Relative to young adult level Estimated glomerular filtration rate is determined by the 2020 CKD-EPI equation recommended by the National Kidney Foundation (A Unifying Approach to GFR Estimation: Recommendations of the NKF-ASK Task Force on Reassessing the Inclusion of Race in Diagnosing Kidney Disease, JASN 2020). The CKD-EPI equation should not be used for patients with unstable renal function and has not been validated in children and those over 70. Current interpretive data was last reviewed 2021. Blood 2024 8:03 AM CDT 2024 9:28 AM CDT Sohan Galvan MD LAB BLOOD ORDERABLES Final Result Performing Organization Address City/[facility]/ZIP Co de Phone Number [facility] [place] [address] * Phosphorus (2024 8:03 AM CDT) Phosphorus, pl 2.4 2.3 - 4.5 mg/dL Blood 2024 8:03 AM CDT 2024 9:28 AM CDT Sohan Galvan MD LAB BLOOD ORDERABLES Final Result [facility] [place] [address] * Magnesium (2024 8:03 AM CDT) Magnesium 1.8 1.4 - 2.5 mg/dL Blood 2024 8:03 AM CDT 2024 9:28 AM CDT Sohan Galvan MD LAB BLOOD ORDERABLES Final Result [facility] Department [place] [address] * Basic metabolic panel (2024 8:03 AM CDT) Pathologist [facility] Sodium 143 135 - 145 mmol/L Potassium, pl 4.1 3.3 - 4.9 mmol/L [facility] Chloride 106 97 - 110 mmol/L [facility] CO2 30 22 - 32 mmol/L [facility] Anion gap 7 2 - 15 mmol/L [facility] BUN 12 6 - 25 mg/dL [facility] Creatinine 0.80 0.60 - 1.10 mg/dL [facility] Glucose 93 70 - 199 mg/dL [facility] Comment: Interpretive Data Fasting glucose >/= 126 mg/dl is diagnostic for diabetes. Fasting is defined as no caloric intake for at least 8 hours. Fasting glucose between 100 mg/dl to 125 mg/dl is diagnostic of prediabetes. In a patient with classic symptoms of hyperglycemia or hyperglycemic crisis, a random glucose >/= 200 mg/dl is diagnostic for diabetes. In the absence of unequivocal hyperglycemia, results should be confirmed by repeat testing. The classification and Diagnosis of Diabetes Diabetes Care 2021; 46: S19-S40. Current interpretive data was last revised 2022. Calcium 9.2 8.5 - 10.3 mg/dL [facility] Blood 2024 8:03 AM CDT 2024 9:28 AM CDT Sohan Galvan MD LAB BLOOD ORDERABLES Final Result Performing Organization Address [facility] Co de Phone Number [facility] [place] [address] * eGFR (08/07/2024 8:49 PM CDT) eGFR 62 >=60 mL/min/1. 73 m2 Comment: Interpretive Data Reference Interval Normal >/= 90 mL/min/1.73m2 Mildly decreased* 60 - 89 mL/min/1.73m2 Mildly to moderately decreased 45 - 59 mL/min/1.73m2 Moderately to severely decreased 30 - 44 mL/min/1.73m2 Severely decreased 15 - 29 mL/min/1.73m2 Kidney Failure < 15 mL/min/1.73m2 *Relative to young adult level Estimated glomerular filtration rate is determined by the 2020 CKD-EPI equation recommended by the National Kidney Foundation (A Unifying Approach to GFR Estimation: Recommendations of the NKF-ASK Task Force on Reassessing the Inclusion of Race in Diagnosing Kidney Disease, JASN 2020). The CKD-EPI equation should not be used for patients with unstable renal function and has not been validated in children and those over 70. Current interpretive data was last reviewed 2021. Blood 08/07/2024 8:49 PM CDT 08/07/2024 9:41 PM CDT us Sohan Galvan MD LAB BLOOD ORDERABLES Final Result Performing Organization Address [facility] Co de Phone Number [facility] [place] [address] * Phosphorus (08/07/2024 8:49 PM CDT) Phosphorus, pl 2.7 2.3 - 4.5 mg/dL Blood 08/07/2024 8:49 PM CDT 08/07/2024 9:41 PM CDT Sohan Galvan MD LAB BLOOD ORDERABLES Final Result Performing Organization Address [facility] Co de Phone Number [facility] Department [place] [address] * Magnesium (08/07/2024 8:49 PM CDT) [facility] Magnesium 1.9 1.4 - 2.5 mg/dL Blood 08/07/2024 8:49 PM CDT 08/07/2024 9:41 PM CDT Sohan Galvan MD LAB BLOOD ORDERABLES Final Result Performing Organization Address [facility] Co de Phone Number [facility] [place] [address] * Basic metabolic panel (08/07/2024 8:49 PM CDT) [facility] Sodium 144 135 - 145 mmol/L Potassium, pl 4.7 3.3 - 4.9 mmol/L [facility] Chloride 105 97 - 110 mmol/L [facility] CO2 30 22 - 32 mmol/L [facility] Anion gap 9 2 - 15 mmol/L [facility] BUN 16 6 - 25 mg/dL [facility] Creatinine 0.96 0.60 - 1.10 mg/dL [facility] Glucose 105 70 - 199 mg/dL [facility] Comment: Interpretive Data Fasting glucose >/= 126 mg/dl is diagnostic for diabetes. Fasting is defined as no caloric intake for at least 8 hours. Fasting glucose between 100 mg/dl to 125 mg/dl is diagnostic of prediabetes. In a patient with classic symptoms of hyperglycemia or hyperglycemic crisis, a random glucose >/= 200 mg/dl is diagnostic for diabetes. In the absence of unequivocal hyperglycemia, results should be confirmed by repeat testing. The classification and Diagnosis of Diabetes Diabetes Care 2021; 46: S19-S40. Current interpretive data was last revised 2022. Calcium 9.6 8.5 - 10.3 mg/dL [facility] Blood 08/07/2024 8:49 PM CDT 08/07/2024 9:41 PM CDT Sohan Galvan MD LAB BLOOD ORDERABLES Final Result Performing Organization Address City/[facility] Co de Phone Number [facility] [place] [address] * eGFR (08/07/2024 3:56 PM CDT) eGFR 73 >=60 mL/min/1. 73 m2 Comment: Interpretive Data Reference Interval Normal >/= 90 mL/min/1.73m2 Mildly decreased* 60 - 89 mL/min/1.73m2 Mildly to moderately decreased 45 - 59 mL/min/1.73m2 Moderately to severely decreased 30 - 44 mL/min/1.73m2 Severely decreased 15 - 29 mL/min/1.73m2 Kidney Failure < 15 mL/min/1.73m2 *Relative to young adult level Estimated glomerular filtration rate is determined by the 2020 CKD-EPI equation recommended by the National Kidney Foundation (A Unifying Approach to GFR Estimation: Recommendations of the NKF-ASK Task Force on Reassessing the Inclusion of Race in Diagnosing Kidney Disease, JASN 2020). The CKD-EPI equation should not be used for patients with unstable renal function and has not been validated in children and those over 70. Current interpretive data was last reviewed 2021. Blood 08/07/2024 3:56 PM CDT 08/07/2024 4:27 PM CDT us Sohan Galvan MD LAB BLOOD ORDERABLES Final Result Performing Organization Address City/[facility]/ZIP Co de Phone Number [facility] [place] [address] * Phosphorus (08/07/2024 3:56 PM CDT) Phosphorus, pl 2.6 2.3 - 4.5 mg/dL Blood 08/07/2024 3:56 PM CDT 08/07/2024 4:27 PM CDT Sohan Galvan MD LAB BLOOD ORDERABLES Final Result [facility] [place] [address] * Magnesium (08/07/2024 3:56 PM CDT) Pathologist [facility] Magnesium 1.7 1.4 - 2.5 mg/dL Blood 08/07/2024 3:56 PM CDT 08/07/2024 4:27 PM CDT Sohan Galvan MD LAB BLOOD ORDERABLES Final Result Performing Organization Address [facility] Co de Phone Number [facility] [place] [address] * Basic metabolic panel (08/07/2024 3:56 PM CDT) [facility] Sodium 144 135 - 145 mmol/L Potassium, pl 3.8 3.3 - 4.9 mmol/L [facility] Chloride 107 97 - 110 mmol/L [facility] CO2 30 22 - 32 mmol/L [facility] Anion gap 7 2 - 15 mmol/L [facility] [facility] 14 6 - 25 mg/dL [facility] Creatinine 0.84 0.60 - 1.10 mg/dL [facility] Glucose 101 70 - 199 mg/dL [facility] Comment: Interpretive Data Fasting glucose >/= 126 mg/dl is diagnostic for diabetes. Fasting is defined as no caloric intake for at least 8 hours. Fasting glucose between 100 mg/dl to 125 mg/dl is diagnostic of prediabetes. In a patient with classic symptoms of hyperglycemia or hyperglycemic crisis, a random glucose >/= 200 mg/dl is diagnostic for diabetes. In the absence of unequivocal hyperglycemia, results should be confirmed by repeat testing. The classification and Diagnosis of Diabetes Diabetes Care 2021; 46: S19-S40. Current interpretive data was last revised 2022. Calcium 8.6 8.5 - 10.3 mg/dL [facility] Blood 08/07/2024 3:56 PM CDT 08/07/2024 4:27 PM CDT Sohan Galvan MD LAB BLOOD ORDERABLES Final Result [facility] [place] [address] * eGFR (08/06/2024 9:09 PM CDT) eGFR 64 >=60 mL/min/1. 73 m2 Comment: Interpretive Data Reference Interval Normal >/= 90 mL/min/1.73m2 Mildly decreased* 60 - 89 mL/min/1.73m2 Mildly to moderately decreased 45 - 59 mL/min/1.73m2 Moderately to severely decreased 30 - 44 mL/min/1.73m2 Severely decreased 15 - 29 mL/min/1.73m2 Kidney Failure < 15 mL/min/1.73m2 *Relative to young adult level Estimated glomerular filtration rate is determined by the 2020 CKD-EPI equation recommended by the National Kidney Foundation (A Unifying Approach to GFR Estimation: Recommendations of the NKF-ASK Task Force on Reassessing the Inclusion of Race in Diagnosing Kidney Disease, JASN 2020). The CKD-EPI equation should not be used for patients with unstable renal function and has not been validated in children and those over 70. Current interpretive data was last reviewed 2021. Blood 08/06/2024 9:09 PM CDT 08/06/2024 9:43 PM CDT us Sohan Galvan MD LAB BLOOD ORDERABLES Final Result [facility] [place] [address] * Phosphorus (08/06/2024 9:09 PM CDT) Phosphorus, pl 4.1 2.3 - 4.5 mg/dL Blood 08/06/2024 9:09 PM CDT 08/06/2024 9:43 PM CDT Sohan Galvan MD LAB BLOOD ORDERABLES Final Result [facility] [place] [address] * Magnesium (08/06/2024 9:09 PM CDT) Pathologist [facility] Magnesium 1.6 1.4 - 2.5 mg/dL Blood 08/06/2024 9:09 PM CDT 08/06/2024 9:43 PM CDT Sohan Galvan MD LAB BLOOD ORDERABLES Final Result Performing Organization Address [facility] de Phone Number [facility] [place] [address] * Basic metabolic panel (08/06/2024 9:09 PM CDT) [facility] Sodium 143 135 - 145 mmol/L Potassium, pl 3.9 3.3 - 4.9 mmol/L [facility] Chloride 104 97 - 110 mmol/L [facility] CO2 29 22 - 32 mmol/L [facility] Anion gap 10 2 - 15 mmol/L [facility] BUN 15 6 - 25 mg/dL [facility] Creatinine 0.94 0.60 - 1.10 mg/dL [facility] Glucose 107 70 - 199 mg/dL [facility] Comment: Interpretive Data Fasting glucose >/= 126 mg/dl is diagnostic for diabetes. Fasting is defined as no caloric intake for at least 8 hours. Fasting glucose between 100 mg/dl to 125 mg/dl is diagnostic of prediabetes. In a patient with classic symptoms of hyperglycemia or hyperglycemic crisis, a random glucose >/= 200 mg/dl is diagnostic for diabetes. In the absence of unequivocal hyperglycemia, results should be confirmed by repeat testing. The classification and Diagnosis of Diabetes Diabetes Care 202; 46: S19-S40. Current interpretive data was last revised 2022. Calcium 9.1 8.5 - 10.3 mg/dL [facility] Blood 08/06/2024 9:09 PM CDT 08/06/2024 9:43 PM CDT us Sohan Galvan MD LAB BLOOD ORDERABLES Final Result Performing Organization Address City/[facility]/ZIP Co de Phone Number [facility] [place] [address] * eGFR (08/06/2024 7:33 AM CDT) eGFR 65 >=60 mL/min/1. 73 m2 Comment: Interpretive Data Reference Interval Normal >/= 90 mL/min/1.73m2 Mildly decreased* 60 - 89 mL/min/1.73m2 Mildly to moderately decreased 45 - 59 mL/min/1.73m2 Moderately to severely decreased 30 - 44 mL/min/1.73m2 Severely decreased 15 - 29 mL/min/1.73m2 Kidney Failure < 15 mL/min/1.73m2 *Relative to young adult level Estimated glomerular filtration rate is determined by the 2020 CKD-EPI equation recommended by the National Kidney Foundation (A Unifying Approach to GFR Estimation: Recommendations of the NKF-ASK Task Force on Reassessing the Inclusion of Race in Diagnosing Kidney Disease, JASN 2020). The CKD-EPI equation should not be used for patients with unstable renal function and has not been validated in children and those over 70. Current interpretive data was last reviewed 2021. Blood 08/06/2024 7:33 AM CDT 08/06/2024 8:03 AM CDT us Sohan Galvan MD LAB BLOOD ORDERABLES Final Result [facility] [place] [address] * HIV 1/2 Antibody plus p24 Antigen Blood (08/06/2024 7:33 AM CDT) HIV 1/2 ab + p24 ag Nonreactive Nonreactive Comment:Nonreactive for HIV- 1 antigen and HIV-1/HIV-2 antibodies. No laboratory evidence of HIV infection. If acute HIV infection is suspected, consider testing for HIV-1 RNA. Current interpretive data was last revised on 21. Blood 08/06/2024 7:33 AM CDT 08/06/2024 8:03 AM CDT Sohan Galvan MD LAB MICROBIOLOGY - GE NERAL ORDERABLES Final Result Performing Organization Address City/[facility] Co de Phone Number FORD [facility] [place] [place] [address] * Hepatitis C antibody Blood (08/06/2024 7:33 AM CDT) Pathologist [facility] Hep C Ab Nonreactive Nonreactive Comment:Antibodies to HCV no t detected. Does NOT exclude the possibility of recent exposure to HCV. Current interpretive data was last revised on 21 Blood 08/06/2024 7:33 AM CDT 08/06/2024 8:03 AM CDT Sohan Galvan MD LAB MICROBIOLOGY - GE NERAL ORDERABLES Final Result Performing Organization Address City/[facility] Co de Phone Number FORD [facility] [place] [place] [address] * RPR Blood (08/06/2024 7:33 AM CDT) Pathologist [facility] RPR Nonreactive Nonreactive Blood 08/06/2024 7:33 AM CDT 08/06/2024 8:03 AM CDT Sohan Galvan MD LAB MICROBIOLOGY - GE NERAL ORDERABLES Final Result Performing Organization Address City/[facility]/ZIP Co de Phone Number FORD [facility] [place] [place] [address] * Hepatitis B Surface Antigen Blood (08/06/2024 7:33 AM CDT) [facility] HepBsAg Nonreactive Nonreactive Blood 08/06/2024 7:33 AM CDT 08/06/2024 8:03 AM CDT Sohan Galvan MD LAB MICROBIOLOGY - GE NERAL ORDERABLES Final Result Performing Organization Address City/[facility]/ZIP Co de Phone Number [facility] [place] [address] * Vitamin B1 (08/06/2024 7:33 AM CDT) [facility] Thiamine (Vit B1) 120 70 - 180 nmol/L [facility] Comment: ADDITIONAL INFORMATION This test was developed and its performance characteristics determined by [facility] in a manner consistent with CLIA requirements. This test has not been cleared or approved by the U.S. Food and Drug Administration. Test Performed by: [place] [address] House Rn: Lolis Randolph Ph.D.; CLIA# [id number] Blood 08/06/2024 7:3 3 AM CDT 08/06/2024 8:00 AM CDT Sohan Galvan MD LAB BLOOD ORDERABLES Final Result [facility] [place] [address] [facility] * Phosphorus (08/06/2024 7:33 AM CDT) [facility] Phosphorus, pl 2.7 2.3 - 4.5 mg/dL Blood 08/06/2024 7:33 AM CDT 08/06/2024 8:03 AM CDT Sohan Galvan MD LAB BLOOD ORDERABLES Final Result Performing Organization Address [facility] de Phone Number [facility] [place] [address] * Magnesium (08/06/2024 7:33 AM CDT) [facility] Magnesium 1.8 1.4 - 2.5 mg/dL Blood 08/06/2024 7:33 AM CDT 08/06/2024 8:03 AM CDT Sohan Galvan MD LAB BLOOD ORDERABLES Final Result Performing Organization Address [facility] [place] [address] * Hemoglobin A1c (08/06/2024 7:33 AM CDT) [facility] Hgb A1C 5.4 4.0 - 5.6 % Estimated Average Glucose 108 mg/dL [facility] Comment: The ADA recommends reporting an estimated Average Glucose (eAG) with all Hemoglobin A1c results using the equation derived from a study of 507 normal and diabetic adults. Minority populations were underrepresented and children were not included. (Diabetes Care 2020; 43(S1): S66-S76). The eAG is not equivalent to a fasting glucose. Blood 08/06/2024 7:33 AM CDT 08/06/2024 8:03 AM CDT Sohan Galvan MD LAB BLOOD ORDERABLES Final Result Performing Organization Address [facility] [place] [address] * Folate (08/06/2024 7:33 AM CDT) [facility] Folic acid >20.0 >=5.0 ng/mL Blood 08/06/2024 7:33 AM CDT 08/06/2024 8:03 AM CDT Sohan Galvan MD LAB BLOOD ORDERABLES Final Result Performing Organization Address [facility] Co de Phone Number [facility] [place] [address] * (ABNORMAL) Vitamin B12 (08/06/2024 7:33 AM CDT) Vitamin B12 1,273(H) 230 - 1,250 pg/mL Blood 08/06/2024 7:33 AM CDT 08/06/2024 8:03 AM CDT Sohan Galvan MD LAB BLOOD ORDERABLES Final Result Performing Organization Address [facility] de Phone Number [facility] [place] [address] * Lipid panel (08/06/2024 7:33 AM CDT) Cholesterol 186 30 - 199 mg/dL Comment: Interpretive Data Ages < or = 19 years Acceptable: <170 mg/dL Borderline high: 170-199 mg/dL High: >or= 200 mg/dL Ages > or = 20 years Desirable: <200 mg/dL Borderline high: 200-239 mg/dL High: >or= 240 mg/dL Literature References: 1. Expert Panel on Integrated Guidelines for Cardiovascular Health and Risk Reduction in Children and Adolescents. Pediatrics 2011;128:S213 2. NCEP Expert Panel. Circulation 2004;110:227 Current Interpretive Data was last revised on 2017. Triglycerides 91 <=149 mg/dL [facility] Comment: Interpretive Data Ages < or = 9 years Acceptable: <75 mg/dL Borderline high: 75-99 mg/dL High: >or= 100 mg/dL Ages 10 to 20 years Acceptable: <90 mg/dL Borderline high: 90-129 mg/dL High: >or= 130 mg/dL Ages > or = 20 years Desirable: <150 mg/dL Borderline high: 150-199 mg/dL High: 200-499 mg/dL Very high: >or= 499 mg/dL Literature References: 1. Expert Panel on Integrated Guidelines for Cardiovascular Health and Risk Reduction in Children and Adolescents. Pediatrics 2011;128:S213 2. NCEP Expert Panel. Circulation 2004;110:227 Current Interpretive Data was last revised on 2017. HDL 71 >=40 mg/dL [facility] Comment: Interpretive Data Ages < or = 19 years Acceptable: >45 mg/dL Borderline low: 40-45 mg/dL Low: <40 mg/dL Ages > or = 20 years Desirable: >or= 60 mg/dL Low: <40 mg/dL Literature References: 1. Expert Panel on Integrated Guidelines for Cardiovascular Health and Risk Reduction in Children and Adolescents. Pediatrics 2011;128:S213 2. NCEP Expert Panel. Circulation 2004;110:227 Current Interpretive Data was last revised on 2017. LDL, calculated 99 <=129 mg/dL [facility] Comment: Interpretive Data Ages < or = 19 years Acceptable: <110 mg/dL Borderline high: 110-129 mg/dL High: >or= 130 mg/dL Ages > or = 20 years Optimal: <100 mg/dL Near optimal: 100-129 mg/dL Borderline high: 130-159 mg/dL High: >160 mg/dL Calculated using the Dominic LDL-C estimating equation. This equation was implemented on 2023. Prior to this date LDL-C was estimated using the Friedewald equation. Literature References: 1. Expert Panel on Integrated Guidelines for Cardiovascular Health and Risk Reduction in Children and Adolescents. Pediatrics 2011;128:S213 2. NCEP Expert Panel. Circulation 2004;110:227 3. Dominic Cardenas et al. BOSSMAN Cardiol. 2020 July 02;5(5):540-548. doi: 10.1001/jamacardio.2020.0013 Current Interpretive Data was last revised on 2023. Non-HDL Cholesterol 115 mg/dL [facility] Comment: Interpretive Data Ages < or = 19 years Acceptable: <120 mg/dL Borderline high: 120-144 mg/dL High: >145 mg/dL Ages > or = 20 years When triglycerides are >200 mg/dL, Non-HDL cholesterol is a secondary target of therapy with treatment goals that are 30 mg/dL greater than the LDL cholesterol target. Literature References: 1. Expert Panel on Integrated Guidelines for Cardiovascular Health and Risk Reduction in Children and Adolescents. Pediatrics 2011;128:S213 2. NCEP Expert Panel. Circulation 2004;110:227 Current Interpretive Data was last revised on 2017. Chol/HDL ratio 3 [facility] Blood 08/06/2024 7:33 AM CDT 08/06/2024 8:03 AM CDT us Sohan Galvan MD LAB BLOOD ORDERABLES Final Result [facility] [place] [address] * Basic metabolic panel (08/06/2024 7:33 AM CDT) Sodium 144 135 - 145 mmol/L Potassium, pl 3.5 3.3 - 4.9 mmol/L [facility] Chloride 103 97 - 110 mmol/L [facility] CO2 29 22 - 32 mmol/L [facility] Anion gap 12 2 - 15 mmol/L [facility] BUN 14 6 - 25 mg/dL [facility] Creatinine 0.93 0.60 - 1.10 mg/dL [facility] Glucose 111 70 - 199 mg/dL [facility] Comment: Interpretive Data Fasting glucose >/= 126 mg/dl is diagnostic for diabetes. Fasting is defined as no caloric intake for at least 8 hours. Fasting glucose between 100 mg/dl to 125 mg/dl is diagnostic of prediabetes. In a patient with classic symptoms of hyperglycemia or hyperglycemic crisis, a random glucose >/= 200 mg/dl is diagnostic for diabetes. In the absence of unequivocal hyperglycemia, results should be confirmed by repeat testing. The classification and Diagnosis of Diabetes Diabetes Care 2021; 46: S19-S40. Current interpretive data was last revised 2022. Calcium 9.8 8.5 - 10.3 mg/dL [facility] Blood 08/06/2024 7:33 AM CDT 08/06/2024 8:03 AM CDT us Sohan Galvan MD LAB BLOOD ORDERABLES Final Result [facility] [place] [address] * ECG 12 lead (08/05/2024 9:21 PM CDT) Ventricular Rate EKG/Min 74 BPM [facility] Atrial Rate 74 BPM [facility] TN-Interval (MSEC) 142 ms [facility] QRS-Interval (MSEC) 78 ms [facility] QT-Interval (MSEC) 392 ms [facility] QTc 435 ms [facility] P [place] 56 degrees [facility] R [place] -35 degrees [facility] T [place] 1 degrees [facility] Diagnosis Normal sinus rhythm Left axis deviation Nonspecific T wave abnormality Abnormal ECG When compared with ECG of 21-NOV-2010 11:24, No significant change was found Confirmed by TAYA LINDSEY M.D ([id number]) on 08/06/2024 9:50:41 AM [facility] 08/05/2024 9:21 PM CDT 08/06/2024 9:50 AM CDT us Sohan Galvan MD ECG ORDERABLES Final Result Performing Organization Address City/[facility] Co de Phone Number [facility] * (ABNORMAL) eGFR (08/05/2024 8:29 PM CDT) eGFR 45(L) >=60 mL/min/1. 73 m2 Comment: Interpretive Data Reference Interval Normal >/= 90 mL/min/1.73m2 Mildly decreased* 60 - 89 mL/min/1.73m2 Mildly to moderately decreased 45 - 59 mL/min/1.73m2 Moderately to severely decreased 30 - 44 mL/min/1.73m2 Severely decreased 15 - 29 mL/min/1.73m2 Kidney Failure < 15 mL/min/1.73m2 *Relative to young adult level Estimated glomerular filtration rate is determined by the 2020 CKD-EPI equation recommended by the National Kidney Foundation (A Unifying Approach to GFR Estimation: Recommendations of the NKF-ASK Task Force on Reassessing the Inclusion of Race in Diagnosing Kidney Disease, JASN 2020). The CKD-EPI equation should not be used for patients with unstable renal function and has not been validated in children and those over 70. Current interpretive data was last reviewed 2021. Blood 08/05/2024 8:29 PM CDT 08/05/2024 9:29 PM CDT Sohan Galvan MD LAB BLOOD ORDERABLES Final Result Performing Organization Address City/[facility] Co de Phone Number [facility] [place] [address] * Phosphorus (08/05/2024 8:29 PM CDT) Phosphorus, pl 2.6 2.3 - 4.5 mg/dL Blood 08/05/2024 8:29 PM CDT 08/05/2024 9:29 PM CDT Sohan Galvan MD LAB BLOOD ORDERABLES Final Result Performing Organization Address [facility] Co de Phone Number [facility] [place] [address] * Magnesium (08/05/2024 8:29 PM CDT) Magnesium 1.6 1.4 - 2.5 mg/dL Blood 08/05/2024 8:29 PM CDT 08/05/2024 9:29 PM CDT Sohan Galvan MD LAB BLOOD ORDERABLES Final Result Performing Organization Address [facility] Co de Phone Number [facility] [place] [address] * (ABNORMAL) Valproic acid level, total (08/05/2024 8:29 PM CDT) Valproic Acid 20.0(L) 50.0 - 100.0 mcg/mL Comment: Interpretive Data Therapeutic or toxic effects of anticonvulsant drugs may occur at different concentrations in different patients and the correlation between dose and clinical effect must be evaluated individually. Current interpretative data was last revised on 13. Blood 08/05/2024 8:29 PM CDT 08/05/2024 9:29 PM CDT Narrative [facility] - 08/05/2024 10:14 PM CDT prior to PM dose Sohan Galvan MD LAB BLOOD ORDERABLES Final Result [facility] [place] [address] * (ABNORMAL) Basic metabolic panel (08/05/2024 8:29 PM CDT) Sodium 140 135 - 145 mmol/L Potassium, pl 3.9 3.3 - 4.9 mmol/L [facility] Chloride 104 97 - 110 mmol/L [facility] CO2 25 22 - 32 mmol/L [facility] Anion gap 11 2 - 15 mmol/L [facility] BUN 19 6 - 25 mg/dL [facility] Creatinine 1.27(H) 0.60 - 1.10 mg/dL [facility] Glucose 127 70 - 199 mg/dL [facility] Comment: Interpretive Data Fasting glucose >/= 126 mg/dl is diagnostic for diabetes. Fasting is defined as no caloric intake for at least 8 hours. Fasting glucose between 100 mg/dl to 125 mg/dl is diagnostic of prediabetes. In a patient with classic symptoms of hyperglycemia or hyperglycemic crisis, a random glucose >/= 200 mg/dl is diagnostic for diabetes. In the absence of unequivocal hyperglycemia, results should be confirmed by repeat testing. The classification and Diagnosis of Diabetes Diabetes Care 202; 46: S19-S40. Current interpretive data was last revised 2022. Calcium 9.2 8.5 - 10.3 mg/dL [facility] Blood 08/05/2024 8:29 PM CDT 08/05/2024 9:29 PM CDT us Sohan Galvan MD LAB BLOOD ORDERABLES Final Result Performing Organization Address City/[facility]/ZIP Co de Phone Number [facility] [place] [address] * (ABNORMAL) Urinalysis reflex to microscopic (08/04/2024 7:40 PM CDT) Color, ur Yellow Yellow Clarity, ur Cloudy(A) Clear [facility] Specific gravity, ur 1.023 1.003 - 1.030 [facility] pH, urine 6.5 [facility] Comment: Interpretive Data U rine pH is affected by diet, medications, systemic acid-base disturbances, and renal tubular function. pH may affect urinary stone formation. For example, urine pH below 6.0 may help reduce the tendency for calcium phosphate stones and pH greater than 6.0 may reduce the tendency for uric acid stone formation. Source: [facility] [employer] Current Interpretive Data was last revised on 2017 Protein, ur ql 1+(A) Negative [facility] Glucose, ur ql Negative Negative [facility] Ketones, ur 3+(A) Negative [facility] Bilirubin, ur Negative Negative [facility] Blood, ur Negative Negative [facility] Urobilinogen, ur 2.0(A) <2.0 mg/dL [facility] Nitrite, ur Negative Negative [facility] Leukocyte esterase, ur Trace(A) Negative [facility] UA reflex comment Reflex to microscopic UA will be performed. [facility] Urine 08/04/2024 7:40 PM CDT 08/04/2024 7:47 PM CDT us Nadeem Burrows MD LAB URINE ORDERABLES Final Result Performing Organization Address City/[facility]/ZIP Co de Phone Number [facility] [place] [address] * (ABNORMAL) Drugs of Abuse Screen, Urine without Confirmation (08/04/2024 7:40 PM CDT) [facility] Amphetamine, ur Screen Positive, presumptive (A) CutOff 500ng/mL Comment: Interpretive Data - Amphetamines: Samples containing greater than 500 ng/mL d-methamphetamine or other cross-reacting amphetamine compounds are reported as positive. Amphetamine immunoassays are subject to significant false positive rates due to cross-reactivity of non-amphetamine drugs. Confirmatory testing required for definitive results. Current Interpretive Data was last reviewed 2022. Barbiturates, ur Not Detected CutOff 200ng/mL [facility] Comment: Interpretive Data - Barbiturates: Samples containing greater than 200 ng/mL secobarbital or other cross-reacting barbiturate compounds are reported as positive. False positive and false negative results are possible. Confirmatory testing required for definitive results. Current Interpretive Data was last reviewed 2022. Benzodiazepines, ur Screen Positive, presumptive (A) CutOff 100ng/mL [facility] Comment: Interpretive Data - Benzodiazepines: Samples containing greater than 100 ng/mL nordiazepam or other cross-reacting compounds are reported as positive. False positive and false negative results are possible. Confirmatory testing required for definitive results. Current Interpretive Data was last reviewed 2022. Cannabinoids, ur Not Detected CutOff 50 ng/mL [facility] Comment: Interpretive Data - Cannabinoids: Samples containing greater than 50 ng/mL delta-9 THC -COOH or other cross- reacting compounds are reported as positive. False positive and false negative results are possible. Confirmatory testing required for definitive results. Current Interpretive Data was last reviewed 2022. Cocaine, ur Not Detected CutOff 150ng/mL [facility] Comment: Interpretive Data - Cocaine: Samples containing greater than 150 ng/mL benzoylecgonine or other cross- reacting compounds are reported as positive. False positive and false negative results are possible. Confirmatory testing required for definitive results. Current Interpretive Data was last reviewed 2022. Fentanyl, Ur Not Detected CutOff 5 ng/mL [facility] Comment: Interpretive Data - Fentanyl: Samples containing greater than 5 ng/mL norfentanyl, fentanyl, or other cross-reacting fentanyl compounds are reported as positive. False positive and false negative results are possible. Confirmatory testing required for definitive results. Current Interpretive Data was last reviewed 2023. Methadone, ur Not Detected CutOff 300ng/mL [facility] Comment: Interpretive Data - Methadone: Samples containing greater than 300 ng/mL d,l-methadone or other cross-reacting compounds are reported as positive. False positive and false negative results are possible. Confirmatory testing required for definitive results. Current Interpretive Data was last reviewed 2022. Opiates, ur Not Detected CutOff 300ng/mL [facility] Comment: Interpretive Data - Opiates: Samples containing greater than 300 ng/mL morphine or other cross-reacting compounds are reported as positive. False positive and false negative results are possible. Confirmatory testing required for definitive results. Current Interpretive Data was last reviewed 2022. Oxycodone, ur Not Detected CutOff 100ng/mL [facility] Comment: Interpretive Data - Oxycodone: Samples containing greater than 100 ng/mL oxycodone or other cross-reacting compounds are reported as positive. False positive and false negative results are possible. Confirmatory testing required for definitive results. Current Interpretive Data was last reviewed 2022. Phencyclidine, ur Not Detected CutOff 25 ng/mL [facility] Comment: Interpretive Data - Phencyclidine: Samples containing greater than 25 ng/mL phencyclidine or other cross-reacting compounds are reported as positive. False positive and false negative results are possible. Confirmatory testing required for definitive results. Current Interpretive Data was last reviewed 2022. Urine Creatinine 241 mg/dL [facility] Comment: Interpretive Data Urine Creatinine: < 10 mg/dL is extremely dilute = or > 10 but < 20 mg/dL is dilute = or > 20 mg/dL is normal Current Interpretive Data was last revised on 2017. Urine 08/04/2024 7:40 PM CDT 08/04/2024 7:51 PM CDT Narrative [facility] - 08/04/2024 8:23 PM CDT Drug of Abuse screening is performed by immunoassay for medical purposes only. This is not to be used for Pain Management purposes. Nadeem Burrows MD LAB URINE ORDERABLES Final Result Performing Organization Address [facility] de Phone Number [facility] [place] [address] * (ABNORMAL) Urinalysis, microscopic only (08/04/2024 7:40 PM CDT) WBC, ur 6-10(A) 0 - 5 /HPF RBC, ur 0-2 0 - 2 /HPF [facility] Epithelial cells, squamous, ur 1-5 0 - 5 /HPF [facility] Bacteria, ur Trace(A) [facility] Mucous, ur Present(A) [facility] Hyaline casts, ur 21-50(A) 0 - 10 /LPF [facility] Urine 08/04/2024 7:40 PM CDT 08/04/2024 7:47 PM CDT Nadeem Burrows MD LAB URINE ORDERABLES Final Result Performing Organization Address [facility] de Phone Number [facility] [place] [address] * [place] CRITICAL CARE ILL/INJURED PATIENT INIT 30-74 MIN (08/04/2024 5:58 PM CDT) Narrative Eb Trejo NP - 08/04/2024 5:58 PM CDT Eb Trejo NP 08/04/2024 10:11 PM Critical Care Performed by: Eb Trejo NP Authorized by: Nader Cristobal MD Critical care provider statement: As reflected in the history, physical exam, orders, notes, and/or MDM, I was personally present while the patient was critically ill and provided critical care services for 35 minutes, excluding time involved in separately billable procedures. Critical care was necessary to treat or prevent imminent or life-threatening deterioration of the following condition(s): suicidal/homicidal ideation Critical care was time spent by me providing the following: psychological evaluation with medical clearance I provided emergent necessary critical care medicine services to this patient. I ordered and reviewed test results and/or imaging studies. I spent time discussing the management of this critically ill patient with consultants and the medical staff. I spent time discussing the management and therapeutic options for this critically ill patient with the patient themselves or with the appropriate designated surrogate decision-maker. I spent time documenting in the medical record. Nader Cristobal MD IN CLINIC/BEDSIDE ORDERABLES Final Result * (ABNORMAL) eGFR (08/04/2024 5:55 PM CDT) eGFR 48(L) >=60 mL/min/1. 73 m2 Comment: Interpretive Data Reference Interval Normal >/= 90 mL/min/1.73m2 Mildly decreased* 60 - 89 mL/min/1.73m2 Mildly to moderately decreased 45 - 59 mL/min/1.73m2 Moderately to severely decreased 30 - 44 mL/min/1.73m2 Severely decreased 15 - 29 mL/min/1.73m2 Kidney Failure < 15 mL/min/1.73m2 *Relative to young adult level Estimated glomerular filtration rate is determined by the 2020 CKD-EPI equation recommended by the National Kidney Foundation (A Unifying Approach to GFR Estimation: Recommendations of the NKF-ASK Task Force on Reassessing the Inclusion of Race in Diagnosing Kidney Disease, JASN 2020). The CKD-EPI equation should not be used for patients with unstable renal function and has not been validated in children and those over 70. Current interpretive data was last reviewed 2021. Blood 08/04/2024 5:55 PM CDT 08/04/2024 6:10 PM CDT Nadeem Burrows MD LAB BLOOD ORDERABLES Final Result [facility] [place] [address] * Differential, auto (08/04/2024 5:55 PM CDT) Pathologist [facility] Neutrophil abs 5.01 1.50 - 6.50 K/cumm Imm gran abs 0.03 0.00 - 0.10 K/cumm [facility] Lymphocyte abs 1.42 0.80 - 3.30 K/cumm [facility] Monocyte abs 0.69 0.20 - 0.80 K/cumm [facility] Eosinophil abs 0.03 0.00 - 0.50 K/cumm [facility] Basophil abs 0.04 0.00 - 0.10 K/cumm [facility] Neutrophil pct 69.3 % [facility] Comment: Interpretive Data Percent cell count reference ranges are not reported, since discordance with absolute values may lead to misinterpretation of CBC data. Current Interpretive Data was last revised on 2017. Imm gran pct 0.4 % [facility] Comment: Interpretive Data Percent cell count reference ranges are not reported, since discordance with absolute values may lead to misinterpretation of CBC data. Current Interpretive Data was last revised on 2017. Lymphocyte pct 19.7 % [facility] Comment: Interpretive Data Percent cell count reference ranges are not reported, since discordance with absolute values may lead to misinterpretation of CBC data. Current Interpretive Data was last revised on 2017. Monocyte pct 9.6 % [facility] Comment: Interpretive Data Percent cell count reference ranges are not reported, since discordance with absolute values may lead to misinterpretation of CBC data. Current Interpretive Data was last revised on 2017. Eosinophil pct 0.4 % [facility] Comment: Interpretive Data Percent cell count reference ranges are not reported, since discordance with absolute values may lead to misinterpretation of CBC data. Current Interpretive Data was last revised on 2017. Basophil pct 0.6 % [facility] Comment: Interpretive Data Percent cell count reference ranges are not reported, since discordance with absolute values may lead to misinterpretation of CBC data. Current Interpretive Data was last revised on 2017. Blood 08/04/2024 5:55 PM CDT 08/04/2024 6:09 PM CDT us Nadeem Burrows MD LAB BLOOD ORDERABLES Final Result [facility] [place] [address] * Thyroid Function Carver (08/04/2024 5:55 PM CDT) [facility] TSH 0.73 0.30 - 4.20 mcIUnit/mL Blood 08/04/2024 5:55 PM CDT 08/04/2024 6:10 PM CDT Nadeem Burrows MD LAB BLOOD ORDERABLES Final Result Performing Organization Address City/[facility]/ZIP Co de Phone Number [facility] [place] [address] * (ABNORMAL) CBC with auto differential (08/04/2024 5:55 PM CDT) [facility] WBC 7.22 3.80 - 9.90 K/cumm Hgb 15.1 11.9 - 15.5 g/dL [facility] Hct 42.7 35.6 - 45.5 % [facility] Plt 132(L) 150 - 400 K/cumm [facility] MPV 11.5 9.1 - 12.3 fL [facility] RBC 4.66 3.90 - 5.20 M/cumm [facility] MCV 91.6 81.3 - 96.4 fL [facility] MCH 32.4 27.1 - 33.3 pg [facility] MCHC 35.4 32.3 - 35.7 g/dL [facility] RDW CV 13.2 11.1 - 14.9 % [facility] RDW SD 44.0 35.7 - 48.1 fL [facility] NRBC abs 0.00 0.00 - 0.01 K/cumm [facility] Blood Venous blood specimen / Unknown 08/04/2024 5:55 PM CDT 08/04/2024 6:09 PM CDT Nadeem Burrows MD LAB BLOOD ORDERABLES Final Result Performing Organization Address City/[facility]/ZIP Co de Phone Number [facility] [place] [address] * Ethanol (08/04/2024 5:55 PM CDT) Ethanol <10 <=10 mg/dL Comment: Interpretive Data Legal limit of intoxication > or = 80 mg/dL Levels > or = 400 mg/dL are potentially TOXIC. Current interpretive data was last revised on 2018. Blood 08/04/2024 5:55 PM CDT 08/04/2024 6:10 PM CDT Nadeem Burrows MD LAB BLOOD ORDERABLES Final Result Performing Organization Address [facility] Co de Phone Number [facility] [place] [address] * Valproic acid level, total (08/04/2024 5:55 PM CDT) Pathologist [facility] Valproic Acid 53.0 50.0 - 100.0 mcg/mL Comment: Interpretive Data Therapeutic or toxic effects of anticonvulsant drugs may occur at different concentrations in different patients and the correlation between dose and clinical effect must be evaluated individually. Current interpretative data was last revised on 13. Blood 08/04/2024 5:55 PM CDT 08/04/2024 6:10 PM CDT Nadeem Burrows MD LAB BLOOD ORDERABLES Final Result Performing Organization Address [facility] Co de Phone Number [facility] [place] [address] * (ABNORMAL) Comprehensive metabolic panel (08/04/2024 5:55 PM CDT) Pathologist [facility] Sodium 139 135 - 145 mmol/L Potassium, pl 4.3 3.3 - 4.9 mmol/L [facility] Chloride 100 97 - 110 mmol/L [facility] CO2 25 22 - 32 mmol/L [facility] Anion gap 14 2 - 15 mmol/L [facility] BUN 18 6 - 25 mg/dL [facility] Creatinine 1.19(H) 0.60 - 1.10 mg/dL [facility] Glucose 85 70 - 199 mg/dL [facility] Comment: Interpretive Data Fasting glucose >/= 126 mg/dl is diagnostic for diabetes. Fasting is defined as no caloric intake for at least 8 hours. Fasting glucose between 100 mg/dl to 125 mg/dl is diagnostic of prediabetes. In a patient with classic symptoms of hyperglycemia or hyperglycemic crisis, a random glucose >/= 200 mg/dl is diagnostic for diabetes. In the absence of unequivocal hyperglycemia, results should be confirmed by repeat testing. The classification and Diagnosis of Diabetes Diabetes Care 202; 46: S19-S40. Current interpretive data was last revised 2022. Calcium 9.4 8.5 - 10.3 mg/dL [facility] Bilirubin, total 0.6 0.1 - 1.2 mg/dL [facility] Protein, pl 6.5 6.5 - 8.5 g/dL [facility] Albumin 4.0 3.5 - 5.0 g/dL [facility] Alk phos 48 40 - 130 Units/L [facility] ALT 30 7 - 45 Units/L [facility] AST 43 10 - 45 Units/L [facility] Blood 08/04/2024 5:55 PM CDT 08/04/2024 6:10 PM CDT Nadeem Burrows MD LAB BLOOD ORDERABLES Final Result [facility] [place] [address] from Last 3 Months Insurance MEDICARE [facility]ROAD [facility] PPO [facility] HMO [facility] AETNA SENIOR SUPPLEMENT AETNA AETNA MEDICARE GOLD AETNA MEDICARE GOLD Advance Directives For more information, please contact: [phone] Documents on File Type Date Recorded 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 Vertical Expl anation ADVANCE DIRECTIVE 09/03/2024 11:32 AM [employer] * Full Code (Latest Code Status on File) Date Activated Date Inactivated Comments 09/10/2024 6:02 AM 09/11/2024 5:13 AM * Full Code Date Activated Date Inactivated Comments 09/03/2024 5:40 AM 09/04/2024 5:02 AM * Full Code Date Activated Date Inactivated Comments 08/27/2024 9:04 AM 08/28/2024 5:11 AM * Full Code Date Activated Date Inactivated Comments 08/21/2024 5:09 AM 08/21/2024 5:30 PM * Full Code Date Activated Date Inactivated Comments 08/19/2024 5:20 AM 08/21/2024 5:09 AM Care Teams Media Analytics Manager Relationship Specialty Start Date End Date Eloise Bridges MD [address] [address] PCP - General 08/29/17
--- OUTSIDE RECORDS SUMMARY | 2024-10-13 12:33 | XMS_ITS | Clinical Summary ---
Author Organization [facility] [employer] Address [address] [place] [address] Care Team Providers Care Integration Project Manager Name Role Phone Cory Cooper MD Primary Care Provider [phone] Source Comments [facility] [employer],non-[facility] Affiliates and Associated Physician Practices is amultiple site organization consisting of ambulatory clinics and hospital sitesin [place], [place]. This disclosure is being madepursuant to the Care Everywhere program and may not contain all information available regarding this patient. Last updated 17.[facility] [employer] Allergies Active Allergy Reactions Criticality Noted Date [...] MEDICARE AWV CALENDAR YEAR 2024 INFLUENZA VACCINE (#1) 2024 12/12/2016 Respiratory Syncytial Virus (RSV) Vaccine Pt: or [...] this topic Insurance MEDICARE AETNA MEDICARE ADV AETNA Care Teams Integration Project Manager Relationship Specialty Start Date End Date Cory Cooper MD [address] [place] [address] PCP - General 08/01/21
--- OUTSIDE RECORDS SUMMARY | 2024-10-13 12:33 | XMS_ITS | Encounter Summary ---
Author Organization [facility] Address [address] [place] [address] Care Team Providers Care Amphibian Crewmember Name Role Phone Cory Cooper MD Primary Care Provider [phone] Encounter Details Date Type Department Care Team (Late st Contact Info) Description 04/06/2024 Lab Requisition [facility] Physician [facility] - DermPath Lab [address] [place] [id number] Kristofer Saenz MD [address] [place] [address] Social History Tobacco Use Types Packs/Day Years [...] Comments DERMATOPATHOLOGY Routine 04/06/2024 12:0 0 AM DIGITAL PROOFING AND PLATEMAKER documented in this encounter Results * DERMATOPATHOLOGY (04/06/2024 12:00 AM DIGITAL PROOFING AND PLATEMAKER) Case Report Dermatopathology Report Case: [id number] Authorizing Provider: Kristofer Saenz MD Collected: 04/06/2024 12:00 AM Ordering Location: [facility] Physician [facility] - Received: 04/06/2024 04:08 PM DermPath Lab Pathologist: Trudi Lam MD Specimen: Skin, right chin 4:52 PM [facility] DERMATOPATHOLOGY [facility]ORAT[facility] Final Diagnosis Specimen A. SKIN, right chin: DERMAL SCAR RESIDUAL BASAL CELL CARCINOMA NOT IDENTIFIED (L90.5) 4:52 PM [facility] DERMATOPATHOLOGY LABORATORY at [address] [employer] Clinical History BCC Bx proven [id number] 4:52 PM [facility] DERMATOPATHOLOGY [facility]ORAT[facility] Gross Description Specimen A: Received is one formalin filled container labeled with the patient's name and designated right chin. The specimen consists of a curettage and desiccation biopsy measuring 5x4x1 mm. Jar 0. 4:52 PM [facility] DERMATOPATHOLOGY LABORATORY Microscopic Description Specimen A. SKIN, right chin: There are fibroblasts and collagen bundles oriented parallel to the skin surface. There are elongated blood vessels, some of which are oriented perpendicular to the skin surface. No basal cell carcinoma is identified. 4:52 PM [facility] DERMATOPATHOLOGY LABORATORY Disclaimer An external and internal positive and negative controls are appropriate for the histochemical, immunohistochemical and immunofluorescence stain(s) in this case (if any), except where stated explicitly. The performance characteristics of the stain(s) cited in this report were developed and its performance characteristic determined by the Dermatopathology Laboratory at [facility], directed by Dr. Elysia Reyes. These tests need not be, and therefore are not, approved by the [place] Food and Drug Administration. The tests are used for clinical purposes. Billing Codes Specimen Charges Stain Charges 71122 1 4:52 PM [facility] DERMATOPATHOLOGY LABORATORY Embedded Images 4:52 PM [facility] DERMATOPATHOLOGY [facility]ORY Pathology/Cytolog y TISSUE SPECIMEN FROM SKIN / Unknown 04/06/2024 04/06/2024 4:08 PM [facility] Kristofer Saenz MD LAB - PATHOLOGY/CYTOLOGY ORDERAB LES Final Result DERMATOPATHOLOGY LABORATORY [facility] - Department of Dermatology [address], [address] [phone] documented in this encounter Visit Diagnoses Not on filedocumented in this encounter Care Teams Amphibian Crewmember Relationship Specialty Start Date End Date Cory Cooper MD [address] [place] [address] PCP - General 08/01/21 documented as of this encounter
[2024-10-13 13:04] LABS: Alanine Aminotransferase 16 U/L (6-35); Albumin Level 4.5 g/dL (3.5-5.1); Alkaline Phosphatase 59 U/L (38-126); Anion Gap 3 mmol/L (4-12); Aspartate Amino Transferase 26 U/L (14-36); Bilirubin,Total 0.6 mg/dL (0.2-1.3); Blood Urea Nitrogen 17 mg/dL (7-17); Calcium 10.1 mg/dL (8.4-10.2); Carbon Dioxide 31 mmol/L (22-30); Chloride 107 mmol/L (98-107); Estimated Glomerular Filt Rate > 60; Glucose 81 mg/dL (65-110); Osmolality Calculated 292 mOsm/kg (285-295); Potassium 4.5 mmol/L (3.4-5.0); Sodium 141 mmol/L (137-145); Total Protein 6.7 g/dL (6.3-8.2)
[2024-10-13 13:35] LABS: Thyroid Stimulating Hormone < 0.015 uIU/mL (0.465-4.680)
[2024-10-14 09:25] LABS: Free T4 Free Thyroxine 0.99 ng/dL (0.78-2.19)
[2024-10-15 13:08] LABS: ANA by IFA Rfx Titer/Pattern Positive (.); ANA by IFA Rfx YES YES
== END 2024-10-13 11:56 | disposition home or self-care (01) ==
LOC: CHSLAB 11:56
PROVIDERS: PCP Family Medicine; Visit Provider Family Medicine
DX: L65.9 Nonscarring hair loss, unspecified (principal); E05.90 Thyrotoxicosis, unspecified without thyrotoxic crisis or storm
CPT/HCPCS: 36415; 80053; 83520; 84439; 84443; 84480; 85025; 86038; 86225; 86235; 86364

== ENCOUNTER 2024-10-23 13:33 | Outpatient (CLI) | payer MEDICARE, SELFPAY ==
--- OUTSIDE RECORDS SUMMARY | 2024-07-09 04:20 | XMS_ITS ---
Author Organization [facility] Address [address] [place] [address] Care Team Providers Care Tax Technician Name Role Phone Uyen Bhatti Primary Care Provider Ericka Mayorga [phone] REASON FOR VISIT CRU Assessment Social History Sex Assigned At : Social History Observation Description Sex Assigned At Female Encounters Encounter Location Date Provider Diagnosis [facility] [address] [place] [address] 07/09/2024 Ericka Mayorga Assessments Encounter Date Diagnosis [...] * MIGUEL A, SharonDOB:1950 (74 yo F)Acc No.[id number]:07/09/2024 UNLOCKED PROGRESS NOTE Patient: Sharon MIMS Provider: Ronald Mayorga :1950 A ge:73 Y S ex:Female Date:07/09/2024 [facility] [facility] Pcp:Uyen Bhatti Subjective: * Chief Complaints: * [...] CHS11 Insurance Application Assistance, CHS12 Housing Assistance, [facility]13 Referring to Companion * * Electronic signature of Kirk Mayorga on 10/23/2024 at 01:38 PM CDT Sign off status: Pending * Provider: Ronald Mayorga Date: 0 07/09/2024 Generated for Pedro Pablo zazueta/Nayla/Nia on: 0 10/23/2024 01:38 PM CDT History and Physical Notes * HPI [...]
--- OUTSIDE RECORDS SUMMARY | 2024-10-22 09:45 | XMS_ITS ---
Author Organization [facility] Address [address] [facility] [address] [place] [address] Care Team Providers Care Asp Developer Name Role Phone Cory Cooper MD Primary Care Provider Anabelle Malagon Unavailable [phone] Allergies Allergen (clinical drug ingredient) Drug/Non Drug Allergy documented on EMR Reaction Allergy Type Onset Date Status vilazodone Viibryd diarrhea Drug Allergy Active Substance with penicillin structure and antibacterial mechanism of action (substance) Penicillins Unknown Drug Allergy 07/23/2023 Active sertraline Sertraline diarrhea Drug Allergy Activ e REASON FOR VISIT 1 month f/u Medications Medication SIG (Take, Route, Frequency, Duration) Notes Start Date End Date Status OLANZapine 10 MG Tablet 1 tablet Orally Once a day; Duration: 90 days at bedtime 10/22/2024 Active hydrOXYzine HCl 50 MG Tablet 1 tablet as needed Orally twice a day; Duration: 30 days 10/22/2024 Active FLUoxetine HCl 40 MG Capsule 1 capsule Orally Once a day; Duration: 90 days 10/22/2024 Active Social History Tobacco Use: Social History Observation Description Date Details (start date - stop date) Former Smoker NA - NA Sex Assigned At : Social History Observation Description Sex Assigned At Female Social History Miscellaneous: Social Info Question Answer Notes Advance Care Planning Are you your own decision-maker Yes Do you have Power of Attorne y for Health or Medical? Yes Do you have power of engine manager for Medical ? Yes Advance Directive Refused to discuss a dvance care planning,Living Will Tobacco Use: Social Info Question Answer Notes Tobacco Control (Standard) Tobacco use: Former smoker Additional Details Category Social Info Options Details Migrated Social History Migrated Social History Alcohol Intake: Occasional 07/19/2020,Tobacco Years: Former smoker 02/06/2018,Smoking Status: 20 03/15/2023 Drug/Alcohol: Do you smoke marijuana? Denies Do you drink alcohol? No Vital Signs Blood pressure systolic 101 mm Hg 10/23/19 25 Blood pressure diastolic 64 mm Hg 025 Heart Rate 66 /min 10/22/2024 Height 62.00 in 10/22/2024 Weight 125 lbs 10/22/2024 BMI 22.86 kg/m2 10/22/2024 Height-cm 157.48 cm 10/22/2024 Weight-kg 56.7 kg 10/22/2024 Encounters Encounter [facility] Date [facility] [address] [facility] [facility] [address] [place] [address] 10/22/2024 Anabelle Kelvin Generalized anxiety disorder F41.1 ; Primary insomnia F51.01 and Schizoaffective disorder, bipolar type F25.0 Assessments Encounter Date Diagnosis (ICD Code) Assessment Notes Treatment Notes Treatment Clinical Notes Section Notes 10/22/2024 Generalized anxiety disorder (ICD-10 - F41.1) 10/22/2024 Primary insomnia (ICD-10 - F51.01) 10/22/2024 Schizoaffective disorder, bipolar type (ICD-10 - F25.0) 10/22/2024 Other Increase hydroxyzine to 50mg for anxiety, discussed decreasing dose frequency to twice daily due to increased dose Patient educated on all medications including potential [...] Name Sig Start Date Stop Date Notes OLANZapine 10 MG Tablet 1 tablet Orally Once a day; Duration: 90 days 10/22/2024 hydrOXYzine HCl 50 MG Tablet 1 tablet as needed Orally twice a day; Duration: 30 days 10/22/2024 FLUoxetine HCl 40 MG Capsule 1 capsule O rally Once a day; Duration: 90 days 10/22/2024 Treatment Notes Assessment Notes Other Increase hydroxyzine to 50mg for anxiety, discussed decreasing dose frequency to twice daily due to increased dose Patient educated on all medications including potential benefits, side effects, risks. Educated on proper dosing schedule and importance of compliance. Next Appt Details Follow Up: 2 Months, Reason: med f/u Provider Name:Anabelle Roca yoly, 12/17/2024 02:45:00 PM, [address], [facility] [address], [place], [address], Provider Name:Maribel Ronald Mt Adler, 12/21/2024 01:00:00 PM, [address], [address], [place], [address], History and Physical Notes * HPI (History of Present Illness) Category Sub-Category Detail Notes Category Not es History of Presenting Problem Anxiety with excessive worry, with restlessness, which has been long-standing Here for follow up. No medicaiton changes made last visit. present with her today. She states I wasnt doing too good at the begining of the month, had depressive symptoms for about a week but has since resolved on it's own. Reports she has no current depression, none at all. Denies feeling down or sad. Not feeling hopeless or helpless, no suicidal ideation. Denies satnam. No suicidal ideation. She does report persistant anxiety and feeling nervous, however denies panic attacks recently. Sleep is good, getting about 7-8 hours nightly. Appetite is good, has gained about 3-4 pounds since last visit. Depression with sad mood, with isolative behavior, with decreased energy Suicidal ideation denies suicidal idea tion Mood lability denies satnam Psychotherapy Maribel Memory [facility] 12/2023 Depression screening PHQ-9 Little inte rest or pleasure in doing things: Not at all Feeling down, depressed, or hopeless: No t at all Trouble falling or staying asleep, or sl eeping too much: Not at all Feeling tired or having little energy: N ot at all Poor appetite or overeating: Not at all Feeling bad about yourself o r that you are a failure, or have let yourself or your family down: Not at all Trouble concentrating on thi ngs, such as reading the newspaper or watching television: Several days Moving or speaking so slowly that other people could have noticed; or the opposite, being so fidgety or restless that you have been moving around a lot more than usual: Not at all Thoughts that you would be b [place] off or of hurting yourself in some way: Not at all Total Score: 1 Interpretation: Minimal Depression Intervention Depression Screening Findings: N egative Follow-Up for Depression: Psychiatric fo llow-up Suicide Risk Assessment Performed: --jossue e Functional Status Functional Status Assessment D ate of last completed Functional Status Assessment:: 10/22/2024 Fall Risk Assessment:: No falls in the p ast year Examination Category Sub-Category Detail Notes Category Not [...] Homicidal ideation: none Delusions: yes Hallucinations: no Progress Notes * OVIDIO LACY EDOB: (74 yo F)Acc No.[id number]:10/22/2024 Patient: LACY MIMS Provider: YOSEF MERCHANTHNP :1950 A ge:74 Y S ex:Female Date:10/22/2024 Address:[address] [place], [place] [id number] Pcp:Cory Cooper MD Subjective: * Chief Complaints: * 1 month f/u * HPI: H istory of Presenting Problem: Depression w ith sad mood, with isolative behavior, with decreased energy. Anxiety w ith excessive worry, with restlessness, which has been long-standing. Mood lability d enies satnam. Suicidal ideation d enies suicidal ideation. Memory S LUMS 20 12/2023. Psychotherapy J cait. Here for follow up. No medicaiton changes made last visit. present with her today. She states I wasnt doing too good at the begining of the month, had depressive symptoms for about a week but has since resolved on it's own. Reports she has no current depression, none at all. Denies feeling down or sad. Not feeling hopeless or helpless, no suicidal ideation. Denies satnam. No suicidal ideation. She does report persistant anxiety and feeling nervous, however denies panic attacks recently. Sleep is good, getting about 7-8 hours nightly. Appetite is good, has gained about 3-4 pounds since last visit. D epression screening: PHQ-9 L ittle interest or pleasure in doing things?Not at all F eeling down, depressed, or hopeless N ot at all T rouble falling or staying asleep, or sleeping too much N ot at all F eeling tired or having little energy N ot at all P oor appetite or overeating N ot at all F eeling bad about yourself or that you are a failure, or have let yourself or your family down N ot at all T rouble concentrating on things, such as reading the newspaper or watching television S ever days M oving or speaking so slowly that other people could have noticed; or the opposite, being so fidgety or restless that you have been moving around a lot more than usual N ot at all T houghts that you would be better off or of hurting yourself in some way N ot at all T otal Score 1 I nterpretation M inimal Depression Intervention D epression Screening Findings N egative F ollow-Up for Depression P sychiatric follow-up S uicide Risk Assessment Performed - -date F unctional Status: Functional Status Assessment D ate of last completed Functional Status Assessment: 0 10/22/2024 F all Risk Assessment: N o falls in the past year * ROS: P sychiatric: Patient denies a uditory / visual hallucinations, delusions, satnam, difficulty concentrating, panic attacks, suicidal thoughts, anxiety, depressed mood. C robert S ee HPI for details. * Medical History: Problems: Family disruption Generalized anxiety disorder Long-term drug therapy Primary insomnia Recurrent major depressive episodes, mild Schizoaffective disorder, bipolar type , Medical History Verified * Surgical History: Cataract surgery (25579) Tonsilectomy/adenoids Sinus surgery Hysterectomy (01336) Appendectomy (97336) Cosmetic surgery Other Breast surgery (73561) 07/27/2021 Surgical History verified. * Hospitalization/Major Diagno stic Procedure: [facility] June 2024 [facility] August 2024- paranoia, depression- received 9 treatments of ECT Hospitalization Verified. * Family History: U nspecified Relation: Depressive disorder . F ather: No current problems or disability .?Mother: No current problems or disability . B rother: Alcohol abuse . S ister: Anxiety disorder . S on: alive. 2 son(s) . . F amily History Verified.. 2 sons. One lives locally and lives in [place]. No meds during . Mental illness started [...] es D o you have Power of Eastern Philosophy Professor for Health or Medical? Y es D o you have power of engine manager for Medical ??Yes A dvance Directive R efused to discuss advance care planning,Living Will S ocial History Verified. * Medications: T akinghydrOXYzine HCl 10 MG Tablet 1 tablet as needed Orally three times a day OLANZapine 10 MG Tablet 1 tablet Orally Once a day at bedtimeFLUoxetine HCl 40 MG Capsule 1 capsule Orally Once a day Medication List reviewed and reconciled with the patientTaking hydrOXYzine HCl 10 MG Tablet 1 tablet as needed Orally three times a day Taking OLANZapine 10 MG Tablet 1 tablet Orally Once a day at bedtimeTaking FLUoxetine HCl 40 MG Capsule 1 capsule Orally Once a day Medication List reviewed and reconciled with the patient * Allergies: P enicillins: Allergy - Onset Date 07/23/2023Sertraline: diarrheaViibryd: diarrheayesAllergies Verified. Objective: * Vitals: B P:101/64mm Hg, HR:66/min, Wt:125lbs, Wt-k.7 kg, Ht: 62.00 in, Ht-cm: 157.48 cm, BMI:22.86Index, Body Surface Area: 1.57. * Examination: P sychiatry: Appearance: w ell-groomed. Abnormal body movements: n one. Affect / mood: a ppropriate. Attention: g ood. Attitude: c ooperative. Homicidal ideation: n one. Suicidal ideation: n one. Degree of awareness of surroundings: w ithin normal limits.? Delusions: y es. Hallucinations: n o. Insight: [...] eneralized anxiety disorder - F41.1 3 . P rimary insomnia - F51.01 Plan: * Treatment: 2. G eneralized anxiety disorder Increase hydrOXYzine HCl Tablet, 50 MG, 1 tablet as needed, Orally, twice a day, 30 days, 60 Tablet, Refills 0; R efill FLUoxetine HCl Capsule, 40 MG, 1 capsule, Orally, Once a day, 90 days, 90, Refills 0. 3. O thers Notes: Increase hydroxyzine to 50mg for anxiety, discussed decreasing dose frequency to twice daily due to increased dose Patient educated on all medications including potential benefits, side effects, risks. Educated on proper dosing schedule and importance of compliance. Clinical Notes: -Assessment and treatment plan reviewed with patient. -Compliance with treatment plan importance discussed. -Discussed the risks/benefits of this medication -Discussed medication side effects. -Contact office if symptoms worsen. -Discussed that it can take up to 6-8 weeks to see full therapeutic effects of psychotropic medications. -Crisis prevention hotline 479. * Procedure Codes: 1 036F TOBACCO [id number] BEHAV ASSMT W/SCORE & DOCD/STAND [id number] VISIT COMPLEXITY INHERENT TO ONGOING CARE RELATED TO A PATIENT'S SINGLE, SERIOUS CONDITION OR A COMPLEX CONDITION * Preventive Medicine: Counseling: A dvance Care Planning Date of last Advance Care Planning:?10/22/2024 ____ MIPS Type of advance care directives: D urable power of engine manager for healthcare Screenings: D epression screening Have you had a recent depression screening? Y es * Follow Up: 2 Months (Reason: med f/u) Billing Information: * Visit Code: 61025 OFFICE OUTPATIENT VISIT 25 MINUTES DETAILED HISTORY AND EXAM/MODERATE MEDICAL DECISION MAKING. * Procedure Codes: 1036F TOBACCO NON-USER. 76113 BEHAV ASSMT W/SCORE & DOCD/STAND INSTRUMENT. G2211 VISIT COMPLEXITY INHERENT TO ONGOING CARE RELATED TO A PATIENT'S SINGLE, SERIOUS CONDITION OR A COMPLEX CONDITION. * Sign off status: Completed true * Provider: YO MERCHANT Date: 10/22/2024 Generated for Pedro Pablo zazueta/Nayla/Nia on: 10/23/2024 01:38 PM CDT
--- OUTSIDE RECORDS SUMMARY | 2024-10-23 13:38 | XMS_ITS | Encounter Summary ---
Author Organization [facility] Address [address] [facility] [place] [address] Care Team Providers Care Apartment Rental Clerk Name Role Phone Cory Cooper MD Primary Care Provider [phone] Encounter Details Date Type Department Care Team (Late st Contact Info) Description 03/15/2022 Lab Requisition [facility] [address] [place] [address] [place] [address] [place] [id number] Social History Tobacco Use Types Packs/Day Years [...] Comments DERMATOPATHOLOGY Routine 03/13/2022 12:0 0 AM AGRICULTURE MECHANIC documented in this encounter Results * DERMATOPATHOLOGY (03/13/2022 12:00 AM AGRICULTURE MECHANIC) Case Report Dermatopathology Report Case: [id number] Authorizing Provider: Kristofer Saenz MD Collected: 03/13/2022 12:00 AM Ordering Location: [facility] Received: 03/15/2022 07:16 AM Pathologist: Karolina Desir MD Specimen: Skin, post neck 6:20 PM AGRICULTURE MECHANIC DERMATOPATHOLOGY LABORATORY Final Diagnosis Specimen A. SKIN, post neck: SEBORRHEIC KERATOSIS (L82.1) PRESENT AT MARGIN 3 6:20 PM [facility] DERMATOPATHOLOGY LABORATORY at [address]20 AGRICULTURE MECHANIC Clinical History R/O BCC. Please Check Margins. 3 6:20 PM [facility] DERMATOPATHOLOGY LABORATORY Gross Description Specimen A: Received is one formalin filled container labeled with the patient's name and designated post neck. The specimen consists of a shave biopsy measuring [id number] and it is inked. Jar 0. 3 6:20 PM [facility] DERMATOPATHOLOGY LABORATORY Microscopic Description Specimen A. SKIN, post neck: Sections show an acanthotic lesion composed of relatively uniform keratinocytes. There is hyperkeratosis and pseudo horn cysts formation. This lesion is present at the margin of the specimen. 3 6:20 PM [facility] DERMATOPATHOLOGY LABORATORY Disclaimer An external and internal positive and negative controls are appropriate for the histochemical, immunohistochemical and immunofluorescence stain(s) in this case (if any), except where stated explicitly. The performance characteristics of the stain(s) cited in this report were developed and its performance characteristic determined by the Dermatopathology Laboratory at [facility], directed by Dr. Elysia Reyes. These tests need not be, and therefore are not, approved by the [place] Food and Drug Administration. The tests are used for clinical purposes. Billing Codes Specimen Charges Stain Charges 81815 1 3 6:20 PM [facility] DERMATOPATHOLOGY LABORATORY Embedded Images 3 6:20 PM [facility] DERMATOPATHOLOGY LABORATORY Pathology/Cytolog y TISSUE SPECIMEN FROM SKIN / Unknown 03/13/2022 03/15/2022 7:16 AM [facility] us Kristofer Saenz MD LAB - PATHOLOGY/CYTOLOGY ORDERAB LES Final Result DERMATOPATHOLOGY LABORATORY [facility] - Department of Dermatology [address], [address] [phone] documented in this encounter Visit Diagnoses Not on filedocumented in this encounter Care Teams Apartment Rental Clerk Relationship Specialty Start Date End Date Cory Cooper MD [address] [place] [address] PCP - General 08/01/21 documented as of this encounter
--- OUTSIDE RECORDS SUMMARY | 2024-10-23 13:38 | XMS_ITS | Patient Health Record ---
Author Organization [facility] Address [address] [place] [address] Care Team Providers Care Sales Consultant Name Role Phone Uyen Bhatti Primary Care Provider Ericka Mayorga Unavailable [phone] Kate Hopper Unavailable [phone] Allergies Allergen (clinical drug ingredient) Drug/Non Drug Allergy documented on EMR Reaction Allergy Type Onset Date Status Penicillin Unknown Drug Allergy Active Results Component Value Reference Range Notes CBC With Differential/Platel et* Reviewed date:07/14/2024 11:17:03 AM Interpretation:Normal Performing Lab:[facility], [address] [facility], Phone - [phone], Director - Ricphyllisi Notes/Report: WBC 6.1 3.4-10.8 [...] Panel* Reviewed date:07/14/2024 11:17:03 AM Interpretation:Normal Performing Lab:[facility], [address] [facility] [address], Phone - [phone], Director - [facility] Notes/Report: Glucose 89 70-99 mg/dL BUN [...] 2879) Reviewed date:07/14/2024 11:17:04 AM Interpretation:Normal Performing Lab:[facility], [address] [facility] [address], Phone - [phone], Director - [facility] Notes/Report: QuantiFERON Incubation Incubation performed. 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 Stress is when someone feels tense, nervous, anxious, or can\t sleep at night because their mind is troubled Very much In the past year have you sp ent more than 2 nights in a row in a assisted, longterm, nursing home center, or juvenile correctional facility? No Are [...] Status Risk Notes Problem Bipolar 1 disorder (430991493) Bipolar 1 disorder (F31.9) Active confirmed Problem [...] Encounters Encounter Location Date Provider Diagnosis [facility] [address] [place] [address] 07/09/2024 Uyen Bhatti Routine general medical examination at a health care facility Z00.00 and Over weight E66.3 [facility] [address] [place] [address] 07/09/2024 Kate Hopper Bipolar 1 disorder F31.9 Assessments Encounter Date Diagnosis (ICD Code) Assessment Notes Treatment Notes Treatment Clinical Notes Section Notes 07/09/2024 Routine general medical examination at a [facility] care facility (ICD-10 - Z00.00) Admit to [...] service needs. 07/09/2024 Other Clinician met w [facility] client to assess needs for residential services. [...] Coverage End Date [employer] Medicare [address] [place] [address] [id number] Sharon Grady Self - patient is the insured 5 [employer] Medicare LCSW [address] [place] [address] [id number] Sharon Grady Self - patient is the insured 5 Medical (General) History Medical History History ICD Code Bipolar Schizophrenia Surgical History Surgery Date(Month/Year) Hysterectomy section Hospitalization History Reason Date(Month/Year) [place], [place]
--- OUTSIDE RECORDS SUMMARY | 2024-10-23 13:39 | XMS_ITS | Clinical Summary ---
Author Organization [facility] Address [address] [facility] [place] [address] Care Team Providers Care Marketing Analytics Specialist Name Role Phone Cory Cooper MD Primary Care Provider [phone] Source Comments [facility] [facility] Affiliates and Associated Physician Practices is amultiple site organization consisting of ambulatory clinics and hospital sitesin [place], [place] and [place]. This disclosure is being madepursuant to the Care Everywhere program and may not contain all information available regarding this patient. Last updated 17.[facility] Allergies Active Allergy Reactions Criticality Noted Date [...] age to complete this [place] [address] [employer] MEDICARE ADV [employer] Care Teams Marketing Analytics Specialist Relationship Specialty Start Date End Date Cory Cooper MD [address] [place] [address] PCP - General 08/01/21
--- OUTSIDE RECORDS SUMMARY | 2024-10-23 13:39 | XMS_ITS | Clinical Summary ---
Author Organization [facility] Address [address] [place] [id number] Care Team Providers Care Director [facility] Name Role Phone Eloise Bridges MD Primary Care Provider [phone] Allergies Active Allergy Reactions Criticality Noted Date [...] Description 09/03/2024 7:49 AM CDT Anesthesia Event [facility] [address] [place] [address] Toni Pagan MD 09/03/2024 5:38 AM CDT - 09/03/2024 11:59 PM CDT Hospital Encounter [facility] [address] [place] [address] Bipolar I disorder, current or most recent episode depressed, with psychotic features (HCC) (Primary Dx) Discharge Disposition: Discharge to home or self care 08/27/2024 9:41 AM CDT Anesthesia Event [facility] [address] [place] [address] Brian Vallejo MD 08/27/2024 8:40 AM CDT - 08/27/2024 11:59 PM CDT Hospital Encounter [address] [address] Brian Vallejo MD Bipolar I disorder, current or most recent episode depressed, with psychotic features (HCC) (Primary Dx) Discharge Disposition: Discharge to home or self care 08/21/2024 8:00 AM CDT Anesthesia Event [address] [address] Nav Ervin III, MD PhD 08/19/2024 9:23 AM CDT Anesthesia Event [address] [address] Hai Estrella MD Williams, Michela Marie 08/17/2024 8:31 AM CDT Anesthesia Event [address] [address] Abebe Kumar MD 08/14/2024 8:04 AM CDT Anesthesia Event [address] [address] Toni Pagan MD Shelton, Christian Paul 08/12/2024 9:07 AM CDT Anesthesia Event [address] [address] Ruth Ann Cantu MD 08/10/2024 9:00 AM CDT Anesthesia Event [address] [address] Ghanshyam Forrester MD Kraemer, Elizabeth Mishoe, NP 08/07/2024 9:56 AM CDT Anesthesia Event [address] [address] José Miguel Fisher MD 08/04/2024 5:50 PM CDT - 08/21/2024 1:30 PM CDT Hospital Encounter [facility] [address] [place] [address] Nadeem Burrows MD Brown, Elbert Hutchison MD PhD Nadeem Catalan MD Bohnenkamp, MD Mj Fitzgerald, MD Gilmer Damico, Sonya Croona MD Suicidal ideation (Primary Dx); Bipolar affective [...] Tobacco: Never Tobacco Cessation:Counseling Given: Not Answered [facility] EVaultities Answer Date Recorded In the past 12 months has G3, oil, or water [employer] threatened to shut off services in your [...] Never 08/06/2024 How often do you attend druze or episcopalian serv ices? Never 08/06/2024 Do you belong to any clubs o r organizations such as druze groups, unions, fraternal or athletic groups, or [...] and heating? Not hard at all 08/06/2024 [facility] - Occupational Stress [...] place to sleep or slept in a jail (including now)? No 08/01/2022 Housing Stability Vital Sign Answer Jonah e Recorded In the last 12 months, was t here a time when you were not able to pay the mortgage or rent on time? No 08/06/2024 In the past 12 months, how m any times have you moved where you were living? 0 08/06/2024 At any time in the past 12 m [facility], were you homeless or living in a jail (including now)? No 08/06/2024 Personal Safety Answer [...] on file Legal Sex Female 1:23 PM [employer] Gender Identity Not on file Sexual Orientation [...] WITHOUT CONFIRMATION STAT 08/04/2024 7:40 PM CDT ME CRITICAL CARE ILL/INJURED PATIENT INIT 30-74 MIN [...] BLOOD ORDERABLES Final Result Performing Organization Address City/[facility]/ZIP Co de Phone Number [facility] [place] [address] * Phosphorus (2024 8:03 AM CDT) Phosphorus, pl 2.4 2.3 - 4.5 mg/dL Blood 2024 8:03 AM CDT 2024 9:28 AM CDT Sohan Galvan MD LAB BLOOD ORDERABLES Final Result [facility] [place] [place] [address] * Magnesium (2024 8:03 AM CDT) Magnesium 1.8 1.4 - 2.5 mg/dL Blood 2024 8:03 AM CDT 2024 9:28 AM CDT Sohan Galvan MD LAB BLOOD ORDERABLES Final Result [facility] Department [place] [address] * Basic metabolic panel (2024 8:03 AM CDT) Pathologist [facility] Sodium 143 135 - 145 mmol/L Potassium, pl 4.1 3.3 - 4.9 mmol/L [facility] Chloride 106 97 - 110 mmol/L [facility] CO2 30 22 - 32 mmol/L [facility] Anion gap 7 2 - 15 mmol/L [facility] BUN 12 6 - 25 mg/dL [facility] Creatinine 0.80 0.60 - 1.10 mg/dL [facility] Glucose 93 70 - 199 mg/dL [facility] Comment: Interpretive Data Fasting glucose >/= 126 [...] 2022. Calcium 9.2 8.5 - 10.3 mg/dL [facility] Blood 2024 8:03 AM CDT 2024 9:28 AM CDT Sohan Galvan MD LAB BLOOD ORDERABLES Final Result Performing Organization Address [facility] Co de Phone Number [facility] [place] [address] * eGFR (08/07/2024 8:49 PM CDT) eGFR [...] BLOOD ORDERABLES Final Result Performing Organization Address [facility] Co de Phone Number [facility] [place] [address] * Phosphorus (08/07/2024 8:49 PM CDT) Phosphorus, pl 2.7 2.3 - 4.5 mg/dL Blood 08/07/2024 8:49 PM CDT 08/07/2024 9:41 PM CDT Sohan Galvan MD LAB BLOOD ORDERABLES Final Result Performing Organization Address [facility] Co de Phone Number [facility] Department [place] [address] * Magnesium (08/07/2024 8:49 PM CDT) [facility] Magnesium 1.9 1.4 - 2.5 mg/dL Blood 08/07/2024 8:49 PM CDT 08/07/2024 9:41 PM CDT Sohan Galvan MD LAB BLOOD ORDERABLES Final Result Performing Organization Address [facility] Co de Phone Number [facility] [place] [address] * Basic metabolic panel (08/07/2024 8:49 PM CDT) [facility] Sodium 144 135 - 145 mmol/L Potassium, pl 4.7 3.3 - 4.9 mmol/L [facility] Chloride 105 97 - 110 mmol/L [facility] CO2 30 22 - 32 mmol/L [facility] Anion gap 9 2 - 15 mmol/L [facility] BUN 16 6 - 25 mg/dL [facility] Creatinine 0.96 0.60 - 1.10 mg/dL [facility] Glucose 105 70 - 199 mg/dL [facility] Comment: Interpretive Data Fasting glucose >/= 126 [...] 2022. Calcium 9.6 8.5 - 10.3 mg/dL [facility] Blood 08/07/2024 8:49 PM CDT 08/07/2024 9:41 PM CDT Sohan Galvan MD LAB BLOOD ORDERABLES Final Result Performing Organization Address City/[facility] Co de Phone Number [facility] [place] [address] * eGFR (08/07/2024 3:56 PM CDT) eGFR [...] BLOOD ORDERABLES Final Result Performing Organization Address City/[facility]/ZIP Co de Phone Number [facility] Department [place] [address] * Phosphorus (08/07/2024 3:56 PM CDT) Phosphorus, pl 2.6 2.3 - 4.5 mg/dL Blood 08/07/2024 3:56 PM CDT 08/07/2024 4:27 PM CDT Sohan Galvan MD LAB BLOOD ORDERABLES Final Result [facility] Department [place] [address] * Magnesium (08/07/2024 3:56 PM CDT) Pathologist [facility] Magnesium 1.7 1.4 - 2.5 mg/dL Blood 08/07/2024 3:56 PM CDT 08/07/2024 4:27 PM CDT Sohan Galvan MD LAB BLOOD ORDERABLES Final Result Performing Organization Address [facility] Co de Phone Number [facility] [place] [address] * Basic metabolic panel (08/07/2024 3:56 PM CDT) [facility] Sodium 144 135 - 145 mmol/L Potassium, pl 3.8 3.3 - 4.9 mmol/L [facility] Chloride 107 97 - 110 mmol/L [facility] CO2 30 22 - 32 mmol/L [facility] Anion gap 7 2 - 15 mmol/L [facility] BUN 14 6 - 25 mg/dL [facility] Creatinine 0.84 0.60 - 1.10 mg/dL [facility] Glucose 101 70 - 199 mg/dL [facility] Comment: Interpretive Data Fasting glucose >/= 126 [...] 2022. Calcium 8.6 8.5 - 10.3 mg/dL [facility] Blood 08/07/2024 3:56 PM CDT 08/07/2024 4:27 PM CDT Sohan Galvan MD LAB BLOOD ORDERABLES Final Result [facility] [place] [employer] [place] [address] * eGFR (08/06/2024 9:09 PM CDT) eGFR [...] BLOOD ORDERABLES Final Result [facility] [place] [place] [address] * Phosphorus (08/06/2024 9:09 PM CDT) Phosphorus, pl 4.1 2.3 - 4.5 mg/dL Blood 08/06/2024 9:09 PM CDT 08/06/2024 9:43 PM CDT Sohan Galvan MD LAB BLOOD ORDERABLES Final Result [facility] Department [place] [address] * Magnesium (08/06/2024 9:09 PM CDT) Pathologist [facility] Magnesium 1.6 1.4 - 2.5 mg/dL Blood 08/06/2024 9:09 PM CDT 08/06/2024 9:43 PM CDT Sohan Galvan MD LAB BLOOD ORDERABLES Final Result Performing Organization Address [facility] de Phone Number [facility] Department [place] [address] * Basic metabolic panel (08/06/2024 9:09 PM CDT) [facility] Sodium 143 135 - 145 mmol/L Potassium, pl 3.9 3.3 - 4.9 mmol/L [facility] Chloride 104 97 - 110 mmol/L [facility] CO2 29 22 - 32 mmol/L [facility] Anion gap 10 2 - 15 mmol/L [facility] BUN 15 6 - 25 mg/dL [facility] Creatinine 0.94 0.60 - 1.10 mg/dL [facility] Glucose 107 70 - 199 mg/dL [facility] Comment: Interpretive Data Fasting glucose >/= 126 [...] 2022. Calcium 9.1 8.5 - 10.3 mg/dL [facility] Blood 08/06/2024 9:09 PM CDT 08/06/2024 9:43 PM CDT us Sohan Galvan MD LAB BLOOD ORDERABLES Final Result Performing Organization Address City/[facility]/ZIP Co de Phone Number [facility] [place] [address] * eGFR (08/06/2024 7:33 AM CDT) eGFR [...] MD LAB BLOOD ORDERABLES Final Result [facility] Department [place] [address] * HIV 1/2 Antibody plus p24 Antigen [...] NERAL ORDERABLES Final Result Performing Organization Address City/[facility] Co de Phone Number [facility] [employer] [place] [address] * Hepatitis C antibody Blood (08/06/2024 7:33 [...] NERAL ORDERABLES Final Result Performing Organization Address City/[facility] Co de Phone Number [facility] [employer] [place] [address] * RPR Blood (08/06/2024 7:33 AM CDT) Pathologist [facility] RPR Nonreactive Nonreactive Blood 08/06/2024 7:33 AM CDT 08/06/2024 8:03 AM CDT Sohan Galvan MD LAB MICROBIOLOGY - GE NERAL ORDERABLES Final Result Performing Organization Address City/[facility]/ZIP Co de Phone Number [facility] [employer] [place] [address] * Hepatitis B Surface Antigen Blood (08/06/2024 7:33 AM CDT) [facility] HepBsAg Nonreactive Nonreactive Blood 08/06/2024 7:33 AM CDT 08/06/2024 8:03 AM CDT Sohan Galvan MD LAB MICROBIOLOGY - GE NERAL ORDERABLES Final Result Performing Organization Address City/[facility]/ZIP Co de Phone Number [facility] [place] [employer] [address] * Vitamin B1 (08/06/2024 7:33 AM CDT) [facility] Thiamine (Vit B1) 120 70 - 180 nmol/L [facility] Comment: ADDITIONAL INFORMATION This test was developed and its performance characteristics determined by [facility] in a manner consistent with CLIA requirements. This test has not been cleared or approved by the U.S. Food and Drug Administration. Test Performed by: [place] [address] Behavioral Medical Director: Lolis Randolph Ph.D.; CLIA# [id number] Blood 08/06/2024 7:3 3 AM CDT 08/06/2024 8:00 AM CDT Sohan Galvan MD LAB BLOOD ORDERABLES Final Result [facility] [employer] [place] [address] [facility] * Phosphorus (08/06/2024 7:33 AM CDT) [facility] Phosphorus, pl 2.7 2.3 - 4.5 mg/dL Blood 08/06/2024 7:33 AM CDT 08/06/2024 8:03 AM CDT Sohan Galvan MD LAB BLOOD ORDERABLES Final Result Performing Organization Address [facility] de Phone Number [facility] [place] [address] * Magnesium (08/06/2024 7:33 AM CDT) [facility] Magnesium 1.8 1.4 - 2.5 mg/dL Blood 08/06/2024 7:33 AM CDT 08/06/2024 8:03 AM CDT Sohan Galvan MD LAB BLOOD ORDERABLES Final Result Performing Organization Address [facility] [place] [address] * Hemoglobin A1c (08/06/2024 7:33 AM CDT) [facility] Hgb A1C 5.4 4.0 - 5.6 % Estimated Average Glucose 108 mg/dL [facility] Comment: The ADA recommends reporting an [...] BLOOD ORDERABLES Final Result Performing Organization Address [facility] [place] [address] * Folate (08/06/2024 7:33 AM CDT) [facility] Folic acid >20.0 >=5.0 ng/mL Blood 08/06/2024 7:33 AM CDT 08/06/2024 8:03 AM CDT Sohan Galvan MD LAB BLOOD ORDERABLES Final Result Performing Organization Address [facility] Co de Phone Number [facility] [place] [address] * (ABNORMAL) Vitamin B12 (08/06/2024 7:33 AM CDT) Vitamin B12 1,273(H) 230 - 1,250 pg/mL Blood 08/06/2024 7:33 AM CDT 08/06/2024 8:03 AM CDT Sohan Galvan MD LAB BLOOD ORDERABLES Final Result Performing Organization Address [facility] de Phone Number [facility] [place] [address] * Lipid panel (08/06/2024 7:33 AM CDT) [...] revised on 2017. Triglycerides 91 <=149 mg/dL [facility] Comment: Interpretive Data Ages < or [...] revised on 2017. HDL 71 >=40 mg/dL [facility] Comment: Interpretive Data Ages < or = [...] on 2017. LDL, calculated 99 <=129 mg/dL [facility] Comment: Interpretive Data Ages < or [...] on 2023. Non-HDL Cholesterol 115 mg/dL [facility] Comment: Interpretive Data Ages < or [...] last revised on 2017. Chol/HDL ratio 3 [facility] Blood 08/06/2024 7:33 AM CDT 08/06/2024 8:03 AM CDT us Sohan Galvan MD LAB BLOOD ORDERABLES Final Result [facility] Department [place] [address] * Basic metabolic panel (08/06/2024 7:33 AM CDT) Sodium 144 135 - 145 mmol/L Potassium, pl 3.5 3.3 - 4.9 mmol/L [facility] Chloride 103 97 - 110 mmol/L [facility] CO2 29 22 - 32 mmol/L [facility] Anion gap 12 2 - 15 mmol/L [facility] BUN 14 6 - 25 mg/dL [facility] Creatinine 0.93 0.60 - 1.10 mg/dL [facility] Glucose 111 70 - 199 mg/dL [facility] Comment: Interpretive Data Fasting glucose >/= 126 [...] 2022. Calcium 9.8 8.5 - 10.3 mg/dL [facility] Blood 08/06/2024 7:33 AM CDT 08/06/2024 8:03 AM CDT us Sohan Galvan MD LAB BLOOD ORDERABLES Final Result [facility] Department [place] [address] * ECG 12 lead (08/05/2024 9:21 PM CDT) Ventricular Rate EKG/Min 74 BPM [facility] Atrial Rate 74 BPM [facility] ME-Interval (MSEC) 142 ms [facility] QRS-Interval (MSEC) 78 ms [facility] QT-Interval (MSEC) 392 ms [facility] QTc 435 ms [facility] P [place] 56 degrees [facility] R [place] -35 degrees [facility] T [place] 1 degrees [facility] Diagnosis Normal sinus rhythm Left axis deviation Nonspecific T wave abnormality Abnormal ECG When compared with ECG of 21-NOV-2010 11:24, No significant change was found Confirmed by TAYA LINDSEY M.D ([id number]) on 08/06/2024 9:50:41 AM [facility] 08/05/2024 9:21 PM CDT 08/06/2024 9:50 AM CDT us Sohan Galvan MD ECG ORDERABLES Final Result Performing Organization Address City/[facility] Co de Phone Number [facility] * (ABNORMAL) eGFR (08/05/2024 8:29 PM CDT) [...] BLOOD ORDERABLES Final Result Performing Organization Address City/[facility] Co de Phone Number [facility] [place] [employer] [place] [address] * Phosphorus (08/05/2024 8:29 PM CDT) Phosphorus, pl 2.6 2.3 - 4.5 mg/dL Blood 08/05/2024 8:29 PM CDT 08/05/2024 9:29 PM CDT Sohan Galvan MD LAB BLOOD ORDERABLES Final Result Performing Organization Address [facility] Co de Phone Number [facility] [place] [employer] [place] [address] * Magnesium (08/05/2024 8:29 PM CDT) Magnesium 1.6 1.4 - 2.5 mg/dL Blood 08/05/2024 8:29 PM CDT 08/05/2024 9:29 PM CDT Sohan Galvan MD LAB BLOOD ORDERABLES Final Result Performing Organization Address [facility] Co de Phone Number [facility] [place] [address] * (ABNORMAL) Valproic acid level, total (08/05/2024 [...] PM CDT 08/05/2024 9:29 PM CDT Narrative [facility] - 08/05/2024 10:14 PM CDT prior to PM dose Sohan Galvan MD LAB BLOOD ORDERABLES Final Result [facility] Department [place] [address] * (ABNORMAL) Basic metabolic panel (08/05/2024 8:29 PM CDT) Sodium 140 135 - 145 mmol/L Potassium, pl 3.9 3.3 - 4.9 mmol/L [facility] Chloride 104 97 - 110 mmol/L [facility] CO2 25 22 - 32 mmol/L [facility] Anion gap 11 2 - 15 mmol/L [facility] BUN 19 6 - 25 mg/dL [facility] Creatinine 1.27(H) 0.60 - 1.10 mg/dL [facility] Glucose 127 70 - 199 mg/dL [facility] Comment: Interpretive Data Fasting glucose >/= 126 [...] 2022. Calcium 9.2 8.5 - 10.3 mg/dL [facility] Blood 08/05/2024 8:29 PM CDT 08/05/2024 9:29 PM CDT us Sohan Galvan MD LAB BLOOD ORDERABLES Final Result Performing Organization Address City/[facility]/ZIP Co de Phone Number [facility] Department [place] [address] * (ABNORMAL) Urinalysis reflex to microscopic (08/04/2024 7:40 PM CDT) Color, ur Yellow Yellow Clarity, ur Cloudy(A) Clear [facility] Specific gravity, ur 1.023 1.003 - 1.030 [facility] pH, urine 6.5 [facility] Comment: Interpretive Data U rine pH is affected by diet, medications, systemic acid-base disturbances, and renal tubular function. pH may affect urinary stone formation. For example, urine pH below 6.0 may help reduce the tendency for calcium phosphate stones and pH greater than 6.0 may reduce the tendency for uric acid stone formation. Source: [facility] [employer] Current Interpretive Data was last revised on 2017 Protein, ur ql 1+(A) Negative [facility] Glucose, ur ql Negative Negative [facility] Ketones, ur 3+(A) Negative [facility] Bilirubin, ur Negative Negative [facility] Blood, ur Negative Negative [facility] Urobilinogen, ur 2.0(A) <2.0 mg/dL [facility] Nitrite, ur Negative Negative [facility] Leukocyte esterase, ur Trace(A) Negative [facility] UA reflex comment Reflex to microscopic UA will be performed. [facility] Urine 08/04/2024 7:40 PM CDT 08/04/2024 7:47 PM CDT us Nadeem Burrows MD LAB URINE ORDERABLES Final Result Performing Organization Address City/[facility]/ZIP Co de Phone Number [facility] Department [place] [address] * (ABNORMAL) Drugs of Abuse Screen, Urine without Confirmation (08/04/2024 7:40 PM CDT) [facility] Amphetamine, ur Screen Positive, presumptive (A) CutOff 500ng/mL Comment: Interpretive Data - Amphetamines: Samples containing greater than 500 ng/mL d-methamphetamine or other cross-reacting amphetamine compounds are reported as positive. Amphetamine immunoassays are subject to significant false positive rates due to cross-reactivity of non-amphetamine drugs. Confirmatory testing required for definitive results. Current Interpretive Data was last reviewed 2022. Barbiturates, ur Not Detected CutOff 200ng/mL [facility] Comment: Interpretive Data - Barbiturates: Samples containing greater than 200 ng/mL secobarbital or other cross-reacting barbiturate compounds are reported as positive. False positive and false negative results are possible. Confirmatory testing required for definitive results. Current Interpretive Data was last reviewed 2022. Benzodiazepines, ur Screen Positive, presumptive (A) CutOff 100ng/mL [facility] Comment: Interpretive Data - Benzodiazepines: Samples containing greater than 100 ng/mL nordiazepam or other cross-reacting compounds are reported as positive. False positive and false negative results are possible. Confirmatory testing required for definitive results. Current Interpretive Data was last reviewed 2022. Cannabinoids, ur Not Detected CutOff 50 ng/mL [facility] Comment: Interpretive Data - Cannabinoids: Samples containing greater than 50 ng/mL delta-9 THC -COOH or other cross- reacting compounds are reported as positive. False positive and false negative results are possible. Confirmatory testing required for definitive results. Current Interpretive Data was last reviewed 2022. Cocaine, ur Not Detected CutOff 150ng/mL [facility] Comment: Interpretive Data - Cocaine: Samples containing greater than 150 ng/mL benzoylecgonine or other cross- reacting compounds are reported as positive. False positive and false negative results are possible. Confirmatory testing required for definitive results. Current Interpretive Data was last reviewed 2022. Fentanyl, Ur Not Detected CutOff 5 ng/mL [facility] Comment: Interpretive Data - Fentanyl: Samples containing greater than 5 ng/mL norfentanyl, fentanyl, or other cross-reacting fentanyl compounds are reported as positive. False positive and false negative results are possible. Confirmatory testing required for definitive results. Current Interpretive Data was last reviewed 2023. Methadone, ur Not Detected CutOff 300ng/mL [facility] Comment: Interpretive Data - Methadone: Samples containing greater than 300 ng/mL d,l-methadone or other cross-reacting compounds are reported as positive. False positive and false negative results are possible. Confirmatory testing required for definitive results. Current Interpretive Data was last reviewed 2022. Opiates, ur Not Detected CutOff 300ng/mL [facility] Comment: Interpretive Data - Opiates: Samples containing greater than 300 ng/mL morphine or other cross-reacting compounds are reported as positive. False positive and false negative results are possible. Confirmatory testing required for definitive results. Current Interpretive Data was last reviewed 2022. Oxycodone, ur Not Detected CutOff 100ng/mL [facility] Comment: Interpretive Data - Oxycodone: Samples containing greater than 100 ng/mL oxycodone or other cross-reacting compounds are reported as positive. False positive and false negative results are possible. Confirmatory testing required for definitive results. Current Interpretive Data was last reviewed 2022. Phencyclidine, ur Not Detected CutOff 25 ng/mL [facility] Comment: Interpretive Data - Phencyclidine: Samples containing greater than 25 ng/mL phencyclidine or other cross-reacting compounds are reported as positive. False positive and false negative results are possible. Confirmatory testing required for definitive results. Current Interpretive Data was last reviewed 2022. Urine Creatinine 241 mg/dL [facility] Comment: Interpretive Data Urine Creatinine: < 10 mg/dL is extremely dilute = or > 10 but < 20 mg/dL is dilute = or > 20 mg/dL is normal Current Interpretive Data was last revised on 2017. Urine 08/04/2024 7:40 PM CDT 08/04/2024 7:51 PM CDT Narrative [facility] - 08/04/2024 8:23 PM CDT Drug of Abuse screening is performed by immunoassay for medical purposes only. This is not to be used for Pain Management purposes. Nadeem Burrows MD LAB URINE ORDERABLES Final Result Performing Organization Address [facility] de Phone Number [facility] [place] [address] * (ABNORMAL) Urinalysis, microscopic only (08/04/2024 7:40 PM CDT) WBC, ur 6-10(A) 0 - 5 /HPF RBC, ur 0-2 0 - 2 /HPF [facility] Epithelial cells, squamous, ur 1-5 0 - 5 /HPF [facility] Bacteria, ur Trace(A) [facility] Mucous, ur Present(A) [facility] Hyaline casts, ur 21-50(A) 0 - 10 /LPF [facility] Urine 08/04/2024 7:40 PM CDT 08/04/2024 7:47 PM CDT Nadeem Burrows MD LAB URINE ORDERABLES Final Result Performing Organization Address [facility] de Phone Number [facility] [place] [address] * ME CRITICAL CARE ILL/INJURED PATIENT INIT 30-74 MIN [...] Burrows MD LAB BLOOD ORDERABLES Final Result [facility] Department [place] [address] * Differential, auto (08/04/2024 5:55 PM CDT) Pathologist [facility] Neutrophil abs 5.01 1.50 - 6.50 K/cumm Imm gran abs 0.03 0.00 - 0.10 K/cumm [facility] Lymphocyte abs 1.42 0.80 - 3.30 K/cumm [facility] Monocyte abs 0.69 0.20 - 0.80 K/cumm [facility] Eosinophil abs 0.03 0.00 - 0.50 K/cumm [facility] Basophil abs 0.04 0.00 - 0.10 K/cumm [facility] Neutrophil pct 69.3 % [facility] Comment: Interpretive Data Percent cell count reference ranges are not reported, since discordance with absolute values may lead to misinterpretation of CBC data. Current Interpretive Data was last revised on 2017. Imm gran pct 0.4 % [facility] Comment: Interpretive Data Percent cell count reference ranges are not reported, since discordance with absolute values may lead to misinterpretation of CBC data. Current Interpretive Data was last revised on 2017. Lymphocyte pct 19.7 % [facility] Comment: Interpretive Data Percent cell count reference ranges are not reported, since discordance with absolute values may lead to misinterpretation of CBC data. Current Interpretive Data was last revised on 2017. Monocyte pct 9.6 % [facility] Comment: Interpretive Data Percent cell count reference ranges are not reported, since discordance with absolute values may lead to misinterpretation of CBC data. Current Interpretive Data was last revised on 2017. Eosinophil pct 0.4 % [facility] Comment: Interpretive Data Percent cell count reference ranges are not reported, since discordance with absolute values may lead to misinterpretation of CBC data. Current Interpretive Data was last revised on 2017. Basophil pct 0.6 % [facility] Comment: Interpretive Data Percent cell count reference ranges are not reported, since discordance with absolute values may lead to misinterpretation of CBC data. Current Interpretive Data was last revised on 2017. Blood 08/04/2024 5:55 PM CDT 08/04/2024 6:09 PM CDT us Nadeem Burrows MD LAB BLOOD ORDERABLES Final Result [facility] Department [place] [address] * Thyroid Function Titus (08/04/2024 5:55 PM CDT) [facility] TSH 0.73 0.30 - 4.20 mcIUnit/mL Blood 08/04/2024 5:55 PM CDT 08/04/2024 6:10 PM CDT Nadeem Burrows MD LAB BLOOD ORDERABLES Final Result Performing Organization Address City/[facility]/ZIP Co de Phone Number [facility] Department [place] [address] * (ABNORMAL) CBC with auto differential (08/04/2024 5:55 PM CDT) [facility] WBC 7.22 3.80 - 9.90 K/cumm Hgb 15.1 11.9 - 15.5 g/dL [facility] Hct 42.7 35.6 - 45.5 % [facility] Plt 132(L) 150 - 400 K/cumm [facility] MPV 11.5 9.1 - 12.3 fL [facility] RBC 4.66 3.90 - 5.20 M/cumm [facility] MCV 91.6 81.3 - 96.4 fL [facility] MCH 32.4 27.1 - 33.3 pg [facility] MCHC 35.4 32.3 - 35.7 g/dL [facility] RDW CV 13.2 11.1 - 14.9 % [facility] RDW SD 44.0 35.7 - 48.1 fL [facility] NRBC abs 0.00 0.00 - 0.01 K/cumm [facility] Blood Venous blood specimen / Unknown 08/04/2024 5:55 PM CDT 08/04/2024 6:09 PM CDT Nadeem Burrows MD LAB BLOOD ORDERABLES Final Result Performing Organization Address City/[facility]/ZIP Co de Phone Number [facility] Department [place] [address] * Ethanol (08/04/2024 5:55 PM CDT) Ethanol <10 <=10 mg/dL Comment: Interpretive Data Legal limit of intoxication > or = 80 mg/dL Levels > or = 400 mg/dL are potentially TOXIC. Current interpretive data was last revised on 2018. Blood 08/04/2024 5:55 PM CDT 08/04/2024 6:10 PM CDT Nadeem Burrows MD LAB BLOOD ORDERABLES Final Result Performing Organization Address [facility] Co de Phone Number [facility] [place] [employer] [place] [address] * Valproic acid level, total (08/04/2024 5:55 [...] BLOOD ORDERABLES Final Result Performing Organization Address [facility] Co de Phone Number [facility] [place] [employer] [place] [address] * (ABNORMAL) Comprehensive metabolic panel (08/04/2024 5:55 PM CDT) Pathologist [facility] Sodium 139 135 - 145 mmol/L Potassium, pl 4.3 3.3 - 4.9 mmol/L [facility] Chloride 100 97 - 110 mmol/L [facility] CO2 25 22 - 32 mmol/L [facility] Anion gap 14 2 - 15 mmol/L [facility] BUN 18 6 - 25 mg/dL [facility] Creatinine 1.19(H) 0.60 - 1.10 mg/dL [facility] Glucose 85 70 - 199 mg/dL [facility] Comment: Interpretive Data Fasting glucose >/= 126 [...] 2022. Calcium 9.4 8.5 - 10.3 mg/dL [facility] Bilirubin, total 0.6 0.1 - 1.2 mg/dL [facility] Protein, pl 6.5 6.5 - 8.5 g/dL [facility] Albumin 4.0 3.5 - 5.0 g/dL [facility] Alk phos 48 40 - 130 Units/L [facility] ALT 30 7 - 45 Units/L [facility] AST 43 10 - 45 Units/L [facility] Blood 08/04/2024 5:55 PM CDT 08/04/2024 6:10 PM CDT Nadeem Burrows MD LAB BLOOD ORDERABLES Final Result [facility] Department [place] [address] from Last 3 Months [place] [address] [facility] PPO [facility] HMO [facility] AETNA SENIOR SUPPLEMENT AETNA AETNA MEDICARE GOLD AETNA MEDICARE GOLD Advance Directives For more information, please contact: [phone] Documents on File Type Date Recorded Patient Casualty Underwriter Expl anation ADVANCE DIRECTIVE 09/03/2024 11:32 AM POWER OF HRIS ANALYST-MEDICAL * Full Code (Latest Code Status on [...] 5:20 AM 08/21/2024 5:09 AM Care Teams Director [facility] Relationship Specialty Start Date End Date Eloise Bridges MD [address] [address] PCP - General 08/29/17
--- OUTSIDE RECORDS SUMMARY | 2024-10-23 13:39 | XMS_ITS | Clinical Summary ---
Author Organization [facility] Address [address] [place] [address] Phone Care Team Providers Care Telecom Coordinator Name Role Phone Samira Singh Gael BORDEN Primary Care Provider [phone] Huy Jones DO Unavailable [phone] Allergies Active Allergy Reactions Criticality Noted [...] Health Maintenance Results * COLONOSCOPY (06/26/2017) Huy Joens DO PROCEDURE/MINOR SURGICAL ORDERA BLES Final Result from Last 3 Months or Most Recently Relevant to Health Maintenance Insurance MEDICARE RAILROAD AETNA SENIOR SUPPLEMENTAL Care Teams Telecom Coordinator Relationship Specialty Start Date End Date Samira Singh APRN PCP - General Advanced Practice Nurse 01/16/17 Huy Jones DO Consulting Physician Gastroenterology 06/26/17
--- OUTSIDE RECORDS SUMMARY | 2024-10-23 13:39 | XMS_ITS | Encounter Summary ---
Author Organization [facility] Address [address] [place] [address] Care Team Providers Care Batch Unit Treater Name Role Phone Cory Cooper MD Primary Care Provider [phone] Encounter Details Date Type Department Care Team (Late st Contact Info) Description 03/11/2024 Lab Requisition [facility] Physician [facility] - DermPath Lab [address] [place] [phone] Kristofer Saenz MD [address] [place] [address] Social History Tobacco Use Types Packs/Day Years [...] Comments DERMATOPATHOLOGY Routine 03/10/2024 12:0 0 AM LIVESTOCK SALES REPRESENTATIVE documented in this encounter Results * DERMATOPATHOLOGY (03/10/2024 12:00 AM LIVESTOCK SALES REPRESENTATIVE) Case Report Dermatopathology Report Case: [id number] Authorizing Provider: Kristofer Saenz MD Collected: 03/10/2024 12:00 AM Ordering Location: [facility] - Received: 03/11/2024 03:25 PM DermPath Lab Pathologist: Dorene Desir MD Specimen: Skin, right chin 1:03 PM LIVESTOCK SALES REPRESENTATIVE DERMATOPATHOLOGY LABORATORY Final Diagnosis Specimen A. SKIN, right chin: BASAL CELL CARCINOMA, NODULAR TYPE (C44.319) 1:03 PM [facility] DERMATOPATHOLOGY LABORATORY at [address] [facility] Clinical History R/O BCC 1:03 PM [facility] DERMATOPATHOLOGY LABORATORY Gross Description Specimen A: Received is one formalin filled container labeled with the patient's name and designated right chin. The specimen consists of a shave biopsy measuring 3x2x1 mm. Jar 0. 1:03 PM [facility] DERMATOPATHOLOGY LABORATORY Microscopic Description Specimen A. SKIN, right chin: Within the dermis there are aggregates of basaloid cells with a high nuclear to cytoplasmic ratio and peripheral palisading. 1:03 PM [facility] DERMATOPATHOLOGY LABORATORY Disclaimer An external and internal positive and negative controls are appropriate for the histochemical, immunohistochemical and immunofluorescence stain(s) in this case (if any), except where stated explicitly. The performance characteristics of the stain(s) cited in this report were developed and its performance characteristic determined by the Dermatopathology Laboratory at [facility], directed by Dr. Elysia Reyes. These tests need not be, and therefore are not, approved by the [place] Food and Drug Administration. The tests are used for clinical purposes. Billing Codes Specimen Charges Stain Charges 87921 1 1:03 PM [facility] DERMATOPATHOLOGY LABORATORY Embedded Images 1:03 PM [facility] DERMATOPATHOLOGY LABORATORY Pathology/Cytolog y TISSUE SPECIMEN FROM SKIN / Unknown 03/10/2024 03/11/2024 3:25 PM [facility] us Kristofer Saenz MD LAB - PATHOLOGY/CYTOLOGY ORDERAB LES Final Result DERMATOPATHOLOGY LABORATORY [facility] - Department of Dermatology [address] [phone] documented in this encounter Visit Diagnoses Not on filedocumented in this encounter Care Teams Batch Unit Treater Relationship Specialty Start Date End Date Cory Cooper MD [address] [place] [place] [phone] PCP - General 08/01/21 documented as of this encounter
--- OUTSIDE RECORDS SUMMARY | 2024-10-23 13:39 | XMS_ITS | Encounter Summary ---
Author Organization [facility] Address [address] [place] [address] Care Team Providers Care Gas Dispatcher Name Role Phone Cory Cooper MD Primary Care Provider [phone] Encounter Details Date Type Department Care Team (Late st Contact Info) Description 04/06/2024 Lab Requisition [facility] Physician [facility] - DermPath Lab [address] [place] [phone] Kristofer Saenz MD [address] [place] [address] Social History Tobacco Use Types Packs/Day Years [...] Comments DERMATOPATHOLOGY Routine 04/06/2024 12:0 0 AM PRODUCTION LINE TECHNICIAN documented in this encounter Results * DERMATOPATHOLOGY (04/06/2024 12:00 AM PRODUCTION LINE TECHNICIAN) Case Report Dermatopathology Report Case: [id number] Authorizing Provider: Kristofer Saenz MD Collected: 04/06/2024 12:00 AM Ordering Location: [facility] Physician [facility] - Received: 04/06/2024 04:08 PM DermPath Lab Pathologist: Trudi Lam MD Specimen: Skin, right chin 4:52 PM [facility] DERMATOPATHOLOGY LABORATORY Final Diagnosis Specimen A. SKIN, right chin: DERMAL SCAR RESIDUAL BASAL CELL CARCINOMA NOT IDENTIFIED (L90.5) 4:52 PM [facility] DERMATOPATHOLOGY LABORATORY at [address] [employer] LINE TECHNICIAN Clinical History BCC Bx proven [id number] 4:52 PM [facility] DERMATOPATHOLOGY LABORATORY Gross Description Specimen A: Received is one formalin filled container labeled with the patient's name and designated right chin. The specimen consists of a curettage and desiccation biopsy measuring 5x4x1 mm. Jar 0. 4:52 PM [facility] DERMATOPATHOLOGY LABORATORY Microscopic Description Specimen A. SKIN, right chin: There are fibroblasts and collagen bundles oriented parallel to the skin surface. There are elongated blood vessels, some of which are oriented perpendicular to the skin surface. No basal cell carcinoma is identified. 4:52 PM [facility] DERMATOPATHOLOGY LABORATORY Disclaimer An external and internal positive and negative controls are appropriate for the histochemical, immunohistochemical and immunofluorescence stain(s) in this case (if any), except where stated explicitly. The performance characteristics of the stain(s) cited in this report were developed and its performance characteristic determined by the Dermatopathology Laboratory at [facility], directed by Dr. Elysia Reyes. These tests need not be, and therefore are not, approved by the [place] Food and Drug Administration. The tests are used for clinical purposes. Billing Codes Specimen Charges Stain Charges 45452 1 4:52 PM [facility] DERMATOPATHOLOGY LABORATORY Embedded Images 4:52 PM [facility] DERMATOPATHOLOGY LABORATORY Pathology/Cytolog y TISSUE SPECIMEN FROM SKIN / Unknown 04/06/2024 04/06/2024 4:08 PM [facility] Kristofer Saenz MD LAB - PATHOLOGY/CYTOLOGY ORDERAB LES Final Result DERMATOPATHOLOGY LABORATORY [facility] - Department of Dermatology [address] [phone] documented in this encounter Visit Diagnoses Not on filedocumented in this encounter Care Teams Gas Dispatcher Relationship Specialty Start Date End Date Cory Cooper MD [address] [place] [phone] PCP - General 08/01/21 documented as of this encounter
--- OUTSIDE RECORDS SUMMARY | 2024-10-23 13:39 | XMS_ITS | Patient Health Record ---
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 Name Role Phone Kenneth VERDUGO, Cory Primary Care Provider Anabelle Malagon Unavailable [phone] Maribel Bustillo Unavailable [phone] Annie Suresh Unavailable [phone] Valeriano Torres Unavailable [phone] Allergies Allergen (clinical drug ingredient) Drug/Non Drug Allergy documented on EMR Reaction Allergy Type Onset Date Status vilazodone Viibryd diarrhea Drug Allergy Active Substance with penicillin structure and antibacterial mechanism of action (substance) Penicillins Unknown Drug Allergy 07/23/2023 Active sertraline Sertraline diarrhea Drug Allergy Activ e Results Component Value Reference Range Flag Notes Benzodiazepines Reviewed date:05/01/2024 02:35:35 PM Interpretation: Performing Lab:[address] [place] [address], [address] [place] [address], Director - [id number] Notes/Report: An exception occurred while processing this report and so it has incomplete data. Please contact [facility] for assistance. Medicated Consistent Medicated Consistent [...] NEGATIVE 20.0 ng/mL Hydroxyalprazolam 119.5 20.0 ng/mL POSITIVE Alprazolam 45.2 20.0 ng/mL POSITIVE PDF Report CE_OUT_RAW_COMMO N_SRC_ORU UDT Reviewed date:07/02/2024 01:35:01 PM Interpretation: Performing Lab: Notes/Report: THC n 0 - 50 ng/ml Cocaine n 0 - 300 ng/ml Amphetamine n 0 - 1000 ng/ml Buprenorphine (BUP) n 0 - 10 ng/ml Secobarbital (Bar) n 0 - 300 ng/ml Oxazepam (BZO) p 0 - 300 ng/ml 7-gmwgsvvvyi-1,7-dmprmhpt-8, 3-diphenyl pyrrolidine (EDDP) n 0 - 300 ng/ml Methamphetamine (MET) n 0 - 1000 ng/ml Methylenedioxymethamphetamine (MDMA) n 0 - 500 ng /ml Morphine (MOP 300/[id number]) n 0 - 300 ng/ml Methadone (MTD) [...] Oxazepam (BZO) p 0 - 300 ng/ml 6-rnhvcznexu-8,9-sfsssfer-0, 3-diphenyl pyrrolidine (EDDP) n 0 - 300 ng/ml Methamphetamine (MET) n 0 - 1000 ng/ml Methylenedioxymethamphetamine (MDMA) n 0 - 500 ng /ml Morphine (MOP 300/[id number]) n 0 - 300 ng/ml Methadone (MTD) [...] Oxazepam (BZO) p 0 - 300 ng/ml 1-imcwqedqtg-6,8-vfkusswc-6, 3-diphenyl pyrrolidine (EDDP) n 0 - 300 ng/ml Methamphetamine (MET) n 0 - 1000 ng/ml Methylenedioxymethamphetamine (MDMA) n 0 - 500 ng /ml Morphine (MOP 300/[id number]) n 0 - 300 ng/ml Methadone (MTD) [...] a day; Duration: 90 days 10/22/2024 Active Immunizations Vaccine Route Administration Date Status [...] unspecified formulation Unknown 12/11/2022 A dministered Novel Wdwioetnr-Y0L4-94, preservative free Unknown 03/04/2013 Administered Novel Zugrcutfb-B3L4-41, preservative free Unknown 01/01/2017 Administered Novel Ewhoartnp-H9B3-46, preservative free Unknown 12/08/2018 Administered Novel Zsaixjmhx-H8Y9-63, preservative free Unknown 11/11/2019 Administered Pfizer Biontech [...] Medical? Yes Do you have power of internet specialist for Medical ? Yes Advance Directive Refused to discuss a dvance care planning,Living Will Tobacco Use: Social Info Question Answer Notes Tobacco Control (Standard) Tobacco use: Former smoker Additional Details Category Social Info Options Details Migrated Social History Migrated Social History Alcohol Intake: Occasional 07/19/2020,Tobacco Years: Former smoker 02/06/2018,Smoking Status: 20 03/15/2023 Drug/Alcohol: Do you smoke marijuana? Denies Do you drink alcohol? No Section Notes: Substance UseDo you or have [...] CodeDo you have a medical power of internet specialist?: YesPublic Health and TravelHave you been to [...] CodeDo you have a medical power of internet specialist?: YesPublic Health and TravelHave you been to [...] CodeDo you have a medical power of internet specialist?: YesPublic Health and TravelHave you been to [...] Risk Notes Problem Schizoaffective disorder, bipolar type (84775180) Schizoaffective disorder, bipolar type (F25.0) Active confirmed stable on current medications . No paranoia, hallucinati ons, delusional behavior noted or reported Problem Generalized anxiety disorder (45659025) Generalized anxiety disorder (F41.1) Active confirmed Stable on lower dose of alprazolam, continue 0.25mg TID PRN Problem Primary insomnia (1214003) Primary insomnia (F51.01) Active confirmed well controlled, continue current therapy Problem Long-term current use of drug therapy (773033881) Other terminal worker (current) drug therapy (Z79.899) Active confirmed Problem Elevated blood-pressure reading without diagnosis of hypertension (851280893) Elevated blood pressure reading (R03.0) Active confirmed Problem Memory impairment (124521849) Memory impairment (R41.3) Active confirmed Problem Amnesia (76637741) Memory loss or impairment (R41.3) Active confirmed Vital Signs Heart Rate 66 /min 10/22/2024 Height-cm 157.48 cm 10/22/2024 Blood pressure diastolic 64 mm Hg 10/22/2024 Weight-kg 56.7 kg 10/22/2024 Height 62.00 in 10/22/2024 Blood pressure systolic 101 mm Hg 10/22/2024 Weight 125 lbs 10/22/2024 BMI 22.86 kg/m2 10/22/2024 Procedures Procedure Date Ordered Date Performed Result Body Sit e MCI Testing 03/27/2024 N/A Encounters Encounter Location Date Provider Diagnosis [facility] [place] [id number] [facility] [address] [place] [address] 10/25/2023 Maribel Adler Schizoaffective disorder, bipolar type F25.0 and Generalized anxiety disorder F41.1 [facility] [place] [address] [facility] [address] [place] [address] 10/25/2023 Annie Thery Schizoaffective disorder, bipolar type F25.0 ; Generalized anxiety disorder F41.1 and Primary insomnia F51.01 [facility] [place] [address] [facility] [address] [place] [address] 11/05/2023 Annie Thery Schizoaffective disorder, bipolar type F25.0 ; Generalized anxiety disorder F41.1 and Primary insomnia F51.01 [facility] [address] [place] [address] 11/13/2023 Maribel Adler Schizoaffective disorder, bipolar type F25.0 and Generalized anxiety disorder F41.1 [facility] [address] [place] [address] 12/05/2023 Annie Thery Schizoaffective disorder, bipolar type F25.0 ; Generalized anxiety disorder F41.1 ; Primary insomnia F51.01 and Memory loss or impairment R41.3 [facility] [address] [place] [address] 12/11/2023 Maribel Adler Schizoaffective disorder, bipolar type F25.0 and Generalized anxiety disorder F41.1 [facility] [address] [place] [address] 01/06/2024 Maribel Adler Generalized anxiety disorder F41.1 and Schizoaffective disorder, bipolar type F25.0 [facility] [address] [place] [address] 01/06/2024 Annie Suresh Schizoaffective disorder, bipolar type F25.0 ; Generalized anxiety disorder F41.1 ; Primary insomnia F51.01 ; Memory loss or impairment R41.3 and Elevated blood pressure reading R03.0 [facility] [address] [place] [address] 01/08/2024 Anabelle Kurilla Schizoaffective disorder, bipolar type F25.0 ; Generalized anxiety disorder F41.1 and Primary insomnia F51.01 [facility] [address] [place] [address] 01/28/2024 Anabelle Kurilla Schizoaffective disorder, bipolar type F25.0 ; Generalized anxiety disorder F41.1 and Primary insomnia F51.01 [facility] [address] [place] [address] 02/03/2024 Maribel Adler Schizoaffective disorder, bipolar type F25.0 and Generalized anxiety disorder F41.1 [facility] [address] [place] [address] 02/13/2024 Anabelle Kurilla Schizoaffective disorder, bipolar type F25.0 ; Generalized anxiety disorder F41.1 and Primary insomnia F51.01 [facility] [address] [place] [address] 02/27/2024 Valeriano Torres Schizoaffective disorder, bipolar type F25.0 and Generalized anxiety disorder F41.1 [facility] [address] [place] [address] 03/24/2024 Maribel Adler Generalized anxiety disorder F41.1 and Schizoaffective disorder, bipolar type F25.0 [facility] [address] [place] [address] 03/27/2024 Anabelle Kurilla Schizoaffective disorder, bipolar type F25.0 ; Generalized anxiety disorder F41.1 ; Primary insomnia F51.01 and Memory impairment R41.3 [place] [address] [place] [address] 04/09/2024 Maribel Adler Generalized anxiety disorder F41.1 and Schizoaffective disorder, bipolar type F25.0 [place] [address] [place] [address] 04/22/2024 Anabelle Kurilla Schizoaffective disorder, bipolar type F25.0 ; Generalized anxiety disorder F41.1 and Primary insomnia F51.01 [place] [address] [place] [address] 04/30/2024 Anabelle Kurilla Schizoaffective disorder, bipolar type F25.0 ; Generalized anxiety disorder F41.1 and Primary insomnia F51.01 [place] [address] [place] [address] 05/07/2024 Maribelarabella Yap Vitor Schizoaffective disorder, bipolar type F25.0 and Generalized anxiety disorder F41.1 [place] [address] [place] [address] 05/21/2024 Anabelle Kurilla Schizoaffective disorder, bipolar type F25.0 ; Generalized anxiety disorder F41.1 ; Primary insomnia F51.01 ; Encounter for screening for depression Z13.31 and Encounter for screening for cardiovascular disorders Z13.6 [place] [address] [place] [address] 06/05/2024 Anabelle Kurpriscila Encounter for screen ing for depression Z13.31 ; Schizoaffective disorder, bipolar type F25.0 ; Generalized anxiety disorder F41.1 ; Primary insomnia F51.01 and Encounter for screening for cardiovascular disorders Z13.6 [facility] [address] [place] [address] 06/11/2024 Maribel Yap Vitor Schizoaffective disorder, bipolar type F25.0 and Generalized anxiety disorder F41.1 [place] [address] [place] [address] 07/02/2024 Maribel Adler Schizoaffective disorder, bipolar type F25.0 ; Generalized anxiety disorder F41.1 and Encounter for screening for depression Z13.31 [facility] [address] [place] [address] 07/02/2024 Anabelle Kurilla Generalized anxiety disorder F41.1 ; Primary insomnia F51.01 ; Encounter for screening for depression Z13.31 ; Schizoaffective disorder, bipolar type F25.0 and Encounter for screening for cardiovascular disorders Z13.6 [facility] [address] [place] [address] 07/14/2024 Anabelle Kurilla Generalized anxiety disorder F41.1 ; [facility] [place] [facility] drug therapy Z79.899 ; Primary insomnia F51.01 ; Encounter for screening for cardiovascular disorders Z13.6 ; Schizoaffective disorder, bipolar type F25.0 and Encounter for screening for depression Z13.31 [facility] [address] [place] [address] 09/17/2024 Anabelle Kurilla Generalized anxiety disorder F41.1 ; Primary insomnia F51.01 and Schizoaffective disorder, bipolar type F25.0 [facility] [address] [place] [address] 10/02/2024 Maribel Adler Schizoaffective disorder, bipolar type F25.0 and Generalized anxiety disorder F41.1 [facility] [address] [place] [address] 10/22/2024 Anabelle Kurilla Generalized anxiety disorder F41.1 ; Primary insomnia F51.01 and Schizoaffective disorder, bipolar type F25.0 [facility] [address] [place] [address] 10/31/2023 Annie Suresh [facility], [facility] [address] [place] [address] 10/31/2023 Annie Suresh [facility], [facility] [address] [place] [address] 10/31/2023 Annie Suresh [facility], [facility] [address] [place] [address] 11/13/2023 Annie Suresh [facility], [facility] [address] [place] [address] 12/06/2023 Annie Suresh Generalized anxiety disorder F41.1 [facility], [facility] [address] [place] [address] 01/24/2024 Annie Suresh Generalized anxiety disorder F41.1 [facility], [facility] [address] [place] [address] 03/25/2024 Anabelle Warren [facility], [facility] [address] [place] [address] 04/20/2024 Anabelle Warren [facility], [facility] [address] [place] [address] 09/07/2024 Anabelle Warren [facility], [facility] [address] [place] [address] 01/23/2024 Annie Suresh [facility], [facility] [address] [place] [address] 03/24/2024 Anabelle Warren Schizoaffective disorder, bipolar type F25.0 and Generalized anxiety disorder F41.1 [facility], [facility] [address] [place] [address] 03/27/2024 Anabelle Warren [facility], [facility] [address] [place] [address] 03/28/2024 Anabelle Warren [facility], [facility] [address] [place] [address] 03/31/2024 Anabelle Warren [facility], [facility] [address] [place] [address] 03/31/2024 Anabelle Warren [facility], [facility] [address] [place] [address] 03/31/2024 Anabelle Warren [facility], [facility] [address] [place] [address] 04/10/2024 Anabelle Warren [facility], [facility] [address] [place] [address] 04/10/2024 Anabelle Warren [facility], [facility] [address] [place] [address] 04/10/2024 Anabelle Warren [facility], [facility] [address] [place] [address] 04/16/2024 Anabelle Warren [facility], [facility] [address] [place] [address] 04/16/2024 Anabelle Warren [facility], [facility] [address] [place] [address] 04/23/2024 Anabelle Warren [facility], [facility] [address] [place] [address] 04/26/2024 Anabelle Warren [facility], [facility] [address] [place] [address] 04/27/2024 Anabelle Warren [facility], [facility] [address] [place] [address] 04/27/2024 Anabelle Warren [facility], [facility] [address] [place] [address] 05/05/2024 Anabelle Warren [facility], [facility] [address] [place] [address] 05/05/2024 Anabelle Warren [facility], [facility] [address] [place] [address] 05/13/2024 Anabelle Warren [facility], [facility] [address] [place] [address] 05/13/2024 Anabelle Warren [facility], [facility] [address] [place] [address] 05/13/2024 Anabelle Warren [facility], [facility] [address] [place] [address] 05/13/2024 Anabelle Warren [facility], [facility] [address] [place] [address] 05/13/2024 Anabelle Warren [facility], [facility] [address] [place] [address] 05/13/2024 Anabelle Warren [facility], [facility] [address] [place] [address] 05/13/2024 Anabelle Warren [facility], [facility] [address] [place] [address] 05/13/2024 Anabelle Warren [facility], [facility] [address] [place] [address] 05/13/2024 Anabelle Warren [facility], [facility] [address] [place] [address] 05/15/2024 Anabelle Warren [facility], [facility] [address] [place] [address] 05/21/2024 Anabelle Warren [facility], [facility] [address] [place] [address] 05/29/2024 Anabelle Warren [facility], [facility] [address] [place] [address] 05/29/2024 Anabelle Warren [facility], [facility] [address] [place] [address] 05/29/2024 Anabelle Warren [facility], [facility] [address] [place] [address] 05/29/2024 Anabelle Warren [facility], [facility] [address] [place] [address] 05/29/2024 Anabelle Warren Schizoaffective disorder, bipolar type F25.0 [facility], [facility] [address] [place] [address] 05/29/2024 Anabelle Warren [facility], [facility] [address] [place] [address] 05/29/2024 Anabelle Warren [facility], [facility] [address] [place] [address] 06/03/2024 Anabelle Warren [facility], [facility] [address] [place] [address] 06/03/2024 Anabelle Warren [facility], [facility] [address] [place] [address] 06/03/2024 Anabelle Warren [facility], [facility] [address] [place] [address] 06/03/2024 Anabelle Warren [facility], [facility] [address] [place] [address] 06/03/2024 Anabelle Warren [facility], [facility] [address] [place] [address] 06/04/2024 Anabelle Warren [facility], [facility] [address] [place] [address] 06/04/2024 Anabelle Warren [facility], [facility] [address] [place] [address] 06/04/2024 Anabelle Warren [facility], [facility] [address] [place] [address] 07/01/2024 Anabelle Warren [facility], [facility] [address] [place] [address] 07/16/2024 Anabelle Warren [facility], [facility] [address] [place] [address] 07/16/2024 Anabelle Warren [facility], [facility] [address] [place] [address] 07/21/2024 Anabelle Warren [facility], [facility] [address] [place] [address] 07/21/2024 Anabelle Warren [facility], [facility] [address] [place] [address] 07/24/2024 Anabelle Warren [facility], [facility] [address] [place] [address] 07/25/2024 Anabelle Warren [facility], [facility] [address] [place] [address] 07/28/2024 Anabelle Warren [facility], [facility] [address] [place] [address] 07/28/2024 Anabelle Warren [facility], [facility] [address] [place] [address] 07/28/2024 Anabelle Warren [facility], [facility] [address] [place] [address] 07/28/2024 Anabelle Warren [facility], [facility] [address] [place] [address] 07/28/2024 Anabelle Warren [facility], [facility] [address] [place] [address] 07/28/2024 Valeriano Clubb Generalized anxiety disorder F41.1 [facility], [facility] [address] [place] [address] 07/28/2024 Anabelle Warren Generalized anxiety disorder F41.1 [facility] [address] [place] [address] 07/29/2024 [facility]abel[facility] [address] [place] [address] 07/29/2024 [facility]abelle Warren [facility] [address] [place] [address] 10/02/2024 Anabelle Warren Assessments Encounter Date Diagnosis [...] as needed for anxiety http_s://www.nam i.org/About-Ment al-Illness/Menta m-Qusdbg-Ynkpdtk ons http_s://psychce [employer].com/depres christie/the-cogniti hx-dcxlbcan-pq-d epression#treatm ents http__s://www.ni mh.nih.gov/healt h/topics/mental- health-medicatio ns [...] as needed for anxiety http_s://www.nam i.org/About-Ment al-Illness/Menta l-Zgmshk-Cunuilg ons http_s://psychce [employer]com/depres christie/the-cogniti fk-pdcbrdrs-ke-d epression#treatm ents http__s://www.ni .nih.gov/healt h/topics/mental- health-medicatio ns [...] as needed for anxiety http_s://www.nam i.org/About-Ment al-Illness/Menta q-Nkssmo-Bfhibfd ons http_s://psychce [employer]com/depres christie/the-cogniti lw-bjtqbpbz-qx-d epression#treatm ents http__s://www.ni .nih.gov/healt h/topics/mental- health-medicatio ns [...] Outlet - Assessment: Patient mentions interest in [employer] as a creative outlet. 01/06/2024 Schizoaffective disorder, [...] as needed for anxiety http_s://www.nam i.org/About-Ment al-Illness/Menta k-Bevmed-Lrsahfl ons http_s://psychce ntral.com/depres christie/the-cogniti je-lgvbtmkt-be-d epression#treatm ents http__s://www.ni mh.nih.gov/healt h/topics/mental- health-medicatio ns [...] as needed for anxiety http_s://www.nam i.org/About-Ment al-Illness/Menta h-Zdwbfw-Bpzvxsk ons http_s://psychce ntral.com/irwin christie/the-cogniti es-isqqzqcu-ay-d epression#treatm ents http__s://www.ni mh.nih.gov/healt h/topics/mental- health-medicatio ns [...] 10/02/2024 Generalized anxiety disorder (ICD-10 - F41.1) 10/22/2024 Generalized anxiety disorder (ICD-10 - F41.1) 10/22/2024 Primary insomnia (ICD-10 - F51.01) 09/17/2024 Primary insomnia (ICD-10 - F51.01) 07/14/2024 Other terminal worker (current) drug therapy (ICD-10 - Z79.899) 07/02/2024 [...] as needed for anxiety http_s://www.nam i.org/About-Ment al-Illness/Menta d-Szedfe-Sntmale ons http_s://psychce [employer].com/depralbert christie/the-cogniti kj-bhdzozst-tk-d epression#treatm ents http__s://www.ni .nih.gov/healt h/topics/mental- health-medicatio ns http__s://www.na mi.org/About-Men kevin-Illness/Haily haasnts/Mental-He alth-Medications Encourage the patient to continue therapy [...] Outlet - Assessment: Patient mentions interest in [employer] painclipkit as a creative outlet. 11/05/2023 Generalized anxiety [...] as needed for anxiety http_s://www.nam i.org/About-Ment al-Illness/Menta t-Wocuwg-Ukuojtd ons http_s://psychce ntr[employer]adeBlock.com/irwin soriano/the-cogniti vv-fgdppiyx-xf-d epression#treatm ents http__s://www.ni .nih.gov/healt h/topics/mental- health-medicatio ns [...] as needed for anxiety http_s://www.nam i.org/About-Ment al-Illness/Menta y-Fybhim-Pkposyj ons http_s://psychce ntral.com/depralbert christie/the-cogniti af-kjlanehc-ou-d epression#treatm ents http__s://www.ni mh.nih.gov/healt h/topics/mental- health-medicatio ns [...] as needed for anxiety http_s://www.nam i.org/About-Ment al-Illness/Menta l-Hsdief-Sgrghgm ons http_s://psychce [employer].com/depres christie/the-cogniti ba-andomact-ki-d epression#treatm ents http__s://www.ni .nih.gov/healt h/topics/mental- health-medicatio ns [...] as needed for anxiety http_s://www.nam i.org/About-Ment al-Illness/Menta y-Sjxmmi-Quzlmiq ons http_s://psychce ntral.com/depres christie/the-cogniti bm-dgqrmqou-ev-d epression#treatm ents http__s://www.ni .nih.gov/healt h/topics/mental- health-medicatio ns http__s://www.na mi.org/About-Men kevin-Illness/Haily haasnts/Mental-He alth-Medications Encourage the patient to continue therapy [...] as needed for anxiety http_s://www.nam i.org/About-Ment al-Illness/Menta q-Qoadku-Rktlfcu ons http_s://psychce [employer].com/depres christie/the-cogniti yi-bvzxbgaz-jz-d epression#treatm ents http__s://www.ni .nih.gov/healt h/topics/mental- health-medicatio ns [...] disorder, bipolar type (ICD-10 - F25.0) 10/22/2024 Schizoaffective disorder, bipolar type (ICD-10 - [...] as needed for anxiety http_s://www.nam i.org/About-Ment al-Illness/Menta r-Urdhde-Cdioejp ons http_s://psychce [employer].com/depres christie/the-cogniti kx-zqfihlxs-ov-d epression#treatm ents http__s://www.ni .nih.gov/healt h/topics/mental- health-medicatio ns [...] as needed for anxiety http_s://www.nam i.org/About-Ment al-Illness/Menta j-Lhgzzw-Qooibip ons http_s://psychce [employer].com/depres christie/the-cogniti dg-smjmuqls-hu-d epression#treatm ents http__s://www.ni mh.nih.gov/healt h/topics/mental- health-medicatio ns [...] - Continue hydroxyzine twice daily as prescribed 03/27/2024 Other Increase lamictal to 125mg daily [...] therapeutic effects of psychotropic medications. -[facility] 06/05/2024 Other Decrease lamictal to 50mg [...] management - Patient to be taken to [facility] or [facility] for psychiatric evaluation and admission [...] tremors following a recent hospitalization at [facility] and medication changes. Patient demonstrates an [...] depressive symptoms and response to current interventions 10/22/2024 Other Increase hydroxyzine to 50mg for [...] of psychotropic medications. -Crisis prevention hotline 988. 04/20/2024 Other Electronic Prio r Authorization was requested for hydrOXYzine HCl 10 MG Tablet. Provider can order medication once approval received. Plan Of Treatment Pending Test Test Name Order Date Valproic Acid (Depakote),S 07/14/2024 Vitamin D, 1,25 Dihydroxy 07/14/2024 Comp. Metabolic Panel (14) 07/14/2024 CBC 07/14/2024 UDT 10/25/2023 [facility] Testing 03/27/2024 Next Appt Details Provider Name:Anabelle frederick, 12/17/2024 02:45:00 PM, [address], [address], [place], [address], Provider Name:Maribel Adler, 12/21/2024 01:00:00 PM, [address], [address], [place], [address], Insurance Providers Payer Name Payer Address Payer Phone Subscriber Number Group Number Insured Name Patient Relationship to Insured Coverage Start Date Coverage End Date [employer] Medicare Replacemen t/Advantag e - Hmo [address] [place] [phone] [id number] ID SHARON NOLAN Self - patient is the insured Medical (General) History Medical History History ICD Code Problems: Family disruption Generalized anxiety disorder Long-term drug therapy Primary insomnia Recurrent major depressive episodes, mil d Schizoaffective disorder, bipolar type , Surgical History Surgery Date(Month/Year) Cataract surgery (69500) Tonsilectomy/adenoids Sinus surgery Hysterectomy (57108) Appendectomy (90318) Cosmetic surgery Other Breast surgery (55567) 07/27/2021 Hospitalization History Reason Date(Month/Year) [facility] August 2024- paranoia, depression- rec eived 9 treatments of ECT [facility] June 2024
[2024-10-23 14:59] LABS: Thyroid Stimulating Hormone < 0.015 uIU/mL (0.465-4.680)
== END 2024-10-23 13:34 | disposition home or self-care (01) ==
LOC: CHSLAB 13:34
PROVIDERS: PCP Family Medicine; Visit Provider Family Medicine
DX: R94.6 Abnormal results of thyroid function studies (principal)
CPT/HCPCS: 36415; 84443

== ENCOUNTER 2024-11-11 13:20 | Outpatient (CLI) | payer MEDICARE, SELFPAY ==
--- OUTSIDE RECORDS SUMMARY | 2024-07-09 04:20 | XMS_ITS ---
Author Organization [facility] Address [address] [place] [address] Care Team Providers Care Solar Installer Technician Name Role Phone Uyen Bhatti Primary Care Provider [phone] Ericka Mayorga [phone] REASON FOR VISIT CRU Assessment Social History Sex Assigned At : Social History Observation Description Sex Assigned At Female Encounters Encounter Location Date Provider Diagnosis [facility] [address] [place] [address] 07/09/2024 Ericka Mayorga Assessments Encounter Date Diagnosis (ICD Code) Assessment Notes Treatment Notes Treatment Clinical Notes Section Notes 07/09/2024 Other Clinician met w ith client to assess needs for residential services. Clinician gathered information regarding historical presentation of mental health and substance use symptoms including withdrawal, HIV Risk assessment, psychiatric hospitalization history and presenting concern. Clinician conducted PHQ9 and CSSRS assessments as well as social drivers of health screening for the purposes of identifying additional service needs. Plan Of Treatment Treatment Notes Assessment Notes Other Clinician met with stephanie bowman to assess needs for residential services. Clinician gathered information regarding historical presentation of mental health and substance use symptoms including withdrawal, HIV Risk assessment, psychiatric hospitalization history and presenting concern. Clinician conducted PHQ9 and CSSRS assessments as well as social drivers of health screening for the purposes of identifying additional service needs. Progress Notes * MIGUEL A, SharonDOB:1950 (74 yo F)Acc No.[id number]:07/09/2024 UNLOCKED PROGRESS NOTE Patient: Sharon MIMS Provider: Ronald Mayorga :1950 A ge:73 Y S ex:Female Date:07/09/2024 [facility] [id number] Pcp:Uyen Bhatti Subjective: * Chief Complaints: * 1 . CRU BH Assessment. * HPI: P sychiatric Assessment - Current Symptoms: Primary concern today x . O [place] of Mental Health Symptoms x . H istory of Psychiatric Hospitalizations x . H istory of Psychiatric and Behavioral Health Treatment x . S ubstance Use: Current Use Patterns x . P rimary Substance Used x . H istory of substance use x . H x of Withdrawal x . H IV Risk Assessment Screening: Required for Residential Admits. a TBC For Mental Health Services: Who Is Your Primary Care Provider? D o You Have A PCP? Y es. D o You Have A Psychiatric Provider? D o You Have A Psychiatric Provider? Y es.?Do You Have Any Other Professional Supports? D o You Have Any Other Professional Supports? Yes. C onsent Forms Completed During Appointment C onsent Forms Completed N one Needed at this time. A ssessment of Social Determinants of Health::: Has A PRAPARE Been Completed In The Past Year? H as a PRAPARE Been Completed In The Past Year? Y es, W as It Completed Today Using SmartForm? N o.? * Medical History: Objective: * Vitals: * Examination: M ental Status Exam: ATTENTION AND CONCENTRATION x . APPEARANCE x . ATTITUDE AND BEHAVIOR x . EYE CONTACT x . AFFECT x . MOOD x . INSIGHT x . JUDGMENT x . Assessment: Plan: * Treatment: * Procedure Codes: 9 0791 PSYCH DIAGNOSTIC EVALUATION, Modifiers: AJ , T1016 Case management, CHS08 aT Service, CHS11 Insurance Application Assistance, CHS12 Housing Assistance, [facility]13 Referring to Zookeeper * * Electronic signature of Kirk Mayorga on 11/11/2024 at 08:21 AM CDT Sign off status: Pending * Provider: Ronald Mayorga Date: 0 07/09/2024 Generated for Pedro Pablo zazueta/Nayla/Nia on: 0 11/11/2024 08:21 AM CDT History and Physical Notes * HPI (History of Present Illness) Category Sub-Category Detail Notes Category Not es Psychiatric Assessment - Cur rent Symptoms Primary concern today x Overview of Mental Health Symptoms x History of Psychiatric Hospitalizations x History of Psychiatric and Behavioral He alth Treatment x Substance Use History of substance use x Hx of Withdrawal x Primary Substance Used x Current Use Patterns x HIV Risk Assessment Screening Required for Residential Admits Assessment of Social Determinants of Health:: Has A PRAPARE Been Completed In The Past Year? Has a PRAPARE Been Completed In The Past Year?: Yes Was It Completed Today Using SmartForm?: No aT For Mental Health Services Who Is Your Primary Care Provider? Do You Have A PCP?: Yes Do You Have A Psychiatric Provider? Do You Have A Psychiatric Provider?: Yes Do You Have Any Other Profes sional Supports? Do You Have Any Other Professional Supports?: Yes Consent Forms Completed During Appointme nt Consent Forms Completed: None Needed at this time Examination Category Sub-Category Detail Notes Category Not es Mental Status Exam ATTENTION AND CONCENTRATION x APPEARANCE x ATTITUDE AND BEHAVIOR x EYE CONTACT x AFFECT x MOOD x INSIGHT x JUDGMENT x
--- NOTE | ~2024-11-11 | NM_ITS ---
EXAMINATION: NM thyroid scan w uptake DATE: 11/12/2024 15:35 INDICATION: Abnormal thyroid function COMPARISON: None. TECHNIQUE: 368 microcuries I-123 was administered orally in capsule form. Scintigraphic images of the thyroid gland were obtained at 24 hours. Thyroid uptake was calculated by the technologist. FINDINGS: The thyroid uptake is 28.1% (normal 10-30%), with the right lobe measuring 16.8% uptake and the left 11.6%. There is no focal area of decreased or increased activity to suggest hypofunctioning or hyperfunctioning nodule. IMPRESSION: 1. Normal thyroid scintigraphy and 24-hour iodine uptake. Reviewed, dictated and finalized at location A.
--- OUTSIDE RECORDS SUMMARY | 2024-11-11 14:03 | XMS_ITS | Encounter Summary ---
Author Organization [facility] Address [address] [place] [address] Care Team Providers Care Credentialing Specialist Name Role Phone Cory Cooper MD Primary Care Provider [phone] Encounter Details Date Type Department Care Team (Late st Contact Info) Description 03/11/2024 Lab Requisition [facility] Physician [facility] - DermPath Lab [address] [place] [id number] Kristofer Saenz MD [address] [place] [address] Social History Tobacco Use Types Packs/Day Years [...] Comments DERMATOPATHOLOGY Routine 03/10/2024 12:0 0 AM [facility]ITNESS documented in this encounter Results * DERMATOPATHOLOGY (03/10/2024 12:00 AM EXPERT WITNESS) Case Report Dermatopathology Report Case: [id number] Authorizing Provider: Kristofer Saenz MD Collected: 03/10/2024 12:00 AM Ordering Location: [facility] - Received: 03/11/2024 03:25 PM DermPath Lab Pathologist: Dorene Desir MD Specimen: Skin, right chin 1:03 PM [facility] DERMATOPATHOLOGY LABORATORY Final Diagnosis Specimen A. SKIN, right chin: BASAL CELL CARCINOMA, NODULAR TYPE (C44.319) 1:03 PM [facility] DERMATOPATHOLOGY LABORATORY at [address] [facility] Clinical History R/O BCC 1:03 PM [facility] DERMATOPATHOLOGY LABORATORY Gross Description Specimen A: Received is one formalin filled container labeled with the patient's name and designated right chin. The specimen consists of a shave biopsy measuring 3x2x1 mm. Jar 0. 1:03 PM [facility] DERMATOPATHOLOGY LABORATORY Microscopic Description Specimen A. SKIN, right chin: Within the dermis there are aggregates of basaloid cells with a high nuclear to cytoplasmic ratio and peripheral palisading. 1:03 PM [facility] DERMATOPATHOLOGY LABORATORY Disclaimer An external and internal positive and negative controls are appropriate for the histochemical, immunohistochemical and immunofluorescence stain(s) in this case (if any), except where stated explicitly. The performance characteristics of the stain(s) cited in this report were developed and its performance characteristic determined by the Dermatopathology Laboratory at [facility], directed by Dr. Elysia Reyes. These tests need not be, and therefore are not, approved by the [place] Food and Drug Administration. The tests are used for clinical purposes. Billing Codes Specimen Charges Stain Charges 65727 1 1:03 PM [facility] DERMATOPATHOLOGY LABORATORY Embedded Images 1:03 PM [facility] DERMATOPATHOLOGY LABORATORY Pathology/Cytolog y TISSUE SPECIMEN FROM SKIN / Unknown 03/10/2024 03/11/2024 3:25 PM [facility] us Kristofer Saenz MD LAB - PATHOLOGY/CYTOLOGY ORDERAB LES Final Result DERMATOPATHOLOGY LABORATORY [facility] - Department of Dermatology [address] [phone] documented in this encounter Visit Diagnoses Not on filedocumented in this encounter Care Teams Credentialing Specialist Relationship Specialty Start Date End Date Cory Cooper MD [address] [phone] PCP - General 08/01/21 documented as of this encounter
--- OUTSIDE RECORDS SUMMARY | 2024-11-11 14:03 | XMS_ITS | Patient Health Record ---
Author Organization [facility] As [employer] Address [address] [facility] [address] [place] [address] Care Team Providers Care Termite Control Technician Name Role Phone Kenneth VERDUGO, Cory Primary Care Provider Anabelle Malagon Unavailable [phone] Maribel Bustillo Unavailable [phone] Annie Suresh Unavailable [phone] Valeriano Torres Unavailable [phone] Allergies Allergen (clinical drug ingredient) Drug/Non Drug Allergy documented on EMR Reaction Allergy Type Onset Date Status vilazodone Viibryd diarrhea Drug Allergy Active Substance with penicillin structure and antibacterial mechanism of action (substance) Penicillins Unknown Drug Allergy 07/23/2023 Active sertraline Sertraline diarrhea Drug Allergy Activ e Results Component Value Reference Range Flag Notes UDT Reviewed date:04/22/2024 10:34:58 AM Interpretation: Performing Lab: Notes/Report: THC n 0 - 50 ng/ml Cocaine n 0 - 300 ng/ml Amphetamine n 0 - 1000 ng/ml Buprenorphine (BUP) n 0 - 10 ng/ml Secobarbital (Bar) n 0 - 300 ng/ml Oxazepam (BZO) p 0 - 300 ng/ml 8-wbkzvpfzap-6,1-hsktwnth-2, 3-diphenyl pyrrolidine (EDDP) n 0 - 300 ng/ml Methamphetamine (MET) n 0 - 1000 ng/ml Methylenedioxymethamphetamine (MDMA) n 0 - 500 ng /ml Morphine (MOP 300/RDM0792) n 0 - 300 ng/ml Methadone (MTD) n 0 - 300 ng/ml Phencyclidine (PCP) n 0 - 25 ng/ml Nortriptyline (TCA) n 0 - 1000 ng/ml Oxycodone n 0 - 300 ng/ml x n 0 - 300 ng/ml UDT Reviewed date:07/02/2024 01:35:01 PM Interpretation: Performing Lab: Notes/Report: THC n 0 - 50 ng/ml Cocaine n 0 - 300 ng/ml Amphetamine n 0 - 1000 ng/ml Buprenorphine (BUP) n 0 - 10 ng/ml Secobarbital (Bar) n 0 - 300 ng/ml Oxazepam (BZO) p 0 - 300 ng/ml 8-rjvumifxrg-3,3-bvmcqlua-7, 3-diphenyl pyrrolidine (EDDP) n 0 - 300 ng/ml Methamphetamine (MET) n 0 - 1000 ng/ml Methylenedioxymethamphetamine (MDMA) n 0 - 500 ng /ml Morphine (MOP 300/AZY9282) n 0 - 300 ng/ml Methadone (MTD) n 0 - 300 ng/ml Phencyclidine (PCP) n 0 - 25 ng/ml Nortriptyline (TCA) n 0 - 1000 ng/ml Oxycodone n 0 - 300 ng/ml x n 0 - 300 ng/ml Benzodiazepines Reviewed date:05/01/2024 02:35:35 PM Interpretation: Performing Lab:[address] [place] [address], [address] [place] [address], Director - [id number] Notes/Report: An exception occurred while processing this report and so it has incomplete data. Please contact [employer] for assistance. Medicated Consistent Medicated Consistent [...] 20.0 ng/mL POSITIVE PDF Report CE_OUT_[email or web address] N_[email or web address] Reason For Referral No Information Medications Medication SIG (Take, Route, Frequency, Duration) Notes Start Date End Date Status OLANZapine 10 MG Tablet 1 tablet Orally Once a day; Duration: 90 days at bedtime 10/22/2024 Active traZODone HCl 50 MG Tablet 1 tablet at b edtime as needed Orally Once a day; Duration: 30 days 10/29/2024 Active hydrOXYzine HCl 50 MG Tablet 1 [...] unspecified formulation Unknown 12/11/2022 A dministered Novel Edsduddat-P6X2-43, preservative free Unknown 03/04/2013 Administered Novel Puzekqduk-X4A9-46, preservative free Unknown 01/01/2017 Administered Novel Icowrirpb-R4T9-28, preservative free Unknown 12/08/2018 Administered Novel Idkwopnka-N8J0-39, preservative free Unknown 11/11/2019 Administered Pfizer Biontech [...] Medical? Yes Do you have power of finance attorney for Medical ? Yes Advance Directive Refused [...] CodeDo you have a medical power of finance attorney?: YesPublic Health and TravelHave you been [...] CodeDo you have a medical power of finance attorney?: YesPublic Health and TravelHave you been [...] CodeDo you have a medical power of finance attorney?: YesPublic Health and TravelHave you been [...] Risk Notes Problem Schizoaffective disorder, bipolar type (12429260) Schizoaffective disorder, bipolar type (F25.0) Active confirmed stable on current medications . No paranoia, hallucinati ons, delusional behavior noted or reported Problem Generalized anxiety disorder (72988079) Generalized anxiety disorder (F41.1) Active confirmed Stable on lower dose of alprazolam, continue 0.25mg TID PRN Problem Primary insomnia (7275987) Primary insomnia (F51.01) Active confirmed well controlled, continue current therapy Problem Long-term current use of drug therapy (912461967) Other group home (current) drug therapy (Z79.899) Active confirmed Problem Elevated blood-pressure reading without diagnosis of hypertension (104438320) Elevated blood pressure reading (R03.0) Active confirmed Problem Memory impairment (986421735) Memory impairment (R41.3) Active confirmed Problem Amnesia (48124196) Memory loss or impairment (R41.3) Active confirmed [...] N/A Encounters Encounter Location Date Provider Diagnosis [facility] [address] [place] [address] 11/13/2023 Maribelarabella Yap Vitor Schizoaffective disorder, bipolar type F25.0 and Generalized anxiety disorder F41.1 [facility] [address] [place] [address] 12/05/2023 Annie Thery Schizoaffective disorder, bipolar type F25.0 ; Generalized anxiety disorder F41.1 ; Primary insomnia F51.01 and Memory loss or impairment R41.3 [facility] [address] [place] [address] 12/11/2023 Maribelarabella Yap Vitor Schizoaffective disorder, bipolar type F25.0 and Generalized anxiety disorder F41.1 [facility] [address] [place] [address] 01/06/2024 Maribelarabella Yap Vitor Generalized anxiety disorder F41.1 and Schizoaffective disorder, bipolar type F25.0 [facility] [address] [place] [address] 01/06/2024 Annie Thery Schizoaffective disorder, bipolar type F25.0 ; Generalized anxiety disorder F41.1 ; Primary insomnia F51.01 ; Memory loss or impairment R41.3 and Elevated blood pressure reading R03.0 [facility] [address] [place] [address] 01/08/2024 Anabelle Kurilla Schizoaffective disorder, bipolar type F25.0 ; Generalized anxiety disorder F41.1 and Primary insomnia F51.01 [facility] [address] [place] [address] 01/28/2024 Anabelle Kurilla Schizoaffective disorder, bipolar type F25.0 ; Generalized anxiety disorder F41.1 and Primary insomnia F51.01 [facility] [address] [place] [address] 02/03/2024 Maribel Yap Vitor Schizoaffective disorder, bipolar type F25.0 and Generalized anxiety disorder F41.1 [facility] [address] [place] [address] 02/13/2024 Anabelle Kurilla Schizoaffective disorder, bipolar type F25.0 ; Generalized anxiety disorder F41.1 and Primary insomnia F51.[address] [facility] [address] [place] [address] 02/27/2024 Valeriano Muroelvia Schizoaffective disorder, bipolar type F25.0 and Generalized anxiety disorder F41.1 [facility] [address] [place] [address] 03/24/2024 Maribel Adler Generalized anxiety disorder F41.1 and Schizoaffective disorder, bipolar type F25.0 [facility] [address] [place] [address] 03/27/2024 Anabelle Kurilla Schizoaffective disorder, bipolar type F25.0 ; Generalized anxiety disorder F41.1 ; Primary insomnia F51.01 and Memory impairment R41.3 [facility] [address] [place] [address] 04/09/2024 Maribel Adler Generalized anxiety disorder F41.1 and Schizoaffective disorder, bipolar type F25.0 [facility] [address] [place] [address] 04/22/2024 Anabelle Kurilla Schizoaffective disorder, bipolar type F25.0 ; Generalized anxiety disorder F41.1 and Primary insomnia F51.01 [facility] [address] [place] [address] 04/30/2024 Anabelle Kurilla Schizoaffective disorder, bipolar type F25.0 ; Generalized anxiety disorder F41.1 and Primary insomnia F51.01 [facility] [address] [place] [address] 05/07/2024 Maribel Adler Schizoaffective disorder, bipolar type F25.0 and Generalized anxiety disorder F41.1 [facility] [address] [place] [address] 05/21/2024 Anabelle Kurilla Schizoaffective disorder, bipolar type F25.0 ; Generalized anxiety disorder F41.1 ; Primary insomnia F51.01 ; Encounter for screening for depression Z13.31 and Encounter for screening for cardiovascular disorders Z13.6 [facility] [address] [place] [address] 06/05/2024 Anabelle Kurilla Encounter for screen ing for depression Z13.31 ; Schizoaffective disorder, bipolar type F25.0 ; Generalized anxiety disorder F41.1 ; Primary insomnia F51.01 and Encounter for screening for cardiovascular disorders Z13.6 [place] [address] [place] [address] 06/11/2024 Maribelarabella Adler Schizoaffective disorder, bipolar type F25.0 and Generalized anxiety disorder F41.1 [place] [address] [place] [address] 07/02/2024 Maribel Adler Schizoaffective disorder, bipolar type F25.0 ; Generalized anxiety disorder F41.1 and Encounter for screening for depression Z13.31 [place] [address] [place] [address] 07/02/2024 Anabelle Kurilla Generalized anxiety disorder F41.1 ; Primary insomnia F51.01 ; Encounter for screening for depression Z13.31 ; Schizoaffective disorder, bipolar type F25.0 and Encounter for screening for cardiovascular disorders Z13.6 [place] [address] [place] [address] 07/14/2024 Anabelle Kurilla Generalized anxiety disorder F41.1 ; Other intermediate frame tender (current) drug therapy Z79.899 ; Primary insomnia F51.01 ; Encounter for screening for cardiovascular disorders Z13.6 ; Schizoaffective disorder, bipolar type F25.0 and Encounter for screening for depression Z13.31 [place] [address] [place] [address] 09/17/2024 Anabelle Kurilla Generalized anxiety disorder F41.1 ; Primary insomnia F51.01 and Schizoaffective disorder, bipolar type F25.0 [place] [address] [place] [address] 10/02/2024 Maribelarabella Yap Vitor Schizoaffective disorder, bipolar type F25.0 and Generalized anxiety disorder F41.1 [place] [address] [place] [address] 10/22/2024 Anabelle Kurilla Generalized anxiety disorder F41.1 ; Primary insomnia F51.01 and Schizoaffective disorder, bipolar type F25.0 [facility], [facility] [address] [place] [address] 11/13/2023 Annie Suresh [facility], [facility] [address] [place] [address] 12/06/2023 Annie Suresh Generalized anxiety disorder F41.1 [facility], [facility] [address] [place] [address] 01/24/2024 Annie Suresh Generalized anxiety disorder F41.1 [facility], [facility] [address] [place] [address] 03/25/2024 Anabelle Warren [facility], [facility] [address] [place] [address] 04/20/2024 Anabelle Warren [facility], [facility] [address] [place] [address] 09/07/2024 Anabelle Warren [facility], [facility] [address] [place] [address] 10/29/2024 Anabelle Warren [facility], [facility] [address] [place] [address] 01/23/2024 Annie Suresh [facility], [facility] [address] [place] [address] 03/24/2024 Anabelle Warren Schizoaffective disorder, bipolar type F25.0 and Generalized anxiety disorder F41.1 [facility], [facility] [address] [place] [address] 03/27/2024 Anabelle Warren [facility], [facility] [address] [place] [address] 03/28/2024 Anabelle Warren [facility], [facility] [address] [place] [address] 03/31/2024 Anabelle Warren [facility], [facility] [address] [place] [address] 03/31/2024 Anabelle Warren [facility], [facility] [address] [place] [address] 03/31/2024 Anabelle Warren [facility], [facility] [address] [place] [address] 04/10/2024 Anabelle Warren [facility], [facility] [address] [place] [address] 04/10/2024 Anabelle Warren [facility], [facility] [address] [place] [address] 04/10/2024 Anabelle Warren [facility], [facility] [address] [place] [address] 04/16/2024 Anabelle Warren [facility], [facility] [address] [place] [address] 04/16/2024 Anabelle Warren [facility], [facility] [address] [place] [address] 04/23/2024 Anabelle Warren [facility], [facility] [address] [place] [address] 04/26/2024 Anabelle Warren [facility], [facility] [address] [place] [address] 04/27/2024 Anabelle Warren [facility], [facility] [address] [place] [address] 04/27/2024 Anabelle Warren [facility], [facility] [address] [place] [address] 05/05/2024 Anabelle Warren [facility], [facility] [address] [place] [address] 05/05/2024 Anabelle Warren [facility], [facility] [address] [place] [address] 05/13/2024 Anabelle Warren [facility], [facility] [address] [place] [address] 05/13/2024 Anabelle Warren [facility], [facility] [address] [place] [address] 05/13/2024 Anabelle Warren [facility], [facility] [address] [place] [address] 05/13/2024 Anabelle Warren [facility], [facility] [address] [place] [address] 05/13/2024 Anabelle Warren [facility], [facility] [address] [place] [address] 05/13/2024 Anabelle Warren [facility], [facility] [address] [place] [address] 05/13/2024 Anabelle Warren [facility], [facility] [address] [place] [address] 05/13/2024 Anabelle Warren [facility], [facility] [address] [place] [address] 05/13/2024 Anabelle Warren [facility], [facility] [address] [place] [address] 05/15/2024 Anabelle Warren [facility], [facility] [address] [place] [address] 05/21/2024 Anabelle Warren [facility], [facility] [address] [place] [address] 05/29/2024 Anabelle Warren [facility], [facility] [address] [place] [address] 05/29/2024 Anabelle Warren [facility], [facility] [address] [place] [address] 05/29/2024 Anabelle Warren [facility], [facility] [address] [place] [address] 05/29/2024 Anabelle Warren [facility], [facility] [address] [place] [address] 05/29/2024 Anabelle Warren Schizoaffective disorder, bipolar type F25.0 [facility], [facility] [address] [place] [address] 05/29/2024 Anabelle Warren [facility], [facility] [address] [place] [address] 05/29/2024 Anabelle Warren [facility], [facility] [address] [place] [address] 06/03/2024 Anabelle Warren [facility], [facility] [address] [place] [address] 06/03/2024 Anabelle Warren [facility], [facility] [address] [place] [address] 06/03/2024 Anabelle Warren [facility], [facility] [address] [place] [address] 06/03/2024 Anabelle Warren [facility], [facility] [address] [place] [address] 06/03/2024 Anabelle Warren [facility], [facility] [address] [place] [address] 06/04/2024 Anabelle Warren [facility], [facility] [address] [place] [address] 06/04/2024 Anabelle Warren [facility], [facility] [address] [place] [address] 06/04/2024 Anabelle Warren [facility], [facility] [address] [place] [address] 07/01/2024 Anabelle Warren [facility], [facility] [address] [place] [address] 07/16/2024 Anabelle Warren [facility], [facility] [address] [place] [address] 07/16/2024 Anabelle Warren [facility], [facility] [address] [place] [address] 07/21/2024 Anabelle Warren [facility], [facility] [address] [place] [address] 07/21/2024 Anabelle Warren [facility], [facility] [address] [place] [address] 07/24/2024 Anabelle Warren [facility], [facility] [address] [place] [address] 07/25/2024 Anabelle Warren [facility], [facility] [address] [place] [address] 07/28/2024 Anabelle Warren [facility], [facility] [address] [place] [address] 07/28/2024 Anabelle Warren [facility], [facility] [address] [place] [address] 07/28/2024 Anabelle Warren [facility], [facility] [address] [place] [address] 07/28/2024 Anabelle Warren [facility], [facility] [address] [place] [address] 07/28/2024 Anabelle Kelvin [facility], [facility] [address] [facility] [address] [place] [address] 07/28/2024 Valeriano Torres Generalized anxiety disorder F41.1 [place] [address] [facility] [address] [place] [address] 07/28/2024 Anabelle Kelvin Generalized anxiety disorder F41.1 [place] [address] [facility] [address] [place] [address] 07/29/2024 Anabelle Kelvin [place] [address] [facility] [address] [place] [address] 07/29/2024 Anabelle Kelvin [place] [address] [facility] [address] [address] 10/02/2024 Anabelle Warren Assessments Encounter Date Diagnosis [...] as needed for anxiety http_s://www.nam i.org/About-Ment al-Illness/Menta p-Ugliod-Qdljgpn ons http_s://psychce ntral.com/depres christie/the-cogniti ks-etvfefkn-ia-d epression#treatm ents http__s://www.ni .nih.gov/healt h/topics/mental- health-medicatio ns [...] as needed for anxiety http_s://www.nam i.org/About-Ment al-Illness/Menta h-Grinzb-Qnjihht ons http_s://psychce ntral.com/depralbert christie/the-cogniti bh-gfwvcubj-up-d epression#treatm ents http__s://www.ni mh.nih.gov/healt h/topics/mental- health-medicatio ns [...] as needed for anxiety http_s://www.nam i.org/About-Ment al-Illness/Menta d-Jnfumt-Kntjhfb ons http_s://FreeAgent/depres christie/the-cogniti lu-pgeplule-ah-d epression#treatm ents http__s://www.ni .nih.gov/healt h/topics/mental- health-medicatio ns [...] as needed for anxiety http_s://www.nam i.org/About-Ment al-Illness/Menta w-Mmjsdn-Aknrexu ons http_s://psychce Glipho.Systancia/depres christie/the-cogniti zg-bmwiguqr-us-d epression#treatm ents http__s://www.ni .nih.gov/healt h/topics/mental- health-medicatio ns [...] Primary insomnia (ICD-10 - F51.01) 07/14/2024 Other intermediate frame tender (current) drug therapy (ICD-10 - Z79.899) 07/02/2024 [...] as needed for anxiety http_s://www.nam i.org/About-Ment al-Illness/Menta p-Qhyrzr-Tvimegq ons http_s://psychce Glipho.com/depres christie/the-cogniti fe-fcvucogc-rr-d epression#treatm ents http__s://www.ni mh.nih.gov/healt h/topics/mental- health-medicatio ns [...] in 5D painting as a creative outlet. 12/05/2023 Primary insomnia (ICD-10 - F51.01) SLUMS= [...] as needed for anxiety http_s://www.nam i.org/About-Ment al-Illness/Menta v-Biwdhy-Qyvxuzr ons http_s://psychce ntrCherry.com/depralbert christie/the-cogniti yi-vsmkbarq-ju-d epression#treatm ents http__s://www.ni mh.nih.gov/healt h/topics/mental- health-medicatio ns [...] as needed for anxiety http_s://www.nam i.org/About-Ment al-Illness/Menta m-Cdkzwm-Eghxplz ons http_s://psychce Glipho.Systancia/depres christie/the-cogniti nn-xlxfxazu-qa-d epression#treatm ents http__s://www.ni .nih.gov/healt h/topics/mental- health-medicatio ns [...] 06/05/2024 Generalized anxiety disorder (ICD-10 - F41.1) 12/05/2023 Memory loss or impairment (ICD-10 - [...] as needed for anxiety http_s://www.nam i.org/About-Ment al-Illness/Menta t-Fndjqr-Rqsztjj ons http_s://psychce Glipho.Systancia/depres christie/the-cogniti at-ysamwtow-uf-d epression#treatm ents http__s://www.ni .nih.gov/healt h/topics/mental- health-medicatio ns [...] as needed for anxiety http_s://www.nam i.org/About-Ment al-Illness/Menta u-Evszww-Ltgxnse ons http_s://psychce Glipho.Systancia/depralbert christie/the-cogniti nx-bcjlbivp-hm-d epression#treatm ents http__s://www.ni .nih.gov/healt h/topics/mental- health-medicatio ns [...] for screening for depression (ICD-10 - Z13.31) 12/05/2023 Other referral to the local chapter [...] as needed for anxiety http_s://www.nam i.org/About-Ment al-Illness/Menta j-Rpaxul-Rksamis ons http_s://FreeAgent/depres christie/the-cogniti th-cfizyekc-iq-d epression#treatm ents http__s://www.ni .nih.gov/healt h/topics/mental- health-medicatio ns [...] from other providers. Schedule for MCI testing, [facility] 20 in 04/09/2024 Other Family and Marital [...] management - Patient to be taken to [facility] or [facility] Emergency Department for psychiatric evaluation and admission [...] noticeable tremors following a recent hospitalization at [facility] and medication changes. Patient demonstrates an acute [...] PM, [address], [address], [place], [address], Provider Name:Maribel Cardenas [place], 12/21/2024 01:00:00 PM, [address], [address], [place], [address], Insurance Providers Payer Name Payer Address Payer Phone Subscriber Number Group Number Insured Name Patient Relationship to Insured Coverage Start Date Coverage End Date Aetna Medicare Replacemen t/Advantag e - Hmo [address] [place] [address] [id number] SHARON NOLAN Self - patient is the insured Medical (General) History Medical History History ICD Code Problems: Family disruption Generalized anxiety disorder Long-term drug therapy Primary insomnia Recurrent major depressive episodes, mil d Schizoaffective disorder, bipolar type , Surgical History Surgery Date(Month/Year) Cataract surgery (85043) Tonsilectomy/adenoids Sinus surgery Hysterectomy (69366) Appendectomy (00894) Cosmetic surgery Other Breast surgery (17088) 07/27/2021 Hospitalization History Reason Date(Month/Year) [facility] August 2024- paranoia, depression- rec eived 9 treatments of ECT [facility] June 2024
--- OUTSIDE RECORDS SUMMARY | 2024-11-11 14:03 | XMS_ITS | Clinical Summary ---
Author Organization [facility] Address [address] [place] [address] Care Team Providers Care Railroad Construction Director Name Role Phone Eloise Bridges MD Primary Care Provider [phone] Allergies Active Allergy Reactions Criticality Noted Date [...] Description 09/03/2024 7:49 AM CDT Anesthesia Event [facility] [address] [place] [address] Toni Pagan MD 09/03/2024 5:38 AM CDT - 09/03/2024 11:59 PM CDT Hospital Encounter [facility] [address] [place] [address] Bipolar I disorder, current or most recent episode depressed, with psychotic features (HCC) (Primary Dx) Discharge Disposition: Discharge to home or self care 08/27/2024 9:41 AM CDT Anesthesia Event [facility] [address] [place] [address] Brian Vallejo MD 08/27/2024 8:40 AM CDT - 08/27/2024 11:59 PM CDT Hospital Encounter [address] [address] Brian Vallejo MD Bipolar I disorder, current or most recent episode depressed, with psychotic features (HCC) (Primary Dx) Discharge Disposition: Discharge to home or self care 08/21/2024 8:00 AM CDT Anesthesia Event [address] [address] Nav Ervin III, MD PhD 08/19/2024 9:23 AM CDT Anesthesia Event [address] [address] Hai Estrella MD Williams, Michela Marie 08/17/2024 8:31 AM CDT Anesthesia Event [address] [address] Abebe Kumar MD 08/14/2024 8:04 AM CDT Anesthesia Event [address] [address] Toni Pagan MD Shelton, Christian Paul 08/12/2024 9:07 AM CDT Anesthesia Event [address] [address] Ruth Ann Cantu MD 08/04/2024 5:50 PM CDT - 08/21/2024 1:30 PM CDT Hospital Encounter [address] [address] Nadeem Burrows MD Brown, Elbert Hutchison MD PhD Hossein, MD Mandy Tucker, MD Mj Fitzgerald, MD Gilmer Damico, Sonya [...] Tobacco: Never Tobacco Cessation:Counseling Given: Not Answered [facility] Utilities Answer Date Recorded In the past 12 months has e [employer], oil, or water [employer] threatened to shut off services in your [...] Never 08/06/2024 How often do you attend orthodox or mormon serv ices? Never 08/06/2024 Do you belong to any clubs o r organizations such as orthodox groups, unions, fraternal or athletic groups, or [...] and heating? Not hard at all 08/06/2024 [facility] Occupat ional Health - Occupational Stress [...] place to sleep or slept in a detention (including now)? No 08/01/2022 Housing Stability Vital Sign Answer Jonah e Recorded In the last 12 months, was t here a time when you were not able to pay the mortgage or rent on time? No 08/06/2024 In the past 12 months, how m any times have you moved where you were living? 0 08/06/2024 At any time in the past 12 m [facility], were you homeless or living in a detention (including now)? 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 Gender Identity Not on file Sexual [...] 1968 Well Visit 65+ 08/09/2015 Covid-19 Vaccine (2024-2 6 season) 2024 12/11/2021, 11/30/2021, 06/17/2021, Additional history exists Influenza Vaccine (#1) 2024 , 12/11/2021, 11/30/2021, Additional history exists Fall Risk Assessment 09/03/2025 09/03/2024 DTaP/Tdap/Td Vaccine (3 - Td or Tdap) 01/03/2031 01/03/2021, 03/04/2012 Zoster Vaccine Completed 02/01/2020, 02/01, 03/04/2015 Pneumococcal vaccine 65+ Completed 023, 12/19/2018, 12/24/2017, Additional history exists Hepatitis C Screening Completed 08/06/2024 Procedures Procedure Name Priority Date/Time Associated Diagnosis Comments HEPATITIS C ANTIBODY Routine 08/06/2024 7:33 AM CDT from Last 3 Months or Most Recently Relevant to Health Maintenance Results * Hepatitis C antibody Blood (08/06/2024 7:33 AM CDT) Hep C Ab Nonreactive Nonreactive Comment:Antibodies to HCV no t detected. Does NOT exclude the possibility of recent exposure to HCV. Current interpretive data was last revised on 21 Blood 08/06/2024 7:33 AM CDT 08/06/2024 8:03 AM CDT Sohan Galvan MD LAB MICROBIOLOGY - NERSD ORDERABLES Final Result [facility] [place] [address] from Last 3 Months or Most Recently Relevant to Health Maintenance Insurance MEDICARE RAILROAD [facility] PPO [facility] [address] SENIOR SUPPLEMENT AETNA AETNA MEDICARE GOLD AETNA MEDICARE GOLD Advance Directives For more information, please contact: [phone] Documents on File Type Date Recorded Patient Upper Trimmer Expl anation ADVANCE DIRECTIVE 09/03/2024 11:32 AM POWER OF PRN PHYSICAL THERAPIST-MEDICAL * Full Code (Latest Code Status on [...] 5:20 AM 08/21/2024 5:09 AM Care Teams Railroad Construction Director Relationship Specialty Start Date End Date Eloise Bridges MD [address] [address] PCP - General 08/29/17
--- OUTSIDE RECORDS SUMMARY | 2024-11-11 14:03 | XMS_ITS | Encounter Summary ---
Author Organization [facility] Address [address] [place] [address] Care Team Providers Care Dish Up Person Name Role Phone Cory Cooper MD Primary Care Provider [phone] Encounter Details Date Type Department Care Team (Late st Contact Info) Description 03/15/[address] [facility] DermPath Lab [address] [place] [address] [place] [address] [place] [address] Social History Tobacco Use Types Packs/Day Years [...] Comments DERMATOPATHOLOGY Routine 03/13/2022 12:0 0 AM SHIRRING TENDER documented in this encounter Results * DERMATOPATHOLOGY (03/13/2022 12:00 AM SHIRRING TENDER) Case Report Dermatopathology Report Case: [id number] Authorizing Provider: Kristofer Saenz MD Collected: 03/13/2022 12:00 AM Ordering Location: [facility] DermPath Lab Received: 03/15/2022 07:16 AM Pathologist: Karolina Desir MD Specimen: Skin, post neck 6:20 PM SHIRRING TENDER DERMATOPATHOLOGY LABORATORY Final Diagnosis Specimen A. SKIN, post neck: SEBORRHEIC KERATOSIS (L82.1) PRESENT AT MARGIN 3 6:20 PM [facility] DERMATOPATHOLOGY LABORATORY at [address] SHIRRING TENDER Clinical History R/O BCC. Please Check Margins. 3 6:20 PM [facility] DERMATOPATHOLOGY LABORATORY Gross Description Specimen A: Received is one formalin filled container labeled with the patient's name and designated post neck. The specimen consists of a shave biopsy measuring 4u6a6ph and it is inked. Jar 0. 3 6:20 PM [facility] DERMATOPATHOLOGY LABORATORY Microscopic Description Specimen A. SKIN, post neck: Sections show an acanthotic lesion composed of relatively uniform keratinocytes. There is hyperkeratosis and pseudo horn cysts formation. This lesion is present at the margin of the specimen. 3 6:20 PM [facility] DERMATOPATHOLOGY LABORATORY Disclaimer An external and internal positive and negative controls are appropriate for the histochemical, immunohistochemical and immunofluorescence stain(s) in this case (if any), except where stated explicitly. The performance characteristics of the stain(s) cited in this report were developed and its performance characteristic determined by the Dermatopathology Laboratory at [facility], directed by Dr. Elysia Reyes. These tests need not be, and therefore are not, approved by the [place] Food and Drug Administration. The tests are used for clinical purposes. Billing Codes Specimen Charges Stain Charges 80038 1 3 6:20 PM [facility] DERMATOPATHOLOGY LABORATORY Embedded Images 3 6:20 PM [facility] DERMATOPATHOLOGY LABORATORY Pathology/Cytolog y TISSUE SPECIMEN FROM SKIN / Unknown 03/13/2022 03/15/2022 7:16 AM [facility] us Kristofer Saenz MD LAB - PATHOLOGY/CYTOLOGY ORDERAB LES Final Result DERMATOPATHOLOGY LABORATORY [facility] - Department of Dermatology [address] [phone] documented in this encounter Visit Diagnoses Not on filedocumented in this encounter Care Teams Dish Up Person Relationship Specialty Start Date End Date Cory Cooper MD [address] [place] [address] PCP - General 08/01/21 documented as of this encounter
--- OUTSIDE RECORDS SUMMARY | 2024-11-11 14:03 | XMS_ITS | Clinical Summary ---
Author Organization [facility] Address [address] [place] [address] Phone Care Team Providers Care Board Of Directors Name Role Phone Samira Singh Gael BORDEN Primary Care Provider [phone] Huy Jones DO Unavailable [phone] Allergies Active Allergy Reactions Criticality Noted [...] Cologuard 08/09/1995 Immunochemical Fecal Occult Blood 08/09/1995 Influenza Immunization (#1) 2024 09/0 11/2019, 12/08/2018, 12/06/2018, Additional history exists SARS-COV-2 Immunization (2024- season) 2024 05/22/2020, 04/30/2020 Respiratory Syncytial Virus (RSV) Immunization [...] MEDICARE RAILROAD AETNA SENIOR SUPPLEMENTAL Care Teams Board Of Directors Relationship Specialty Start Date End Date Samira Singh APRN PCP - General Advanced Practice Nurse 01/16/17 Huy Jones DO Consulting Physician Gastroenterology 06/26/17
--- OUTSIDE RECORDS SUMMARY | 2024-11-11 14:03 | XMS_ITS | Patient Health Record ---
Author Organization [facility] Address [address] [place] [address] Care Team Providers Care Resume Writer Name Role Phone Uyen Bhatti Primary Care Provider Ericka Mayorga Unavailable [phone] Kate Hopper Unavailable [phone] Allergies Allergen (clinical drug ingredient) Drug/Non Drug Allergy documented on EMR Reaction Allergy Type Onset Date Status Penicillin Unknown Drug Allergy Active Results Component Value Reference Range Notes CBC With Differential/Platel et* Reviewed date:07/14/2024 11:17:03 AM Interpretation:Normal Performing Lab:[facility], [address] [facility], Phone - [phone], Director - Ricphyllisi Notes/Report: WBC 6.1 3.4-10.8 [...] Panel* Reviewed date:07/14/2024 11:17:03 AM Interpretation:Normal Performing Lab:[facility], [address] [facility], Phone - [phone], Director - [facility] Notes/Report: Glucose 89 70-99 mg/dL [...] 2879) Reviewed date:07/14/2024 11:17:04 AM Interpretation:Normal Performing Lab:[facility], [address] [facility], Phone - [phone], Director - [facility] Notes/Report: QuantiFERON Incubation Incubation performed. [...] work (ex. 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 Stress is when someone feels tense, nervous, anxious, or can\t sleep at night because their mind is troubled Very much In the past year have you sp ent more than 2 nights in a row in a snf, jail, penitentiary center, or juvenile correctional facility? No Are [...] Status Risk Notes Problem Bipolar 1 disorder (970773084) Bipolar 1 disorder (F31.9) Active confirmed Problem Overweight (881758984) Over weight (E66.3) Active confirmed Vital Signs Heart Rate 92 /min 07/09/2024 Temperature 98.9 degrees Fahrenheit 07/09/2024 Respiratory Rate 16 /min 07/09/2024 Oximetry 98 % 07/09/2024 Blood pressure diastolic 68 mm Hg 07/09/2024 Height 60 in 07/09/2024 Blood pressure systolic 104 mm Hg 07/09/2024 Weight 128.8 lbs 07/09/2024 BMI 25.15 kg/m2 07/09/2024 Encounters Encounter Location Date Provider Diagnosis [facility] [address] [place] [address] 07/09/2024 Uyen Bhatti Routine general medical examination at a health care facility Z00.00 and Over weight E66.3 [facility] [address] [place] [address] 07/09/2024 Kate Hopper Bipolar 1 disorder F31.9 [...] - E66.3) 07/09/2024 Other Clinician met w [facility] client to assess needs for residential services. Clinician gathered information regarding historical presentation of mental health and substance use symptoms including withdrawal, HIV Risk assessment, psychiatric hospitalization history and presenting concern. Clinician conducted PHQ9 and CSSRS assessments as well as social drivers of health screening for the purposes of identifying additional service needs. 07/09/2024 Other Clinician met w [facility] client to assess needs for residential services. [...] Coverage End Date Aetna Medicare [address] [place] [address] [id number] Sharon Grady Self - patient is the insured 5 A[employer] Medicare LCSW [address] [place] [address] [id number] Sharon Grady Self - patient is the insured 5 Medical (General) History Medical History History ICD Code Bipolar Schizophrenia Surgical History Surgery Date(Month/Year) Hysterectomy section Hospitalization History Reason Date(Month/Year) [place], [place]
--- OUTSIDE RECORDS SUMMARY | 2024-11-11 14:03 | XMS_ITS | Encounter Summary ---
Author Organization [facility] Address [address] [place] [address] Care Team Providers Care Clinical Research Associate Name Role Phone Cory Cooper MD Primary Care Provider [phone] Encounter Details Date Type Department Care Team (Late st Contact Info) Description 04/06/2024 Lab Requisition [facility] Physician [facility] - DermPath Lab [address] [place] [phone] Kristofer Saenz MD [address] [place] [address] Social History Tobacco Use Types Packs/Day Years [...] Comments DERMATOPATHOLOGY Routine 04/06/2024 12:0 0 AM SUPERINTENDENT COLLIERY documented in this encounter Results * DERMATOPATHOLOGY (04/06/2024 12:00 AM SUPERINTENDENT COLLIERY) Case Report Dermatopathology Report Case: [id number] Authorizing Provider: Kristofer Saenz MD Collected: 04/06/2024 12:00 AM Ordering Location: [facility] Physician [facility] - Received: 04/06/2024 04:08 PM DermPath Lab Pathologist: Trudi Lam MD Specimen: Skin, right chin 4:52 PM [facility] DERMATOPATHOLOGY LABORATORY Final Diagnosis Specimen A. SKIN, right chin: DERMAL SCAR RESIDUAL BASAL CELL CARCINOMA NOT IDENTIFIED (L90.5) 4:52 PM [facility] DERMATOPATHOLOGY LABORATORY at [address] SUPERINTENDENT COLLIERY Clinical History BCC Bx proven [id number] 4:52 PM [facility] DERMATOPATHOLOGY LABORATORY Gross Description Specimen A: Received is one formalin filled container labeled with the patient's name and designated right chin. The specimen consists of a curettage and desiccation biopsy measuring 5x4x1 mm. Jar 0. 4:52 PM [facility] DERMATOPATHOLOGY LABORATORY Microscopic Description Specimen A. SKIN, right chin: There are fibroblasts and collagen bundles oriented parallel to the skin surface. There are elongated blood vessels, some of which are oriented perpendicular to the skin surface. No basal cell carcinoma is identified. 4:52 PM [facility] DERMATOPATHOLOGY LABORATORY Disclaimer An external and internal positive and negative controls are appropriate for the histochemical, immunohistochemical and immunofluorescence stain(s) in this case (if any), except where stated explicitly. The performance characteristics of the stain(s) cited in this report were developed and its performance characteristic determined by the Dermatopathology Laboratory at [facility], directed by Dr. Elysia Reyes. These tests need not be, and therefore are not, approved by the [place] Food and Drug Administration. The tests are used for clinical purposes. Billing Codes Specimen Charges Stain Charges 35028 1 4:52 PM [facility] DERMATOPATHOLOGY LABORATORY Embedded Images 4:52 PM [facility] DERMATOPATHOLOGY LABORATORY Pathology/Cytolog y TISSUE SPECIMEN FROM SKIN / Unknown 04/06/2024 04/06/2024 4:08 PM [facility] Kristofer Saenz MD LAB - PATHOLOGY/CYTOLOGY ORDERAB LES Final Result DERMATOPATHOLOGY LABORATORY [facility] - Department of Dermatology [address] [phone] documented in this encounter Visit Diagnoses Not on filedocumented in this encounter Care Teams Clinical Research Associate Relationship Specialty Start Date End Date Cory Cooper MD [address] [place] [address] PCP - General 08/01/21 documented as of this encounter
--- OUTSIDE RECORDS SUMMARY | 2024-11-11 14:03 | XMS_ITS | Clinical Summary ---
Author Organization [facility] Address [address] [place] [address] Care Team Providers Care Wood Heel Attacher Name Role Phone Cory Cooper MD Primary Care Provider [phone] Source Comments [facility],non-ssm rehab Affiliates and Associated Physician Practices is amultiple site organization consisting of ambulatory clinics and hospital sitesin [place], [place], [place] and [place]. This disclosure is being madepursuant to the Care Everywhere program and may not contain all information available regarding this patient. Last updated 17.[facility] Allergies Active Allergy Reactions Criticality Noted Date [...] 2000 ZOSTER VACCINE (1 of 2) 2000 DEPRESSION SCREENING 03/04/2024 MEDICARE AWV CALENDAR YEAR 2024 COVID-19 VACCINE (1 - 2023-2 5 season) 2024 INFLUENZA VACCINE (#1) 2024 12/12/2016 Respiratory [...] MEDICARE AETNA MEDICARE ADV AETNA Care Teams Wood Heel Attacher Relationship Specialty Start Date End Date Cory Cooper MD [address] [place] [address] PCP - General 08/01/21
== END 2024-11-11 13:21 | disposition home or self-care (01) ==
PROVIDERS: PCP Family Medicine; Visit Provider Family Medicine
DX: R94.6 Abnormal results of thyroid function studies (principal)
CPT/HCPCS: 78014; A9516

== ENCOUNTER 2025-02-15 08:01 | Outpatient (CLI) | payer MEDICARE, SELFPAY ==
[2025-02-15 08:36] LABS: Lithium 1.1 mmol/L (0.6-1.2)
== END 2025-02-15 08:02 | disposition home or self-care (01) ==
LOC: ANHLAB 08:03
PROVIDERS: PCP Family Medicine; Visit Provider Registered Nurse
DX: F25.0 Schizoaffective disorder, bipolar type (principal)
CPT/HCPCS: 36415; 80178